=== PATIENT | female | born 1960 | race Caucasian/White ===

== ENCOUNTER → 2016-04-19 | Outpatient (CLI) | payer BC ==
[~2016-04-19] MED LIST: *ANUSOI PR; /ADVA50050 INH; /CELE20CA; /CELE20CA OR; ACET65TA OR; ALBUTEROL HFA INH; ALPR0.5T3 PO; ALPR1TAB3 PO; AMBI10TA PO; ATOR1TAB19 PO; AVALIDE; AVAP300T PO; AVELOX PO; CALTRATE PO; CEFT500T PO; CELE20TA OR; CHLO25TA PO; COUM2.5T11 PO; COZA100T PO; DILA2TAB; DIPH2.5L PO; FLON0.05; HYDR-3716 PO; IRBE300T10 PO; LANS30CA PO; LASI20TA PO; LEVO25TA5 PO; LEVOTAB10 PO; LEXA1TAB2 PO; METF500T4; MIREIUD IU; MUCI600T34 PO; MUCINEX; MULTIVIT PO; NORV5TAB PO; NYST100024 TOP; NYSTPOW4 TOP; OXYC-299 PO; PERC5TAB6 PO; PRED10TA PO; PREV30CA6 PO; PRIL20CA OR; PROV90AE; TESS100C PO; THIA100TA PO; TOPA25TA10 PO; TRAZ10TA PO; VALA1TAB PO; VALT500T PO; VICODINES TAB; VICODINES TAB OR; VITAMIN B 12 PO; VITAMIN D PO; XANA1TAB2; XANA1TAB2 OR; XANA1TAB2 PO; XOPENEX INH; XYZASOL2 PO; ZOLP10TA2 PO; [UNRECOGNIZED DRUG - OTHER] OR; [UNRECOGNIZED DRUG - OTHER] PO
--- NOTE | 2016-04-24 01:32 | ECWPNPC ---
PATIENT NAME: REUBEN GARIBAY : 1960 GENDER: FEMALE VISIT DATE: 04/19/2016 DISCHARGE DATE: 04/19/16 1333 VISIT LOCKED DATE TIME: PHYSICIAN: EDWIN WELDON PHYSICIAN PAGER NO: [phone] RESOURCE: EDWIN WELDON REASON FOR APPOINTMENT 1. LOW BACK PAIN HISTORY OF PRESENT ILLNESS FALL RISK SCREENING: SCREENING :NO FALLS IN THE PAST YEAR 55 YEAR OLD FEMALE PATIENT WITH HISTORY OF CHRONIC LOW BACK PAIN. PATIENT DESCRIBES THE PAIN SHARP, TENDER, THROBBING, AND HAVING IT ALL THE TIME WITH A PAIN SCORE OF 8/10. PATIENT STATED THAT WITHIN THE LAST 6 WEEKS HER PAIN BECAME VERY SEVERE. MRS. GARIBAY STATES THAT SHE HAS PAIN IN THE LOWER BACK THAT RADIATES TO THE LEFT AND RIGHT HIP. CURRENTLY THE PATIENT IS USING NORCO AND SKELAXIN PRESCRIBED BY DR. TIPTON AND STATES THAT IT DOES HELP WITH PAIN MANAGEMENT. PATIENT RECEIVED INJECTION THERAPY ROUGHLY 20 YEARS AGO BUT HAS NOT HAD ANY INTERVENTIONS SINCE THEN. PATIENT HAS TRIED PHYSICAL THERAPY IN THE PAST WHICH DID AID IN PAIN RELIEF AT THAT TIME BUT HAS ONLY BEEN USING MEDICATION MANAGEMENT FOR THE PAST FEW YEARS FOR PAIN RELIEF. PATIENT DENIES UNEXPLAINABLE WEIGHT LOSS, FEVER, CHILLS, NEW CHANGES ON HER URINARY OR BOWEL CONTROL. PAIN SCREENING: PATIENT HAS A COMPLAINT OF ACUTE OR CHRONIC PAIN YES CURRENT MEDICATIONS TAKING VITAMIN B-12 1000 MCG TABLET 1 TAB ORALLY ONCE A DAY TAKING MULTIVITAMINS OTC TABLET 1 TABLET ORALLY TWICE A DAY TAKING VOLTAREN 1 % GEL DIRECTED TRANSDERMAL QID TAKING VITAMIN D 5000 UNIT TABLET 1 TAB ORALLY EVERY DAY TAKING LASIX 20 MG TABLET 1 TABLET BY MOUTH NEEDED TAKING ATORVASTATIN CALCIUM 10 MG TABLET 1 TABLET ORALLY ONCE A DAY TAKING LEVOTHYROXINE SODIUM 25 MCG TABLET 1 TABLET ORALLY ONCE A DAY TAKING FLONASE 50 MCG/ACT SUSPENSION 1 SPRAY IN EACH NOSTRIL NASALLY ONCE A DAY TAKING XYZAL 5 MG TABLET 1 TABLET IN THE EVENING ORALLY ONCE A DAY TAKING NYSTATIN POWDER [id number] UNIT/ML SUSPENSION 1 APPLICATION TO AFFECTED AREA UNDER BREAST AND GROIN TWICE A DAY TAKING TRAZODONE HCL 100 MG TABLET 1 TABLET AT BEDTIME ORALLY ONCE A DAY TAKING AVAPRO 300 MG TABLET 1 TABLET ORALLY ONCE A DAY TAKING DIPHENOXYLATE-ATROPINE 2.5-0.025 MG TABLET 1 TABLET NEEDED ORALLY FOUR TIMES A DAY TAKING XOPENEX 1.25 MG/3ML NEBULIZATION SOLUTION 3 ML INHALATION EVERY 4 HOURS NEEDED TAKING VENTOLIN HFA 90MCG) MCG/ACT AEROSOL SOLUTION 2 PUFFS.200METERED INHALATION. EVERY 4 HRS NEEDED TAKING PEAK FLOW METER .. DEVICE DIRECTED .. ONCE A DAY TAKING ADVAIR DISKUS 500-50 MCG/DOSE AEROSOL POWDER BREATH ACTIVATED 1 PUFF INHALATION TWICE A DAY TAKING CALTRATE 600+D 600-400 MG-UNIT TABLET 1 TABLET ORALLY TWICE A DAY TAKING CLOTRIMAZOLE-BETAMETHASONE 1-0.05 % CREAM 1 APPLICATION TO AFFECTED AREA EXTERNALLY TWICE A DAY NEEDED TAKING DIFLUCAN 150 MG TABLET 1 TABLET ORALLY DAILY NEEDED TAKING PREVACID 30 MG CAPSULE DELAYED RELEASE 1 CAPSULE BEFORE A MEAL ORALLY TWICE A DAY NEEDED TAKING VALTREX 1 GM TABLET 1 TABLET ORALLY TWICE A DAY NEEDED TAKING PATANOL 0.1 % SOLUTION 1 DROP INTO BOTH EYES OPHTHALMIC TWICE A DAY NEEDED TAKING AMOXICILLIN 500 MG CAPSULE 4 CAPSULE ORALLY ONE HOUR PRIOR TO DENTAL PROCEDURE TAKING XANAX 1 MG TABLET 1 TABLET ORALLY QD, MDD 1 TAKING NORCO 7.5-325 MG TABLET 1 TABLET NEEDED ORALLY BID PRN, MDD 2 TAKING SKELAXIN 800 MG TABLET 1 TABLET ORALLY BID PRN TAKING LEXAPRO 20 MG TABLET 1 TABLET ORALLY ONCE A DAY MEDICATION LIST REVIEWED AND RECONCILED WITH THE PATIENT PAST MEDICAL HISTORY ASTHMA, MODERATE PERSISTENT-08/20/2013 FEV1 2.7 L(100%)/RATIO 83%-[facility]//01/28/16 FEV1 2.5L(107), RATIO 93%-[facility]-10/2015 TST-LOW RISK-DUNLAP, 7 MINUTES ON AMADO PROTOCOL CONSISTENT WITH GOOD EXERCISE TOLERANCE HYPERLIPIDEMIA 2B BILATERAL KNEE OSTEOARTHRITIS ALLERGIC RHINITIS GERD LUMBAR DJD-L1-5 DIFFUSE BULGES, L2-4 MINIMAL CCS, GRADE 1 LITHESIS C L5 PARS DEFECT C L L% COMPRESSION IN NF BY 03/2016 MRI ANXIETY DISORDER INSOMNIA OBESITY, MORBID FATTY LIVER DISEASE C SMAL GB POLYP VS STONE BY 01/2016 US HYPERTENSION IRRITABLE BOWEL SYNDROME, DIARRHEA-TYPE BILATERAL PLANTAR FASCIITIS B12 DEFICIENCY VITAMIN D DEFICIENCY BILATERAL CATERACTS SINUSITIS, RECURRENT-03/2012 CT SINUSES WITH MINIMAL MAXILLARY SINUS MUCOSAL THICKENING H63D HETEROZYGOTE C MILDLY ELEVATED FE LEVELS LIGIA, MILD-09/2013 RDI 5 BY NPSG-MOTTA B KNEE TRICOMPARTMENTAL OA BY 11/18/14 XRAY BORDERLINE CONCENTRIC LVH C LVEF 75%, LAE 40 MM, MILD DIASTOLIC DYSFUNCTION, MILD PHTN BY 08/2015 TTE-FABI HYPOTHYROID, 11/2015 TPO AB 35, TG <15 ALLERGIES STATINS: MYALGIAS: SIDE EFFECTS NORVASC: EDEMA: SIDE EFFECTS DOXYCYCLINE HYCLATE: NAUSEA/ABDOMINAL: SIDE EFFECTS FLUOXETINE: ANXIETY: SIDE EFFECTS SURGICAL HISTORY LEFT KNEE ARTHROSCOPIC-DR. ROQUE APRIL 2007 RIGHT KNEE ARTHROSCOPIC-DR. ROQUE MARCH 2007 RIGHT CATARACT SURGERY-DR. FARLEY NOVEMBER 2009 EGD/COLONOSCOPY -IRREGULAR Z LINE AND NOW BIOPSIED AND INTERNAL HEMORRHOIDS JANUARY 2010 EGD/COLONOSCOPY-DIVERTICULOSIS, GASTRITIS-DR. NIELSEN AUGUST 2003 SINUS SURGERY AGE OF 26 TARSAL TUNNEL SYNDROME RELEASE LEFT FOOT () [place] 2002 TUBES IN EARS X'S 3 ( ) GASTRIC BYPASS L TKR-JENIFFER HARI 02/03/15 FAMILY HISTORY FATHER: 49 YRS, CHRONIC CIRRHOSIS MOTHER: 55 YRS, DIAGNOSED WITH DIABETES, HYPERTENSION, HEART DISEASE DAUGHTER(S): ALIVE 3 BROTHER(S) , 3 SISTER(S) . 2DAUGHTER(S) - HEALTHY. 1 BROTHER AGE 31 CEREBRAL ANEURYSM. SOCIAL HISTORY GENERAL: RECREATIONAL DRUG USE: NEVER . NO CAFFEINE NONE. OCCUPATION: UNEMPLOYED. EXERCISE: NO REGULAR EXERCISE. MARITAL STATUS: SINGLE. NO OTHERS AT HOME. PETS: NONE. ISLAM: YES, SHINTO. EDUCATION: NOT GRADUATED. IMMUNIZATION PROGRAM ELIGIBILITY STATUS UNCHANGED:__ PARENT LAST NAME:__ FIRST NAME, MIDDLE INITIAL:__ MOTHER'S MAIDEN NAME:__ MEDICAID/MEDICAID MANAGED CARE PLAN:__ NOT INSURED:__ /[place]:__ UNDERINSURED:__ CHILD HEALTH PLUS B__ INSURANCE:__ INFLUENZA VACCINE:__ FEMALE 6 MONTH RISK ASSESSMENT FOR STD DESCRIBE YOUR SEXUAL PARTNERS:MALE MONOGAMOUS?YES EVER INJECT DRUGS?NO IS THERE ANYTHING ELSE WE SHOULD TALK ABOUT CONCERNING YOUR SEXUAL HISTORY OR PRACTICE?YES ADVANCED DIRECTIVES HEALTH CARE PROXY?YES NAME OF HCP RENAE GARIBAY IF YES, DO YOU HAVE A COPY WITH YOU? COPY IN SYSTEM POWER OF AUDITING SPECIALIST?NO NO RETIRED. OCCUP EXPOSURE: NONE. NO TRAVEL OUTSIDE US. HOUSING: HOUSE. NO USP. NO . NO . NO . NO COHABITATING. NO DOMESTIC VIOLENCE. NO ACADEMIC PROBLEMS. HOSPITALIZATION/MAJOR DIAGNOSTIC PROCEDURE ASTHMA EXACERBATION-NEGATIVE CXR, INFLUENZA A/B, SCX, BCX 07/14-07/20/2011 ASTHMA EXACERBATION 2 INFLUENZA A-NEGATIVE CXR, -BCX X 2, -SCX, PRESENTING ABG C PH 7.6, CO2 17, O2 145 04/20- ACUTE DELIRIUM 2 HYPONA 127, URINE OSM 480 C/W SIADH (BUT THIS WAS ON NS)-CXR NAD, CT AP NAD, ACUTE HEPTATIS AST/ALT 228/148 TO NORMAL BY D/C, UCX CONTAMINIATED, BCX -X1, -SERIAL CIP/T-I, NH3 26, PT/PTT 04/08 01/15- REVIEW OF SYSTEMS CONSTITUTIONAL: ANY CHANGE IN YOUR MEDICAL CONDITION? NO . CHILLS NO . FEVER NO . INFECTION: DO YOU HAVE NEW INFECTIONS? NO . DO YOU HAVE HISTORY OF MRSA? NO . MUSCULOSKELETAL: ANY NEW PATTERNS OF PAIN OR NUMBNESS? YES NUMBNESS DOWN SIDE OF RIGHT THIGH . SYTEMIC LUPUS NO . GASTROENTEROLOGY: ANY NEW CHANGE IN BOWEL CONTROL? NO . BARRETTS ESOPHAGUS NO . CIRRHOSIS NO . HEPATITIS NO . LIVER FAILURE NO . ACID REFLUX YES . UNEXPLAINED WEIGHT LOSS NO . GENITOURINARY: ANY NEW CHANGE IN BLADDER CONTROL? NO . IS THERE A CHANCE YOU COULD BE ? NO . HEMATOLOGY/LYMPH: DO YOU TAKE ANY BLOOD THINNERS? (FOR EXAMPLE- COUMADIN, PLAVIX, AGGRENOX, PLATEL, PRADAXA, OR XARELTO) NO . WHEN WAS YOUR LAST DOSE? DATE: TIME: . LOW PLATELET COUNT NO . SICKLE CELL DISEASE NO . VON WILLIEBRANDS NO . FACTOR V LEIDEN NO . THALLASEMIA NO . ANEMIA NO . EASY BRUISING NO . NEUROLOGY: HAVE YOU FALLEN IN THE PAST 6 MONTHS? YES LAST WEEK AT WORK ON [employer] FLOOR. NOT SEEN FOR THIS . ANY NEW EXTREMITY NUMBNESS OR WEAKNESS? NO . HEAD INJURY NO . DEMENTIA NO . CEREBRAL PALSY NO . MULTIPLE SCLEROSIS NO . DIZZINESS NO . HEADACHE NO . STROKES NO . VERTIGO NO . CARDIOLOGY: DO YOU HAVE A PACEMAKER OR DEFIBRILLATOR? NO . ANGINA NO . HEART ATTACK NO . HEART SURGERY NO . CONGESTIVE HEART FAILURE/FLUID OVERLOAD NO . CHEST PAIN NO . HIGH BLOOD PRESSURE NO . IRREGULAR HEART BEAT NO . RESPIRATORY: HAVE YOU BEEN SICK IN THE PAST WEEK? NO . FEVER NO . FLU LIKE SYMPTOMS? NO . CPAP NO . BYPAP NO . ASTHMA YES . EMPHYSEMA NO . CHRONIC LUNG DISEASES NO . SHORTNESS OF BREATH ON EXERTION YES DUE TO ASTHMA . COUGH NO . SNORING YES . INTEGUMENTARY: DO YOU HAVE ANY RASHES OR OPEN SORES? NO . ALLERGIC/IMMUNO: ARE YOU ALLERGIC TO SHELLFISH OR IV DYE? NO . ANY NEW ALLERGIES? NO . PSYCHIATRIC: DO YOU HAVE THOUGHTS OF HURTING YOURSELF OR SOMEONE ELSE? NO . ARE YOU ABUSED, NEGLECTED, OR IN AN UNSAFE ENVIRONMENT? NO . ENDOCRINOLOGY: ARE YOU DIABETIC? NO . THYROID DISORDER HYPOTHYROID . OTHER: DO YOU NEED ANY PRESCRIPTIONS? NO . IF YES, PLEASE LIST: ____ . ANY NEW PROBLEMS WITH YOUR MEDICATIONS? NO . WHEN DID YOU LAST EAT? ____ . WHEN DID YOU LAST DRINK? ____ . WHAT DID YOU LAST DRINK? ____ . NAME OF PERSON DRIVING YOU HOME? ____ . DO YOU HAVE ANY OTHER QUESTIONS OR CONCERNS NO . REVIEWED BY: PROVIDER: EDWIN WELDON MD . VITAL SIGNS WT 238 LBS, HT 64 IN, BMI 40.85 INDEX, BP 153/76 MM HG, HR 86 /MIN, RR 18 /MIN, TEMP 99.5 F, OXYGEN SAT % 96%, NA INITIALS SC 11:24, REVIEWED BY: AD. EXAMINATION : PATIENT IS ALERT O X 3 AND COOPERATIVE. TENDERNESS IN THE LOWER BACK AND PARASPINAL MUSCLE GROUP. TENDERNESS IN THE SACROILIAC JOINT AREA. PATIENT HAS DIFFICUTLIES GOING FROM SITTING TO STANDING. PATIENT ABLE TO FLEX BACK 40 DEGREES WITH DISCOMFORT AND 15 DEGREES FLEXION WITH DISCOMFORT. MRI DONE ON 03/23/16 SHOWS DISC BULGE AT L1-L2, L4-L5, AND L5-S1, PARS DEFECTS AT L5, AND HYPERTROPHY. ASSESSMENTS SACROILIITIS, NOT ELSEWHERE CLASSIFIED - M46.1 (PRIMARY) SPONDYLOSIS WITHOUT MYELOPATHY OR RADICULOPATHY, LUMBAR REGION - M47.816 SPONDYLOSIS WITHOUT MYELOPATHY OR RADICULOPATHY, LUMBOSACRAL REGION - M47.817 INTERVERTEBRAL DISC DISORDERS WITH RADICULOPATHY, LUMBAR REGION - M51.16 INTERVERTEBRAL DISC DISORDERS WITH RADICULOPATHY, LUMBOSACRAL REGION - M51.17 TREATMENT SACROILIITIS, NOT ELSEWHERE CLASSIFIED NOTES: WE DISCUSSED SEVERAL ISSUES WITH MRS. GARIBAY'S PAIN MANAGEMENT CASE. AT THIS TIME THE PATIENT WILL CONTINUE WITH THE SAME MEDICATION REGIME BEFORE. I WOULD LIKE TO SPEAK WITH THE PATIENT'S PRIMARY CARE DOCTOR ABOUT STARTING THE PATIENT ON CYMBALTA. AFTER VIEWING THE PATIENT'S MRI AND VIEWING WHERE THE PAIN IS LOCATED I BELIEVE THE PATIENT WOULD BENEFIT FROM A SACROILIAC JOINT INJECTION OR A LUMBAR THERAPEUTIC FACET BLOCK. WE DISCUSSED THE RISKS, BENEFITS, AND ALTERNATIVES TO THE INJECTION AND THE PATIENT WOULD LIKE TO PROCEED. INSTRUCTIONS WERE GIVEN, QUESTIONS WERE ANSWERED, PATIENT REPORTS UNDERSTANDING AND AGREES WITH THE PLAN. I, NADER BYNUM, DOCUMENTED THE ABOVE INFORMATION ACTING A SCRIBE FOR DR. WELDON. I HAVE REVIEWED THE ABOVE DOCUMENT, WRITTEN BY NADER BYNUM SCRIBE AND I VERIFY THAT IT IS ACCURATE. OTHERS NOTES: FACET JOINT INJECTION MATERIAL WAS PRINTED,FACET JOINT INJECTION: YOUR EXPERIENCE MATERIAL WAS PRINTED. PROCEDURE CODES FA211 ESTABILISHED PATIENT [facility] FACILITY CHARGE G8427 DOC MEDS VERIFIED W/PT OR RE G8730 PAIN ASSESS POS TOOL F/U PLAN DOC FOLLOW UP 3 WEEKS ELECTRONICALLY SIGNED BY EDWIN WELDON MD ON 04/23/2016 AT 05:05 PM EST DISCLAIMER : THIS IS A VISIT SUMMARY EXTRACTED FROM THE [employer] CHART. IT IS NOT A COPY OF THE [employer] PROGRESS NOTE. VICKEY
== END ==
LOC: M PAIN 11:20
PROVIDERS: ATTEND Anesthesiology
DX: G89.29 Other chronic pain (principal); M46.1 Sacroiliitis, not elsewhere classified; M47.816 Spondylosis without myelopathy or radiculopathy, lumbar region; M47.817 Spondylosis without myelopathy or radiculopathy, lumbosacral region; M51.16 Intervertebral disc disorders with radiculopathy, lumbar region; M51.17 Intervertebral disc disorders with radiculopathy, lumbosacral region; M51.26 Other intervertebral disc displacement, lumbar region; J45.909 Unspecified asthma, uncomplicated; E78.5 Hyperlipidemia, unspecified; M17.0 Bilateral primary osteoarthritis of knee; K21.9 Gastro-esophageal reflux disease without esophagitis; F41.9 Anxiety disorder, unspecified; G47.00 Insomnia, unspecified; E66.9 Obesity, unspecified; Z68.41 Body mass index [BMI] 40.0-44.9, adult; K76.0 Fatty (change of) liver, not elsewhere classified; I10 Essential (primary) hypertension; K58.0 Irritable bowel syndrome with diarrhea; D51.9 Vitamin B12 deficiency anemia, unspecified; E55.9 Vitamin D deficiency, unspecified; G47.33 Obstructive sleep apnea (adult) (pediatric); E03.9 Hypothyroidism, unspecified; Z88.8 Allergy status to other drugs, medicaments and biological substances; Z79.2 Long term (current) use of antibiotics; Z79.891 Long term (current) use of opiate analgesic; Z79.899 Other long term (current) drug therapy

== ENCOUNTER → 2016-04-30 | Outpatient (CLI) | payer BC ==
[~2016-04-30] MED LIST changes: +BUPIVACAINE HCL 0.25% 30 ML VIAL As Ordered ONE; +ISOVUE-M 300 61% 15ML VIAL (Q9967) As Ordered ONE; +LIDOCAINE 1% SDV INJ 30 ML VIAL As Ordered ONE; +TRIAMCINOLONE ACETONIDE SUSP 40 MG/ML VIAL (J3301) As Ordered ONE; +diazePAM 5 MG TAB As Ordered ONE; +oxyCODONE 5MG TAB As Ordered ONE
--- NOTE | 2016-04-30 12:28 | REP ---
Partial SI joint series: Seven views. History: Bilateral SI joint injection for pain. 16 seconds of fluoroscopy time is reported. Findings: A sequence of seven fluoroscopically obtained intraprocedural spot radiographs of the SI joints bilaterally document needle position and contrast injection associated with SI joint injection. Signed by Kyler Pleitez MD 04/30/2016 02:40 P
--- NOTE | 2016-05-05 23:45 | ECWPNPC ---
PATIENT NAME: REUBEN GARIBAY : 1960 GENDER: FEMALE VISIT DATE: 04/30/2016 DISCHARGE DATE: 04/30/16 1137 VISIT LOCKED DATE TIME: PHYSICIAN: EDWIN WELDON PHYSICIAN PAGER NO: [phone] RESOURCE: EDWIN WELDON REASON FOR APPOINTMENT 1. SIJ VS LFBT HISTORY OF PRESENT ILLNESS HISTORY OF PRESENT ILLNESS: PAIN THE PATIENT DESCRIBES THE PAIN... FALL RISK SCREENING: SCREENING :NO FALLS IN THE PAST YEAR CURRENT MEDICATIONS TAKING VITAMIN B-12 1000 MCG TABLET 1 TAB ORALLY ONCE A DAY, NOTES: 04/29 8AM TAKING MULTIVITAMINS OTC TABLET 1 TABLET ORALLY TWICE A DAY, NOTES: 04/29 8AM TAKING VOLTAREN 1 % GEL DIRECTED TRANSDERMAL QID, NOTES: WEEKS AGO TAKING VITAMIN D 5000 UNIT TABLET 1 TAB ORALLY EVERY DAY, NOTES: 04/29 8AM TAKING LASIX 20 MG TABLET 1 TABLET BY MOUTH NEEDED, NOTES: MONTHS AGO TAKING LEVOTHYROXINE SODIUM 25 MCG TABLET 1 TABLET ORALLY ONCE A DAY, NOTES: 04/30 8AM TAKING FLONASE 50 MCG/ACT SUSPENSION 1 SPRAY IN EACH NOSTRIL NASALLY ONCE A DAY, NOTES: 1 WEEK AGO TAKING XYZAL 5 MG TABLET 1 TABLET IN THE EVENING ORALLY ONCE A DAY, NOTES: 04/29 8AM TAKING NYSTATIN POWDER 102143 UNIT/ML SUSPENSION 1 APPLICATION TO AFFECTED AREA UNDER BREAST AND GROIN TWICE A DAY, NOTES: 04/29 8AM TAKING TRAZODONE HCL 100 MG TABLET 1 TABLET AT BEDTIME ORALLY ONCE A DAY, NOTES: 04/29 10PM TAKING AVAPRO 300 MG TABLET 1 TABLET ORALLY ONCE A DAY, NOTES: 04/30 8AM TAKING DIPHENOXYLATE-ATROPINE 2.5-0.025 MG TABLET 1 TABLET NEEDED ORALLY FOUR TIMES A DAY, NOTES: MONTHS AGO TAKING XOPENEX 1.25 MG/3ML NEBULIZATION SOLUTION 3 ML INHALATION EVERY 4 HOURS NEEDED, NOTES: MONTHS AGO TAKING VENTOLIN HFA 90MCG) MCG/ACT AEROSOL SOLUTION 2 PUFFS.200METERED INHALATION. EVERY 4 HRS NEEDED, NOTES: MONTHS AGO TAKING PEAK FLOW METER .. DEVICE DIRECTED .. ONCE A DAY TAKING ADVAIR DISKUS 500-50 MCG/DOSE AEROSOL POWDER BREATH ACTIVATED 1 PUFF INHALATION TWICE A DAY, NOTES: 04/29 8AM TAKING CLOTRIMAZOLE-BETAMETHASONE 1-0.05 % CREAM 1 APPLICATION TO AFFECTED AREA EXTERNALLY TWICE A DAY NEEDED, NOTES: MONTHS AGO TAKING DIFLUCAN 150 MG TABLET 1 TABLET ORALLY DAILY NEEDED, NOTES: MONTHS AGO TAKING PREVACID 30 MG CAPSULE DELAYED RELEASE 1 CAPSULE BEFORE A MEAL ORALLY TWICE A DAY NEEDED, NOTES: MONTHS AGO TAKING VALTREX 1 GM TABLET 1 TABLET ORALLY TWICE A DAY NEEDED, NOTES: MONTHS AGO TAKING PATANOL 0.1 % SOLUTION 1 DROP INTO BOTH EYES OPHTHALMIC TWICE A DAY NEEDED, NOTES: 04/29 8AM TAKING AMOXICILLIN 500 MG CAPSULE 4 CAPSULE ORALLY ONE HOUR PRIOR TO DENTAL PROCEDURE, NOTES: 2 MONTHS TAKING XANAX 1 MG TABLET 1 TABLET ORALLY QD, MDD 1, NOTES: 4 DAYS AGO TAKING NORCO 7.5-325 MG TABLET 1 TABLET NEEDED ORALLY BID PRN, MDD 2, NOTES: 04/29 1PM TAKING SKELAXIN 800 MG TABLET 1 TABLET ORALLY BID PRN, NOTES: 04/29 8AM TAKING LEXAPRO 20 MG TABLET 1 TABLET ORALLY ONCE A DAY, NOTES: 04/30 8AM NOT-TAKING ATORVASTATIN CALCIUM 10 MG TABLET 1 TABLET ORALLY ONCE A DAY NOT-TAKING CALTRATE 600+D 600-400 MG-UNIT TABLET 1 TABLET ORALLY TWICE A DAY MEDICATION LIST REVIEWED AND RECONCILED WITH THE PATIENT PAST MEDICAL HISTORY ASTHMA, MODERATE PERSISTENT-08/20/2013 FEV1 2.7 L(100%)/RATIO 83%-[facility]//01/28/16 FEV1 2.5L(107), RATIO 93%-[facility]-10/2015 TST-LOW RISK-DUNLAP, 7 MINUTES ON AMADO PROTOCOL CONSISTENT WITH GOOD EXERCISE TOLERANCE HYPERLIPIDEMIA 2B BILATERAL KNEE OSTEOARTHRITIS ALLERGIC RHINITIS GERD LUMBAR DJD-L1-5 DIFFUSE BULGES, L2-4 MINIMAL CCS, GRADE 1 LITHESIS C L5 PARS DEFECT C L L% COMPRESSION IN NF BY 03/2016 MRI ANXIETY DISORDER INSOMNIA OBESITY, MORBID FATTY LIVER DISEASE C SMAL GB POLYP VS STONE BY 01/2016 US HYPERTENSION IRRITABLE BOWEL SYNDROME, DIARRHEA-TYPE BILATERAL PLANTAR FASCIITIS B12 DEFICIENCY VITAMIN D DEFICIENCY BILATERAL CATERACTS SINUSITIS, RECURRENT-03/2012 CT SINUSES WITH MINIMAL MAXILLARY SINUS MUCOSAL THICKENING H63D HETEROZYGOTE C MILDLY ELEVATED FE LEVELS LIGIA, MILD-09/2013 RDI 5 BY NPSG-MOTTA B KNEE TRICOMPARTMENTAL OA BY 11/18/14 XRAY BORDERLINE CONCENTRIC LVH C LVEF 75%, LAE 40 MM, MILD DIASTOLIC DYSFUNCTION, MILD PHTN BY 08/2015 TTE-DUNLAP HYPOTHYROID, 11/2015 TPO AB 35, TG <15 ALLERGIES STATINS: MYALGIAS: SIDE EFFECTS NORVASC: EDEMA: SIDE EFFECTS DOXYCYCLINE HYCLATE: NAUSEA/ABDOMINAL: SIDE EFFECTS FLUOXETINE: ANXIETY: SIDE EFFECTS SOCIAL HISTORY GENERAL: TOBACCO USE ARE YOU A:NONSMOKER LEARNING BARRIERS / SPECIAL NEEDS ORIENTED TO PLAN OF CARE: PATIENT, PAIN MANAGEMENT PATIENT, ORIENTED TO PLAN OF CARE: PATIENT, PAIN MANAGEMENT PATIENT. NEW PATIENT PAIN DIARY TODAY'S VISITNOTES FROM 0-10, WHAT LEVEL IS YOUR PAIN TODAY?0 PAIN CLINIC PFS, CLERGY, PUBLIC HEALTH REFERRALS PFS REFERRAL NEEDED?NO CLERGY REFERRAL NEEDED?NO PUBLIC HEALTH REFERRAL NEEDED?NO WAS THE PROVIDER NOTIFIED OF ANY PERTINENT INFO?NO PFS REFERRAL NEEDED?NO CLERGY REFERRAL NEEDED?NO PUBLIC HEALTH REFERRAL NEEDED?NO WAS THE PROVIDER NOTIFIED OF ANY PERTINENT INFO?NO REVIEW OF SYSTEMS CONSTITUTIONAL: ANY CHANGE IN YOUR MEDICAL CONDITION? NO . CHILLS NO . FEVER NO . INFECTION: DO YOU HAVE NEW INFECTIONS? NO . DO YOU HAVE HISTORY OF MRSA? NO . MUSCULOSKELETAL: ANY NEW PATTERNS OF PAIN OR NUMBNESS? NO . GASTROENTEROLOGY: ANY NEW CHANGE IN BOWEL CONTROL? NO . GENITOURINARY: ANY NEW CHANGE IN BLADDER CONTROL? NO . IS THERE A CHANCE YOU COULD BE ? NO . HEMATOLOGY/LYMPH: DO YOU TAKE ANY BLOOD THINNERS? (FOR EXAMPLE- COUMADIN, PLAVIX, AGGRENOX, PLATEL, PRADAXA, OR XARELTO) NO . WHEN WAS YOUR LAST DOSE? DATE: TIME: . NEUROLOGY: HAVE YOU FALLEN IN THE PAST 6 MONTHS? NO . ANY NEW EXTREMITY NUMBNESS OR WEAKNESS? NO . CARDIOLOGY: DO YOU HAVE A PACEMAKER OR DEFIBRILLATOR? NO . RESPIRATORY: HAVE YOU BEEN SICK IN THE PAST WEEK? NO . FEVER NO . FLU LIKE SYMPTOMS? NO . COUGH NO . INTEGUMENTARY: DO YOU HAVE ANY RASHES OR OPEN SORES? NO . ALLERGIC/IMMUNO: ARE YOU ALLERGIC TO SHELLFISH OR IV DYE? NO . ANY NEW ALLERGIES? NO . PSYCHIATRIC: DO YOU HAVE THOUGHTS OF HURTING YOURSELF OR SOMEONE ELSE? NO . ARE YOU ABUSED, NEGLECTED, OR IN AN UNSAFE ENVIRONMENT? NO . ENDOCRINOLOGY: ARE YOU DIABETIC? NO . OTHER: DO YOU NEED ANY PRESCRIPTIONS? NO . IF YES, PLEASE LIST: ____ . ANY NEW PROBLEMS WITH YOUR MEDICATIONS? NO . WHEN DID YOU LAST EAT? 04/29 10PM . WHEN DID YOU LAST DRINK? 04/29 10PM . WHAT DID YOU LAST DRINK? MILK . NAME OF PERSON DRIVING YOU HOME? CHRISTIANO BECKER . DO YOU HAVE ANY OTHER QUESTIONS OR CONCERNS PT STATES THAT SHE HAD HER FLU SHOT 2 MONTHS AGO . REVIEWED BY: PROVIDER: . VITAL SIGNS WT 238 LBS, HT 64 IN, BMI 40.85 INDEX, BP 134/73 MM HG, HR 80 /MIN, RR 16 /MIN, TEMP 98.1 F, OXYGEN SAT % 96, SAFE IN ENV? (Y/N) Y, NA INITIALS TL 0958, REVIEWED BY: DS. 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 EDWIN WELDON PROBATION SUPERVISOR NONE ANESTHESIA LOCAL PRE PROCEDURE NOTE PATIENT WITH HISTORY OF CHRONIC LOW BACK PAIN. I EVALUATED THE PATIENT AND REVIEWED THE CHART. I WENT OVER THE RISKS, ALTERNATIVES, AND BENEFITS ASSOCIATED WITH THIS PROCEDURE. THE PATIENT WOULD LIKE TO PROCEED AND GAVE CONSENT TO PERFORM THE PROCEDURE. THE PATIENT DENIES UNEXPLAINABLE WEIGHT LOSS, FEVER, CHILLS, OR NEW CHANGES IN URINARY OR BOWEL CONTROL DESCRIPTION OF PROCEDURE THE PATIENT WAS BROUGHT TO THE PROCEDURE ROOM AND PLACED IN THE PRONE POSITION. THE LUMBOSACRAL AREA WAS CLEANED WITH CHLORAPREP SOLUTION AND DRAPED ASEPTICALLY. THE PROCEDURE WAS DONE UNDER STERILE CONDITIONS. I CHECKED LATERALITY AND THE LEVEL WHERE THE PROCEDURE WAS GOING TO BE PERFORMED WITH THE PATIENT AND THE SUPPORTING STAFF AT THE MOMENT OF THE TIME OUT IN THE PROCEDURE ROOM. UNDER FLUOROSCOPIC GUIDANCE, TARGET POINT WAS SELECTED AT THE LOWER BORDER OF THE RIGHT AND LEFT SACROILIAC JOINT. TARGET POINT WAS SELECTED AFTER MEDIAL ROTATION AND TILT OF THE MAGNIFIER OF THE C-ARM. LIDOCAINE WAS USED TO NUMB THE SKIN AND SUBCUTANEOUS TISSUE BELOW IT. A SPINAL NEEDLE, 22-GAUGE, WAS ADVANCED UNDER FLUOROSCOPIC GUIDANCE AND FOLLOWING PATIENT FEEDBACK UNTIL THE TARGET AREA WAS TOUCHED. THE POSITION OF THE NEEDLE WAS VERIFIED WITH AP AND LATERAL VIEWS. AFTER PROPER POSITION OF THE NEEDLE WAS ACHIEVED, ISOVUE M DYE 30%, 0.25 ML, WAS INJECTED SHOWING SPREAD OF THE DYE. THEN, A SOLUTION OF 20 MG OF KENALOG WAS INJECTED IN RIGHT JOINT WITH 3 ML OF BUPIVACAINE 0.125%. THERE WAS NO EVIDENCE OF BLOOD, PARESTHESIA OR CEREBROSPINAL FLUID DURING THE PROCEDURE. THE PATIENT WAS SENT TO THE RECOVERY ROOM. THE PATIENT WAS MOVING THE EXTREMITIES AND DOING WELL. THERE WAS NO COMPLICATION DURING THE PROCEDURE. FLUOROSCOPY TIME WAS 16 SECONDS POST PROCEDURE NOTE THE PATIENT WILL BE SEEN IN A FOLLOW UP IN THE NEXT FEW WEEKS. INSTRUCTIONS WERE GIVEN, QUESTIONS WERE ANSWERED, AND THE PATIENT EXPRESSED UNDERSTANDING AND AGREED WITH THE PLAN. I, NADER BYNUM, DOCUMENTED THE ABOVE INFORMATION ACTING A SCRIBE FOR DR. WELDON. I, DR. WELDON, HAVE REVIEWED THE ABOVE DOCUMENT, SCRIBED BY NADER BYNUM, AND I VERIFY THAT IT IS ACCURATE DIAGNOSTIC IMAGING [facility] FLUORO GUIDANCE (PAIN)[id number] PROCEDURE CODES 37910 INJECT SACROILIAC JOINT 6045F RADXPS IN END [id number] PXD FOLLOW UP 3 WEEKS ELECTRONICALLY SIGNED BY EDWIN WELDON MD ON 05/05/2016 AT 10:08 PM EST DISCLAIMER : THIS IS A VISIT SUMMARY EXTRACTED FROM THE [employer] CHART. IT IS NOT A COPY OF THE [employer] PROGRESS NOTE. MTDD
== END ==
LOC: M PAIN 10:10
PROVIDERS: ATTEND Anesthesiology
DX: G89.29 Other chronic pain (principal); M46.1 Sacroiliitis, not elsewhere classified; J45.909 Unspecified asthma, uncomplicated; E78.5 Hyperlipidemia, unspecified; M17.0 Bilateral primary osteoarthritis of knee; M51.26 Other intervertebral disc displacement, lumbar region; F41.9 Anxiety disorder, unspecified; K21.9 Gastro-esophageal reflux disease without esophagitis; K58.0 Irritable bowel syndrome with diarrhea; I10 Essential (primary) hypertension; G47.00 Insomnia, unspecified; E66.9 Obesity, unspecified; Z68.41 Body mass index [BMI] 40.0-44.9, adult; K76.0 Fatty (change of) liver, not elsewhere classified; E03.9 Hypothyroidism, unspecified; D51.9 Vitamin B12 deficiency anemia, unspecified; E55.9 Vitamin D deficiency, unspecified; Z88.6 Allergy status to analgesic agent; Z88.8 Allergy status to other drugs, medicaments and biological substances; Z79.2 Long term (current) use of antibiotics; Z79.891 Long term (current) use of opiate analgesic; Z79.899 Other long term (current) drug therapy; Z98.41 Cataract extraction status, right eye; Z98.42 Cataract extraction status, left eye
CPT/HCPCS: G0260; J3301; Q9967

== ENCOUNTER → 2016-05-18 | Outpatient (CLI) | payer BC ==
[~2016-05-18] MED LIST changes: -BUPIVACAINE HCL 0.25% 30 ML VIAL As Ordered ONE; -ISOVUE-M 300 61% 15ML VIAL (Q9967) As Ordered ONE; -LIDOCAINE 1% SDV INJ 30 ML VIAL As Ordered ONE; -TRIAMCINOLONE ACETONIDE SUSP 40 MG/ML VIAL (J3301) As Ordered ONE; -diazePAM 5 MG TAB As Ordered ONE; -oxyCODONE 5MG TAB As Ordered ONE
== END ==
LOC: M PAIN 10:20
PROVIDERS: ATTEND Anesthesiology
DX: Z53.8 Procedure and treatment not carried out for other reasons (principal)

== ENCOUNTER → 2016-06-15 | Outpatient (CLI) | payer BC ==
--- NOTE | 2016-06-26 23:41 | ECWPNPC ---
PATIENT NAME: REUBEN GARIBAY : 1960 GENDER: FEMALE VISIT DATE: 06/15/2016 DISCHARGE DATE: 06/15/16 1137 VISIT LOCKED DATE TIME: PHYSICIAN: EDWIN WELDON PHYSICIAN PAGER NO: [phone] RESOURCE: EDWIN WELDON REASON FOR APPOINTMENT 1. POST PROC HISTORY OF PRESENT ILLNESS HISTORY OF PRESENT ILLNESS: PAIN THE PATIENT DESCRIBES THE PAIN... 56 YEAR OLD FEMALE PATIENT WITH HISTORY OF CHRONIC BACK PAIN. PATIENT DESCRIBES THE PAIN BURNING, SHARP, STABBING, AND SORE WITH A PAIN SCORE OF 6/10 ON TODAY'S VISIT. PATIENT RECEIVED A SIJ ON 04-30-2016 AND STATES THAT SHE FELT ALMOST A 100 PERCENT PAIN RELIEF FOR 1 MONTH. AND SINCE THE END OF MAY SHE STATES THAT HER PAIN IS STARTING TO COME BACK SLOWLY. PATIENT STATES THAT SHE CAN NOT TAKE IBUPROFEN IT UPSETS HER STOMACH. PATIENT STATES THAT SHE HAD GASTRIC BYPASS IN THE PASS., PATIENT DENIES UNEXPLAINABLE WEIGHT LOSS, FEVER, CHILLS, NEW CHANGES ON HER URINARY OR BOWEL CONTROL. FALL RISK SCREENING: SCREENING :NO FALLS IN THE PAST YEAR CURRENT MEDICATIONS TAKING VITAMIN B-12 1000 MCG TABLET 1 TAB ORALLY ONCE A DAY, NOTES: 04/29 8AM TAKING MULTIVITAMINS OTC TABLET 1 TABLET ORALLY TWICE A DAY, NOTES: 04/29 8AM TAKING VITAMIN D 5000 UNIT TABLET 1 TAB ORALLY EVERY DAY, NOTES: 04/29 8AM TAKING LASIX 20 MG TABLET 1 TABLET BY MOUTH NEEDED, NOTES: MONTHS AGO TAKING LEVOTHYROXINE SODIUM 25 MCG TABLET 1 TABLET ORALLY ONCE A DAY, NOTES: 04/30 8AM TAKING FLONASE 50 MCG/ACT SUSPENSION 1 SPRAY IN EACH NOSTRIL NASALLY ONCE A DAY NEEDED, NOTES: 1 WEEK AGO TAKING XYZAL 5 MG TABLET 1 TABLET IN THE EVENING ORALLY ONCE A DAY, NOTES: 04/29 8AM TAKING NYSTATIN POWDER [id number] UNIT/ML SUSPENSION 1 APPLICATION TO AFFECTED AREA UNDER BREAST AND GROIN TWICE A DAY, NOTES: 04/29 8AM TAKING TRAZODONE HCL 100 MG TABLET 1 TABLET AT BEDTIME ORALLY ONCE A DAY, NOTES: 04/29 10PM TAKING AVAPRO 300 MG TABLET 1 TABLET ORALLY ONCE A DAY, NOTES: 04/30 8AM TAKING DIPHENOXYLATE-ATROPINE 2.5-0.025 MG TABLET 1 TABLET NEEDED ORALLY FOUR TIMES A DAY, NOTES: MONTHS AGO TAKING VENTOLIN HFA 90MCG) MCG/ACT AEROSOL SOLUTION 2 PUFFS.200METERED INHALATION. EVERY 4 HRS NEEDED, NOTES: MONTHS AGO TAKING PEAK FLOW METER .. DEVICE DIRECTED .. ONCE A DAY TAKING ADVAIR DISKUS 500-50 MCG/DOSE AEROSOL POWDER BREATH ACTIVATED 1 PUFF INHALATION TWICE A DAY, NOTES: 04/29 8AM TAKING CLOTRIMAZOLE-BETAMETHASONE 1-0.05 % CREAM 1 APPLICATION TO AFFECTED AREA EXTERNALLY TWICE A DAY NEEDED, NOTES: MONTHS AGO TAKING DIFLUCAN 150 MG TABLET 1 TABLET ORALLY DAILY NEEDED, NOTES: MONTHS AGO TAKING PREVACID 30 MG CAPSULE DELAYED RELEASE 1 CAPSULE BEFORE A MEAL ORALLY TWICE A DAY NEEDED, NOTES: MONTHS AGO TAKING VALTREX 1 GM TABLET 1 TABLET ORALLY TWICE A DAY NEEDED, NOTES: MONTHS AGO TAKING PATANOL 0.1 % SOLUTION 1 DROP INTO BOTH EYES OPHTHALMIC TWICE A DAY NEEDED, NOTES: 04/29 8AM TAKING LEXAPRO 20 MG TABLET 1 TABLET ORALLY ONCE A DAY, NOTES: 04/30 8AM TAKING TESSALON PERLES 100 MG CAPSULE 1 CAPSULE NEEDED ORALLY Q8HRS PRN COUGH TAKING PREDNISONE 10 MG (48) TABLET THERAPY PACK DIRECTED ORALLY DAILY TAKING XOPENEX 1.25 MG/3ML NEBULIZATION SOLUTION 3 ML INHALATION EVERY 4 HOURS NEEDED TAKING ACAPELLA - MISCELLANEOUS DIRECTED DX:J45.40 TWICE A DAY NEEDED TAKING NORCO 7.5-325 MG TABLET 1 TABLET NEEDED ORALLY BID PRN, MDD 2, NOTES: 04/29 1PM TAKING XANAX 1 MG TABLET 1 TABLET ORALLY DAILY NEEDED, NOTES: 4 DAYS AGO TAKING AMOXICILLIN 500 MG CAPSULE 4 CAPSULE ORALLY ONE HOUR PRIOR TO DENTAL PROCEDURE, NOTES: 2 MONTHS TAKING ATORVASTATIN CALCIUM 10 MG TABLET 1 TABLET ORALLY ONCE A DAY TAKING CALTRATE 600+D 600-400 MG-UNIT TABLET 1 TABLET ORALLY TWICE A DAY TAKING ROBAXIN 500 MG TABLET 1.5 TABLETS ORALLY THREE TIMES DAILY NEEDED TAKING PROPRANOLOL HCL 10 MG TABLET 1 TABLET ORALLY TWICE A DAY NOT-TAKING TAMIFLU 75 MG CAPSULE 1 CAPSULE ORALLY TWICE A DAY NOT-TAKING VOLTAREN 1 % GEL DIRECTED TRANSDERMAL QID, NOTES: STOPPED MEDICATION LIST REVIEWED AND RECONCILED WITH THE PATIENT PAST MEDICAL HISTORY ASTHMA, MODERATE PERSISTENT-08/20/2013 FEV1 2.7 L(100%)/RATIO 83%-PA//01/28/16 FEV1 2.5L(107), RATIO 93%-SAEED IFG-10/2015 TST-LOW RISK-DUNLAP, 7 MINUTES ON AMADO PROTOCOL CONSISTENT WITH GOOD EXERCISE TOLERANCE HYPERLIPIDEMIA 2B BILATERAL KNEE OSTEOARTHRITIS ALLERGIC RHINITIS GERD LUMBAR DJD-L1-5 DIFFUSE BULGES, L2-4 MINIMAL CCS, GRADE 1 LITHESIS C L5 PARS DEFECT C L L% COMPRESSION IN NF BY 03/2016 MRI ANXIETY DISORDER INSOMNIA OBESITY, MORBID FATTY LIVER DISEASE C SMAL GB POLYP VS STONE BY 01/2016 US HYPERTENSION IRRITABLE BOWEL SYNDROME, DIARRHEA-TYPE BILATERAL PLANTAR FASCIITIS B12 DEFICIENCY VITAMIN D DEFICIENCY BILATERAL CATERACTS SINUSITIS, RECURRENT-03/2012 CT SINUSES WITH MINIMAL MAXILLARY SINUS MUCOSAL THICKENING H63D HETEROZYGOTE C MILDLY ELEVATED FE LEVELS LIGIA, MILD-09/2013 RDI 5 BY NPSG-KALIA B KNEE TRICOMPARTMENTAL OA BY 11/18/14 XRAY BORDERLINE CONCENTRIC LVH C LVEF 75%, LAE 40 MM, MILD DIASTOLIC DYSFUNCTION, MILD PHTN BY 08/2015 TTE-DUNLAP HYPOTHYROID, 11/2015 TPO AB 35, TG <15 ALLERGIES STATINS: MYALGIAS: SIDE EFFECTS NORVASC: EDEMA: SIDE EFFECTS DOXYCYCLINE HYCLATE: NAUSEA/ABDOMINAL: SIDE EFFECTS FLUOXETINE: ANXIETY: SIDE EFFECTS SURGICAL HISTORY LEFT KNEE ARTHROSCOPIC-DR. ROQUE APRIL 2007 RIGHT KNEE ARTHROSCOPIC-DR. ROQUE MARCH 2007 RIGHT CATARACT SURGERY-DR. FARLEY NOVEMBER 2009 EGD/COLONOSCOPY -IRREGULAR Z LINE AND NOW BIOPSIED AND INTERNAL HEMORRHOIDS JANUARY 2010 EGD/COLONOSCOPY-DIVERTICULOSIS, GASTRITIS-DR. NIELSEN AUGUST 2003 SINUS SURGERY AGE OF 26 TARSAL TUNNEL SYNDROME RELEASE LEFT FOOT () [place] 2003 TUBES IN EARS X'S 3 ( ) GASTRIC BYPASS L TKR-JENIFFER NORIEGA 02/03/15 FAMILY HISTORY NO FAMILY HISTORY DOCUMENTED. SOCIAL HISTORY GENERAL: TOBACCO USE ARE YOU A:NONSMOKER LEARNING BARRIERS / SPECIAL NEEDS ORIENTED TO PLAN OF CARE: PATIENT, PAIN MANAGEMENT PATIENT, ORIENTED TO PLAN OF CARE: PATIENT, PAIN MANAGEMENT PATIENT. NEW PATIENT PAIN DIARY TODAY'S VISITNOTES FROM 0-10, WHAT LEVEL IS YOUR PAIN TODAY?0 PAIN CLINIC PFS, CLERGY, PUBLIC HEALTH REFERRALS PFS REFERRAL NEEDED?NO CLERGY REFERRAL NEEDED?NO PUBLIC HEALTH REFERRAL NEEDED?NO WAS THE PROVIDER NOTIFIED OF ANY PERTINENT INFO?NO PFS REFERRAL NEEDED?NO CLERGY REFERRAL NEEDED?NO PUBLIC HEALTH REFERRAL NEEDED?NO WAS THE PROVIDER NOTIFIED OF ANY PERTINENT INFO?NO HOSPITALIZATION/MAJOR DIAGNOSTIC PROCEDURE ASTHMA EXACERBATION-NEGATIVE CXR, INFLUENZA A/B, SCX, BCX 07/14-07/20/2011 ASTHMA EXACERBATION 2 INFLUENZA A-NEGATIVE CXR, -BCX X 2, -SCX, PRESENTING ABG C PH 7.6, CO2 17, O2 145 04/20- ACUTE DELIRIUM 2 HYPONA 127, URINE OSM 480 C/W SIADH (BUT THIS WAS ON NS)-CXR NAD, CT AP NAD, ACUTE HEPTATIS AST/ALT 228/148 TO NORMAL BY D/C, UCX CONTAMINIATED, BCX -X1, -SERIAL CIP/T-I, NH3 26, PT/PTT 04/08 01/15- REVIEW OF SYSTEMS CONSTITUTIONAL: ANY CHANGE IN YOUR MEDICAL CONDITION? NO . CHILLS NO . FEVER NO . INFECTION: DO YOU HAVE NEW INFECTIONS? NO . DO YOU HAVE HISTORY OF MRSA? NO . MUSCULOSKELETAL: ANY NEW PATTERNS OF PAIN OR NUMBNESS? NO . GASTROENTEROLOGY: ANY NEW CHANGE IN BOWEL CONTROL? NO . GENITOURINARY: ANY NEW CHANGE IN BLADDER CONTROL? NO . IS THERE A CHANCE YOU COULD BE ? NO . HEMATOLOGY/LYMPH: DO YOU TAKE ANY BLOOD THINNERS? (FOR EXAMPLE- COUMADIN, PLAVIX, AGGRENOX, PLATEL, PRADAXA, OR XARELTO) NO . WHEN WAS YOUR LAST DOSE? DATE: TIME: . NEUROLOGY: HAVE YOU FALLEN IN THE PAST 6 MONTHS? NO . ANY NEW EXTREMITY NUMBNESS OR WEAKNESS? NO . CARDIOLOGY: DO YOU HAVE A PACEMAKER OR DEFIBRILLATOR? NO . RESPIRATORY: HAVE YOU BEEN SICK IN THE PAST WEEK? NO . FEVER NO . FLU LIKE SYMPTOMS? NO . COUGH NO . INTEGUMENTARY: DO YOU HAVE ANY RASHES OR OPEN SORES? NO . ALLERGIC/IMMUNO: ARE YOU ALLERGIC TO SHELLFISH OR IV DYE? NO . ANY NEW ALLERGIES? NO . PSYCHIATRIC: DO YOU HAVE THOUGHTS OF HURTING YOURSELF OR SOMEONE ELSE? NO . ARE YOU ABUSED, NEGLECTED, OR IN AN UNSAFE ENVIRONMENT? NO . ENDOCRINOLOGY: ARE YOU DIABETIC? NO . OTHER: DO YOU NEED ANY PRESCRIPTIONS? NO . IF YES, PLEASE LIST: ____ . ANY NEW PROBLEMS WITH YOUR MEDICATIONS? NO . WHEN DID YOU LAST EAT? ____ . WHEN DID YOU LAST DRINK? ____ . WHAT DID YOU LAST DRINK? ____ . NAME OF PERSON DRIVING YOU HOME? ____ . DO YOU HAVE ANY OTHER QUESTIONS OR CONCERNS NO . REVIEWED BY: PROVIDER: EDWIN WELDON MD . VITAL SIGNS WT 238 LBS, HT 64 IN, BMI 40.85 INDEX, BP 144/88 MM HG, HR 70 /MIN, RR 18 /MIN, TEMP 98.4 F, OXYGEN SAT % 98, SAFE IN ENV? (Y/N) YES, NA INITIALS TL 1015, REVIEWED BY: MALISSA. EXAMINATION : PATIENT IS ALERT O X 3 AND COOPERATIVE. TENDERNESS IN THE LOWER BACK AND PARASPINAL MUSCLE GROUP. TENDERNESS IN THE SACROILIAC JOINT AREA. MRI DONE ON 03/23/16 SHOWS DISC BULGE AT L1-L2, L4-L5, AND L5-S1, PARS DEFECTS AT L5, AND HYPERTROPHY. ASSESSMENTS SACROILIITIS, NOT ELSEWHERE CLASSIFIED - M46.1 (PRIMARY) SPONDYLOSIS WITHOUT MYELOPATHY OR RADICULOPATHY, LUMBAR REGION - M47.816 SPONDYLOSIS WITHOUT MYELOPATHY OR RADICULOPATHY, LUMBOSACRAL REGION - M47.817 TREATMENT OTHERS NOTES: WE DISCUSSED SEVERAL ISSUES WITH MRS. GARIBAY'S PAIN MANAGEMENT CASE. AFTER REVIEWING THE MRI AND GO THROUGH THE EXAMINATION, PATIENT IS A GOOD CANDIDATE FOR ANOTHER SIJ. WE DISCUSSED THE RISK, BENEFITS, AND ALTERNATIVES AND THE PATIENT WOULD LIKE TO PROCEED. PATIENT WILL BE BOOKED PENDING APPROVAL. INSTRUCTIONS WERE GIVEN, QUESTIONS WERE ANSWERED, PATIENT REPORTS UNDERSTANDING AND AGREES WITH THE PLAN. I, WAGNER KRUSE, DOCUMENTED THE ABOVE INFORMATION ACTING A SCRIBE FOR DR. WELDON. I HAVE REVIEWED THE ABOVE DOCUMENT, WRITTEN BY WAGNER KRUSE SCRIBBeatriz AND I VERIFY THAT IT IS ACCURATE. PREVENTIVE MEDICINE PAIN CLINIC TEACHING: PROCEDURE TEACHING PROCEDURE TEACHING FOR SIJ HANDOUTS GIVEN AND REVIEWED WITH PT. PROCEDURE CODES FA211 ESTABILISHED PATIENT [facility] FACILITY CHARGE G8730 PAIN ASSESS POS TOOL F/U PLAN DOC G8427 DOC MEDS VERIFIED W/PT OR RE DISPOSITION & COMMUNICATION FOLLOW UP SIJ PENDING APPROVAL ELECTRONICALLY SIGNED BY EDWIN WELDON MD ON 06/26/2016 AT 09:03 PM EDT DISCLAIMER : THIS IS A VISIT SUMMARY EXTRACTED FROM THE [employer] CHART. IT IS NOT A COPY OF THE [employer] PROGRESS NOTE. VICKEY
== END ==
LOC: M PAIN 10:20
PROVIDERS: ATTEND Anesthesiology
DX: Z09 Encounter for follow-up examination after completed treatment for conditions other than malignant neoplasm (principal); G89.29 Other chronic pain; M46.1 Sacroiliitis, not elsewhere classified; M47.816 Spondylosis without myelopathy or radiculopathy, lumbar region; M47.817 Spondylosis without myelopathy or radiculopathy, lumbosacral region; J45.40 Moderate persistent asthma, uncomplicated; R73.01 Impaired fasting glucose; E78.5 Hyperlipidemia, unspecified; M17.0 Bilateral primary osteoarthritis of knee; K21.9 Gastro-esophageal reflux disease without esophagitis; F41.9 Anxiety disorder, unspecified; G47.00 Insomnia, unspecified; E66.9 Obesity, unspecified; Z68.41 Body mass index [BMI] 40.0-44.9, adult; I10 Essential (primary) hypertension; M72.2 Plantar fascial fibromatosis; D51.9 Vitamin B12 deficiency anemia, unspecified; E55.9 Vitamin D deficiency, unspecified; J32.9 Chronic sinusitis, unspecified; E83.119 Hemochromatosis, unspecified; G47.33 Obstructive sleep apnea (adult) (pediatric); E03.9 Hypothyroidism, unspecified; Z88.8 Allergy status to other drugs, medicaments and biological substances; Z79.51 Long term (current) use of inhaled steroids; Z79.52 Long term (current) use of systemic steroids; Z79.899 Other long term (current) drug therapy

== ENCOUNTER → 2016-06-28 | Outpatient (CLI) | payer BC ==
[~2016-06-28] MED LIST changes: +BUPIVACAINE HCL 0.25% 30 ML VIAL As Ordered ONE; +ISOVUE-M 300 61% 15ML VIAL (Q9967) As Ordered ONE; +LIDOCAINE 1% SDV INJ 30 ML VIAL As Ordered ONE; +TRIAMCINOLONE ACETONIDE SUSP 40 MG/ML VIAL (J3301) As Ordered ONE; +diazePAM 5 MG TAB As Ordered ONE; +oxyCODONE 5MG TAB As Ordered ONE
--- NOTE | 2016-06-28 11:50 | REP ---
PARTIAL SI JOINT SERIES: Three views. HISTORY: SI joint injection for pain. 15 seconds of fluoroscopy time is reported. FINDINGS: A sequence of three fluoroscopically obtained intraprocedural last image hold spot radiographs of the SI joints document various needle positions and contrast injections associated with SI joint injection procedures. Signed by Kyler Pleitez MD 06/28/2016 01:58 P
--- NOTE | 2016-06-28 23:59 | ECWPNPC ---
PATIENT NAME: REUBEN GARIBAY : 1960 GENDER: FEMALE VISIT DATE: 06/28/2016 DISCHARGE DATE: 06/28/16 1046 VISIT LOCKED DATE TIME: PHYSICIAN: EDWIN WELDON PHYSICIAN PAGER NO: [phone] RESOURCE: EDWIN WELDON REASON FOR APPOINTMENT 1. SIJ HISTORY OF PRESENT ILLNESS HISTORY OF PRESENT ILLNESS: PAIN THE PATIENT DESCRIBES THE PAIN... FALL RISK SCREENING: SCREENING :NO FALLS IN THE PAST YEAR CURRENT MEDICATIONS TAKING VITAMIN B-12 1000 MCG TABLET 1 TAB ORALLY ONCE A DAY, NOTES: 06-27-16 TAKING MULTIVITAMINS OTC TABLET 1 TABLET ORALLY TWICE A DAY, NOTES: 06-27-16 TAKING VITAMIN D 5000 UNIT TABLET 1 TAB ORALLY EVERY DAY, NOTES: 06-27-16 TAKING LASIX 20 MG TABLET 1 TABLET BY MOUTH NEEDED, NOTES: MONTHS AGO TAKING FLONASE 50 MCG/ACT SUSPENSION 1 SPRAY IN EACH NOSTRIL NASALLY ONCE A DAY NEEDED, NOTES: 1 WEEK AGO TAKING XYZAL 5 MG TABLET 1 TABLET IN THE EVENING ORALLY ONCE A DAY, NOTES: NONE TAKING NYSTATIN POWDER [id number] UNIT/ML SUSPENSION 1 APPLICATION TO AFFECTED AREA UNDER BREAST AND GROIN TWICE A DAY TAKING DIPHENOXYLATE-ATROPINE 2.5-0.025 MG TABLET 1 TABLET NEEDED ORALLY FOUR TIMES A DAY, NOTES: MONTHS AGO TAKING VENTOLIN HFA 90MCG) MCG/ACT AEROSOL SOLUTION 2 PUFFS.200METERED INHALATION. EVERY 4 HRS NEEDED, NOTES: MONTHS AGO TAKING PEAK FLOW METER .. DEVICE DIRECTED .. ONCE A DAY TAKING ADVAIR DISKUS 500-50 MCG/DOSE AEROSOL POWDER BREATH ACTIVATED 1 PUFF INHALATION TWICE A DAY, NOTES: 06-28-16 TAKING CLOTRIMAZOLE-BETAMETHASONE 1-0.05 % CREAM 1 APPLICATION TO AFFECTED AREA EXTERNALLY TWICE A DAY NEEDED, NOTES: MONTHS AGO TAKING VALTREX 1 GM TABLET 1 TABLET ORALLY TWICE A DAY NEEDED, NOTES: MONTHS AGO TAKING PATANOL 0.1 % SOLUTION 1 DROP INTO BOTH EYES OPHTHALMIC TWICE A DAY NEEDED, NOTES: 04/29 8AM TAKING LEXAPRO 20 MG TABLET 1 TABLET ORALLY ONCE A DAY, NOTES: 06-28-16 TAKING ACAPELLA - MISCELLANEOUS DIRECTED DX:J45.40 TWICE A DAY NEEDED TAKING NORCO 7.5-325 MG TABLET 1 TABLET NEEDED ORALLY BID PRN, MDD 2, NOTES: 06-27-16 1700 TAKING XANAX 1 MG TABLET 1 TABLET ORALLY DAILY NEEDED, NOTES: NONE TAKING CALTRATE 600+D 600-400 MG-UNIT TABLET 1 TABLET ORALLY TWICE A DAY, NOTES: 06-27-16 TAKING ATORVASTATIN CALCIUM 10 MG TABLET 1 TABLET ORALLY ONCE A DAY, NOTES: 06-27-16 TAKING PREVACID 30 MG CAPSULE DELAYED RELEASE 1 CAPSULE ORALLY TWICE A DAY NEEDED, NOTES: MONTHS AGO TAKING DIFLUCAN 150 MG TABLET 1 TABLET ORALLY DAILY NEEDED, NOTES: MONTHS AGO TAKING AVAPRO 300 MG TABLET 1 TABLET ORALLY ONCE A DAY, NOTES: 06-28-16 TAKING TRAZODONE HCL 100 MG TABLET 1 TABLET AT BEDTIME ORALLY ONCE A DAY, NOTES: 06-27-162199 TAKING LEVOTHYROXINE SODIUM 25 MCG TABLET 1 TABLET ORALLY ONCE A DAY, NOTES: 06-27-16 NOT-TAKING XOPENEX 1.25 MG/3ML NEBULIZATION SOLUTION 3 ML INHALATION EVERY 4 HOURS NEEDED DISCONTINUED AMOXICILLIN 500 MG CAPSULE 4 CAPSULE ORALLY ONE HOUR PRIOR TO DENTAL PROCEDURE, NOTES: 2 MONTHS DISCONTINUED TESSALON PERLES 100 MG CAPSULE 1 CAPSULE NEEDED ORALLY Q8HRS PRN COUGH DISCONTINUED PREDNISONE 10 MG (48) TABLET THERAPY PACK DIRECTED ORALLY DAILY DISCONTINUED ROBAXIN 500 MG TABLET 1.5 TABLETS ORALLY THREE TIMES DAILY NEEDED DISCONTINUED PROPRANOLOL HCL 10 MG TABLET 1 TABLET ORALLY TWICE A DAY DISCONTINUED CLONIDINE HCL 0.1 MG TABLET 1 TABLET AT BEDTIME ORALLY BEFORE BEDTIME DISCONTINUED TAMIFLU 75 MG CAPSULE 1 CAPSULE ORALLY TWICE A DAY DISCONTINUED VOLTAREN 1 % GEL DIRECTED TRANSDERMAL QID, NOTES: STOPPED MEDICATION LIST REVIEWED AND RECONCILED WITH THE PATIENT PAST MEDICAL HISTORY ASTHMA, MODERATE PERSISTENT-08/20/2013 FEV1 2.7 L(100%)/RATIO 83%-PA//01/28/16 FEV1 2.5L(107), RATIO 93%-SAEED IFG-10/2015 TST-LOW RISK-DUNLAP, 7 MINUTES ON AMADO PROTOCOL CONSISTENT WITH GOOD EXERCISE TOLERANCE HYPERLIPIDEMIA 2B BILATERAL KNEE OSTEOARTHRITIS ALLERGIC RHINITIS GERD LUMBAR DJD-L1-5 DIFFUSE BULGES, L2-4 MINIMAL CCS, GRADE 1 LITHESIS C L5 PARS DEFECT C L L% COMPRESSION IN NF BY 03/2016 MRI ANXIETY DISORDER INSOMNIA OBESITY, MORBID FATTY LIVER DISEASE C SMAL GB POLYP VS STONE BY 01/2016 US HYPERTENSION IRRITABLE BOWEL SYNDROME, DIARRHEA-TYPE BILATERAL PLANTAR FASCIITIS B12 DEFICIENCY VITAMIN D DEFICIENCY BILATERAL CATERACTS SINUSITIS, RECURRENT-03/2012 CT SINUSES WITH MINIMAL MAXILLARY SINUS MUCOSAL THICKENING H63D HETEROZYGOTE C MILDLY ELEVATED FE LEVELS LIGIA, MILD-09/2013 RDI 5 BY YNES B KNEE TRICOMPARTMENTAL OA BY 11/18/14 XRAY BORDERLINE CONCENTRIC LVH C LVEF 75%, LAE 40 MM, MILD DIASTOLIC DYSFUNCTION, MILD PHTN BY 08/2015 TTE-DUNLAP HYPOTHYROID, 11/2015 TPO AB 35, TG <15 ALLERGIES STATINS: MYALGIAS: SIDE EFFECTS NORVASC: EDEMA: SIDE EFFECTS DOXYCYCLINE HYCLATE: NAUSEA/ABDOMINAL: SIDE EFFECTS FLUOXETINE: ANXIETY: SIDE EFFECTS SOCIAL HISTORY GENERAL: TOBACCO USE ARE YOU A:NONSMOKER LEARNING BARRIERS / SPECIAL NEEDS ORIENTED TO PLAN OF CARE: PATIENT, PAIN MANAGEMENT PATIENT, ORIENTED TO PLAN OF CARE: PATIENT, PAIN MANAGEMENT PATIENT. NEW PATIENT PAIN DIARY TODAY'S VISITNOTES FROM 0-10, WHAT LEVEL IS YOUR PAIN TODAY?0 PAIN CLINIC PFS, CLERGY, PUBLIC HEALTH REFERRALS PFS REFERRAL NEEDED?NO CLERGY REFERRAL NEEDED?NO PUBLIC HEALTH REFERRAL NEEDED?NO WAS THE PROVIDER NOTIFIED OF ANY PERTINENT INFO?NO PFS REFERRAL NEEDED?NO CLERGY REFERRAL NEEDED?NO PUBLIC HEALTH REFERRAL NEEDED?NO WAS THE PROVIDER NOTIFIED OF ANY PERTINENT INFO?NO REVIEW OF SYSTEMS CONSTITUTIONAL: ANY CHANGE IN YOUR MEDICAL CONDITION? NO . CHILLS NO . FEVER NO . INFECTION: DO YOU HAVE NEW INFECTIONS? NO . DO YOU HAVE HISTORY OF MRSA? NO . MUSCULOSKELETAL: ANY NEW PATTERNS OF PAIN OR NUMBNESS? NO . GASTROENTEROLOGY: ANY NEW CHANGE IN BOWEL CONTROL? NO . GENITOURINARY: ANY NEW CHANGE IN BLADDER CONTROL? NO . IS THERE A CHANCE YOU COULD BE ? NO . HEMATOLOGY/LYMPH: DO YOU TAKE ANY BLOOD THINNERS? (FOR EXAMPLE- COUMADIN, PLAVIX, AGGRENOX, PLATEL, PRADAXA, OR XARELTO) NO . WHEN WAS YOUR LAST DOSE? DATE: TIME: . NEUROLOGY: HAVE YOU FALLEN IN THE PAST 6 MONTHS? NO . ANY NEW EXTREMITY NUMBNESS OR WEAKNESS? NO . CARDIOLOGY: DO YOU HAVE A PACEMAKER OR DEFIBRILLATOR? NO . RESPIRATORY: HAVE YOU BEEN SICK IN THE PAST WEEK? NO . FEVER NO . FLU LIKE SYMPTOMS? NO . COUGH NO . INTEGUMENTARY: DO YOU HAVE ANY RASHES OR OPEN SORES? NO . ALLERGIC/IMMUNO: ARE YOU ALLERGIC TO SHELLFISH OR IV DYE? NO . ANY NEW ALLERGIES? NO . PSYCHIATRIC: DO YOU HAVE THOUGHTS OF HURTING YOURSELF OR SOMEONE ELSE? NO . ARE YOU ABUSED, NEGLECTED, OR IN AN UNSAFE ENVIRONMENT? NO . ENDOCRINOLOGY: ARE YOU DIABETIC? NO . OTHER: DO YOU NEED ANY PRESCRIPTIONS? NO . IF YES, PLEASE LIST: ____ . ANY NEW PROBLEMS WITH YOUR MEDICATIONS? NO . WHEN DID YOU LAST EAT? ____06/27/16@2100 . WHEN DID YOU LAST DRINK? ____06/27/16@2100 . WHAT DID YOU LAST DRINK? ____DIET ORANGE . NAME OF PERSON DRIVING YOU HOME? ____ELWYN BUSLER . DO YOU HAVE ANY OTHER QUESTIONS OR CONCERNS NO . REVIEWED BY: PROVIDER: . VITAL SIGNS WT 241 LBS, HT 64 IN, BMI 41.36 INDEX, BP 130/75 MM HG, HR 63 /MIN, RR 18 /MIN, TEMP 97.8 F, OXYGEN SAT % 96%, NA INITIALS HS, REVIEWED BY: CM. 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 EDWIN WELDON BUSINESS SERVICES CLERK NONE ANESTHESIA LOCAL PRE PROCEDURE NOTE PATIENT WITH HISTORY OF CHRONIC LOW BACK PAIN. I EVALUATED THE PATIENT AND REVIEWED THE CHART. I WENT OVER THE RISKS, ALTERNATIVES, AND BENEFITS ASSOCIATED WITH THIS PROCEDURE. THE PATIENT WOULD LIKE TO PROCEED AND GAVE CONSENT TO PERFORM THE PROCEDURE. THE PATIENT DENIES UNEXPLAINABLE WEIGHT LOSS, FEVER, CHILLS, OR NEW CHANGES IN URINARY OR BOWEL CONTROL. DESCRIPTION OF PROCEDURE THE PATIENT WAS BROUGHT TO THE PROCEDURE ROOM AND PLACED IN THE PRONE POSITION. THE LUMBOSACRAL AREA WAS CLEANED WITH CHLORAPREP SOLUTION AND DRAPED ASEPTICALLY. THE PROCEDURE WAS DONE UNDER STERILE CONDITIONS. I CHECKED LATERALITY AND THE LEVEL WHERE THE PROCEDURE WAS GOING TO BE PERFORMED WITH THE PATIENT AND THE SUPPORTING STAFF AT THE MOMENT OF THE TIME OUT IN THE PROCEDURE ROOM. UNDER FLUOROSCOPIC GUIDANCE, TARGET POINT WAS SELECTED AT THE LOWER BORDER OF THE RIGHT AND LEFT SACROILIAC JOINT. TARGET POINT WAS SELECTED AFTER MEDIAL ROTATION AND TILT OF THE MAGNIFIER OF THE C-ARM. LIDOCAINE WAS USED TO NUMB THE SKIN AND SUBCUTANEOUS TISSUE BELOW IT. A SPINAL NEEDLE, 22-GAUGE, WAS ADVANCED UNDER FLUOROSCOPIC GUIDANCE AND FOLLOWING PATIENT FEEDBACK UNTIL THE TARGET AREA WAS TOUCHED. THE POSITION OF THE NEEDLE WAS VERIFIED WITH AP AND LATERAL VIEWS. AFTER PROPER POSITION OF THE NEEDLE WAS ACHIEVED, ISOVUE M DYE 30%, 0.25 ML, WAS INJECTED SHOWING SPREAD OF THE DYE. THEN, A SOLUTION OF 20 MG OF KENALOG WAS INJECTED IN RIGHT JOINT WITH 3 ML OF BUPIVACAINE 0.125%. THERE WAS NO EVIDENCE OF BLOOD, PARESTHESIA OR CEREBROSPINAL FLUID DURING THE PROCEDURE. THE PATIENT WAS SENT TO THE RECOVERY ROOM. THE PATIENT WAS MOVING THE EXTREMITIES AND DOING WELL. THERE WAS NO COMPLICATION DURING THE PROCEDURE. FLUOROSCOPY TIME WAS 15 SECONDS POST PROCEDURE NOTE THE PATIENT WILL BE SEEN IN A FOLLOW UP IN THE NEXT FEW WEEKS. INSTRUCTIONS WERE GIVEN, QUESTIONS WERE ANSWERED, AND THE PATIENT EXPRESSED UNDERSTANDING AND AGREED WITH THE PLAN. INSTRUCTIONS WERE GIVEN, QUESTIONS WERE ANSWERED, PATIENT REPORTS UNDERSTANDING AND AGREES WITH THE PLAN. I, WAGNER KRUSE, DOCUMENTED THE ABOVE INFORMATION ACTING A SCRIBE FOR DR. WELDON. I HAVE REVIEWED THE ABOVE DOCUMENT, WRITTEN BY WAGNER KRUSE SCRIBE AND I VERIFY THAT IT IS ACCURATE. DIAGNOSTIC IMAGING [facility] FLUORO GUIDANCE (PAIN)[id number] PROCEDURE CODES 48174 INJECT SACROILIAC JOINT 6045F RADXPS IN END [id number] PXD DISPOSITION & COMMUNICATION FOLLOW UP 3 WEEKS ELECTRONICALLY SIGNED BY EDWIN WELDON MD ON 06/28/2016 AT 06:48 PM EDT DISCLAIMER : THIS IS A VISIT SUMMARY EXTRACTED FROM THE [employer] CHART. IT IS NOT A COPY OF THE [employer] PROGRESS NOTE. MTDD
== END | disposition home or self-care (01) ==
LOC: M PAIN 08:40
PROVIDERS: ATTEND Anesthesiology
DX: G89.29 Other chronic pain (principal); M46.1 Sacroiliitis, not elsewhere classified; J45.40 Moderate persistent asthma, uncomplicated; R73.01 Impaired fasting glucose; M17.0 Bilateral primary osteoarthritis of knee; K21.9 Gastro-esophageal reflux disease without esophagitis; M51.36 Other intervertebral disc degeneration, lumbar region; F41.9 Anxiety disorder, unspecified; E66.01 Morbid (severe) obesity due to excess calories; Z68.41 Body mass index [BMI] 40.0-44.9, adult; K76.0 Fatty (change of) liver, not elsewhere classified; I10 Essential (primary) hypertension; K58.0 Irritable bowel syndrome with diarrhea; M72.2 Plantar fascial fibromatosis; E53.8 Deficiency of other specified B group vitamins; E55.9 Vitamin D deficiency, unspecified; G47.33 Obstructive sleep apnea (adult) (pediatric); E03.9 Hypothyroidism, unspecified; Z79.51 Long term (current) use of inhaled steroids; Z79.891 Long term (current) use of opiate analgesic; Z79.899 Other long term (current) drug therapy; Z88.8 Allergy status to other drugs, medicaments and biological substances; Z88.1 Allergy status to other antibiotic agents
CPT/HCPCS: G0260; J3301; Q9967

== ENCOUNTER → 2016-07-20 | Outpatient (CLI) | payer BC ==
[~2016-07-20] MED LIST changes: -BUPIVACAINE HCL 0.25% 30 ML VIAL As Ordered ONE; -ISOVUE-M 300 61% 15ML VIAL (Q9967) As Ordered ONE; -LIDOCAINE 1% SDV INJ 30 ML VIAL As Ordered ONE; -TRIAMCINOLONE ACETONIDE SUSP 40 MG/ML VIAL (J3301) As Ordered ONE; -diazePAM 5 MG TAB As Ordered ONE; -oxyCODONE 5MG TAB As Ordered ONE
--- NOTE | 2016-07-20 12:11 | REP ---
MR angiography the brain without contrast: History: Daily persistent headache. Technique: 3-D [id number] MR angiography of the brain is acquired in the usual fashion and maximal intensity projection images were generated in rotational format about the vertical and horizontal axes. In addition, source axial T1-weighted images are viewed in cine mode. MR angiographic findings: The distal vertebral arteries are patent and co-dominant. Basilar artery is a little tortuous but widely patent. The posterior cerebral and superior cerebellar vessels are normal and symmetric. The left posterior cerebral artery takes a persistent origin from the anterior circulation. This is a normal variant. The distal internal carotid arteries are unremarkable. Anterior and middle cerebral arteries appear intact. There is no visible stewart aneurysm or arteriovenous malformation. Impression: Unremarkable MR angiography the brain. Signed by Kyler Pleitez MD 07/20/2016 12:03 P
--- NOTE | 2016-07-20 12:23 | REP ---
BRAIN MRI STUDY WITHOUT CONTRAST: HISTORY: Daily persistent headache. Comparison brain MRI study is from September 16, 2009. TECHNIQUE: Axial and sagittal imaging planes are utilized for T1 and T2-weighted scans. Sequences include spin-echo, fast spin echo, FLAIR, and diffusion weighted sequences. MRI FINDINGS: No bony calvarial lesion is seen. Craniocervical junction and upper cervical cord remain unremarkable. There is no evidence of significant paranasal sinus disease. No intraorbital abnormality is appreciated. The lateral, third, and fourth ventricles are normal in size and position. Gomes-white differentiation pattern is normal. There is no evidence of intracranial hemorrhage. Diffusion weighted scans show no evidence of acute ischemia. No mass, infarction or extra-axial fluid collection is seen. There are scattered periventricular and subcortical white matter T2 hyperintensities in the temporal lobes and frontoparietal regions bilaterally. These are seen previously. One or two of these foci are new or better visualized. Otherwise unchanged. They are most compatible with small vessel atherosclerotic changes. No mass or midline shift is seen. IMPRESSION: Mild small vessel change is again noted. No acute intracranial lesion. Signed by Kyler Pleitez MD 07/20/2016 02:55 P
== END ==
LOC: M RAD 10:28
PROVIDERS: ATTEND Physician Assistant Medical
DX: R51 Headache (principal)

== ENCOUNTER → 2016-08-17 | Outpatient (CLI) | payer BC ==
--- NOTE | 2016-09-01 02:41 | ECWPNPC ---
PATIENT NAME: REUBEN GARIBAY : 1960 GENDER: FEMALE VISIT DATE: 08/17/2016 DISCHARGE DATE: 08/17/16 1558 VISIT LOCKED DATE TIME: PHYSICIAN: EDWIN WELDON PHYSICIAN PAGER NO: [phone] RESOURCE: EDWIN WELDON REASON FOR APPOINTMENT 1. BACK HISTORY OF PRESENT ILLNESS HISTORY OF PRESENT ILLNESS: PAIN THE PATIENT DESCRIBES THE PAIN... 56 YEAR OLD FEMALE PATIENT WITH HISTORY OF CHRONIC BACK PAIN. PATIENT RECEIVED A SACROILIAC JOINT INJECTION ON 06/28/2016 AND STATES THAT SHE CURRENTLY STILL HAS OVER 70 PERCENT IN REDUCTION OF PAIN. PATIENT STATES THAT SHE IS STILL VERY MOBILE AND FUNCTIONAL SINCE THE INJECTION AND IS DOING WELL AT THIS TIME. PATIENT DENIES UNEXPLAINABLE WEIGHT LOSS, FEVER, CHILLS, NEW CHANGES ON HER URINARY OR BOWEL CONTROL. FALL RISK SCREENING: SCREENING :NO FALLS IN THE PAST YEAR CURRENT MEDICATIONS TAKING VITAMIN B-12 1000 MCG TABLET 1 TAB ORALLY ONCE A DAY, NOTES: 06-27-16 TAKING MULTIVITAMINS OTC TABLET 1 TABLET ORALLY TWICE A DAY, NOTES: 06-27-16 TAKING VITAMIN D 5000 UNIT TABLET 1 TAB ORALLY EVERY DAY, NOTES: 06-27-16 TAKING LASIX 20 MG TABLET 1 TABLET BY MOUTH NEEDED, NOTES: MONTHS AGO TAKING NYSTATIN POWDER [id number] UNIT/ML SUSPENSION 1 APPLICATION TO AFFECTED AREA UNDER BREAST AND GROIN TWICE A DAY TAKING VENTOLIN HFA 90MCG) MCG/ACT AEROSOL SOLUTION 2 PUFFS.200METERED INHALATION. EVERY 4 HRS NEEDED, NOTES: MONTHS AGO TAKING PEAK FLOW METER .. DEVICE DIRECTED .. ONCE A DAY TAKING ADVAIR DISKUS 500-50 MCG/DOSE AEROSOL POWDER BREATH ACTIVATED 1 PUFF INHALATION TWICE A DAY, NOTES: 06-28-16 TAKING CLOTRIMAZOLE-BETAMETHASONE 1-0.05 % CREAM 1 APPLICATION TO AFFECTED AREA EXTERNALLY TWICE A DAY NEEDED, NOTES: MONTHS AGO TAKING VALTREX 1 GM TABLET 1 TABLET ORALLY TWICE A DAY NEEDED, NOTES: MONTHS AGO TAKING PATANOL 0.1 % SOLUTION 1 DROP INTO BOTH EYES OPHTHALMIC TWICE A DAY NEEDED, NOTES: 04/29 8AM TAKING ACAPELLA - MISCELLANEOUS DIRECTED DX:J45.40 TWICE A DAY NEEDED TAKING NORCO 7.5-325 MG TABLET 1 TABLET NEEDED ORALLY BID PRN, MDD 2, NOTES: 06-27-16 1700 TAKING XANAX 1 MG TABLET 1 TABLET ORALLY DAILY NEEDED, NOTES: NONE TAKING CALTRATE 600+D 600-400 MG-UNIT TABLET 1 TABLET ORALLY TWICE A DAY, NOTES: 06-27-16 TAKING DIFLUCAN 150 MG TABLET 1 TABLET ORALLY DAILY NEEDED, NOTES: MONTHS AGO TAKING ATORVASTATIN CALCIUM 10 MG TABLET 1 TABLET ORALLY ONCE A DAY TAKING DIPHENOXYLATE-ATROPINE 2.5-0.025 MG TABLET 1 TABLET NEEDED ORALLY FOUR TIMES A DAY TAKING LEVOTHYROXINE SODIUM 25 MCG TABLET 1 TABLET ORALLY ONCE A DAY TAKING TRAZODONE HCL 100 MG TABLET 1 TABLET AT BEDTIME ORALLY ONCE A DAY TAKING PREVACID 30 MG CAPSULE DELAYED RELEASE 1 CAPSULE ORALLY TWICE A DAY NEEDED TAKING LEXAPRO 20 MG TABLET 1 TABLET ORALLY ONCE A DAY TAKING AVAPRO 300 MG TABLET 1 TABLET ORALLY ONCE A DAY TAKING XYZAL 5 MG TABLET 1 TABLET IN THE EVENING ORALLY ONCE A DAY, NOTES: NONE TAKING FLONASE 50 MCG/ACT SUSPENSION 1 SPRAY IN EACH NOSTRIL NASALLY ONCE A DAY NEEDED, NOTES: 1 WEEK AGO TAKING VERAPAMIL HCL ER 180 MG TABLET EXTENDED RELEASE 1 TABLET ORALLY ONCE A DAY TAKING TIZANIDINE HCL 2 MG TABLET 1 TABLET NEEDED ORALLY THREE TIMES A DAY NOT-TAKING XOPENEX 1.25 MG/3ML NEBULIZATION SOLUTION 3 ML INHALATION EVERY 4 HOURS NEEDED MEDICATION LIST REVIEWED AND RECONCILED WITH THE PATIENT PAST MEDICAL HISTORY ASTHMA, MODERATE PERSISTENT-08/20/2013 FEV1 2.7 L(100%)/RATIO 83%-PA//01/28/16 FEV1 2.5L(107), RATIO 93%-SAEED IFG-10/2015 TST-LOW RISK-DUNLAP, 7 MINUTES ON AAMDO PROTOCOL CONSISTENT WITH GOOD EXERCISE TOLERANCE HYPERLIPIDEMIA 2B BILATERAL KNEE OSTEOARTHRITIS ALLERGIC RHINITIS GERD LUMBAR DJD-L1-5 DIFFUSE BULGES, L2-4 MINIMAL CCS, GRADE 1 LITHESIS C L5 PARS DEFECT C L L% COMPRESSION IN NF BY 03/2016 MRI ANXIETY DISORDER INSOMNIA OBESITY, MORBID FATTY LIVER DISEASE C SMAL GB POLYP VS STONE BY 01/2016 US HYPERTENSION IRRITABLE BOWEL SYNDROME, DIARRHEA-TYPE BILATERAL PLANTAR FASCIITIS B12 DEFICIENCY VITAMIN D DEFICIENCY BILATERAL CATERACTS SINUSITIS, RECURRENT-03/2012 CT SINUSES WITH MINIMAL MAXILLARY SINUS MUCOSAL THICKENING H63D HETEROZYGOTE C MILDLY ELEVATED FE LEVELS LIGIA, MILD-09/2013 RDI 5 BY NPSG-KALIA B KNEE TRICOMPARTMENTAL OA BY 11/18/14 XRAY BORDERLINE CONCENTRIC LVH C LVEF 75%, LAE 40 MM, MILD DIASTOLIC DYSFUNCTION, MILD PHTN BY 08/2015 TTE-DUNLAP HYPOTHYROID, 11/2015 TPO AB 35, TG <15 ALLERGIES STATINS: MYALGIAS: SIDE EFFECTS NORVASC: EDEMA: SIDE EFFECTS DOXYCYCLINE HYCLATE: NAUSEA/ABDOMINAL: SIDE EFFECTS FLUOXETINE: ANXIETY: SIDE EFFECTS SURGICAL HISTORY LEFT KNEE ARTHROSCOPIC-DR. ROQUE APRIL 2007 LEFT KNEE ARTHROSCOPIC-DR. ROQUE APRIL 2007 RIGHT KNEE ARTHROSCOPIC-DR. ROQUE MARCH 2007 RIGHT KNEE ARTHROSCOPIC-DR. ROQUE MARCH 2007 RIGHT CATARACT SURGERY-DR. FARLEY NOVEMBER 2009 RIGHT CATARACT SURGERY-DR. FARLEY NOVEMBER 2009 EGD/COLONOSCOPY -IRREGULAR Z LINE AND NOW BIOPSIED AND INTERNAL HEMORRHOIDS JANUARY 2010 EGD/COLONOSCOPY -IRREGULAR Z LINE AND NOW BIOPSIED AND INTERNAL HEMORRHOIDS JANUARY 2010 EGD/COLONOSCOPY-DIVERTICULOSIS, GASTRITIS-DR. NIELSEN AUGUST 2003 EGD/COLONOSCOPY-DIVERTICULOSIS, GASTRITIS-DR. NIELSEN AUGUST 2003 SINUS SURGERY AGE OF 26 SINUS SURGERY AGE OF 26 TARSAL TUNNEL SYNDROME RELEASE LEFT FOOT () [place] 2002 TARSAL TUNNEL SYNDROME RELEASE LEFT FOOT () [place] 2002 TUBES IN EARS X'S 3 ( ) TUBES IN EARS X'S 3 ( ) GASTRIC BYPASS GASTRIC BYPASS L TKR-JENIFFER NORIEGA 02/03/15 L TKR-JENIFFER NORIEGA 02/03/15 FAMILY HISTORY NO FAMILY HISTORY DOCUMENTED. SOCIAL HISTORY GENERAL: TOBACCO USE ARE YOU A:NONSMOKER ARE YOU A:NONSMOKER BMI CARE GOAL FOLLOW-UP ABOVE NORMAL BMI FOLLOW-UPGIVING ENCOURAGEMENT TO EXERCISE ABOVE NORMAL BMI FOLLOW-UPGIVING ENCOURAGEMENT TO EXERCISE ALCOHOL SCREENING DID YOU HAVE A DRINK CONTAINING ALCOHOL IN THE PAST YEAR?NO POINTS0 INTERPRETATIONNEGATIVE DID YOU HAVE A DRINK CONTAINING ALCOHOL IN THE PAST YEAR?NO POINTS0 INTERPRETATIONNEGATIVE RECREATIONAL DRUG USE: NEVER, NEVER . CAFFEINE: NO, NO NONE, NONE. SEXUAL HX HAD SEX IN THE LAST 12 MONTHS (VAGINAL, ORAL, OR ANAL)?NO HAVE YOU EVER HAD AN STD?NO HIV / HEP-C SCREENING HIV TEST OFFERED TO PATIENT:YES DATE OFFERED:05/12/2016 TEST ACCEPTED:NO REASON:PATIENT DECLINED HEP-C TEST OFFERED TO PATIENT:YES DATE OFFERED:05/12/2016 TEST ACCEPTED:NO REASON:PATIENT DECLINED HIV TEST OFFERED TO PATIENT:YES DATE OFFERED:05/12/2016 TEST ACCEPTED:NO REASON:PATIENT DECLINED HEP-C TEST OFFERED TO PATIENT:YES DATE OFFERED:05/12/2016 TEST ACCEPTED:NO REASON:PATIENT DECLINED OCCUPATION: UNEMPLOYED, UNEMPLOYED. EXERCISE: NO REGULAR EXERCISE, NO REGULAR EXERCISE. MARITAL STATUS: SINGLE, SINGLE. OTHERS AT HOME: NO, NO. PETS: NONE, NONE. ANGLICAN: YES, YES DENOMINATIONAL, DENOMINATIONAL. LANGUAGE LANGUAGES SPOKEN:PERUVIAN EDUCATION: NOT GRADUATED, NOT GRADUATED LEVEL OF EDUCATION:FINISHED HIGH SCHOOL LEARNING BARRIERS / SPECIAL NEEDS BARRIERS TO LEARNING?NO HEARING IMPAIRED?YES LEFT SLIGHT HEARING LOSS VISION IMPAIRED?YES :CORRECTIVE LENSES COGNITIVELY IMPAIRED?NO READINESS TO LEARN?YES LEARNING PREFERENCES?NO LEARNING CAPABILITIES PRESENT?YES EMOTIONAL BARRIERS?NO SPECIAL DEVICES?NO BARRIERS TO LEARNING?NO HEARING IMPAIRED?YES LEFT SLIGHT HEARING LOSS VISION IMPAIRED?YES :CORRECTIVE LENSES COGNITIVELY IMPAIRED?NO READINESS TO LEARN?YES LEARNING PREFERENCES?NO LEARNING CAPABILITIES PRESENT?YES EMOTIONAL BARRIERS?NO SPECIAL DEVICES?NO IMMUNIZATION PROGRAM ELIGIBILITY STATUS UNCHANGED:__ PARENT LAST NAME:__ FIRST NAME, MIDDLE INITIAL:__ MOTHER'S MAIDEN NAME:__ MEDICAID/MEDICAID MANAGED CARE PLAN:__ NOT INSURED:__ /[place]:__ UNDERINSURED:__ CHILD HEALTH PLUS B__ INSURANCE:__ INFLUENZA VACCINE:__ ELIGIBILITY STATUS UNCHANGED:__ PARENT LAST NAME:__ FIRST NAME, MIDDLE INITIAL:__ MOTHER'S MAIDEN NAME:__ MEDICAID/MEDICAID MANAGED CARE PLAN:__ NOT INSURED:__ /[place]:__ UNDERINSURED:__ CHILD HEALTH PLUS B__ INSURANCE:__ INFLUENZA VACCINE:__ FEMALE 6 MONTH RISK ASSESSMENT FOR STD DESCRIBE YOUR SEXUAL PARTNERS:MALE MONOGAMOUS?YES EVER INJECT DRUGS?NO IS THERE ANYTHING ELSE WE SHOULD TALK ABOUT CONCERNING YOUR SEXUAL HISTORY OR PRACTICE?YES DESCRIBE YOUR SEXUAL PARTNERS:MALE MONOGAMOUS?YES EVER INJECT DRUGS?NO IS THERE ANYTHING ELSE WE SHOULD TALK ABOUT CONCERNING YOUR SEXUAL HISTORY OR PRACTICE?YES ADVANCED DIRECTIVES HEALTH CARE PROXY?YES NAME OF HCP RENAE GARIBAY DO YOU HAVE A COPY WITH YOU? COPY IN SYSTEM POWER OF PEN MAKER?NO HEALTH CARE PROXY?YES NAME OF HCP RENAE GARIBAY DO YOU HAVE A COPY WITH YOU? COPY IN SYSTEM POWER OF PEN MAKER?NO RETIRED: NO, NO. OCCUP EXPOSURE: NONE, NONE. TRAVEL OUTSIDE US: NO, NO. HOUSING: HOUSE, HOUSE. MCC: NO, NO. : NO, NO. : NO, NO. : NO, NO. COHABITATING: NO, NO. DOMESTIC VIOLENCE: NO, NO . ACADEMIC PROBLEMS: NO, NO. HOSPITALIZATION/MAJOR DIAGNOSTIC PROCEDURE ASTHMA EXACERBATION-NEGATIVE CXR, INFLUENZA A/B, SCX, BCX 07/14-07/20/2011 ASTHMA EXACERBATION-NEGATIVE CXR, INFLUENZA A/B, SCX, BCX 07/14-07/20/2011 ASTHMA EXACERBATION 2 INFLUENZA A-NEGATIVE CXR, -BCX X 2, -SCX, PRESENTING ABG C PH 7.6, CO2 17, O2 145 04/20- ASTHMA EXACERBATION 2 INFLUENZA A-NEGATIVE CXR, -BCX X 2, -SCX, PRESENTING ABG C PH 7.6, CO2 17, O2 145 04/20- ACUTE DELIRIUM 2 HYPONA 127, URINE OSM 480 C/W SIADH (BUT THIS WAS ON NS)-CXR NAD, CT AP NAD, ACUTE HEPTATIS AST/ALT 228/148 TO NORMAL BY D/C, UCX CONTAMINIATED, BCX -X1, -SERIAL CIP/T-I, NH3 26, PT/PTT 04/08 01/15- ACUTE DELIRIUM 2 HYPONA 127, URINE OSM 480 C/W SIADH (BUT THIS WAS ON NS)-CXR NAD, CT AP NAD, ACUTE HEPTATIS AST/ALT 228/148 TO NORMAL BY D/C, UCX CONTAMINIATED, BCX -X1, -SERIAL CIP/T-I, NH3 26, PT/PTT 04/08 REVIEW OF SYSTEMS CONSTITUTIONAL: ANY CHANGE IN YOUR MEDICAL CONDITION? NO . CHILLS NO . FEVER NO . INFECTION: DO YOU HAVE NEW INFECTIONS? NO . DO YOU HAVE HISTORY OF MRSA? NO . MUSCULOSKELETAL: ANY NEW PATTERNS OF PAIN OR NUMBNESS? NO . GASTROENTEROLOGY: ANY NEW CHANGE IN BOWEL CONTROL? NO . GENITOURINARY: ANY NEW CHANGE IN BLADDER CONTROL? NO . IS THERE A CHANCE YOU COULD BE ? NO . HEMATOLOGY/LYMPH: DO YOU TAKE ANY BLOOD THINNERS? (FOR EXAMPLE- COUMADIN, PLAVIX, AGGRENOX, PLATEL, PRADAXA, OR XARELTO) NO . WHEN WAS YOUR LAST DOSE? DATE: TIME: . NEUROLOGY: HAVE YOU FALLEN IN THE PAST 6 MONTHS? NO . ANY NEW EXTREMITY NUMBNESS OR WEAKNESS? NO . CARDIOLOGY: DO YOU HAVE A PACEMAKER OR DEFIBRILLATOR? NO . RESPIRATORY: HAVE YOU BEEN SICK IN THE PAST WEEK? NO . FEVER NO . FLU LIKE SYMPTOMS? NO . COUGH NO . INTEGUMENTARY: DO YOU HAVE ANY RASHES OR OPEN SORES? NO . ALLERGIC/IMMUNO: ARE YOU ALLERGIC TO SHELLFISH OR IV DYE? NO . ANY NEW ALLERGIES? NO . PSYCHIATRIC: DO YOU HAVE THOUGHTS OF HURTING YOURSELF OR SOMEONE ELSE? NO . ARE YOU ABUSED, NEGLECTED, OR IN AN UNSAFE ENVIRONMENT? NO . ENDOCRINOLOGY: ARE YOU DIABETIC? NO . OTHER: DO YOU NEED ANY PRESCRIPTIONS? NO . IF YES, PLEASE LIST: ____ . ANY NEW PROBLEMS WITH YOUR MEDICATIONS? NO . WHEN DID YOU LAST EAT? ____ . WHEN DID YOU LAST DRINK? ____ . WHAT DID YOU LAST DRINK? ____ . NAME OF PERSON DRIVING YOU HOME? ____ . DO YOU HAVE ANY OTHER QUESTIONS OR CONCERNS NO . REVIEWED BY: PROVIDER: EDWIN WELDON MD . VITAL SIGNS WT 240 LBS, HT 64 IN, BMI 41.19 INDEX, BP 148/74 MM HG, HR 76 /MIN, RR 16 /MIN, TEMP 97.7 F, OXYGEN SAT % 98%, NA INITIALS TL 1448, REVIEWED BY: CM. EXAMINATION : PATIENT IS ALERT O X 3 AND COOPERATIVE. THERE IS TENDERNESS IN THE LEFT SACROILIAC AREA. ASSESSMENTS SACROILIITIS, NOT ELSEWHERE CLASSIFIED - M46.1 (PRIMARY) TREATMENT SACROILIITIS, NOT ELSEWHERE CLASSIFIED NOTES: WE DISCUSSED SEVERAL ISSUES WITH MRS. GARIBAY'S PAIN MANAGEMENT CASE. SINCE THE MS. GARIBYA IS DOING VERY WELL AT THIS TIME, I INFORMED THE PATIENT THAT LONG WE SEE HER AGAIN WITHIN THE NEXT 12 MONTHS SHE DOES NOT NEED A NEW REFERRAL TO BE SEEN BY US. PATIENT WILL CALL NEEDED SHOULD HER PAIN RETURN/WORSENS. INSTRUCTIONS WERE GIVEN, QUESTIONS WERE ANSWERED, PATIENT REPORTS UNDERSTANDING AND AGREES WITH THE PLAN. I, WAGNER KRUSE, DOCUMENTED THE ABOVE INFORMATION ACTING A SCRIBE FOR DR. WELDON. I HAVE REVIEWED THE ABOVE DOCUMENT, WRITTEN BY WAGNER CARVER AND I VERIFY THAT IT IS ACCURATE. PROCEDURE CODES FA211 ESTABILISHED PATIENT [facility] CHARGE G8730 PAIN ASSESS POS TOOL F/U PLAN DOC G8427 DOC MEDS VERIFIED W/PT OR RE DISPOSITION & COMMUNICATION FOLLOW UP 1 YEAR ELECTRONICALLY SIGNED BY EDWIN WELDON MD ON 08/31/2016 AT 05:53 PM EDT DISCLAIMER : THIS IS A VISIT SUMMARY EXTRACTED FROM THE [facility] CHART. IT IS NOT A COPY OF THE [facility] PROGRESS NOTE. MTDD
== END | disposition home or self-care (01) ==
LOC: M PAIN 14:40
PROVIDERS: ATTEND Anesthesiology
DX: G89.29 Other chronic pain (principal); M46.1 Sacroiliitis, not elsewhere classified; J45.40 Moderate persistent asthma, uncomplicated; E78.5 Hyperlipidemia, unspecified; M17.0 Bilateral primary osteoarthritis of knee; J30.9 Allergic rhinitis, unspecified; J21.9 Acute bronchiolitis, unspecified; M51.9 Unspecified thoracic, thoracolumbar and lumbosacral intervertebral disc disorder; F41.9 Anxiety disorder, unspecified; G47.00 Insomnia, unspecified; E66.8 Other obesity; K76.0 Fatty (change of) liver, not elsewhere classified; I10 Essential (primary) hypertension; E53.8 Deficiency of other specified B group vitamins; E55.9 Vitamin D deficiency, unspecified; E03.9 Hypothyroidism, unspecified; Z79.899 Other long term (current) drug therapy; Z79.51 Long term (current) use of inhaled steroids; Z88.1 Allergy status to other antibiotic agents; Z88.8 Allergy status to other drugs, medicaments and biological substances

== ENCOUNTER → 2016-09-01 | Outpatient (REF) | payer BC ==
[2016-09-01 11:52] LABS: BASO % 0.4 % (0.0-1.0); EOS # 0.1 K/mm3 (0.0-0.50); EOS % 0.9 % (0.0-3.0); LARGE UNSTAINED CELL # 0.2 K/mm3 (0.0-0.4); LARGE UNSTAINED CELL % 1.5 % (0.0-4.0); LYMPH # 2.1 K/mm3 (1.5-4.5); LYMPH % 16.2 % (24.0-44.0); MEAN CORPUSCULAR HEMOGLOBIN 30.2 pg (27.0-33.0); MEAN CORPUSCULAR HGB CONC 32.8 g/dl (32.0-36.5); MEAN CORPUSCULAR VOLUME 92.3 fl (80.0-96.0); MONO # 0.6 K/mm3 (0.0-0.8); MONO % 5.3 % (0.0-5.0); NEUTROPHILS % 75.6 % (36.0-66.0); PLATELET COUNT, AUTOMATED 468 k/mm3 (150-450); RED CELL DISTRIBUTION WIDTH 13.2 % (11.5-14.5); WHITE BLOOD COUNT 11.9 K/mm3 (4.0-10.0)
[2016-09-01 12:23] LABS: ALBUMIN 3.7 GM/DL (3.2-5.2); ALBUMIN/GLOBULIN RATIO 0.97 (1.00-1.93); ALKALINE PHOSPHATASE 113 U/L (45-117); ALT/SGPT 28 U/L (12-78); ANION GAP 7 MEQ/L (8-16); AST/SGOT 15 U/L (15-37); BILIRUBIN,TOTAL 0.4 MG/DL (0.2-1.0); BLOOD UREA NITROGEN 6 MG/DL (7-18); CALCIUM LEVEL 9.5 MG/DL (8.5-10.1); CARBON DIOXIDE LEVEL 31 MEQ/L (21-32); CHLORIDE LEVEL 100 MEQ/L (98-107); CHOLESTEROL LEVEL 201 MG/DL (<200); FERRITIN 8 NG/ML (8-252); GLOMERULAR FILTRATION RATE > 60.0 (>51); GLUCOSE, FASTING 114 MG/DL (70-105); MAGNESIUM LEVEL 1.7 MG/DL (1.8-2.4); POTASSIUM SERUM 4.3 MEQ/L (3.5-5.1); SODIUM LEVEL 138 MEQ/L (136-145); TOTAL IRON BINDING CAPACITY 508 UG/DL (250-450); TOTAL PROTEIN 7.5 GM/DL (6.4-8.2); TRIGLYCERIDES LEVEL 72 MG/DL (<150)
== END ==
LOC: M SFHCPLAZ 07:14
PROVIDERS: ATTEND Family Medicine
DX: E78.5 Hyperlipidemia, unspecified (principal); Z98.84 Bariatric surgery status; I10 Essential (primary) hypertension; R73.01 Impaired fasting glucose

== ENCOUNTER → 2017-01-06 | Outpatient (REF) | payer BC ==
[~2017-01-06] MED LIST changes: -COUM2.5T11 PO; +COUM2.5T17 PO; -NYST100024 TOP; +NYST1POW9 TOP; +OXYC-141 PO; -OXYC-299 PO; +PERC5TAB12 PO; -PERC5TAB6 PO; +TOPA1TAB PO; -TOPA25TA10 PO; -VALA1TAB PO; +VALA1TAB2 PO
== END ==
LOC: M SFHCPLAZ 11:11
PROVIDERS: ATTEND Family Medicine
DX: M46.1 Sacroiliitis, not elsewhere classified (principal)

== ENCOUNTER → 2017-01-18 | Outpatient (CLI) | payer BC ==
--- NOTE | 2017-01-19 02:20 | REP ---
Clinical: Sacroiliitis/hip pain. Technique: Frontal view of the pelvis with neutral and frog lateral views of the bilateral hips. Findings: The bilateral sacroiliac joints appear relatively symmetric with minimal periarticular sclerosis and spurring. The bilateral hip joints are symmetric and demonstrate mild age-related changes including subtle increase sclerosis to the acetabular roof. No acute fracture dislocation. No further overt arthritic degenerative changes noted. Impression: Relatively symmetric, age-related changes to the bilateral sacroiliac joints and hips. Signed by Marin Briones MD 01/19/2017 02:12 A
--- NOTE | 2017-01-19 02:24 | REP ---
Clinical: Technique: AP, cephalic angled, bilateral oblique views of the sacroiliac joints. Findings: The bilateral sacroiliac joints are symmetric and normal for age. No significant degenerative arthritic changes appreciated. Impression: Normal, symmetric bilateral sacroiliac joints. Signed by Marin Briones MD 01/19/2017 02:16 A
--- NOTE | 2017-01-19 02:30 | REP ---
Clinical: Back pain. Sacroiliitis. Technique: AP, lateral, bilateral oblique and coned-down views of the lumbosacral spine. Findings: Chronic mild levoconvex scoliosis and moderate multilevel degenerative disc osteophyte complexes noted throughout the visualized lower thoracic and lumbosacral spine. Mild chronic spondylolysis with 2 mm of spondylolisthesis at the L5-S1 level appreciated along with anterior spurring and chronic hypertrophic facet changes. No acute fracture / compression injury. Impression: Chronic multilevel degenerative changes as noted above. Signed by Marin Briones MD 01/19/2017 02:22 A
== END ==
LOC: M RAD 15:00
PROVIDERS: ATTEND Family Medicine
DX: M46.1 Sacroiliitis, not elsewhere classified (principal)

== ENCOUNTER → 2017-02-04 | Outpatient (CLI) | payer BC ==
--- NOTE | 2017-02-20 23:52 | ECWPNPC ---
PATIENT NAME: REUBEN GARIBAY : 1960 GENDER: FEMALE VISIT DATE: 02/04/2017 DISCHARGE DATE: 02/04/17 09 VISIT LOCKED DATE TIME: PHYSICIAN: EDWIN WELDON PHYSICIAN PAGER NO: [phone] RESOURCE: EDWIN WELDON REASON FOR APPOINTMENT 1. BACK/HIPS PAIN HISTORY OF PRESENT ILLNESS HISTORY OF PRESENT ILLNESS: PAIN THE PATIENT DESCRIBES THE PAIN... 56 YEAR OLD FEMALE PATIENT WITH HISTORY OF CHRONIC LOW BACK AND HIP PAIN. PATIENT DESCRIBES THE PAIN ACHING, BURNING, SHARP, STABBING, THROBBING, SHOOTING AND HAVING IT ALL THE TIME WITH A PAIN SCORE OF 8/10. PATIENT RECEIVED A SACROILIAC JOINT BLOCK IN JUNE AND DID VERY WELL FOR OVER 2 MONTHS. PATIENT REPORTS HAVING OVER 50% RELIEF FROM THE PAIN WITH INCREASED MOBILITY AND FUNCTIONALITY. PATIENT IS USING HYDROCODONE FOR PAIN MANAGEMENT AND STATES THAT THE MEDICATION TAKES THE EDGE OFF. PATIENT STATES THAT WALKING INCREASES HER PAIN THE MOST. PATIENT DENIES UNEXPLAINABLE WEIGHT LOSS, FEVER, CHILLS, NEW CHANGES ON HER URINARY OR BOWEL CONTROL. FALL RISK SCREENING: SCREENING :NO FALLS IN THE PAST YEAR CURRENT MEDICATIONS TAKING PATANOL 0.1 % SOLUTION 1 DROP INTO BOTH EYES OPHTHALMIC TWICE A DAY NEEDED, NOTES: 04/29 8AM TAKING ACAPELLA - MISCELLANEOUS DIRECTED DX:J45.40 TWICE A DAY NEEDED TAKING CALTRATE 600+D 600-400 MG-UNIT TABLET 1 TABLET ORALLY TWICE A DAY, NOTES: 06-27-16 TAKING DIFLUCAN 150 MG TABLET 1 TABLET ORALLY DAILY NEEDED, NOTES: MONTHS AGO TAKING TIZANIDINE HCL 2 MG TABLET 1 TABLET NEEDED ORALLY THREE TIMES A DAY TAKING PREVACID 30 MG CAPSULE DELAYED RELEASE 1 CAPSULE ORALLY TWICE A DAY NEEDED TAKING CLOTRIMAZOLE-BETAMETHASONE 1-0.05 % CREAM 1 APPLICATION TO AFFECTED AREA EXTERNALLY TWICE A DAY NEEDED, NOTES: MONTHS AGO TAKING HYDROCODONE-ACETAMINOPHEN 7.5-325 MG TABLET 1 TABLET NEEDED ORALLY TWICE A DAY TAKING VITAMIN B-12 1000 MCG TABLET 1 TAB ORALLY ONCE A DAY TAKING MULTIVITAMINS OTC TABLET 1 TABLET ORALLY TWICE A DAY TAKING VITAMIN D 5000 UNIT TABLET 1 TAB ORALLY EVERY DAY TAKING LASIX 20 MG TABLET 1 TABLET BY MOUTH NEEDED TAKING LEVOTHYROXINE SODIUM 25 MCG TABLET 1 TABLET ORALLY ONCE A DAY TAKING FLONASE 50 MCG/ACT SUSPENSION 1 SPRAY IN EACH NOSTRIL NASALLY ONCE A DAY TAKING XYZAL 5 MG TABLET 1 TABLET IN THE EVENING ORALLY ONCE A DAY TAKING NYSTATIN POWDER [id number] UNIT/ML SUSPENSION 1 APPLICATION TO AFFECTED AREA UNDER BREAST AND GROIN TWICE A DAY TAKING LEXAPRO 20 MG TABLET 1 TABLET ORALLY ONCE A DAY TAKING TRAZODONE HCL 100 MG TABLET 1 TABLET AT BEDTIME ORALLY ONCE A DAY TAKING AVAPRO 300 MG TABLET 1 TABLET ORALLY ONCE A DAY TAKING DIPHENOXYLATE-ATROPINE 2.5-0.025 MG TABLET 1 TABLET NEEDED ORALLY FOUR TIMES A DAY TAKING XOPENEX 1.25 MG/3ML NEBULIZATION SOLUTION 3 ML INHALATION EVERY 4 HOURS NEEDED TAKING VENTOLIN HFA 90MCG) MCG/ACT AEROSOL SOLUTION 2 PUFFS.200METERED INHALATION. EVERY 4 HRS NEEDED TAKING PEAK FLOW METER .. DEVICE DIRECTED .. ONCE A DAY TAKING ADVAIR DISKUS 500-50 MCG/DOSE AEROSOL POWDER BREATH ACTIVATED 1 PUFF INHALATION TWICE A DAY TAKING XANAX 1 MG TABLET 1 TABLET ORALLY QD, MDD 1 TAKING ATORVASTATIN CALCIUM 10 MG TABLET 1 TABLET ORALLY ONCE A DAY TAKING TOPIRAMATE 50 MG TABLET 1 TABLET ORALLY TWICE A DAY TAKING CELEBREX 200 MG CAPSULE 1 CAPSULE WITH FOOD ORALLY ONCE A DAY NOT-TAKING GABAPENTIN 300 MG CAPSULE 1 CAPSULE ORALLY THREE TIMES A DAY NOT-TAKING AMOXICILLIN 500 MG CAPSULE 4 CAPSULE ORALLY ONE HOUR PRIOR TO DENTAL PROCEDURE, NOTES: 2 MONTHS NOT-TAKING VOLTAREN 1 % GEL DIRECTED TRANSDERMAL QID NOT-TAKING NORCO 5-325 MG TABLET 1 TABLET NEEDED ORALLY BID PRN, MDD 2 NOT-TAKING SKELAXIN 800 MG TABLET 1 TABLET ORALLY BID PRN UNKNOWN VALTREX 1 GM TABLET 1 TABLET ORALLY TWICE A DAY NEEDED, NOTES: MONTHS AGO MEDICATION LIST REVIEWED AND RECONCILED WITH THE PATIENT PAST MEDICAL HISTORY ASTHMA, MODERATE PERSISTENT-08/20/2013 FEV1 2.7 L(100%)/RATIO 83%-PA//01/28/16 FEV1 2.5L(107), RATIO 93%-SAEED IFG-10/2015 TST-LOW RISK-DUNLAP, 7 MINUTES ON AMADO PROTOCOL CONSISTENT WITH GOOD EXERCISE TOLERANCE HYPERLIPIDEMIA 2B BILATERAL KNEE OSTEOARTHRITIS ALLERGIC RHINITIS GERD LUMBAR DJD-L1-5 DIFFUSE BULGES, L2-4 MINIMAL CCS, GRADE 1 LITHESIS C L5 PARS DEFECT C L L5 COMPRESSION IN NF BY 03/2016 MRI ANXIETY DISORDER INSOMNIA OBESITY, MORBID FATTY LIVER DISEASE C SMAL GB POLYP VS STONE BY 01/2016 US HYPERTENSION IRRITABLE BOWEL SYNDROME, DIARRHEA-TYPE BILATERAL PLANTAR FASCIITIS B12 DEFICIENCY VITAMIN D DEFICIENCY BILATERAL CATERACTS SINUSITIS, RECURRENT-03/2012 CT SINUSES WITH MINIMAL MAXILLARY SINUS MUCOSAL THICKENING H63D HETEROZYGOTE C MILDLY ELEVATED FE LEVELS LIGIA, MILD-09/2013 RDI 5 BY NPSG-KALIA B KNEE TRICOMPARTMENTAL OA BY 11/18/14 XRAY BORDERLINE CONCENTRIC LVH C LVEF 75%, LAE 40 MM, MILD DIASTOLIC DYSFUNCTION, MILD PHTN BY 08/2015 TTE-DUNLAP HYPOTHYROID, 11/2015 TPO AB 35, TG <15 MIGRAINE HEADACHE, COMMON-07/2016 MRI/MRA BRAIN X MILD ALLERGIES STATINS: MYALGIAS: SIDE EFFECTS NORVASC: EDEMA: SIDE EFFECTS DOXYCYCLINE HYCLATE: NAUSEA/ABDOMINAL: SIDE EFFECTS FLUOXETINE: ANXIETY: SIDE EFFECTS VERAPAMIL: PALPITATIONS: SIDE EFFECTS REVIEW OF SYSTEMS REVIEWED BY: PROVIDER: EDWIN WELDON MD . CONSTITUTIONAL: ANY CHANGE IN YOUR MEDICAL CONDITION? NO . CHILLS NO . FEVER NO . INFECTION: DO YOU HAVE NEW INFECTIONS? NO . DO YOU HAVE HISTORY OF MRSA? NO . MUSCULOSKELETAL: ANY NEW PATTERNS OF PAIN OR NUMBNESS? NO . GASTROENTEROLOGY: ANY NEW CHANGE IN BOWEL CONTROL? NO . GENITOURINARY: ANY NEW CHANGE IN BLADDER CONTROL? NO . IS THERE A CHANCE YOU COULD BE ? NO . HEMATOLOGY/LYMPH: DO YOU TAKE ANY BLOOD THINNERS? (FOR EXAMPLE- COUMADIN, PLAVIX, AGGRENOX, PLATEL, PRADAXA, OR XARELTO) NO . WHEN WAS YOUR LAST DOSE? DATE: TIME: . NEUROLOGY: HAVE YOU FALLEN IN THE PAST 6 MONTHS? NO . ANY NEW EXTREMITY NUMBNESS OR WEAKNESS? NO . CARDIOLOGY: DO YOU HAVE A PACEMAKER OR DEFIBRILLATOR? NO . RESPIRATORY: HAVE YOU BEEN SICK IN THE PAST WEEK? NO . FEVER NO . FLU LIKE SYMPTOMS? NO . COUGH NO . INTEGUMENTARY: DO YOU HAVE ANY RASHES OR OPEN SORES? NO . ALLERGIC/IMMUNO: ARE YOU ALLERGIC TO SHELLFISH OR IV DYE? NO . ANY NEW ALLERGIES? NO . PSYCHIATRIC: DO YOU HAVE THOUGHTS OF HURTING YOURSELF OR SOMEONE ELSE? NO . ARE YOU ABUSED, NEGLECTED, OR IN AN UNSAFE ENVIRONMENT? NO . ENDOCRINOLOGY: ARE YOU DIABETIC? NO . OTHER: DO YOU NEED ANY PRESCRIPTIONS? NO . IF YES, PLEASE LIST: ____ . ANY NEW PROBLEMS WITH YOUR MEDICATIONS? NO . WHEN DID YOU LAST EAT? ____ . WHEN DID YOU LAST DRINK? ____ . WHAT DID YOU LAST DRINK? ____ . NAME OF PERSON DRIVING YOU HOME? ____ . DO YOU HAVE ANY OTHER QUESTIONS OR CONCERNS NO . VITAL SIGNS WT 238.0 LBS, HT 64 IN, BMI 40.85 INDEX, BP 132/63 MM HG, HR 78 /MIN, RR 16 /MIN, TEMP 98.0 F, OXYGEN SAT % 98%, NA INITIALS TL 0908. EXAMINATION : PATIENT IS ALERT O X 3 AND COOPERATIVE. THERE IS TENDERNESS IN THE SACROILIAC AREA. DIFFICULTIES LAYING IN THE SUPINE POSITION. ANTALGIC GAIT. ASSESSMENTS SACROILIITIS, NOT ELSEWHERE CLASSIFIED - M46.1 (PRIMARY) TREATMENT SACROILIITIS, NOT ELSEWHERE CLASSIFIED NOTES: WE DISCUSSED SEVERAL ISSUES WITH MRS. GARIBAY'S PAIN MANAGEMENT CASE. PATIENT RECEIVED A SACROILIAC IN JUNE AND REPORTS HAVING OVER 3 MONTHS OF PAIN RELIEF WITH INCREASED MOBILITY AND FUNCTIONALITY BUT AT THIS TIME THE PAIN IS BECOMING SEVERE. DUE TO THE GOOD PAIN RELIEF FROM THE INJECTION I WOULD LIKE TO REPEAT THE SACROILIAC JOINT INJECTION. WE DISCUSSED THE RISK, BENEFITS, AND ALTNERATIVES OF THE INJECTION AND THE PATIENT WOULD LIKE TO PROCEED. INSTRUCTIONS WERE GIVEN, QUESTIONS WERE ANSWERED, PATIENT REPORTS UNDERSTANDING AND AGREES WITH THE PLAN. I, NADER BYNUM, DOCUMENTED THE ABOVE INFORMATION ACTING A SCRIBE FOR DR. WELDON. I HAVE REVIEWED THE ABOVE DOCUMENT, WRITTEN BY NADER CARVER AND I VERIFY THAT IT IS ACCURATE. PROCEDURE CODES FA211 ESTABILISHED PATIENT [facility] FACILITY CHARGE G8427 DOC MEDS VERIFIED W/PT OR RE G8730 PAIN ASSESS POS TOOL F/U PLAN DOC DISPOSITION & COMMUNICATION FOLLOW UP SIJ AFTER APPROVAL ELECTRONICALLY SIGNED BY EDWIN WELDON MD ON 02/20/2017 AT 09:13 PM EST DISCLAIMER : THIS IS A VISIT SUMMARY EXTRACTED FROM THE [email or web address] CHART. IT IS NOT A COPY OF THE [email or web address] PROGRESS NOTE. JOSHUAD
== END ==
LOC: M PAIN 08:45
PROVIDERS: ATTEND Anesthesiology
DX: M46.1 Sacroiliitis, not elsewhere classified (principal); M54.5 Low back pain; G89.29 Other chronic pain; K21.9 Gastro-esophageal reflux disease without esophagitis; I10 Essential (primary) hypertension; E55.9 Vitamin D deficiency, unspecified; F32.9 Major depressive disorder, single episode, unspecified; E78.5 Hyperlipidemia, unspecified; J45.40 Moderate persistent asthma, uncomplicated; E03.8 Other specified hypothyroidism; Z79.891 Long term (current) use of opiate analgesic; Z79.899 Other long term (current) drug therapy; Z88.1 Allergy status to other antibiotic agents; Z88.8 Allergy status to other drugs, medicaments and biological substances

== ENCOUNTER → 2017-02-24 | Outpatient (CLI) | payer BC ==
[~2017-02-24] MED LIST changes: +BUPIVACAINE HCL 0.25% 30 ML VIAL As Ordered ONE; +ISOVUE-M 300 61% 15ML VIAL (Q9967) As Ordered ONE; +LIDOCAINE 1% SDV INJ 30 ML VIAL As Ordered ONE; +TRIAMCINOLONE ACETONIDE SUSP 40 MG/ML VIAL (J3301) As Ordered ONE; +diazePAM 5 MG TAB As Ordered ONE; +oxyCODONE 5MG TAB As Ordered ONE
--- NOTE | 2017-02-24 17:20 | REP ---
C-ARM VIEWS SACROILIAC JOINTS: Clinical history: Pain. C-Arm views of the sacroiliac joints are performed during injection by Dr. Edgar. Needle is placed at each sacroiliac joint. 17 seconds of fluoroscopy time utilized. Signed by Thad Gomes MD 02/25/2017 03:45 P
--- NOTE | 2017-03-09 00:45 | ECWPNPC ---
PATIENT NAME: REUBEN GARIBAY : 1960 GENDER: FEMALE VISIT DATE: 02/24/2017 DISCHARGE DATE: 02/24/17 1615 VISIT LOCKED DATE TIME: PHYSICIAN: EDWIN WELDON PHYSICIAN PAGER NO: [phone] RESOURCE: EDWIN WELDON REASON FOR APPOINTMENT 1. SIJ HISTORY OF PRESENT ILLNESS HISTORY OF PRESENT ILLNESS: PAIN THE PATIENT DESCRIBES THE PAIN... FALL RISK SCREENING: SCREENING :NO FALLS IN THE PAST YEAR CURRENT MEDICATIONS TAKING PATANOL 0.1 % SOLUTION 1 DROP INTO BOTH EYES OPHTHALMIC TWICE A DAY NEEDED, NOTES: LAST WEEK TAKING ACAPELLA - MISCELLANEOUS DIRECTED DX:J45.40 TWICE A DAY NEEDED TAKING CALTRATE 600+D 600-400 MG-UNIT TABLET 1 TABLET ORALLY TWICE A DAY, NOTES: 02/24/17699 TAKING DIFLUCAN 150 MG TABLET 1 TABLET ORALLY DAILY NEEDED, NOTES: NONE RECENT TAKING TIZANIDINE HCL 2 MG TABLET 1 TABLET NEEDED ORALLY THREE TIMES A DAY, NOTES: 02/23 2200 TAKING PREVACID 30 MG CAPSULE DELAYED RELEASE 1 CAPSULE ORALLY TWICE A DAY NEEDED, NOTES: 02/23 2200 TAKING CLOTRIMAZOLE-BETAMETHASONE 1-0.05 % CREAM 1 APPLICATION TO AFFECTED AREA EXTERNALLY TWICE A DAY NEEDED, NOTES: 02/23 2200 TAKING VITAMIN B-12 1000 MCG TABLET 1 TAB ORALLY ONCE A DAY, NOTES: 02/23 2200 TAKING MULTIVITAMINS OTC TABLET 1 TABLET ORALLY TWICE A DAY, NOTES: 02/24 700 TAKING VITAMIN D 5000 UNIT TABLET 1 TAB ORALLY EVERY DAY, NOTES: 04/25 2199 TAKING LASIX 20 MG TABLET 1 TABLET BY MOUTH NEEDED, NOTES: NONE RECENT TAKING FLONASE 50 MCG/ACT SUSPENSION 1 SPRAY IN EACH NOSTRIL NASALLY ONCE A DAY, NOTES: 02/24 700 TAKING XYZAL 5 MG TABLET 1 TABLET IN THE EVENING ORALLY ONCE A DAY, NOTES: 02/24 700 TAKING NYSTATIN POWDER [id number] UNIT/ML SUSPENSION 1 APPLICATION TO AFFECTED AREA UNDER BREAST AND GROIN TWICE A DAY, NOTES: NONE RECENT TAKING LEXAPRO 20 MG TABLET 1 TABLET ORALLY ONCE A DAY, NOTES: 02/23 2200 TAKING TRAZODONE HCL 100 MG TABLET 1 TABLET AT BEDTIME ORALLY ONCE A DAY, NOTES: 02/23 2200 TAKING AVAPRO 300 MG TABLET 1 TABLET ORALLY ONCE A DAY, NOTES: 02/23 2200 TAKING DIPHENOXYLATE-ATROPINE 2.5-0.025 MG TABLET 1 TABLET NEEDED ORALLY FOUR TIMES A DAY, NOTES: NONE RECENT TAKING XOPENEX 1.25 MG/3ML NEBULIZATION SOLUTION 3 ML INHALATION EVERY 4 HOURS NEEDED, NOTES: NONE RECENT TAKING VENTOLIN HFA 90MCG) MCG/ACT AEROSOL SOLUTION 2 PUFFS.200METERED INHALATION. EVERY 4 HRS NEEDED, NOTES: NONE RECENT TAKING PEAK FLOW METER .. DEVICE DIRECTED .. ONCE A DAY TAKING ADVAIR DISKUS 500-50 MCG/DOSE AEROSOL POWDER BREATH ACTIVATED 1 PUFF INHALATION TWICE A DAY, NOTES: 02/24 700 TAKING XANAX 1 MG TABLET 1 TABLET ORALLY QD, MDD 1, NOTES: NONE RECENT TAKING ATORVASTATIN CALCIUM 10 MG TABLET 1 TABLET ORALLY ONCE A DAY, NOTES: 02/23 2200 TAKING TOPIRAMATE 50 MG TABLET 1 TABLET ORALLY TWICE A DAY, NOTES: 02/23 2200 TAKING LEVOTHYROXINE SODIUM 25 MCG TABLET 1 TABLET ORALLY ONCE A DAY, NOTES: 02/24 600 TAKING CELEBREX 200 MG CAPSULE 1 CAPSULE WITH FOOD ORALLY ONCE A DAY, NOTES: 02/24 700 TAKING HYDROCODONE-ACETAMINOPHEN 7.5-325 MG TABLET 1 TABLET NEEDED ORALLY TWICE A DAY, NOTES: 02/24 700 TAKING VALTREX 1 GM TABLET 1 TABLET ORALLY TWICE A DAY NEEDED, NOTES: NONE RECENT DISCONTINUED GABAPENTIN 300 MG CAPSULE 1 CAPSULE ORALLY THREE TIMES A DAY DISCONTINUED AMOXICILLIN 500 MG CAPSULE 4 CAPSULE ORALLY ONE HOUR PRIOR TO DENTAL PROCEDURE, NOTES: 2 MONTHS DISCONTINUED VOLTAREN 1 % GEL DIRECTED TRANSDERMAL QID DISCONTINUED NORCO 5-325 MG TABLET 1 TABLET NEEDED ORALLY BID PRN, MDD 2 DISCONTINUED SKELAXIN 800 MG TABLET 1 TABLET ORALLY BID PRN MEDICATION LIST REVIEWED AND RECONCILED WITH THE PATIENT PAST MEDICAL HISTORY ASTHMA, MODERATE PERSISTENT-08/20/2013 FEV1 2.7 L(100%)/RATIO 83%-PA//01/28/16 FEV1 2.5L(107), RATIO 93%-SAEED IFG-10/2015 TST-LOW RISK-DUNLAP, 7 MINUTES ON AMADO PROTOCOL CONSISTENT WITH GOOD EXERCISE TOLERANCE HYPERLIPIDEMIA 2B BILATERAL KNEE OSTEOARTHRITIS ALLERGIC RHINITIS GERD LUMBAR DJD-L1-5 DIFFUSE BULGES, L2-4 MINIMAL CCS, GRADE 1 LITHESIS C L5 PARS DEFECT C L L5 COMPRESSION IN NF BY 03/2016 MRI ANXIETY DISORDER INSOMNIA OBESITY, MORBID FATTY LIVER DISEASE C SMAL GB POLYP VS STONE BY 01/2016 US HYPERTENSION IRRITABLE BOWEL SYNDROME, DIARRHEA-TYPE BILATERAL PLANTAR FASCIITIS B12 DEFICIENCY VITAMIN D DEFICIENCY BILATERAL CATERACTS SINUSITIS, RECURRENT-03/2012 CT SINUSES WITH MINIMAL MAXILLARY SINUS MUCOSAL THICKENING H63D HETEROZYGOTE C MILDLY ELEVATED FE LEVELS LIGIA, MILD-09/2013 RDI 5 BY NPSG-MOTTA B KNEE TRICOMPARTMENTAL OA BY 11/18/14 XRAY BORDERLINE CONCENTRIC LVH C LVEF 75%, LAE 40 MM, MILD DIASTOLIC DYSFUNCTION, MILD PHTN BY 08/2015 TTE-DUNLAP HYPOTHYROID, 11/2015 TPO AB 35, TG <15 MIGRAINE HEADACHE, COMMON-07/2016 MRI/MRA BRAIN X MILD ALLERGIES STATINS: MYALGIAS: SIDE EFFECTS NORVASC: EDEMA: SIDE EFFECTS DOXYCYCLINE HYCLATE: NAUSEA/ABDOMINAL: SIDE EFFECTS FLUOXETINE: ANXIETY: SIDE EFFECTS VERAPAMIL: PALPITATIONS: SIDE EFFECTS SOCIAL HISTORY GENERAL: TOBACCO USE ARE YOU A:NONSMOKER ARE YOU A:NONSMOKER BMI CARE GOAL FOLLOW-UP ABOVE NORMAL BMI FOLLOW-UPGIVING ENCOURAGEMENT TO EXERCISE ABOVE NORMAL BMI FOLLOW-UPGIVING ENCOURAGEMENT TO EXERCISE ALCOHOL SCREENING DID YOU HAVE A DRINK CONTAINING ALCOHOL IN THE PAST YEAR?NO POINTS0 INTERPRETATIONNEGATIVE DID YOU HAVE A DRINK CONTAINING ALCOHOL IN THE PAST YEAR?NO POINTS0 INTERPRETATIONNEGATIVE CAFFEINE: NO, NO NONE, NONE. 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 DIET: REGULAR. EXERCISE: NO REGULAR EXERCISE. MARITAL STATUS: SINGLE. ZOROASTRIAN LATTER DAY, LATTER DAY. LANGUAGE LANGUAGES SPOKEN:ROMANSH EDUCATION LEVEL OF EDUCATION:NOT FINISHED HIGH SCHOOL BOCES CERTIFIED LACTATION EDUCATOR LEARNING BARRIERS / SPECIAL NEEDS BARRIERS TO LEARNING?NO HEARING IMPAIRED?YES LEFT SLIGHT HEARING LOSS VISION IMPAIRED?YES :CORRECTIVE LENSES COGNITIVELY IMPAIRED?NO READINESS TO LEARN?YES LEARNING PREFERENCES?NO LEARNING CAPABILITIES PRESENT?YES EMOTIONAL BARRIERS?NO SPECIAL DEVICES?NO BARRIERS TO LEARNING?NO HEARING IMPAIRED?YES LEFT SLIGHT HEARING LOSS VISION IMPAIRED?YES :CORRECTIVE LENSES COGNITIVELY IMPAIRED?NO READINESS TO LEARN?YES LEARNING PREFERENCES?NO LEARNING CAPABILITIES PRESENT?YES EMOTIONAL BARRIERS?NO SPECIAL DEVICES?NO IMMUNIZATION PROGRAM ELIGIBILITY STATUS UNCHANGED:__ PARENT LAST NAME:__ FIRST NAME, MIDDLE INITIAL:__ MOTHER'S MAIDEN NAME:__ MEDICAID/MEDICAID MANAGED CARE PLAN:__ NOT INSURED:__ /[place]:__ UNDERINSURED:__ CHILD HEALTH PLUS B__ INSURANCE:__ INFLUENZA VACCINE:__ ELIGIBILITY STATUS UNCHANGED:__ PARENT LAST NAME:__ FIRST NAME, MIDDLE INITIAL:__ MOTHER'S MAIDEN NAME:__ MEDICAID/MEDICAID MANAGED CARE PLAN:__ NOT INSURED:__ /[place]:__ UNDERINSURED:__ CHILD HEALTH PLUS B__ INSURANCE:__ INFLUENZA VACCINE:__ FEMALE 6 MONTH RISK ASSESSMENT FOR STD DESCRIBE YOUR SEXUAL PARTNERS:MALE MONOGAMOUS?YES EVER INJECT DRUGS?NO IS THERE ANYTHING ELSE WE SHOULD TALK ABOUT CONCERNING YOUR SEXUAL HISTORY OR PRACTICE?YES DESCRIBE YOUR SEXUAL PARTNERS:MALE MONOGAMOUS?YES EVER INJECT DRUGS?NO IS THERE ANYTHING ELSE WE SHOULD TALK ABOUT CONCERNING YOUR SEXUAL HISTORY OR PRACTICE?YES PAIN CLINIC PFS, CLERGY, PUBLIC HEALTH REFERRALS PFS REFERRAL NEEDED?NO CLERGY REFERRAL NEEDED?NO PUBLIC HEALTH REFERRAL NEEDED?NO HAS THE PATIENT BEEN EDUCATED REGARDING HIS/HER PLAN OF CARE?YES HAS THE PATIENT BEEN EDUCATED REGARDING PAIN, THE RISK FOR PAIN, THE IMPORTANCE OF EFFECTIVE PAIN MANAGEMENT, AND THE PAIN ASSESSMENT PROCESS?YES ADVANCE DIRECTIVES HEALTH CARE PROXY?YES NAME OF HCP RENAE GARIBAY DO YOU HAVE A COPY WITH YOU? COPY IN SYSTEM POWER OF SERVICE DOG TRAINER?NO HEALTH CARE PROXY?YES NAME OF HCP RENAE GARIBAY DO YOU HAVE A COPY WITH YOU? COPY IN SYSTEM POWER OF SERVICE DOG TRAINER?NO TRAVEL OUTSIDE US: NO. COHABITATING: YES. DOMESTIC VIOLENCE DO YOU FEEL SAFE IN YOUR ENVIRONMENT?YES REVIEW OF SYSTEMS REVIEWED BY: PROVIDER: . CONSTITUTIONAL: ANY CHANGE IN YOUR MEDICAL CONDITION? NO . CHILLS NO . FEVER NO . INFECTION: DO YOU HAVE NEW INFECTIONS? NO . DO YOU HAVE HISTORY OF MRSA? NO . MUSCULOSKELETAL: ANY NEW PATTERNS OF PAIN OR NUMBNESS? NO . GASTROENTEROLOGY: ANY NEW CHANGE IN BOWEL CONTROL? NO . GENITOURINARY: ANY NEW CHANGE IN BLADDER CONTROL? NO . IS THERE A CHANCE YOU COULD BE ? NO . HEMATOLOGY/LYMPH: DO YOU TAKE ANY BLOOD THINNERS? (FOR EXAMPLE- COUMADIN, PLAVIX, AGGRENOX, PLATEL, PRADAXA, OR XARELTO) NO . WHEN WAS YOUR LAST DOSE? DATE: TIME: . NEUROLOGY: HAVE YOU FALLEN IN THE PAST 6 MONTHS? NO . ANY NEW EXTREMITY NUMBNESS OR WEAKNESS? NO . CARDIOLOGY: DO YOU HAVE A PACEMAKER OR DEFIBRILLATOR? NO . RESPIRATORY: HAVE YOU BEEN SICK IN THE PAST WEEK? NO . FEVER NO . FLU LIKE SYMPTOMS? NO . COUGH NO . INTEGUMENTARY: DO YOU HAVE ANY RASHES OR OPEN SORES? NO . ALLERGIC/IMMUNO: ARE YOU ALLERGIC TO SHELLFISH OR IV DYE? NO . ANY NEW ALLERGIES? NO . PSYCHIATRIC: DO YOU HAVE THOUGHTS OF HURTING YOURSELF OR SOMEONE ELSE? NO . ARE YOU ABUSED, NEGLECTED, OR IN AN UNSAFE ENVIRONMENT? NO . ENDOCRINOLOGY: ARE YOU DIABETIC? NO . OTHER: DO YOU NEED ANY PRESCRIPTIONS? NO . IF YES, PLEASE LIST: ____ . ANY NEW PROBLEMS WITH YOUR MEDICATIONS? NO . WHEN DID YOU LAST EAT? 02/24 0700 . WHEN DID YOU LAST DRINK? 02/24 1000 . WHAT DID YOU LAST DRINK? COFFEE . NAME OF PERSON DRIVING YOU HOME? S.O. ELWYN . DO YOU HAVE ANY OTHER QUESTIONS OR CONCERNS SHE HAD A FLU VACCINE OVER 4 WEEKS AGO . VITAL SIGNS WT 238.0 LBS, HT 64 IN, BMI 40.85 INDEX, BP 139/77 MM HG, HR 72 /MIN, RR 16 /MIN, TEMP 98.6 F, OXYGEN SAT % 96%, SAFE IN ENV? (Y/N) Y, NA INITIALS TL 1417, REVIEWED BY: AD. 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 EDWIN WELDON MERCHANDISE COORDINATOR NONE ANESTHESIA LOCAL PRE PROCEDURE NOTE PATIENT WITH HISTORY OF CHRONIC LOW BACK PAIN. I EVALUATED THE PATIENT AND REVIEWED THE CHART. I WENT OVER THE RISKS, ALTERNATIVES, AND BENEFITS ASSOCIATED WITH THIS PROCEDURE. THE PATIENT WOULD LIKE TO PROCEED AND GAVE CONSENT TO PERFORM THE PROCEDURE. THE PATIENT DENIES UNEXPLAINABLE WEIGHT LOSS, FEVER, CHILLS, OR NEW CHANGES IN URINARY OR BOWEL CONTROL DESCRIPTION OF PROCEDURE THE PATIENT WAS BROUGHT TO THE PROCEDURE ROOM AND PLACED IN THE PRONE POSITION. THE LUMBOSACRAL AREA WAS CLEANED WITH CHLORAPREP SOLUTION AND DRAPED ASEPTICALLY. THE PROCEDURE WAS DONE UNDER STERILE CONDITIONS. I CHECKED LATERALITY AND THE LEVEL WHERE THE PROCEDURE WAS GOING TO BE PERFORMED WITH THE PATIENT AND THE SUPPORTING STAFF AT THE MOMENT OF THE TIME OUT IN THE PROCEDURE ROOM. UNDER FLUOROSCOPIC GUIDANCE, TARGET POINT WAS SELECTED AT THE LOWER BORDER OF THE RIGHT AND LEFT SACROILIAC JOINT. TARGET POINT WAS SELECTED AFTER MEDIAL ROTATION AND TILT OF THE MAGNIFIER OF THE C-ARM. LIDOCAINE WAS USED TO NUMB THE SKIN AND SUBCUTANEOUS TISSUE BELOW IT. A SPINAL NEEDLE, 22-GAUGE, WAS ADVANCED UNDER FLUOROSCOPIC GUIDANCE AND FOLLOWING PATIENT FEEDBACK UNTIL THE TARGET AREA WAS TOUCHED. THE POSITION OF THE NEEDLE WAS VERIFIED WITH AP AND LATERAL VIEWS. AFTER PROPER POSITION OF THE NEEDLE WAS ACHIEVED, ISOVUE M DYE 30%, 0.25 ML, WAS INJECTED SHOWING SPREAD OF THE DYE. THEN, A SOLUTION OF 20 MG OF KENALOG WAS INJECTED IN RIGHT JOINT WITH 3 ML OF BUPIVACAINE 0.125%. THERE WAS NO EVIDENCE OF BLOOD, PARESTHESIA OR CEREBROSPINAL FLUID DURING THE PROCEDURE. THE PATIENT WAS SENT TO THE RECOVERY ROOM. THE PATIENT WAS MOVING THE EXTREMITIES AND DOING WELL. THERE WAS NO COMPLICATION DURING THE PROCEDURE. FLUOROSCOPY TIME WAS 17 SECONDS POST PROCEDURE NOTE THE PATIENT WILL BE SEEN IN A FOLLOW UP IN THE NEXT FEW WEEKS. INSTRUCTIONS WERE GIVEN, QUESTIONS WERE ANSWERED, AND THE PATIENT EXPRESSED UNDERSTANDING AND AGREED WITH THE PLAN. I, NADER BYNUM, DOCUMENTED THE ABOVE INFORMATION ACTING A SCRIBE FOR DR. WELDON. I, DR. WELDON, HAVE REVIEWED THE ABOVE DOCUMENT, SCRIBED BY NADER BYNUM, AND I VERIFY THAT IT IS [facility] FLUORO GUIDANCE (PAIN)[id number] PROCEDURE CODES 11844 INJECT SACROILIAC JOINT, MODIFIERS: 50 [id number] RADXPS IN END [id number] PXD DISPOSITION & COMMUNICATION FOLLOW UP 3 WEEKS ELECTRONICALLY SIGNED BY EDWIN WELDON MD ON 03/07/2017 AT 02:29 PM EST DISCLAIMER : THIS IS A VISIT SUMMARY EXTRACTED FROM THE [employer] CHART. IT IS NOT A COPY OF THE [employer] PROGRESS NOTE. VICKEY
== END ==
LOC: M PAIN 13:45
PROVIDERS: ATTEND Anesthesiology
DX: G89.29 Other chronic pain (principal); M46.1 Sacroiliitis, not elsewhere classified; M53.88 Other specified dorsopathies, sacral and sacrococcygeal region; I11.0 Hypertensive heart disease with heart failure; I50.30 Unspecified diastolic (congestive) heart failure; F32.9 Major depressive disorder, single episode, unspecified; E78.5 Hyperlipidemia, unspecified; E53.8 Deficiency of other specified B group vitamins; R73.01 Impaired fasting glucose; J45.40 Moderate persistent asthma, uncomplicated; E55.9 Vitamin D deficiency, unspecified; G47.00 Insomnia, unspecified; F41.0 Panic disorder [episodic paroxysmal anxiety]; E03.8 Other specified hypothyroidism; K76.0 Fatty (change of) liver, not elsewhere classified; K58.0 Irritable bowel syndrome with diarrhea; D50.9 Iron deficiency anemia, unspecified; G43.009 Migraine without aura, not intractable, without status migrainosus; K21.9 Gastro-esophageal reflux disease without esophagitis; G47.33 Obstructive sleep apnea (adult) (pediatric); Z88.6 Allergy status to analgesic agent; Z88.8 Allergy status to other drugs, medicaments and biological substances; Z79.899 Other long term (current) drug therapy
CPT/HCPCS: G0260; J3301; Q9967

== ENCOUNTER → 2017-03-09 | Outpatient (REF) | payer BC ==
[~2017-03-09] MED LIST changes: -BUPIVACAINE HCL 0.25% 30 ML VIAL As Ordered ONE; -ISOVUE-M 300 61% 15ML VIAL (Q9967) As Ordered ONE; -LIDOCAINE 1% SDV INJ 30 ML VIAL As Ordered ONE; -TRIAMCINOLONE ACETONIDE SUSP 40 MG/ML VIAL (J3301) As Ordered ONE; -diazePAM 5 MG TAB As Ordered ONE; -oxyCODONE 5MG TAB As Ordered ONE
[2017-03-09 10:37] LABS: ALBUMIN 3.6 GM/DL (3.2-5.2); ANION GAP 6 MEQ/L (8-16); BLOOD UREA NITROGEN 20 MG/DL (7-18); CALCIUM LEVEL 9.2 MG/DL (8.5-10.1); CARBON DIOXIDE LEVEL 29 MEQ/L (21-32); CHLORIDE LEVEL 103 MEQ/L (98-107); CREATININE FOR GFR 0.69 MG/DL (0.55-1.02); GLOMERULAR FILTRATION RATE > 60.0 (>51); GLUCOSE, FASTING 106 MG/DL (70-105); MAGNESIUM LEVEL 2.1 MG/DL (1.8-2.4); PHOSPHORUS LEVEL 3.7 MG/DL (2.5-4.9); POTASSIUM SERUM 4.3 MEQ/L (3.5-5.1); SODIUM LEVEL 138 MEQ/L (136-145)
== END ==
LOC: M SFHCPLAZ 07:54
PROVIDERS: ATTEND Family Medicine
DX: R25.2 Cramp and spasm (principal)

== ENCOUNTER → 2017-03-11 | Outpatient (CLI) | payer BC ==
--- NOTE | 2017-03-12 00:23 | ECWPNPC ---
PATIENT NAME: REUBEN GARIBAY : 1960 GENDER: FEMALE VISIT DATE: 03/11/2017 DISCHARGE DATE: 03/11/17 1018 VISIT LOCKED DATE TIME: PHYSICIAN: FERNANDEZ GRECO PHYSICIAN PAGER NO: [phone] RESOURCE: FERNANDEZ GRECO REASON FOR APPOINTMENT 1. POST PROCEDURE HISTORY OF PRESENT ILLNESS HISTORY OF PRESENT ILLNESS: PAIN THE PATIENT DESCRIBES THE PAIN... FALL RISK SCREENING: SCREENING :NO FALLS IN THE PAST YEAR TODAY'S VISIT: NOTES: RATES PAIN TODAY 10/18. IS S/P INJECTIONS BILATERAL SIJ COMPLETED ON 02/24/17. NOTES MINIMAL IMPROVEMENT IN PAIN AND REPORTS LEG SPASMS.HAD BEEN HAVING INCREASED BILATERAL HIP PAIN. NO IMPROVEMENT OVER HIPS WITH CELEBREX AND EXERCISES OR WITH MOST RECENT INJECTION. PAIN IS VERY POSITIONAL AND CAN ALTERNATE RIGHT TO LEFT SIDES. IS HAVING BURNING FIRE PAIN OVER THE TOP OF THE LEFT THIGH. NO NUMBNESS/TINGLINGLING INTO THE TOES. DENIES DIFFICULTY WITH GAIT OR LOWER EXTREMITY STRENGTH. CURRENT MEDICATIONS TAKING PATANOL 0.1 % SOLUTION 1 DROP INTO BOTH EYES OPHTHALMIC TWICE A DAY NEEDED TAKING ACAPELLA - MISCELLANEOUS DIRECTED DX:J45.40 TWICE A DAY NEEDED TAKING CALTRATE 600+D 600-400 MG-UNIT TABLET 1 TABLET ORALLY TWICE A DAY TAKING DIFLUCAN 150 MG TABLET 1 TABLET ORALLY DAILY NEEDED TAKING TIZANIDINE HCL 2 MG TABLET 1 TABLET NEEDED ORALLY THREE TIMES A DAY TAKING PREVACID 30 MG CAPSULE DELAYED RELEASE 1 CAPSULE ORALLY TWICE A DAY NEEDED TAKING CLOTRIMAZOLE-BETAMETHASONE 1-0.05 % CREAM 1 APPLICATION TO AFFECTED AREA EXTERNALLY TWICE A DAY NEEDED TAKING VITAMIN B-12 1000 MCG TABLET 1 TAB ORALLY ONCE A DAY TAKING MULTIVITAMINS OTC TABLET 1 TABLET ORALLY TWICE A DAY TAKING VITAMIN D 5000 UNIT TABLET 1 TAB ORALLY EVERY DAY TAKING LASIX 20 MG TABLET 1 TABLET BY MOUTH NEEDED TAKING XYZAL 5 MG TABLET 1 TABLET IN THE EVENING ORALLY ONCE A DAY TAKING NYSTATIN POWDER 400629 UNIT/ML SUSPENSION 1 APPLICATION TO AFFECTED AREA UNDER BREAST AND GROIN TWICE A DAY TAKING TRAZODONE HCL 100 MG TABLET 1 TABLET AT BEDTIME ORALLY ONCE A DAY TAKING AVAPRO 300 MG TABLET 1 TABLET ORALLY ONCE A DAY TAKING DIPHENOXYLATE-ATROPINE 2.5-0.025 MG TABLET 1 TABLET NEEDED ORALLY FOUR TIMES A DAY TAKING XOPENEX 1.25 MG/3ML NEBULIZATION SOLUTION 3 ML INHALATION EVERY 4 HOURS NEEDED TAKING VENTOLIN HFA 90MCG) MCG/ACT AEROSOL SOLUTION 2 PUFFS.200METERED INHALATION. EVERY 4 HRS NEEDED TAKING PEAK FLOW METER .. DEVICE DIRECTED .. ONCE A DAY TAKING ADVAIR DISKUS 500-50 MCG/DOSE AEROSOL POWDER BREATH ACTIVATED 1 PUFF INHALATION TWICE A DAY TAKING XANAX 1 MG TABLET 1 TABLET ORALLY QD, MDD 1 TAKING ATORVASTATIN CALCIUM 10 MG TABLET 1 TABLET ORALLY ONCE A DAY, NOTES: 02/23 2200 TAKING TOPIRAMATE 50 MG TABLET 1 TABLET ORALLY TWICE A DAY, NOTES: 02/23 2200 TAKING LEVOTHYROXINE SODIUM 25 MCG TABLET 1 TABLET ORALLY ONCE A DAY, NOTES: 02/24 600 TAKING CELEBREX 200 MG CAPSULE 1 CAPSULE WITH FOOD ORALLY ONCE A DAY, NOTES: 02/24 700 TAKING HYDROCODONE-ACETAMINOPHEN 7.5-325 MG TABLET 1 TABLET NEEDED ORALLY TWICE A DAY, NOTES: 02/24 700 TAKING VALTREX 1 GM TABLET 1 TABLET ORALLY TWICE A DAY NEEDED, NOTES: NONE RECENT TAKING LEXAPRO 20 MG TABLET 1 TABLET ORALLY ONCE A DAY, NOTES: 02/23 2200 TAKING FLONASE 50 MCG/ACT SUSPENSION 2 SPRAY IN EACH NOSTRIL NASALLY ONCE A DAY, NOTES: 02/24 700 TAKING VOLTAREN 1 % GEL DIRECTED TRANSDERMAL APPLY 4GMS FOUR TIMES A DAY TO KNEES NEEDED FOR PAIN TAKING ANUSOL-HC 2.5 % CREAM 1 APPLICATION TO AFFECTED AREA RECTAL TWICE A DAY NEEDED MEDICATION LIST REVIEWED AND RECONCILED WITH THE PATIENT PAST MEDICAL HISTORY ASTHMA, MODERATE PERSISTENT-08/20/2013 FEV1 2.7 L(100%)/RATIO 83%-PA//01/28/16 FEV1 2.5L(107), RATIO 93%-SAEED IFG-10/2015 TST-LOW RISK-DUNLAP, 7 MINUTES ON AMADO PROTOCOL CONSISTENT WITH GOOD EXERCISE TOLERANCE HYPERLIPIDEMIA 2B BILATERAL KNEE OSTEOARTHRITIS ALLERGIC RHINITIS GERD LUMBAR DJD-L1-5 DIFFUSE BULGES, L2-4 MINIMAL CCS, GRADE 1 LITHESIS C L5 PARS DEFECT C L L5 COMPRESSION IN NF BY 03/2016 MRI ANXIETY DISORDER INSOMNIA OBESITY, MORBID FATTY LIVER DISEASE C SMAL GB POLYP VS STONE BY 01/2016 US HYPERTENSION IRRITABLE BOWEL SYNDROME, DIARRHEA-TYPE BILATERAL PLANTAR FASCIITIS B12 DEFICIENCY VITAMIN D DEFICIENCY BILATERAL CATERACTS SINUSITIS, RECURRENT-03/2012 CT SINUSES WITH MINIMAL MAXILLARY SINUS MUCOSAL THICKENING H63D HETEROZYGOTE C MILDLY ELEVATED FE LEVELS LIGIA, MILD-09/2013 RDI 5 BY NPSG-KALIA B KNEE TRICOMPARTMENTAL OA BY 11/18/14 XRAY BORDERLINE CONCENTRIC LVH C LVEF 75%, LAE 40 MM, MILD DIASTOLIC DYSFUNCTION, MILD PHTN BY 08/2015 TTE-DUNLAP HYPOTHYROID, 11/2015 TPO AB 35, TG <15 MIGRAINE HEADACHE, COMMON-07/2016 MRI/MRA BRAIN X MILD ALLERGIES STATINS: MYALGIAS: SIDE EFFECTS NORVASC: EDEMA: SIDE EFFECTS DOXYCYCLINE HYCLATE: NAUSEA/ABDOMINAL: SIDE EFFECTS FLUOXETINE: ANXIETY: SIDE EFFECTS VERAPAMIL: PALPITATIONS: SIDE EFFECTS SOCIAL HISTORY GENERAL: TOBACCO USE ARE YOU A:NONSMOKER ARE YOU A:NONSMOKER BMI CARE GOAL FOLLOW-UP ABOVE NORMAL BMI FOLLOW-UPGIVING ENCOURAGEMENT TO EXERCISE ABOVE NORMAL BMI FOLLOW-UPGIVING ENCOURAGEMENT TO EXERCISE ALCOHOL SCREENING DID YOU HAVE A DRINK CONTAINING ALCOHOL IN THE PAST YEAR?NO POINTS0 INTERPRETATIONNEGATIVE DID YOU HAVE A DRINK CONTAINING ALCOHOL IN THE PAST YEAR?NO POINTS0 INTERPRETATIONNEGATIVE CAFFEINE: NO, NO NONE, NONE. 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 DIET: REGULAR. EXERCISE: NO REGULAR EXERCISE. MARITAL STATUS: SINGLE. [employer] EPISCOPALIAN, EPISCOPALIAN. LANGUAGE LANGUAGES SPOKEN:[place] EDUCATION LEVEL OF EDUCATION:NOT FINISHED HIGH SCHOOL [employer] LEARNING BARRIERS / SPECIAL NEEDS BARRIERS TO LEARNING?NO HEARING IMPAIRED?YES LEFT SLIGHT HEARING LOSS VISION IMPAIRED?YES :CORRECTIVE LENSES COGNITIVELY IMPAIRED?NO READINESS TO LEARN?YES LEARNING PREFERENCES?NO LEARNING CAPABILITIES PRESENT?YES EMOTIONAL BARRIERS?NO SPECIAL DEVICES?NO BARRIERS TO LEARNING?NO HEARING IMPAIRED?YES LEFT SLIGHT HEARING LOSS VISION IMPAIRED?YES :CORRECTIVE LENSES COGNITIVELY IMPAIRED?NO READINESS TO LEARN?YES LEARNING PREFERENCES?NO LEARNING CAPABILITIES PRESENT?YES EMOTIONAL BARRIERS?NO SPECIAL DEVICES?NO IMMUNIZATION PROGRAM ELIGIBILITY STATUS UNCHANGED:__ PARENT LAST NAME:__ FIRST NAME, MIDDLE INITIAL:__ 'S MAIDEN NAME:__ MEDICAID/MEDICAID MANAGED CARE PLAN:__ NOT INSURED:__ /[place] PLATINUM:__ UNDERINSURED:__ CHILD HEALTH PLUS B__ INSURANCE:__ INFLUENZA VACCINE:__ ELIGIBILITY STATUS UNCHANGED:__ PARENT LAST NAME:__ FIRST NAME, MIDDLE INITIAL:__ MOTHER'S MAIDEN NAME:__ MEDICAID/MEDICAID MANAGED CARE PLAN:__ NOT INSURED:__ /[place] PLATINUM:__ UNDERINSURED:__ CHILD HEALTH PLUS B__ INSURANCE:__ INFLUENZA VACCINE:__ FEMALE 6 MONTH RISK ASSESSMENT FOR STD DESCRIBE YOUR SEXUAL PARTNERS:MALE MONOGAMOUS?YES EVER INJECT DRUGS?NO IS THERE ANYTHING ELSE WE SHOULD TALK ABOUT CONCERNING YOUR SEXUAL HISTORY OR PRACTICE?YES DESCRIBE YOUR SEXUAL PARTNERS:MALE MONOGAMOUS?YES EVER INJECT DRUGS?NO IS THERE ANYTHING ELSE WE SHOULD TALK ABOUT CONCERNING YOUR SEXUAL HISTORY OR PRACTICE?YES PAIN CLINIC PFS, CLERGY, PUBLIC HEALTH REFERRALS PFS REFERRAL NEEDED?NO CLERGY REFERRAL NEEDED?NO PUBLIC HEALTH REFERRAL NEEDED?NO HAS THE PATIENT BEEN EDUCATED REGARDING HIS/HER PLAN OF CARE?YES HAS THE PATIENT BEEN EDUCATED REGARDING PAIN, THE RISK FOR PAIN, THE IMPORTANCE OF EFFECTIVE PAIN MANAGEMENT, AND THE PAIN ASSESSMENT PROCESS?YES ADVANCE DIRECTIVES HEALTH CARE PROXY?YES NAME OF HCP RENAE GARIBAY DO YOU HAVE A COPY WITH YOU? COPY IN SYSTEM POWER OF LANGUAGE ARTS TEACHER?NO HEALTH CARE PROXY?YES NAME OF HCP RENAE GARIBAY DO YOU HAVE A COPY WITH YOU? COPY IN SYSTEM POWER OF LANGUAGE ARTS TEACHER?NO TRAVEL OUTSIDE US: NO. COHABITATING: YES. DOMESTIC VIOLENCE DO YOU FEEL SAFE IN YOUR ENVIRONMENT?YES REVIEW OF SYSTEMS REVIEWED BY: PROVIDER: FERNANDEZ ROWLAND . CONSTITUTIONAL: ANY CHANGE IN YOUR MEDICAL CONDITION? NO . CHILLS NO . FEVER NO . INFECTION: DO YOU HAVE NEW INFECTIONS? NO . DO YOU HAVE HISTORY OF MRSA? NO . MUSCULOSKELETAL: ANY NEW PATTERNS OF PAIN OR NUMBNESS? YES, SEVERE MUSCLE SPASMS OF LEGS. PCP DID LABS WHICH WERE NORMAL. LOTS OF PAIN STILL IN LEGS FROM SPASMS. . GASTROENTEROLOGY: ANY NEW CHANGE IN BOWEL CONTROL? NO . GENITOURINARY: ANY NEW CHANGE IN BLADDER CONTROL? NO . IS THERE A CHANCE YOU COULD BE ? NO . HEMATOLOGY/LYMPH: DO YOU TAKE ANY BLOOD THINNERS? (FOR EXAMPLE- COUMADIN, PLAVIX, AGGRENOX, PLATEL, PRADAXA, OR XARELTO) NO . WHEN WAS YOUR LAST DOSE? DATE: TIME: . NEUROLOGY: HAVE YOU FALLEN IN THE PAST 6 MONTHS? NO . ANY NEW EXTREMITY NUMBNESS OR WEAKNESS? NO . CARDIOLOGY: DO YOU HAVE A PACEMAKER OR DEFIBRILLATOR? NO . RESPIRATORY: HAVE YOU BEEN SICK IN THE PAST WEEK? NO . FEVER NO . FLU LIKE SYMPTOMS? NO . COUGH NO . INTEGUMENTARY: DO YOU HAVE ANY RASHES OR OPEN SORES? NO . ALLERGIC/IMMUNO: ARE YOU ALLERGIC TO SHELLFISH OR IV DYE? NO . ANY NEW ALLERGIES? NO . PSYCHIATRIC: DO YOU HAVE THOUGHTS OF HURTING YOURSELF OR SOMEONE ELSE? NO . ARE YOU ABUSED, NEGLECTED, OR IN AN UNSAFE ENVIRONMENT? NO . ENDOCRINOLOGY: ARE YOU DIABETIC? NO . OTHER: DO YOU NEED ANY PRESCRIPTIONS? NO . IF YES, PLEASE LIST: ____ . ANY NEW PROBLEMS WITH YOUR MEDICATIONS? NO . WHEN DID YOU LAST EAT? ____ . WHEN DID YOU LAST DRINK? ____ . WHAT DID YOU LAST DRINK? ____ . NAME OF PERSON DRIVING YOU HOME? ____ . DO YOU HAVE ANY OTHER QUESTIONS OR CONCERNS NO . VITAL SIGNS WT 238 LBS, HT 64 IN, BMI 40.85 INDEX, BP 163/76 MM HG, HR 69 /MIN, RR 18 /MIN, TEMP 98.0 F, OXYGEN SAT % 98%, NA INITIALS SC 09:23, REVIEWED BY: CLIFFORD. EXAMINATION GENERAL EXAMINATION: PSYCHALERT , ORIENTED X 3 . LUNGS:CLEAR TO AUSCULTATION BILATERALLY, RARE SCATTERED WHEEZES. HEART:HEART RATE REGULAR, NORMAL S1S2. MUSCULOSKELETAL:MUSCLE STRENGTH TESTING 5/5 LEFT LOWER EXTREMITY, 5-/5 RIGHT LOWER EXTREMITY. RISES EASILY TO STANDING POSITION. POSTURE UPRIGHT. POINT TENDERNESS OVER LUMBAR FACETS AND LUMBAR PARAVERTEBRAL MUSCULATURE. MIN TENDERNESS WITH PALPATION OVER BILATERAL SACRALILIAC JOINTS. ASSESSMENTS SACROILIITIS, NOT ELSEWHERE CLASSIFIED - M46.1 (PRIMARY) LUMBAR FACET ARTHROPATHY - M46.96 LUMBAR RADICULAR PAIN - M54.16 TREATMENT SACROILIITIS, NOT ELSEWHERE CLASSIFIED INJECTION FACET JOINT/NERVE LUMBAR/SACRALFERNANDEZ GRECO 03/11/2017 9:52:19 AM > BILATERAL THERAPEUTIC NOTES: FACET BLOCK VS INTRALAMINAR LUMBAR EPIDURAL - DECISION TO B MADE DAY OF INJECTION,FACET JOINT INJECTION MATERIAL WAS PRINTED,WHAT IS LUMBAR EPIDURAL INJECTION? MATERIAL WAS PRINTED. PROCEDURE CODES FA211 ESTABILISHED PATIENT [facility] CHARGE DISPOSITION & COMMUNICATION FOLLOW UP AFTER INJECTION (REASON: BILATERAL L4-5, L5-S1 THERAPEUTIC LUMBAR FACETS, VS INTRALAMINAR LUMBAR EPIDURAL (DECISION TO BE MAD) ELECTRONICALLY SIGNED BY VERN QUIJANO ON 03/11/2017 AT 11:26 AM EST DISCLAIMER : THIS IS A VISIT SUMMARY EXTRACTED FROM THE [employer] CHART. IT IS NOT A COPY OF THE [employer] PROGRESS NOTE. VICKEY
== END ==
LOC: M PAIN 09:15
PROVIDERS: ATTEND Nurse Practitioner Family
DX: G89.29 Other chronic pain (principal); M46.1 Sacroiliitis, not elsewhere classified; M54.16 Radiculopathy, lumbar region; E11.9 Type 2 diabetes mellitus without complications; F32.9 Major depressive disorder, single episode, unspecified; E53.8 Deficiency of other specified B group vitamins; J45.40 Moderate persistent asthma, uncomplicated; E55.9 Vitamin D deficiency, unspecified; G47.00 Insomnia, unspecified; I11.0 Hypertensive heart disease with heart failure; I50.30 Unspecified diastolic (congestive) heart failure; F41.0 Panic disorder [episodic paroxysmal anxiety]; E03.8 Other specified hypothyroidism; K76.0 Fatty (change of) liver, not elsewhere classified; J45.901 Unspecified asthma with (acute) exacerbation; D50.9 Iron deficiency anemia, unspecified; G43.009 Migraine without aura, not intractable, without status migrainosus; K21.9 Gastro-esophageal reflux disease without esophagitis; Z88.6 Allergy status to analgesic agent; Z88.8 Allergy status to other drugs, medicaments and biological substances; Z79.891 Long term (current) use of opiate analgesic; Z79.899 Other long term (current) drug therapy

== ENCOUNTER → 2017-03-11 | Outpatient (CLI) | payer BC ==
--- NOTE | 2017-03-14 07:10 | REP ---
Clinical: Pain. Technique: AP and lateral views of the right foot. Findings: There is no evidence for acute fracture dislocation. Mild age-related degenerative changes are suggested and lateral view demonstrates a large calcaneal heal spur or as well as dystrophic calcifications in the plantar soft tissue. Impression: Large heel spur. Atrophic calcifications in the plantar soft tissue. Signed by Marin Briones MD 03/11/2017 12:07 P
== END ==
LOC: M RAD 10:59
PROVIDERS: ATTEND Family Medicine
DX: M25.571 Pain in right ankle and joints of right foot (principal)

== ENCOUNTER → 2017-03-23 | Outpatient (REF) | payer BC ==
[2017-03-23 13:56] LABS: ALBUMIN 3.6 GM/DL (3.2-5.2); ALBUMIN/GLOBULIN RATIO 0.95 (1.00-1.93); ALKALINE PHOSPHATASE 129 U/L (45-117); ALT/SGPT 25 U/L (12-78); ANION GAP 9 MEQ/L (8-16); AST/SGOT 22 U/L (7-37); BILIRUBIN,TOTAL 0.6 MG/DL (0.2-1.0); BLOOD UREA NITROGEN 13 MG/DL (7-18); CALCIUM LEVEL 8.9 MG/DL (8.5-10.1); CARBON DIOXIDE LEVEL 23 MEQ/L (21-32); CHLORIDE LEVEL 103 MEQ/L (98-107); CHOLESTEROL LEVEL 159 MG/DL (<200); CREATININE FOR GFR 0.56 MG/DL (0.55-1.02); GLOMERULAR FILTRATION RATE > 60.0 (>51); GLUCOSE, FASTING 98 MG/DL (70-105); POTASSIUM SERUM 4.4 MEQ/L (3.5-5.1); SODIUM LEVEL 135 MEQ/L (136-145); TOTAL PROTEIN 7.4 GM/DL (6.4-8.2); TRIGLYCERIDES LEVEL 82 MG/DL (<150)
== END ==
LOC: M SFHCPLAZ 13:02
PROVIDERS: ATTEND Family Medicine
DX: E78.5 Hyperlipidemia, unspecified (principal)

== ENCOUNTER → 2017-03-25 | Outpatient (REF) | payer BC ==
[2017-03-25 14:00] LABS: ALKALINE PHOSPHATASE 126 U/L (45-117); ALT/SGPT 25 U/L (12-78); ANION GAP 7 MEQ/L (8-16); AST/SGOT 11 U/L (7-37); BLOOD UREA NITROGEN 9 MG/DL (7-18); CALCIUM LEVEL 8.9 MG/DL (8.5-10.1); CARBON DIOXIDE LEVEL 27 MEQ/L (21-32); CHLORIDE LEVEL 105 MEQ/L (98-107); GLOMERULAR FILTRATION RATE > 60.0 (>51); GLUCOSE, FASTING 83 MG/DL (70-105); PHOSPHORUS LEVEL 3.1 MG/DL (2.5-4.9); POTASSIUM SERUM 4.8 MEQ/L (3.5-5.1); SODIUM LEVEL 139 MEQ/L (136-145)
[2017-03-25 14:01] LABS: ALBUMIN 3.6 GM/DL (3.2-5.2); BILIRUBIN,TOTAL 0.4 MG/DL (0.2-1.0); FREE T4 1.04 NG/DL (0.76-1.46); TOTAL PROTEIN 7.2 GM/DL (6.4-8.2)
== END ==
LOC: M SFHCPLAZ 11:36
PROVIDERS: ATTEND Family Medicine
DX: R73.01 Impaired fasting glucose (principal)

== ENCOUNTER → 2017-06-16 | Outpatient (CLI) | payer BC ==
[~2017-06-16] MED LIST changes: -*ANUSOI PR; -/ADVA50050 INH; -/CELE20CA; -/CELE20CA OR; -ACET65TA OR; -ALBUTEROL HFA INH; -ALPR0.5T3 PO; -ALPR1TAB3 PO; -AMBI10TA PO; -ATOR1TAB19 PO; -AVALIDE; -AVAP300T PO; -AVELOX PO; +BUPIVACAINE HCL 0.25% 30 ML VIAL As Ordered; -CALTRATE PO; -CEFT500T PO; -CELE20TA OR; -CHLO25TA PO; -COUM2.5T17 PO; -COZA100T PO; -DILA2TAB; -DIPH2.5L PO; -FLON0.05; -HYDR-3716 PO; -IRBE300T10 PO; +ISOVUE-M 300 61% 15ML VIAL (Q9967) As Ordered; -LANS30CA PO; -LASI20TA PO; -LEVO25TA5 PO; -LEVOTAB10 PO; -LEXA1TAB2 PO; +LIDOCAINE 1% SDV INJ 30 ML VIAL As Ordered; -METF500T4; -MIREIUD IU; -MUCI600T34 PO; -MUCINEX; -MULTIVIT PO; -NORV5TAB PO; -NYST1POW9 TOP; -NYSTPOW4 TOP; -OXYC-141 PO; -PERC5TAB12 PO; -PRED10TA PO; -PREV30CA6 PO; -PRIL20CA OR; -PROV90AE; -TESS100C PO; -THIA100TA PO; -TOPA1TAB PO; -TRAZ10TA PO; +TRIAMCINOLONE ACETONIDE SUSP 40 MG/ML VIAL (J3301) As Ordered; -VALA1TAB2 PO; -VALT500T PO; -VICODINES TAB; -VICODINES TAB OR; -VITAMIN B 12 PO; -VITAMIN D PO; -XANA1TAB2; -XANA1TAB2 OR; -XANA1TAB2 PO; -XOPENEX INH; -XYZASOL2 PO; -ZOLP10TA2 PO; -[UNRECOGNIZED DRUG - OTHER] OR; -[UNRECOGNIZED DRUG - OTHER] PO; +diazePAM 5 MG TAB As Ordered; +oxyCODONE 5MG TAB As Ordered
== END ==
LOC: M PAIN 14:00
DX: G89.29 Other chronic pain (principal); M46.1 Sacroiliitis, not elsewhere classified; J45.909 Unspecified asthma, uncomplicated; E78.5 Hyperlipidemia, unspecified; K21.9 Gastro-esophageal reflux disease without esophagitis; I10 Essential (primary) hypertension; Z79.84 Long term (current) use of oral hypoglycemic drugs; Z79.891 Long term (current) use of opiate analgesic; Z79.899 Other long term (current) drug therapy; Z98.84 Bariatric surgery status; Z88.8 Allergy status to other drugs, medicaments and biological substances
CPT/HCPCS: J3301

== ENCOUNTER → 2017-07-28 | Outpatient (CLI) | payer BC ==
[~2017-07-28] MED LIST changes: -BUPIVACAINE HCL 0.25% 30 ML VIAL As Ordered; -TRIAMCINOLONE ACETONIDE SUSP 40 MG/ML VIAL (J3301) As Ordered; +methylPREDNISolone SUSP 40 MG/ML (DEPO-medrol) VIAL (J1030) As Ordered
== END ==
LOC: M PAIN 14:15
DX: G89.29 Other chronic pain (principal); M51.16 Intervertebral disc disorders with radiculopathy, lumbar region; J45.40 Moderate persistent asthma, uncomplicated; E78.5 Hyperlipidemia, unspecified; M17.0 Bilateral primary osteoarthritis of knee; J30.9 Allergic rhinitis, unspecified; K21.9 Gastro-esophageal reflux disease without esophagitis; F41.0 Panic disorder [episodic paroxysmal anxiety]; G47.00 Insomnia, unspecified; E66.01 Morbid (severe) obesity due to excess calories; K76.0 Fatty (change of) liver, not elsewhere classified; I11.0 Hypertensive heart disease with heart failure; K58.0 Irritable bowel syndrome with diarrhea; E55.9 Vitamin D deficiency, unspecified; E53.8 Deficiency of other specified B group vitamins; G47.33 Obstructive sleep apnea (adult) (pediatric); I50.32 Chronic diastolic (congestive) heart failure; E03.9 Hypothyroidism, unspecified; G43.009 Migraine without aura, not intractable, without status migrainosus; M72.2 Plantar fascial fibromatosis; Z79.84 Long term (current) use of oral hypoglycemic drugs; Z79.899 Other long term (current) drug therapy; Z88.1 Allergy status to other antibiotic agents; Z88.8 Allergy status to other drugs, medicaments and biological substances; Z68.41 Body mass index [BMI] 40.0-44.9, adult
CPT/HCPCS: J1030

== ENCOUNTER → 2017-08-12 | Outpatient (CLI) | payer BC | LOC: M PAIN 10:15 | DX: M46.1 Sacroiliitis, not elsewhere classified (principal); M54.16 Radiculopathy, lumbar region; J45.40 Moderate persistent asthma, uncomplicated; E78.5 Hyperlipidemia, unspecified; M17.0 Bilateral primary osteoarthritis of knee; K21.9 Gastro-esophageal reflux disease without esophagitis; F43.10 Post-traumatic stress disorder, unspecified; K76.0 Fatty (change of) liver, not elsewhere classified; I10 Essential (primary) hypertension; E53.8 Deficiency of other specified B group vitamins; E55.9 Vitamin D deficiency, unspecified; G47.33 Obstructive sleep apnea (adult) (pediatric); G47.00 Insomnia, unspecified; E03.9 Hypothyroidism, unspecified; E66.01 Morbid (severe) obesity due to excess calories; Z68.41 Body mass index [BMI] 40.0-44.9, adult; Z79.84 Long term (current) use of oral hypoglycemic drugs; Z79.899 Other long term (current) drug therapy | CPT/HCPCS: G0463 ==

== ENCOUNTER → 2017-09-09 | Outpatient (REF) | payer BC ==
[2017-09-13 14:13] LABS: HPV HYBRID CAPTURE II Negative (Negative)
== END ==
LOC: M SFHCWAGY 13:52
DX: Z01.411 Encounter for gynecological examination (general) (routine) with abnormal findings (principal); Z11.51 Encounter for screening for human papillomavirus (HPV); B37.3 Candidiasis of vulva and vagina
CPT/HCPCS: G0123

== ENCOUNTER → 2017-09-09 | Outpatient (CLI) | payer BC | LOC: M WHC 13:42 | DX: Z12.31 Encounter for screening mammogram for malignant neoplasm of breast (principal); N63.24 Unspecified lump in the left breast, lower inner quadrant | CPT/HCPCS: 77067 ==

== ENCOUNTER → 2017-09-13 | Outpatient (CLI) | payer BC | LOC: M RAD 09:07 | DX: N63.14 Unspecified lump in the right breast, lower inner quadrant (principal) | CPT/HCPCS: 77065 ==

== ENCOUNTER → 2017-09-19 | Outpatient (CLI) | payer BC ==
[~2017-09-19] MED LIST changes: -ISOVUE-M 300 61% 15ML VIAL (Q9967) As Ordered; +LIDOCAINE 1% MDV 20ML VIAL As Ordered; -LIDOCAINE 1% SDV INJ 30 ML VIAL As Ordered; -diazePAM 5 MG TAB As Ordered; -methylPREDNISolone SUSP 40 MG/ML (DEPO-medrol) VIAL (J1030) As Ordered; -oxyCODONE 5MG TAB As Ordered
== END ==
LOC: M RADPRO 12:27
DX: C50.919 Malignant neoplasm of unspecified site of unspecified female breast (principal); R92.8 Other abnormal and inconclusive findings on diagnostic imaging of breast; Z98.84 Bariatric surgery status; Z96.652 Presence of left artificial knee joint; Z79.899 Other long term (current) drug therapy; Z88.8 Allergy status to other drugs, medicaments and biological substances
CPT/HCPCS: 19083

== ENCOUNTER → 2017-09-21 | Outpatient (REF) | payer BC ==
[2017-09-21 13:29] LABS: ANION GAP 9 MEQ/L (8-16); BLOOD UREA NITROGEN 13 MG/DL (7-18); CALCIUM LEVEL 9.4 MG/DL (8.5-10.1); CARBON DIOXIDE LEVEL 26 MEQ/L (21-32); CHLORIDE LEVEL 102 MEQ/L (98-107); CREATININE FOR GFR 0.67 MG/DL (0.55-1.30); GLOMERULAR FILTRATION RATE > 60.0 (>51); GLUCOSE, FASTING 83 MG/DL (70-100); POTASSIUM SERUM 4.2 MEQ/L (3.5-5.1); SODIUM LEVEL 137 MEQ/L (136-145)
== END ==
LOC: M LAB REF 12:46
DX: I10 Essential (primary) hypertension (principal)
CPT/HCPCS: 80048

== ENCOUNTER → 2017-10-12 | Outpatient (CLI) | payer BC | LOC: M RAD 10:43 | DX: J45.40 Moderate persistent asthma, uncomplicated (principal) | CPT/HCPCS: 71046 ==

== ENCOUNTER → 2017-10-24 | Outpatient (REF) | payer BC ==
[2017-10-24 17:37] LABS: BASO # 0.1 10^3/uL (0.0-0.2); BASO % 0.6 % (0.0-1.0); EOS # 0.4 10^3/uL (0.0-0.50); EOS % 3.7 % (0.0-3.0); HEMATOCRIT 35.9 % (36.0-47.0); HEMOGLOBIN 11.2 g/dl (12.0-15.5); IMMATURE GRANULOCYTE % 0.4 % (0-3.0); INR 0.89; LYMPH # 2.9 10^3/uL (1.5-4.5); LYMPH % 24.2 % (24.0-44.0); MEAN CORPUSCULAR HEMOGLOBIN 27.3 pg (27.0-33.0); MEAN CORPUSCULAR HGB CONC 31.2 g/dl (32.0-36.5); MEAN CORPUSCULAR VOLUME 87.6 fl (80.0-96.0); MONO # 0.7 10^3/uL (0.0-0.8); MONO % 5.4 % (0.0-5.0); NEUTROPHILS # 7.9 10^3/uL (1.8-7.7); NEUTROPHILS % 65.7 % (36.0-66.0); PLATELET COUNT, AUTOMATED 426 10^3/uL (150-450); PROTHROMBIN TIME 12.2 SECONDS (12.1-14.4); RED CELL DISTRIBUTION WIDTH 15.1 % (11.5-14.5)
[2017-10-24 17:38] LABS: PARTIAL THROMBOPLASTIN TIME 28.7 SECONDS (25.4-37.6)
[2017-10-24 18:12] LABS: ALBUMIN 3.5 GM/DL (3.2-5.2); ALKALINE PHOSPHATASE 100 U/L (45-117); ALT/SGPT 22 U/L (12-78); ANION GAP 11 MEQ/L (8-16); AST/SGOT 12 U/L (7-37); BILIRUBIN,TOTAL 0.4 MG/DL (0.2-1.0); BLOOD UREA NITROGEN 9 MG/DL (7-18); CALCIUM LEVEL 8.7 MG/DL (8.5-10.1); CARBON DIOXIDE LEVEL 26 MEQ/L (21-32); CHLORIDE LEVEL 103 MEQ/L (98-107); CREATININE FOR GFR 0.51 MG/DL (0.55-1.30); GLOMERULAR FILTRATION RATE > 60.0 (>51); GLUCOSE, FASTING 87 MG/DL (70-100); NT-PRO BNP 403 PG/ML (<125); POTASSIUM SERUM 4.1 MEQ/L (3.5-5.1); SODIUM LEVEL 140 MEQ/L (136-145)
== END ==
LOC: M SFHCPLAZ 16:10
DX: Z01.818 Encounter for other preprocedural examination (principal)

== ENCOUNTER 2017-10-28 10:39 | Outpatient (RCR) | payer BC | END 2017-11-08 | LOC: M PT 10:39 | DX: C50.912 Malignant neoplasm of unspecified site of left female breast (principal); Z17.0 Estrogen receptor positive status [ER+]; Z51.89 Encounter for other specified aftercare | CPT/HCPCS: 97163 ==

== ENCOUNTER → 2017-11-09 | Outpatient (REF) | payer BC ==
[2017-11-09 14:02] LABS: LUTEINIZING HORMONE 17.7 mIU/mL
[2017-11-09 14:03] LABS: ESTRADIOL 118.8 PG/ML
== END ==
LOC: M LAB REF 13:21
DX: C50.919 Malignant neoplasm of unspecified site of unspecified female breast (principal)

== ENCOUNTER → 2017-11-10 | Outpatient (CLI) | payer BC | LOC: M ONCR 09:12 | DX: C50.912 Malignant neoplasm of unspecified site of left female breast (principal) | CPT/HCPCS: G0463 ==

== ENCOUNTER → 2017-11-15 | Outpatient (REF) | payer BC ==
[2017-11-15 10:46] LABS: BASO # 0.1 10^3/uL (0.0-0.2); BASO % 0.7 % (0.0-1.0); EOS # 0.2 10^3/uL (0.0-0.50); EOS % 2.4 % (0.0-3.0); HEMATOCRIT 36.5 % (36.0-47.0); HEMOGLOBIN 11.5 g/dl (12.0-15.5); IMMATURE GRANULOCYTE % 0.2 % (0-3.0); LYMPH # 2.4 10^3/uL (1.5-4.5); MEAN CORPUSCULAR HEMOGLOBIN 27.6 pg (27.0-33.0); MEAN CORPUSCULAR HGB CONC 31.5 g/dl (32.0-36.5); MEAN CORPUSCULAR VOLUME 87.7 fl (80.0-96.0); MONO # 0.7 10^3/uL (0.0-0.8); MONO % 6.7 % (0.0-5.0); NEUTROPHILS # 6.6 10^3/uL (1.8-7.7); PLATELET COUNT, AUTOMATED 404 10^3/uL (150-450); RED BLOOD COUNT 4.16 10^6/uL (4.00-5.40); WHITE BLOOD COUNT 9.9 10^3/uL (4.0-10.0)
[2017-11-15 10:51] LABS: HEMATOCRIT 36.5 % (36.0-47.0)
[2017-11-15 11:03] LABS: AMMONIA 27 uMOL/L (<32)
[2017-11-15 11:11] LABS: VITAMIN B12 LEVEL 666 PG/ML (247-911)
[2017-11-15 11:21] LABS: ALBUMIN 3.4 GM/DL (3.2-5.2); ALKALINE PHOSPHATASE 102 U/L (45-117); ALT/SGPT 23 U/L (12-78); ANION GAP 8 MEQ/L (8-16); AST/SGOT 12 U/L (7-37); BILIRUBIN,TOTAL 0.5 MG/DL (0.2-1.0); BLOOD UREA NITROGEN 11 MG/DL (7-18); C REACTIVE PROTEIN QUANTITATIV < 0.30 MG/DL (0.00-0.30); CALCIUM LEVEL 8.5 MG/DL (8.5-10.1); CARBON DIOXIDE LEVEL 28 MEQ/L (21-32); CHLORIDE LEVEL 105 MEQ/L (98-107); CHOLESTEROL LEVEL 148 MG/DL (<200); CHOLESTEROL RISK RATIO 3.217 (<5); CPK CREATINE PHOSPHOKINASE 57 U/L (26-192); CREATININE FOR GFR 0.59 MG/DL (0.55-1.30); FREE T4 0.77 NG/DL (0.76-1.46); GLOMERULAR FILTRATION RATE > 60.0 (>51); GLUCOSE, FASTING 91 MG/DL (70-100); HDL CHOLESTEROL 46 MG/DL (>40); LDL CHOLESTEROL 82.4 MG/DL (<100); NON-HDL-C 102 MG/DL; NT-PRO BNP 119 PG/ML (<125); POTASSIUM SERUM 3.9 MEQ/L (3.5-5.1); SODIUM LEVEL 141 MEQ/L (136-145); TOTAL PROTEIN 6.8 GM/DL (6.4-8.2); TRIGLYCERIDES LEVEL 98 MG/DL (<150)
[2017-11-15 11:26] LABS: ESTIMATED AVERAGE GLUCOSE 140 MG/DL (60-110); HEMOGLOBIN A1c 6.5 %
[2017-11-15 12:34] LABS: PRETREATED FOLATE FOR RBCFOL 14.3 NG/ML; RBC FOLATE 822.7 NG/ML (280-791)
[2017-11-19 08:24] LABS: VITAMIN B1 LEVEL WHOLE BLOOD 87.4 nmol/L (66.5-200.0)
== END ==
LOC: M SFHCPLAZ 08:52
DX: K76.0 Fatty (change of) liver, not elsewhere classified (principal); D72.829 Elevated white blood cell count, unspecified; E78.5 Hyperlipidemia, unspecified; I50.30 Unspecified diastolic (congestive) heart failure; E03.8 Other specified hypothyroidism; R73.01 Impaired fasting glucose; E53.8 Deficiency of other specified B group vitamins; K58.0 Irritable bowel syndrome with diarrhea; I11.0 Hypertensive heart disease with heart failure
CPT/HCPCS: 82140

== ENCOUNTER 2017-11-23 10:08 | Outpatient (RCR) | payer BC | END 2017-12-09 | LOC: M ONCR 10:08 | DX: C50.812 Malignant neoplasm of overlapping sites of left female breast (principal) | CPT/HCPCS: 77300 ==

== ENCOUNTER → 2017-11-23 | Outpatient (CLI) | payer BC | LOC: M RAD 19:26 | DX: M25.512 Pain in left shoulder (principal) | CPT/HCPCS: 73030 ==

== ENCOUNTER 2017-12-13 09:18 | Outpatient (RCR) | payer BC | END 2018-01-08 | LOC: M ONCR 09:18 | DX: C50.812 Malignant neoplasm of overlapping sites of left female breast (principal) | CPT/HCPCS: 77336 ==

== ENCOUNTER → 2018-01-12 | Outpatient (REF) | payer BC ==
[2018-01-12 16:15] LABS: ANION GAP 8 MEQ/L (8-16); BLOOD UREA NITROGEN 15 MG/DL (7-18); CALCIUM LEVEL 8.6 MG/DL (8.5-10.1); CARBON DIOXIDE LEVEL 28 MEQ/L (21-32); CHLORIDE LEVEL 102 MEQ/L (98-107); CREATININE FOR GFR 0.89 MG/DL (0.55-1.30); GLOMERULAR FILTRATION RATE > 60.0 (>51); GLUCOSE, FASTING 122 MG/DL (70-100); MAGNESIUM LEVEL 1.9 MG/DL (1.8-2.4); POTASSIUM SERUM 4.1 MEQ/L (3.5-5.1); SODIUM LEVEL 138 MEQ/L (136-145)
== END ==
LOC: M SFHCPLAZ 13:10
DX: I10 Essential (primary) hypertension (principal)
CPT/HCPCS: 83735

== ENCOUNTER → 2018-01-18 | Outpatient (CLI) | payer BC | LOC: M ONCR 15:35 | DX: C50.812 Malignant neoplasm of overlapping sites of left female breast (principal) | CPT/HCPCS: G0463 ==

== ENCOUNTER 2018-02-06 08:19 | Emergency (ER) | payer BC ==
[2018-02-06] MEDS: NS 500 ML IV (08:45)
[2018-02-06] MEDS: ASPIRIN 81 MG CHEW TABLET PO (09:05)
[2018-02-06 09:09] LABS: BASO % 0.5 % (0.0-1.0); EOS # 0.3 10^3/uL (0.0-0.50); EOS % 4.4 % (0.0-3.0); HEMATOCRIT 32.4 % (36.0-47.0); HEMOGLOBIN 10.4 g/dl (12.0-15.5); IMMATURE GRANULOCYTE % 0.3 % (0-3.0); LYMPH # 1.3 10^3/uL (1.5-4.5); LYMPH % 22.5 % (24.0-44.0); MEAN CORPUSCULAR HEMOGLOBIN 28.5 pg (27.0-33.0); MEAN CORPUSCULAR HGB CONC 32.1 g/dl (32.0-36.5); MEAN CORPUSCULAR VOLUME 88.8 fl (80.0-96.0); MONO # 0.6 10^3/uL (0.0-0.8); MONO % 9.6 % (0.0-5.0); NEUTROPHILS # 3.7 10^3/uL (1.8-7.7); NEUTROPHILS % 62.7 % (36.0-66.0); PLATELET COUNT, AUTOMATED 267 10^3/uL (150-450); RED BLOOD COUNT 3.65 10^6/uL (4.00-5.40); RED CELL DISTRIBUTION WIDTH 13.7 % (11.5-14.5)
[2018-02-06 09:39] LABS: ALBUMIN 2.9 GM/DL (3.2-5.2); ALBUMIN/GLOBULIN RATIO 0.88 (1.00-1.93); ALKALINE PHOSPHATASE 76 U/L (45-117); ALT/SGPT 18 U/L (12-78); ANION GAP 9 MEQ/L (8-16); AST/SGOT 13 U/L (7-37); BILIRUBIN,DIRECT 0.1 MG/DL (0.0-0.2); BILIRUBIN,TOTAL 0.3 MG/DL (0.2-1.0); BLOOD UREA NITROGEN 13 MG/DL (7-18); CALCIUM LEVEL 8.3 MG/DL (8.5-10.1); CARBON DIOXIDE LEVEL 24 MEQ/L (21-32); CHLORIDE LEVEL 105 MEQ/L (98-107); CK-MB VALUE MASS < 1.0 NG/ML (<3.6); CPK CREATINE PHOSPHOKINASE 77 U/L (26-192); GLOMERULAR FILTRATION RATE > 60.0 (>51); GLUCOSE, FASTING 140 MG/DL (70-100); LIPASE 134 U/L (73-393); NT-PRO BNP 205 PG/ML (<125); POTASSIUM SERUM 3.4 MEQ/L (3.5-5.1); SODIUM LEVEL 138 MEQ/L (136-145); TOTAL PROTEIN 6.2 GM/DL (6.4-8.2); TROPONIN I < 0.02 NG/ML (< 0.10)
[2018-02-06] MEDS ORDERED: ISOVUE-370 76% 100ML VIAL (Q9967) As Ordered (09:45)
[2018-02-06 09:47] LABS: INR 0.97; PARTIAL THROMBOPLASTIN TIME 25.6 SECONDS (25.4-37.6)
[2018-02-06] MEDS: NS 1,000 ML IV (10:43)
[2018-02-06 14:18] LABS: CK-MB VALUE MASS < 1.0 NG/ML (<3.6); CPK CREATINE PHOSPHOKINASE 71 U/L (26-192); MB/CK RELATIVE INDEX 1.41 (< OR =4); TROPONIN I < 0.02 NG/ML (< 0.10)
== END 2018-02-06 16:05 | disposition home or self-care (01) ==
LOC: M ED 08:19
DX: R07.89 Other chest pain (principal); I95.9 Hypotension, unspecified; R00.1 Bradycardia, unspecified; I44.0 Atrioventricular block, first degree; I50.9 Heart failure, unspecified; E11.9 Type 2 diabetes mellitus without complications; E78.5 Hyperlipidemia, unspecified; Z98.84 Bariatric surgery status; Z79.84 Long term (current) use of oral hypoglycemic drugs; Z79.899 Other long term (current) drug therapy; Z88.5 Allergy status to narcotic agent; Z88.8 Allergy status to other drugs, medicaments and biological substances
CPT/HCPCS: Q9967

== ENCOUNTER → 2018-02-07 | Outpatient (REF) | payer BC ==
[2018-02-07 16:09] LABS: ALBUMIN 3.5 GM/DL (3.2-5.2); ANION GAP 9 MEQ/L (8-16); BLOOD UREA NITROGEN 14 MG/DL (7-18); CALCIUM LEVEL 8.7 MG/DL (8.5-10.1); CARBON DIOXIDE LEVEL 25 MEQ/L (21-32); CHLORIDE LEVEL 111 MEQ/L (98-107); CREATININE FOR GFR 0.72 MG/DL (0.55-1.30); GLOMERULAR FILTRATION RATE > 60.0 (>51); GLUCOSE, FASTING 130 MG/DL (70-100); IRON (FE) 60 UG/DL (50-170); MAGNESIUM LEVEL 1.9 MG/DL (1.8-2.4); NT-PRO BNP 333 PG/ML (<125); PERCENT SATURATION 12.6 % (13.2-45.0); PHOSPHORUS LEVEL 2.4 MG/DL (2.5-4.9); POTASSIUM SERUM 4.4 MEQ/L (3.5-5.1); SODIUM LEVEL 145 MEQ/L (136-145); TOTAL IRON BINDING CAPACITY 478 UG/DL (250-450); TROPONIN I < 0.02 NG/ML (< 0.10)
== END ==
LOC: M LABDRAWP 15:27
DX: I50.30 Unspecified diastolic (congestive) heart failure (principal); D50.9 Iron deficiency anemia, unspecified
CPT/HCPCS: 83550

== ENCOUNTER → 2018-02-20 | Outpatient (CLI) | payer BC | LOC: M ONCR 13:14 | DX: C50.812 Malignant neoplasm of overlapping sites of left female breast (principal) ==

== ENCOUNTER → 2018-03-08 | Outpatient (CLI) | payer BC | LOC: M CARPUL 06:50 | DX: R06.09 Other forms of dyspnea (principal) | CPT/HCPCS: 94060 ==

== ENCOUNTER → 2018-03-17 | Outpatient (REF) | payer BC ==
[2018-03-17 13:58] LABS: IMMUNOGLOBULIN A 301 MG/DL (70-400); IMMUNOGLOBULIN G 771 MG/DL (681-1648); IMMUNOGLOBULIN M 112 MG/DL (40-230)
[2018-03-17 14:23] LABS: CORTISOL AM 11.1 UG/DL (4.3-22.4)
[2018-03-20 08:08] LABS: E001-IgE Cat Epith/Dander 0.63 kU/L (Class II); E005-IgE Dog Dander 0.32 kU/L (Class I); G002-IgE Bermuda Grass < 0.10 kU/L (Class 0); G008-IgE Kentucky Bluegrass < 0.10 kU/L (Class 0); M001-IgE Penicillium chrysogen < 0.10 kU/L (Class 0); M002 IgE Cladosporium herbaru < 0.10 kU/L (Class 0); M003 IgE Aspergillus fumigatu < 0.10 kU/L (Class 0); M006-IgE Alternaria alternata < 0.10 kU/L (Class 0); T001-IgE Maple/Box Elder < 0.10 kU/L (Class 0); T003-IgE Common Silver Birch < 0.10 kU/L (Class 0); T006-IgE Cedar, Mountain < 0.10 kU/L (Class 0); T007-IgE Oak, White < 0.10 kU/L (Class 0); T008-IgE Elm, American < 0.10 kU/L (Class 0); T015-IgE Ash, White < 0.10 kU/L (Class 0); T041-IgE Hickory, White < 0.10 kU/L (Class 0); T070-IgE White Mulberry < 0.10 kU/L (Class 0); W001-IgE Ragweed, Short < 0.10 kU/L (Class 0); W009-IgE Plantain, English < 0.10 kU/L (Class 0); W014-IgE Pigweed, Rough < 0.10 kU/L (Class 0); W018-IgE Sheep Sorrel < 0.10 kU/L (Class 0)
== END ==
LOC: M LABDRAWP 11:02
DX: J45.40 Moderate persistent asthma, uncomplicated (principal)
CPT/HCPCS: 82785

== ENCOUNTER → 2018-06-09 | Outpatient (CLI) | payer BC ==
[~2018-06-09] MED LIST changes: +*ANUSOI PR; +/ADVA50050 INH; +/CELE20CA; +/CELE20CA OR; +ACET65TA OR; +ADVA230A INH; +ALBUTEROL HFA INH; +ALPR0.5T3 PO; +ALPR1TAB3 PO; +AMBI10TA PO; +ATOR1TAB19 PO; +AVALIDE; +AVAP300T PO; +AVELOX PO; +CALTCHW5 PO; +CALTRATE PO; +CEFT500T PO; +CELE1CAP4 PO; +CELE20TA OR; +CHLO25TA PO; +COUM2.5T17 PO; +COZA100T PO; +DILA2TAB; +DIPH2.5L PO; +DIPH2.5T14 PO; +FLON0.05; +FLON1SPR NARES; +GABA-1171 PO; +HYDR-3716 PO; +IRBE150T12 PO; +IRBE300T10 PO; +LANS30CA PO; +LASI20TA PO; +LEVO25TA5 PO; +LEVOTAB10 PO; +LEXA1TAB2 PO; -LIDOCAINE 1% MDV 20ML VIAL As Ordered; +METF500T4; +METF750T PO; +MIREIUD IU; +MUCI600T34 PO; +MUCINEX; +MULTCAP PO; +MULTIVIT PO; +NORC1TAB4 PO; +NORV5TAB PO; +NYST1POW9 TOP; +NYSTPOW4 TOP; +OXYC-141 PO; +PATA2.5S OP; +PERC5TAB12 PO; +PRED10TA PO; +PREV30CA6 PO; +PRIL20CA OR; +PROV90AE; +SILV40CR EXT; +SKEL800T97 PO; +TAMO20TA8; +TESS100C PO; +THIA100TA PO; +TOPA1TAB PO; +TORS10TA3 PO; +TORS20TA2 PO; +TRAZ10TA PO; +VALA1TAB2 PO; +VALT500T PO; +VICODINES TAB; +VICODINES TAB OR; +VITA100066 PO; +VITA250L PO; +VITAMIN B 12 PO; +VITAMIN D PO; +XANA1TAB2; +XANA1TAB2 OR; +XANA1TAB2 PO; +XOPENEX INH; +XYZASOL2 PO; +ZOLP10TA2 PO; +[UNRECOGNIZED DRUG - OTHER] OR; +[UNRECOGNIZED DRUG - OTHER] PO
--- NOTE | 2018-06-09 15:12 | REP ---
Clinical: Fall . Comparison: 12/30/2014 . Findings: The ventricles, sulci, and cisterns are normal in position and appearance. Gomes-white differentiation is maintained. No acute intracranial hemorrhage, mass/mass effect, pathology or trauma/injury. No evidence for acute infarction. No extra-axial fluid collection. Calvarium is intact. Paranasal sinuses and mastoid air cells are clear. A small posterior scalp hematoma is identified. Impression: Small posterior scalp hematoma. No evidence for acute intracranial pathology or trauma/injury. Electronically Signed by Marin Briones MD 06/09/2018 03:03 P
--- NOTE | 2018-06-09 15:16 | REP ---
Clinical: Trauma. Fall. Technique: Axial images from the skull base to the thoracic inlet with coronal and sagittal re-formations. Findings: Mild reversal of normal lordosis is nonspecific. Mild age-related changes include very subtle scattered anterior spurring and minimal disc space narrowing. Alignment is maintained. There is no evidence for acute fracture / compression injury or subluxation. The spinal canal and neural foramen appear patent. The posterior elements and spinous processes are intact. Impression: No acute cervical spine pathology or trauma/injury appreciated. Electronically Signed by Marin Briones MD 06/09/2018 03:07 P
== END ==
LOC: M RAD 14:02
PROVIDERS: ATTEND Family Medicine
DX: S00.03XA Contusion of scalp, initial encounter (principal); W19.XXXA Unspecified fall, initial encounter; Y92.89 Other specified places as the place of occurrence of the external cause

== ENCOUNTER → 2018-07-03 | Outpatient (CLI) | payer BC ==
--- NOTE | 2018-07-03 16:45 | REP ---
ULTRASOUND LEFT BREAST: Real-time sonographic evaluation of the left breast was performed. In the region of 12-1 o'clock. Patient has recently had mastitis in this region in the upper outer quadrant of the left breast and has been on antibiotic therapy for about 1 week. There is a history of malignant ultrasound guided breast biopsy of the left breast at 9 o'clock 09/19/2017. The breast tissue in the upper outer left breast appears inflamed with loss of fat planes. Multiple small cystic areas are seen. The largest measures 2.2 cm in diameter. A few of these have the appearance of mildly dilated ducts. The lager 2.2 cm cystic structure may simply represent a cyst of the breast. Other smaller complex cystic areas are nonspecific and could represent complex cysts or areas of fat necrosis but small abscesses could not be excluded. Recommend close followup. Electronically Signed by Thad Gomes MD 07/05/2018 10:00 A
== END ==
LOC: M RAD 14:29
PROVIDERS: ATTEND Family Medicine
DX: R92.8 Other abnormal and inconclusive findings on diagnostic imaging of breast (principal); N63.0 Unspecified lump in unspecified breast; C50.919 Malignant neoplasm of unspecified site of unspecified female breast

== ENCOUNTER 2018-08-07 15:45 | Outpatient (RCR) | payer BC ==
[~2018-08-07 15:45] MED LIST changes: -/ADVA50050 INH; -/CELE20CA; -/CELE20CA OR; +ADVA1AER2 INH; +BREO1INH3 PO; +CELE1CAP4; +CELE1CAP4 OR; +CHLO125TA PO; -NORC1TAB4 PO; +NORC1TAB7 PO; +PRED-351 PO; -PRED10TA PO; +TIOT18INH INH; +TIZA2CAP PO
== END 2018-08-08 ==
LOC: M PT 15:45
PROVIDERS: ATTEND Surgery
DX: C50.912 Malignant neoplasm of unspecified site of left female breast (principal); Z17.0 Estrogen receptor positive status [ER+]; I89.0 Lymphedema, not elsewhere classified

== ENCOUNTER → 2018-08-09 | Outpatient (CLI) | payer BC ==
--- NOTE | 2018-08-10 11:16 | RADONC ---
RADIATION ONCOLOGY FOLLOWUP NOTE DATE: 08/09/2018 CHART NUMBER: [id number] DIAGNOSIS: Left breast cancer. STAGE: IA, [id number], grade 1, ER positive, NM positive, HER2 negative. ECOG PERFORMANCE STATUS: 0. FOLLOWUP NOTE: Ms. Nicholson is a 58-year-old white female with the diagnosis of a stage IA, [id number], well-differentiated infiltrating ductal carcinoma of her left breast who is presenting to us today for routine followup visit 8 months post completion of external beam radiation therapy. The patient presents today reporting that she is having shortness of breath and told us that her cupola tender, Dr. Ballesteros, has blamed radiation pneumonitis or fibrosis for her breathing issues. Apparently no CT scans or x-rays were undertaken to make this diagnosis, however. She also reports some tenderness of the breast. The patient's review of systems is otherwise noncontributory. She denies nausea, vomiting, fevers, chills, night sweats, diplopia, headaches, anxiety or depression, anorexia, weight loss, visual disturbances, chest pain, urinary or bowel difficulties, bone pain, or neurological problems. PHYSICAL EXAMINATION: The patient is a well-developed, well-nourished, female in no acute distress. HEENT exam is normocephalic, atraumatic. Extraocular movements are intact. There is no palpable cervical, supraclavicular, infraclavicular, axillary, or inguinal lymphadenopathy present. Lungs are clear to auscultation and percussion. Heart has a regular rate and rhythm. Abdomen is benign with no hepatosplenomegaly, masses, or tenderness. Breast examination reveals no masses or discharge bilaterally. Skeletal examination reveals no tenderness to pressure or percussion of the bony skeleton. Extremities reveal no clubbing, cyanosis, or edema. Neurologic exam is grossly intact, as is the remainder of the physical examination. ASSESSMENT: The patient is clinically JORGE at this time and overall appears to have done well with radiation. I have personally reviewed with her our treatment planning CAT scans and showed her the very minimal amount of lung tissue in the field. In order to rule out the diagnosis she tells me she has I have ordered a CT scan of the chest to be undertaken. Once again I do not think any respiratory issues this woman would have could be related to the tiny 1-2 cm of lung included in the radiation field. The overall volume lung was quite small. I have set the patient up for routine followup in our office as well. She will continue her followup with her other physicians in the meantime. cc: MD Jessica Chapman MD
== END ==
LOC: M ONCR 11:34
PROVIDERS: ATTEND Radiology Radiation Oncology
DX: Z85.3 Personal history of malignant neoplasm of breast (principal); Z92.3 Personal history of irradiation

== ENCOUNTER → 2018-08-16 | Outpatient (REF) | payer BC ==
[2018-08-16 13:33] LABS: BLOOD UREA NITROGEN 10 MG/DL (7-18); CREATININE FOR GFR 0.74 MG/DL (0.55-1.30); GLOMERULAR FILTRATION RATE > 60.0 (>51)
== END ==
LOC: M LABDRAWP 11:58
PROVIDERS: ATTEND Radiology Radiation Oncology
DX: R06.02 Shortness of breath (principal)

== ENCOUNTER → 2018-08-18 | Outpatient (CLI) | payer BC ==
[~2018-08-18] MED LIST changes: +ISOVUE-370 76% 100ML VIAL (Q9967) As Ordered ONE
--- NOTE | 2018-08-18 14:45 | REP ---
REASON: History of breast cancer. COMPARISON: Multiple, latest 02/06/2018. CONTRAST: 100 mL Isovue 370. There is no mediastinal or hilar adenopathy. There are no pleural or pericardial effusions. There is no change in the appearance of the imaged upper abdomen. Bone window technique throughout the examination shows no significant change in the appearance of the imaged osseous structures. Evaluation of the lung hathaway shows an asymmetric inferior lingular opacity which is actually smaller compared to the prior exam. There is mild pleural irregularity lingular region anterolaterally. This is without bk nodularity. The lung hathaway are otherwise clear. IMPRESSION: Slight pleural irregularity on the left as described above of uncertain etiology. There is no revised Fleischner's Society criteria on the recommendation for followup of such an abnormality. Followup should be based on clinical assessment. Electronically Signed by Mark Alan DO 08/18/2018 03:04 P
== END ==
LOC: M RAD 11:20
PROVIDERS: ATTEND Radiology Radiation Oncology
DX: R91.8 Other nonspecific abnormal finding of lung field (principal); Z85.3 Personal history of malignant neoplasm of breast
CPT/HCPCS: 71260; Q9967

== ENCOUNTER → 2018-09-29 | Outpatient (REF) | payer BC ==
[~2018-09-29] MED LIST changes: +DICY10CA13 PO; +DICY20TA PO; +ISOS30TA4 PO; +ISOS30TAB PO; -ISOVUE-370 76% 100ML VIAL (Q9967) As Ordered ONE; +MS C15TA8 PO; +NORC1TAB8 PO; -TAMO20TA8; +TAMO20TA8 PO; +TOPA100T12 PO; +TOPA50TA8 PO; +TRAZ-163 PO; +XARE10TA PO
[2018-09-29 13:21] LABS: BASO # 0.1 10^3/uL (0.0-0.2); BASO % 0.9 % (0.0-1.0); EOS # 0.1 10^3/uL (0.0-0.50); EOS % 1.4 % (0.0-3.0); HEMATOCRIT 32.4 % (36.0-47.0); HEMOGLOBIN 10.2 g/dl (12.0-15.5); LYMPH # 1.1 10^3/uL (1.5-4.5); MEAN CORPUSCULAR HEMOGLOBIN 25.5 pg (27.0-33.0); MEAN CORPUSCULAR HGB CONC 31.5 g/dl (32.0-36.5); MONO # 0.5 10^3/uL (0.0-0.8); MONO % 6.2 % (0.0-5.0); NEUTROPHILS # 6.3 10^3/uL (1.8-7.7); NEUTROPHILS % 78.1 % (36.0-66.0); PLATELET COUNT, AUTOMATED 358 10^3/uL (150-450); WHITE BLOOD COUNT 8.1 10^3/uL (4.0-10.0)
[2018-09-29 13:36] LABS: INR 0.98; PROTHROMBIN TIME 12.7 SECONDS (11.8-14.0)
[2018-09-29 13:37] LABS: PARTIAL THROMBOPLASTIN TIME 29.4 SECONDS (25.0-38.4)
[2018-09-29 14:12] LABS: ALBUMIN 3.5 GM/DL (3.2-5.2); ALT/SGPT 40 U/L (12-78); BILIRUBIN,TOTAL 0.3 MG/DL (0.2-1.0); BLOOD UREA NITROGEN 7 MG/DL (7-18); CALCIUM LEVEL 8.6 MG/DL (8.5-10.1); CARBON DIOXIDE LEVEL 22 MEQ/L (21-32); CHLORIDE LEVEL 99 MEQ/L (98-107); CHOLESTEROL LEVEL 154 MG/DL (<200); CHOLESTEROL RISK RATIO 2.109 (<5); CREATININE FOR GFR 0.56 MG/DL (0.55-1.30); FREE T4 0.77 NG/DL (0.76-1.46); GLOMERULAR FILTRATION RATE > 60.0 (>51); GLUCOSE, FASTING 89 MG/DL (70-100); HDL CHOLESTEROL 73 MG/DL (>40); LDL CHOLESTEROL 68 MG/DL (<100); MAGNESIUM LEVEL 2.1 MG/DL (1.8-2.4); NON-HDL-C 81 MG/DL; NT-PRO BNP 75 PG/ML (<125); POTASSIUM SERUM 3.9 MEQ/L (3.5-5.1); SODIUM LEVEL 134 MEQ/L (136-145); TOTAL PROTEIN 7.2 GM/DL (6.4-8.2); TRIGLYCERIDES LEVEL 67 MG/DL (<150)
[2018-09-29 14:32] LABS: HEMOGLOBIN A1c 5.7 %
== END ==
LOC: M SFHCPLAZ 10:45
PROVIDERS: ATTEND Family Medicine
DX: E78.5 Hyperlipidemia, unspecified (principal)

== ENCOUNTER 2018-10-02 06:00 | Inpatient (IN) | payer BC ==
--- NOTE | 2018-09-29 22:27 | HPE ---
DATE OF PLANNED ADMISSION: 10/02/2018 DATE OF SERVICE: 09/29/2018 ATTENDING PHYSICIAN: Jorge Tolbert MD CHIEF COMPLAINT: Right knee pain. HISTORY OF PRESENT ILLNESS Tamiko is a pleasant 58-year-old female with progressively worsening right knee pain and stiffness. She has failed to improve with conservative treatment. She has elected for surgery for her continued symptoms. She has pain with weightbearing activities and her activities of daily living. X-rays of her knee are notable for advanced osteoarthritis of the right knee joint. She has consented for a right total knee arthroplasty by Dr. Luis Tolbert. Medical optimization was performed by Dr. Spencer. ALLERGIES: None. CURRENT MEDICATIONS: Voltaren 1% gel as needed, vitamin D 5000 units a day, Xyzal 5 mg 1 tablet in the evening, nystatin powder 100,000 units per mL suspension applied to affected area under the breast and groin twice a day, Lexapro 20 mg once a day, trazodone 100 mg at bedtime, Xanax 1 mg a day, metformin HCl ER 750 mg 1 tablet twice a day, vitamin B12 1000 mcg once a day, atorvastatin calcium 10 mg once a day, irbesartan 300 mg once a day, Xopenex 1.25 mg per 3 mL nebulizer every 4 hours as needed, Ventolin HFA 90 mcg inhaler 2 puffs every 4 hours as needed peak flow meter, Patanol 0.1% solution 1 drop in both eyes twice a day, Caltrate 600 plus D 400 units twice a day, clotrimazole betamethasone 1-0.05% cream applied to affected area externally twice a day as needed, Valtrex 1 gram tablet orally twice a day, Diflucan 150 mg orally as needed, baby aspirin once a day, tamoxifen citrate 20 mg once a day, isosorbide mononitrate 30 mg 1 tablet in the morning, Topamax 50 mg 2 tablets in the morning one in the evening, Anusol-HC 2.5% cream applied to affected area rectally twice a day, Anusol-HC 25 mg suppository rectally twice a day as needed, diphenoxylate atropine 2.5/0.025 mg tablet as needed four times a day, tizanidine 2 mg three times a day, dicyclomine 10 mg three times a day, lansoprazole 30 mg 1 tablet twice a day, Flonase 50 mcg spray 1 spray in each nostril twice daily, hydrocodone/acetaminophen 7.5/325 as needed orally twice a day, Breo Ellipta 200/25 mcg 1 puff once a day, Spiriva Respimat 1.25 mcg per actuation 1 puff twice daily, torsemide 20 mg orally at noon. PAST MEDICAL HISTORY Includes diabetes, hypertension, asthma, high cholesterol, anxiety and depression and history of breast cancer. PAST SURGICAL HISTORY Includes left total knee and lumpectomies with a sentinel node biopsy. 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 Does not smoke. Occasionally drinks alcohol. FAMILY HISTORY: Noncontributory. REVIEW OF SYSTEMS This patient denies chest pain, heart palpitations, cough, wheezing, difficulty breathing and shortness of breath. She denies abdominal pain, nausea, vomiting, diarrhea or constipation. She denies recent upper respiratory infection or urinary tract infection symptoms. She does complain of persistent pain in the right knee. PHYSICAL EXAMINATION General: She is well-nourished, well-developed in no acute distress, alert female patient. She ambulates with a mild limp favoring the right lower extremity. She is not using assistive devices. Vital signs: She is 64-1/2 inch tall, weighs 245.6 pounds, temperature 97.6, blood pressure 126/76, pulse of 62, respirations of 16. Neck was supple without adenopathy or jugular venous tension. There were no carotid bruits appreciated. Lungs: Were clear to auscultation, without rales or wheeze throughout. Heart: Regular rate and rhythm. Abdomen: Bowel sounds were present. Extremities: Examination of the knee revealed intact skin. She had decreased range of motion due to pain and stiffness. The limb was neurovascularly intact. LABORATORY DATA Tamiko is getting her labs drawn today. She did have her EKG done today and we are using a chest x-ray from 2 months ago. EKG showed normal sinus rhythm at 76 beats per minute. Chest x-ray showed no acute cardiopulmonary disease processes. And again the lab work is pending. IMPRESSION Symptomatic osteoarthritis of the right knee joint. PLAN Consented for a right total knee arthroplasty by Dr. Luis Tolbert.
[~2018-10-02] VITALS: Ht 165.1 cm; Wt 91.5 kg
[2018-10-02] VITALS (12 sets, daily range): BP systolic 137–180; BP diastolic 71–90; O2SAT 97
[~2018-10-02 06:00] MED LIST changes: -DICY10CA13 PO; -ISOS30TA4 PO; +LIDOCAINE 1% MDV 20ML VIAL SQ PRN; -MS C15TA8 PO; -TRAZ-163 PO; -XARE10TA PO
[2018-10-02] MEDS ORDERED: ACETAMINOPHEN 500 MG TAB PO ONE (06:15)
[2018-10-02] MEDS ORDERED: LR 1,000 ML IV ONE (06:15)
[2018-10-02] MEDS ORDERED: ONDANSETRON 4MG/2ML VIAL (J2405) As Ordered ONE (06:47)
[2018-10-02] MEDS ORDERED: LIDOCAINE 2% INJ 100 MG/5 ML SDV (FOR ANES.) As Ordered ONE (06:47)
[2018-10-02] MEDS ORDERED: BUPIVACAINE/DEXTROSE 0.75% 2 ML AMP As Ordered ONE (06:47)
[2018-10-02] MEDS ORDERED: PROPOFOL 200 MG/20 ML VIAL As Ordered ONE ×4 (06:47→08:57)
[2018-10-02] MEDS ORDERED: dexameTHASONE 4 MG/ML 1ML VIAL (J1100) As Ordered ONE (06:47)
[2018-10-02] MEDS ORDERED: fentaNYL 100 MCG/2 ML INJECTION (J3010) As Ordered ONE (06:49)
[2018-10-02] MEDS ORDERED: MIDAZOLAM INJ 2 MG/2 ML VIAL (J2250) As Ordered ONE ×2 (06:49→07:19)
[2018-10-02] MEDS ORDERED: TRANEXAMIC ACID 100 MG/ML 10ML VIAL As Ordered ONE ×2 (07:14→07:34)
[2018-10-02] MEDS ORDERED: BUPIVACAINE HCL 0.25% 10 ML VIAL As Ordered ONE (07:14)
[2018-10-02] MEDS ORDERED: EPINEPHrine INJ 1 MG/ML 1ML AMP As Ordered ONE (07:15)
[2018-10-02] MEDS ORDERED: BUPIVACAINE LIPOSOME/PF 1.3% 20ML VIAL (13.3MG/ML)(EXPAREL)(C9290 PER1MG) As Ordered ONE (07:15)
[2018-10-02] MEDS ORDERED: ceFAZolin 1GM INJ (J0690 PER 500MG) As Ordered ONE (07:15)
[2018-10-02] MEDS ORDERED: fentaNYL 100 MCG/2 ML INJECTION (J3010) IV ONE (07:45)
[2018-10-02] MEDS ORDERED: MIDAZOLAM INJ 2 MG/2 ML VIAL (J2250) IV ONE (07:45)
[2018-10-02] MEDS ORDERED: ROPIvacaine 0.5% 30 ML INJECTION (J2795 PER 1MG) ONE (07:52)
[2018-10-02] MEDS ORDERED: EPINEPHrine INJ 1 MG/ML 1ML AMP ONE (07:52)
[2018-10-02] MEDS ORDERED: LIDOCAINE 1% MDV 20ML VIAL ONE (07:52)
[2018-10-02] MEDS ORDERED: KETAMINE HCL 200 MG/20 ML VIAL As Ordered ONE (08:00)
[2018-10-02] MEDS ORDERED: ISOSORBIDE MON. (IMDUR) 30 MG XR TAB PO SCH (09:00)
[2018-10-02] MEDS ORDERED: PERCOCET 5MG/325MG TAB PO PRN (10:00)
[2018-10-02] MEDS ORDERED: fentaNYL 100 MCG/2 ML INJECTION (J3010) IV PRN (10:00)
[2018-10-02] MEDS ORDERED: ACETAMINOPHEN TAB 650MG DOSE (2X325MG) PO PRN (10:00)
[2018-10-02] MEDS ORDERED: FLEET ENEMA PR PRN (10:00)
[2018-10-02] MEDS ORDERED: LR 1,000 ML IV SCH ×2 (10:00)
[2018-10-02] MEDS ORDERED: ONDANSETRON 4MG/2ML VIAL (J2405) IV PRN (10:00)
[2018-10-02] MEDS ORDERED: METOCLOPRAMIDE INJ 10MG/2ML VIAL (J2765) IV PRN (10:00)
--- NOTE | 2018-10-02 10:20 | REP ---
Clinical: Status post knee replacement. Technique AP and cross-table lateral views. Findings: The patient is status post right knee replacement with normal positioning and appearance to the femoral and tibial components. Overlying postsurgical changes appreciated. Impression: Status post right knee replacement. Electronically Signed by Marin Briones MD 10/02/2018 10:12 A
[2018-10-02] MEDS: HYDROmorphone HCL 2 MG/ML 1ML VIAL (J1170) IV PRN ×4 (12:27→22:11)
[2018-10-02] MEDS: PERCOCET 5MG/325MG TAB PO PRN ×3 (13:06→21:11)
[2018-10-02] MEDS: IRBESARTAN 150 MG TAB PO SCH (15:45)
[2018-10-02] MEDS ORDERED: DICY10CA13 PO (16:14)
[2018-10-02] MEDS ORDERED: ISOS30TA4 PO (16:14)
[2018-10-02] MEDS ORDERED: TRAZ-163 PO (16:14)
[2018-10-02] MEDS: ESCITALOPRAM OXALATE 10 MG TAB (LEXAPRO) PO SCH (17:22)
--- NOTE | 2018-10-02 17:22 | IPN ---
DATE: 10/02/2018 SUBJECTIVE Patient seen today for followup consult. Please see preop consult performed by Dr. John Spencer, a printed copy of which is in the paper component of the record and should be scanned in later. Past medical history is remarkable for asthma, history of diabetes type 2, status post gastric bypass, history of breast cancer - treated by lumpectomy and radiation therapy. Since radiation therapy, she has been troubled by dyspnea with exertion. She has some evidence of some autonomic instability with episodes of low blood pressure. She has not had any of these since April. History of irritable bowel syndrome with predominant diarrhea. Mild left ventricular hypertrophy (LVH) with diastolic congestive heart failure (CHF) according to echo done by Dr. Ballesteros in August 2018. She has had tarsal tunnel syndrome release, sinus surgeries with Dr. Phan, upper and lower endoscopies with Dr. Daniels and Dr. oFx, right cataract surgery Dr. Negron, bilateral knee arthroscopic surgery - Dr. Hackett, and a left total knee replacement with Dr. Jorge Tolbert. Family history is remarkable for cerebral aneurysms, diabetes mellitus, brother with pancreatic cancer. Recently she has enjoyed good functional status with exercise capacity to 5 METs. EXAMINATION: Blood pressure 172/88, pulse 88, respiratory rate 16, oxygen saturation (O2 sat) 97% on room air. She is alert, pleasant, cooperative. HEENT: Normocephalic, atraumatic. Pupils equal and reactive. Full extraocular movements. She is loquacious and pressured speech. No neck mass. Heart: Regular rhythm. Soft murmur noted at base. Lungs are clear. No wheezing, rales or rhonchi noted. No abdominal tenderness or distension. Right knee is wrapped. Left knee status post surgery is well healed with good mobility. She denies calf pain, and there is no discernible swelling. Fasting glucose was 89 today. No other chemistries are available other than fingerstick sugars, 224 today before noon without having her morning dose of metformin. Current medications are as listed in the preop note and will not be repeated. ASSESSMENT: Status post right total knee. Seems to be doing well at this point. Chronic medical problems, which include chronic pulmonary disease, exertional dyspnea recently diagnosed and currently on tamoxifen for infiltrating ductal carcinoma of the breast, hypertension, hyperlipidemia, diabetes, depression, anxiety. PLAN: Will resume most of her routine medications. Aspirin will not be resumed at this time since she will be on Eliquis. Lansoprazole is a chronic med for her twice a day at 30 mg; we will substitute pantoprazole until she goes home. Tizanidine, dicyclomine, diphenoxylate, atropine will be held at this time. Xyzal will be held until she goes home. Xanax will be held until she goes home as well. Anticipate discharge in morning. Blood pressure med Avapro was restarted this afternoon, dose ordered to be given to help correct her hypertension. Will resume her usual isosorbide mononitrate extended release and torsemide starting tomorrow along with her irbesartan 300 mg.
[2018-10-02] MEDS: metFORMIN XR 750 MG TAB PO SCH (18:13)
--- NOTE | 2018-10-02 18:53 | RO ---
DATE OF PROCEDURE: 10/02/2018 PREOPERATIVE DIAGNOSIS: Right knee degenerative arthritis. POSTOPERATIVE DIAGNOSIS: Right knee degenerative arthritis. PROCEDURE: Right total knee arthroplasty using a size 4 Attune Cruciate retaining femoral component size 4 tibial tray, 8 mm rotating platform polyethylene insert, 32 mm polyethylene button. All components were cemented. Prosthesis was made with Chon and Chon/DePuy. SURGEON: Dr. Jorge Tolbert ILLUSTRATOR SET: Mr. Parveen Mercado. ANESTHESIA: Spinal with a right femoral nerve block. COMPLICATIONS: None. ESTIMATED BLOOD LOSS: 20 mL. SPECIMENS: Joint surface. PROCEDURE: Antibiotics were given intravenously preoperatively and a successful right femoral nerve block and then a spinal anesthetic was induced. Tourniquet placed on right upper thigh and non-inflated. Right lower extremity was carefully prepped and draped in the usual sterile fashion, elevated and after appropriate time out tourniquet was inflated and a longitudinal incision was made for a medial parapatellar approach to the knee. Bovie cautery was used to coagulate crossing vessels. Subperiosteal dissection around the proximal medial and lateral tibial plateau was performed. The patella was everted and the knee was flexed. Drill was placed down the center of the femoral canal followed by the intramedullary andrew and the distal femoral cutting jig set at 5 degree valgus cut for a right knee at 9 mm resection level. Block was pinned in position. Distal femoral cut was performed. AP sizing jig measured for a size 4, 3 degrees of external rotation was dialed in and the pins were placed. 4 in 1 block was applied anterior and posterior chamfer cuts were performed without difficulty. Then we placed the jig for the notchplasty and that was performed. We then exposed the proximal tibia and used the extramedullary andrew to estimate being parallel to the mechanical axis referencing off the medial tibial condyle at 4 m resection level. Block was pinned in position. Secondary check reduction intramedullary confirmed we appeared to be parallel to the mechanical axis. Proximal tibial osteotomy was performed. Laminar supervisory investigative specialist was placed medially and we performed a completion lateral meniscectomy and debridement of posterior lateral osteophytes. We then placed the laminar supervisory investigative specialist laterally and performed a completion medial meniscectomy and debridement of the posterior medial osteophytes. The spacer block at 8 mm fit the best with good symmetry flexion and extension and medially and laterally. We exposed proximal tibial side for a #4 tibial tray which is pinned into position followed by the reamer and broach and the trial polyethylene was placed followed with a trial femoral component. The knee was brought into extension. Patellar everted and patellar osteotomy was performed sized for a 32 button, lug holes were drilled and trial was placed. Patellofemoral tracking was anatomic. We then drilled the lug holes for the femur and removed all of the trial components and placed Exparel in the subperiosteal tissues around the proximal tibia and the distal femur and the capsule. Mr. Mercado then mixed the cement on the back table as I prepared the bony surfaces for cementing with a copious amount of pulsatile lavage irrigant solution. He was also critical to the success of this difficult surgery by helping to manipulate the knee, help with prior appropriate soft-tissue retraction. Help to close the wound, mix the cement amongst many other tasks to allow me to perform the operation smoothly, efficiently and safely. We then cemented the tibial tray and removed excess cement and placed the polyethylene and cemented the femoral component and removed excess cement and brought the knee to extension, cemented the patellar button and removed excess cement and held it with a clamp with the knee in extension until the cement hardened. As we were waiting we applied additional pulsatile lavage irrigant solution throughout knees and then TXA was applied and then we began closing the apex or the arthrotomy with two #1 PDS sutures along the medial parapatellar area was closed then a #1 double arm Stratafix was used to close the capsule and then the tourniquet was release. We irrigated between layers and closed the deep subdermal tissues with interrupted 2-0 PDS sutures. Skin was closed with edgar covered by adaptic dry sterile bulky dressing and Optifoam. Patient was then transferred to the recovery room in stable condition. There are no intraoperative complications.
[2018-10-02] MEDS: PANTOPRAZOLE 40MG TAB (PROTONIX) PO SCH (21:09)
[2018-10-02] MEDS: ATORVASTATIN 10 MG TAB PO SCH (21:10)
[2018-10-02] MEDS: TOPIRAMATE (TopAMAX) 25 MG TAB PO SCH (21:10)
[2018-10-03] MEDS: traZODone 100 MG TAB PO SCH ×2 (00:06→23:51)
[2018-10-03 01:08] VITALS: BP 158/79
[2018-10-03] MEDS: HYDROmorphone HCL 2 MG/ML 1ML VIAL (J1170) IV PRN ×2 (01:15→04:24)
[2018-10-03] MEDS: PERCOCET 5MG/325MG TAB PO PRN ×3 (02:24→11:35)
[2018-10-03 06:51] VITALS: BP 172/92
[2018-10-03 07:00] VITALS: BP 142/78
[2018-10-03 07:23] LABS: HEMATOCRIT 29.9 % (36.0-47.0); HEMOGLOBIN 9.2 g/dl (12.0-15.5); MEAN CORPUSCULAR HEMOGLOBIN 25.8 pg (27.0-33.0); MEAN CORPUSCULAR HGB CONC 30.8 g/dl (32.0-36.5); MEAN CORPUSCULAR VOLUME 83.8 fl (80.0-96.0); PLATELET COUNT, AUTOMATED 280 10^3/uL (150-450); RED BLOOD COUNT 3.57 10^6/uL (4.00-5.40)
[2018-10-03 07:50] LABS: BLOOD UREA NITROGEN 6 MG/DL (7-18); CALCIUM LEVEL 8.4 MG/DL (8.5-10.1); CARBON DIOXIDE LEVEL 25 MEQ/L (21-32); CHLORIDE LEVEL 103 MEQ/L (98-107); CREATININE FOR GFR 0.51 MG/DL (0.55-1.30); GLOMERULAR FILTRATION RATE > 60.0 (>51); GLUCOSE, FASTING 106 MG/DL (70-100); POTASSIUM SERUM 3.9 MEQ/L (3.5-5.1); SODIUM LEVEL 136 MEQ/L (136-145)
[2018-10-03] MEDS: IRBESARTAN 150 MG TAB PO SCH (08:03)
[2018-10-03] MEDS: MOM 30ML SUSPENSION UDC PO SCH ×2 (08:04→08:08)
[2018-10-03] MEDS: ESCITALOPRAM OXALATE 10 MG TAB (LEXAPRO) PO SCH (08:04)
[2018-10-03] MEDS: TAMOXIFEN CITRATE 10 MG TAB PO SCH (08:04)
[2018-10-03] MEDS: TOPIRAMATE (TopAMAX) 100 MG TAB PO SCH (08:04)
[2018-10-03] MEDS: MORPHINE 15 MG SA TAB PO SCH ×2 (08:04→20:06)
[2018-10-03] MEDS: metFORMIN XR 750 MG TAB PO SCH ×2 (08:04→17:16)
[2018-10-03] MEDS: PANTOPRAZOLE 40MG TAB (PROTONIX) PO SCH ×2 (08:04→20:06)
[2018-10-03] MEDS: MIRALAX *UNIT DOSE* 17GM PACKET PO SCH (08:05)
[2018-10-03] MEDS: ISOSORBIDE MON. (IMDUR) 30 MG XR TAB PO SCH (08:05)
[2018-10-03] MEDS ORDERED: MS C15TA8 PO ×2 (08:19→08:23)
[2018-10-03] MEDS ORDERED: XARE10TA PO (08:20)
[2018-10-03] MEDS ORDERED: PERC5TAB12 PO (08:49)
[2018-10-03] MEDS ORDERED: MORPHINE 4 MG/ML 1ML VIAL/SYRINGE (J2270) IV ONE (09:30)
[2018-10-03] MEDS: TORSEMIDE 20 MG TAB PO SCH (11:35)
[2018-10-03 14:46] VITALS: BP 140/80
--- NOTE | 2018-10-03 15:16 | IPNPDOC ---
Subjective Date Seen The patient was seen on 10/03/18. Subjective Chief Complaint/HPI lot of pain Eyes: Denies: Pain ENT: Denies: Head Aches Pulmonary: Denies: Dyspnea, Pleuritic Chest Pain Cardiovascular: Denies: Chest Pain, Palpitations Gastrointestinal: Denies: Nausea, Vomiting Genitourinary: Denies: Dysuria Hematologic: Denies: Bleeding Excessively Objective Physical Examination General Exam: Positive: Alert, Cooperative Extremity Exam: Positive: Other (s/p right total knee, no redness, no swelling, no heat.) Assessment /Plan Problems (1) Status post total right knee replacement Status: Acute Response to Treatment: Worse Problem Text: pain management has been with Ortho. made changes that will ask nursing to run by Ortho for approval. if pain control remains troublesome with increase in oxycodone dose then consult Pain specialty service. (2) Chronic pain Status: Chronic Problem Text: back and knee pain, had been using 1.5 tablets of 7.5mg hydrocodone/apap bid (22.5 morphine mg equivalents) daily. suspect she may have a degree of opioid induced hyperalgesia. (3) Hypertension Status: Chronic Response to Treatment: Improving Problem Text: back on her usual meds. (4) Diabetes mellitus Status: Chronic Problem Text: back on usual meds. Plan/VTE VTE Prophylaxis Ordered?: Yes [facility]O Vital Signs Date Time Temp Pulse Resp B/P (MAP) Pulse Ox O2 Delivery O2 Flow Rate FiO2 10/03/18 12:19 16 10/03/18 08:05 142/78 10/03/18 06:51 98.5 80 97 10/02/18 13:15 Room Air 10/02/18 11:00 2 I&O- Last 24 Hours up to 6 AM 10/03/18 05:59 Intake Total 1750 ml Output Total 0 ml Balance 1750 ml Laboratory Data 24H LABS Laboratory Tests 2 10/02/18 16:59: Bedside Glucose (Misc Panel) 195H 10/02/18 20:31: Bedside Glucose (Misc Panel) 128H 10/03/18 06:54: Nucleated Red Blood Cells % (auto) 0.0, Anion Gap 8, Glomerular Filtration Rate > 60.0, Blood Urea Nitrogen 6L, Creatinine 0.51L, Sodium Level 136, Potassium Level 3.9, Chloride Level 103, Carbon Dioxide Level 25, Calcium Level 8.4L 10/03/18 11:52: Bedside Glucose (Misc Panel) 130H CBC/BMP Laboratory Tests 10/03/18 06:54 Red Blood Count 3.57 L, Mean Corpuscular Volume 83.8, Mean Corpuscular Hemoglobin 25.8 L, Mean Corpuscular Hemoglobin Concent 30.8 L, Red Cell Distribution Width 16.2 H, Calcium Level 8.4 L Mike Valdez MD Oct 03, 2018 15:16
[2018-10-03] MEDS: oxyCODONE 5MG TAB PO PRN ×3 (15:36→23:53)
[2018-10-03] MEDS ORDERED: RIVAROXABAN 10 MG TAB (XARELTO) PO SCH (18:00)
[2018-10-03] MEDS: ATORVASTATIN 10 MG TAB PO SCH (20:06)
[2018-10-03] MEDS: TOPIRAMATE (TopAMAX) 25 MG TAB PO SCH (20:06)
[2018-10-03 22:00] VITALS: BP 164/82
[2018-10-04 00:32] VITALS: O2SAT 95
[2018-10-04] MEDS: PERCOCET 5MG/325MG TAB PO PRN ×3 (02:06→12:00)
[2018-10-04] MEDS: oxyCODONE 5MG TAB PO PRN (04:27)
[2018-10-04 06:00] VITALS: BP 122/60
[2018-10-04] MEDS ORDERED: XARE10TA PO (06:06)
[2018-10-04 06:50] LABS: HEMATOCRIT 28.2 % (36.0-47.0); HEMOGLOBIN 8.6 g/dl (12.0-15.5); MEAN CORPUSCULAR HEMOGLOBIN 25.1 pg (27.0-33.0); MEAN CORPUSCULAR HGB CONC 30.5 g/dl (32.0-36.5); MEAN CORPUSCULAR VOLUME 82.2 fl (80.0-96.0); PLATELET COUNT, AUTOMATED 273 10^3/uL (150-450); RED BLOOD COUNT 3.43 10^6/uL (4.00-5.40); WHITE BLOOD COUNT 10.6 10^3/uL (4.0-10.0)
[2018-10-04 07:09] LABS: BLOOD UREA NITROGEN 5 MG/DL (7-18); CALCIUM LEVEL 8.2 MG/DL (8.5-10.1); CARBON DIOXIDE LEVEL 25 MEQ/L (21-32); CHLORIDE LEVEL 105 MEQ/L (98-107); CREATININE FOR GFR 0.53 MG/DL (0.55-1.30); GLOMERULAR FILTRATION RATE > 60.0 (>51); GLUCOSE, FASTING 135 MG/DL (70-100); POTASSIUM SERUM 3.5 MEQ/L (3.5-5.1); SODIUM LEVEL 140 MEQ/L (136-145)
[2018-10-04] MEDS: TAMOXIFEN CITRATE 10 MG TAB PO SCH (08:33)
[2018-10-04] MEDS: metFORMIN XR 750 MG TAB PO SCH (08:33)
[2018-10-04] MEDS: ESCITALOPRAM OXALATE 10 MG TAB (LEXAPRO) PO SCH (08:34)
[2018-10-04] MEDS: IRBESARTAN 150 MG TAB PO SCH (08:34)
[2018-10-04] MEDS: MORPHINE 15 MG SA TAB PO SCH (08:35)
[2018-10-04 08:36] VITALS: BP 122/60
[2018-10-04] MEDS: ISOSORBIDE MON. (IMDUR) 30 MG XR TAB PO SCH (08:36)
[2018-10-04] MEDS: PANTOPRAZOLE 40MG TAB (PROTONIX) PO SCH (08:36)
[2018-10-04] MEDS: MOM 30ML SUSPENSION UDC PO SCH (08:36)
[2018-10-04] MEDS: MIRALAX *UNIT DOSE* 17GM PACKET PO SCH (08:36)
[2018-10-04] MEDS: TOPIRAMATE (TopAMAX) 100 MG TAB PO SCH (08:36)
[2018-10-04 11:47] VITALS: O2SAT 97
[2018-10-04] MEDS: TORSEMIDE 20 MG TAB PO SCH (12:00)
== END 2018-10-04 12:55 | disposition home or self-care (01) | DRG 302 ==
LOC: M OR 06:00 → M MS5PR 11:15
PROVIDERS: ADMIT Orthopaedic Surgery; ATTEND Orthopaedic Surgery
PROC: 0SRC0J9 Replacement of Right Knee Joint with Synthetic Substitute, Cemented, Open Approach (ICD-10-PCS; principal; 2018-10-02 07:30)
DX: M17.11 Unilateral primary osteoarthritis, right knee (principal); E11.9 Type 2 diabetes mellitus without complications; I10 Essential (primary) hypertension; J45.909 Unspecified asthma, uncomplicated; E78.00 Pure hypercholesterolemia, unspecified; F41.9 Anxiety disorder, unspecified; F32.9 Major depressive disorder, single episode, unspecified; Z85.3 Personal history of malignant neoplasm of breast; Z96.652 Presence of left artificial knee joint; Z79.899 Other long term (current) drug therapy; Z79.82 Long term (current) use of aspirin

== ENCOUNTER → 2018-11-06 | Outpatient (CLI) | payer BC ==
[~2018-11-06] MED LIST changes: +DICY10CA13 PO; +ISOS30TA4 PO; -LIDOCAINE 1% MDV 20ML VIAL SQ PRN; +MS C15TA8 PO; +TRAM50TA2 PO; +TRAZ-163 PO; +XARE10TA PO
--- NOTE | 2018-11-06 15:04 | REP ---
Clinical: Right lower extremity pain and edema . Technique: Gomes scale and color Doppler evaluation using linear high frequency transducer. Findings: Ultrasound examination of the right lower extremity deep venous structures from the common femoral vein to the popliteal vein demonstrates normal compressibility flow and wave patterns in response to respiration and augmentation. There is no evidence for deep venous thrombosis. Impression: No evidence for deep venous thrombosis. Electronically Signed by Marin Briones MD 11/06/2018 02:56 P
== END ==
LOC: M RAD 13:42
PROVIDERS: ATTEND Nurse Practitioner Adult Health
DX: R22.41 Localized swelling, mass and lump, right lower limb (principal)

== ENCOUNTER → 2018-11-08 | Outpatient (RCR) | payer BC | LOC: M PT 10-18 10:54 | PROVIDERS: ATTEND Orthopaedic Surgery | DX: Z47.1 Aftercare following joint replacement surgery (principal); Z96.651 Presence of right artificial knee joint; S86.111A Strain of other muscle(s) and tendon(s) of posterior muscle group at lower leg level, right leg, initial encounter ==

== ENCOUNTER 2018-12-05 10:45 | Outpatient (RCR) | payer BC | END 2018-12-09 | LOC: M PT 10:45 | PROVIDERS: ATTEND Orthopaedic Surgery | DX: Z47.1 Aftercare following joint replacement surgery (principal); Z96.651 Presence of right artificial knee joint; S86.111A Strain of other muscle(s) and tendon(s) of posterior muscle group at lower leg level, right leg, initial encounter ==

== ENCOUNTER → 2019-02-23 | Outpatient (CLI) | payer BC ==
[~2019-02-23] MED LIST changes: -METF750T PO; +METF750T36 PO
--- NOTE | 2019-02-23 14:26 | REP ---
CT study of the chest without contrast: History: Other nonspecific abnormal finding of the lung field. Dyspnea. The patient gives additional history of breast carcinoma. Comparison CT study August 18, 2018, February 06, 2018. CT findings: There is no evidence of pleural or pericardial effusion. No mediastinal mass or adenopathy is observed. The patient is status post lumpectomy and radiation therapy of the left breast and there is a tiny amount of subpleural fibrosis in the left anterior hemithorax extending down to the lingula near the base. No pulmonary nodule or mass lesion is observed. These pleuroparenchymal fibrotic changes are essentially stable. No new pulmonary nodule is appreciated. There is a small perifissural nodule 4 mm in diameter in the right middle lobe. The patient is status post gastric bypass surgery. There is some vascular calcification along the course of the left coronary artery. Impression: No acute disease. Post radiation fibrosis changes on the left. Electronically Signed by Kyler Pleitez MD 02/23/2019 06:39 P
== END ==
LOC: M RAD 09:45
PROVIDERS: ATTEND Internal Medicine Pulmonary Disease
DX: R91.8 Other nonspecific abnormal finding of lung field (principal)

== ENCOUNTER → 2019-04-23 | Outpatient (REF) | payer BC ==
[~2019-04-23] MED LIST changes: -TRAZ-163 PO; +TRAZ-257 PO; -TRAZ10TA PO; +TRAZ1TAB12 PO; -VALA1TAB2 PO; +VALA1TAB64 PO
[2019-04-23 17:39] LABS: LUTEINIZING HORMONE 8.5 mIU/mL
== END ==
LOC: M PLALAB 15:05 → M LABDRAWP 15:22
PROVIDERS: ATTEND Nurse Practitioner Women's Health
DX: Z85.3 Personal history of malignant neoplasm of breast (principal); Z79.810 Long term (current) use of selective estrogen receptor modulators (SERMs)
CPT/HCPCS: 36415; 83001; 83002; 87624; G0123

== ENCOUNTER → 2019-05-04 | Outpatient (REF) | payer BC ==
[2019-05-04 13:46] LABS: BASO # 0.1 10^3/uL (0.0-0.2); BASO % 1.3 % (0.0-1.0); EOS # 0.2 10^3/uL (0.0-0.5); EOS % 3.1 % (0.0-3.0); HEMATOCRIT 36.6 % (36.0-47.0); HEMOGLOBIN 11.2 g/dl (12.0-15.5); LYMPH # 1.2 10^3/uL (1.5-5.0); LYMPH % 16.2 % (24.0-44.0); MEAN CORPUSCULAR HEMOGLOBIN 28.1 pg (27.0-33.0); MEAN CORPUSCULAR HGB CONC 30.6 g/dl (32.0-36.5); MEAN CORPUSCULAR VOLUME 91.7 fl (80.0-96.0); MONO # 0.6 10^3/uL (0.0-0.8); MONO % 8.4 % (0.0-5.0); NEUTROPHILS % 70.7 % (36.0-66.0); PLATELET COUNT, AUTOMATED 294 10^3/uL (150-450); RED BLOOD COUNT 3.99 10^6/uL (4.00-5.40); WHITE BLOOD COUNT 7.1 10^3/uL (4.0-10.0)
[2019-05-04 14:15] LABS: ERYTHROCYTE SEDIMENTATION RATE 26 mm/hr (0-30)
== END ==
LOC: M LABDRAWP 10:42
PROVIDERS: ATTEND Orthopaedic Surgery
DX: Z47.1 Aftercare following joint replacement surgery (principal)

== ENCOUNTER → 2019-06-28 | Outpatient (REF) | payer BC ==
[~2019-06-28] MED LIST changes: -IRBE150T12 PO; +IRBE150T7 PO; -IRBE300T10 PO; +IRBE300T7 PO; +VALA1TAB5 PO; -VALA1TAB64 PO
[2019-06-28 10:49] LABS: BASO # 0.1 10^3/uL (0.0-0.2); BASO % 1.4 % (0.0-1.0); EOS # 0.3 10^3/uL (0.0-0.5); EOS % 5.6 % (0.0-3.0); HEMATOCRIT 39.4 % (36.0-47.0); LYMPH # 1.4 10^3/uL (1.5-5.0); LYMPH % 27.1 % (24.0-44.0); MEAN CORPUSCULAR HEMOGLOBIN 31.5 pg (27.0-33.0); MEAN CORPUSCULAR VOLUME 95.4 fl (80.0-96.0); MONO # 0.4 10^3/uL (0.0-0.8); MONO % 8.5 % (0.0-5.0); NEUTROPHILS % 57.2 % (36.0-66.0); PLATELET COUNT, AUTOMATED 266 10^3/uL (150-450); RED BLOOD COUNT 4.13 10^6/uL (4.00-5.40); WHITE BLOOD COUNT 5.2 10^3/uL (4.0-10.0)
[2019-06-28 10:55] LABS: PERCENT SATURATION 21.9 % (13.2-45.0)
== END ==
LOC: M LABDRAWP 10:18
PROVIDERS: ATTEND Internal Medicine Hematology & Oncology
DX: D50.9 Iron deficiency anemia, unspecified (principal); Z98.84 Bariatric surgery status

== ENCOUNTER → 2019-08-06 | Outpatient (REF) | payer BC ==
[2019-08-06 15:22] LABS: BASO # 0.1 10^3/uL (0.0-0.2); BASO % 1.4 % (0.0-1.0); EOS # 0.2 10^3/uL (0.0-0.5); EOS % 4.2 % (0.0-3.0); HEMATOCRIT 42.2 % (36.0-47.0); HEMOGLOBIN 14.3 g/dl (12.0-15.5); LYMPH # 1.4 10^3/uL (1.5-5.0); LYMPH % 28.8 % (24.0-44.0); MEAN CORPUSCULAR HEMOGLOBIN 32.4 pg (27.0-33.0); MEAN CORPUSCULAR HGB CONC 33.9 g/dl (32.0-36.5); MEAN CORPUSCULAR VOLUME 95.5 fl (80.0-96.0); MONO # 0.4 10^3/uL (0.0-0.8); MONO % 7.2 % (0.0-5.0); NEUTROPHILS # 2.9 10^3/uL (1.5-8.5); NEUTROPHILS % 58.2 % (36.0-66.0); PLATELET COUNT, AUTOMATED 272 10^3/uL (150-450); RED BLOOD COUNT 4.42 10^6/uL (4.00-5.40)
[2019-08-06 15:36] LABS: ALBUMIN 3.6 GM/DL (3.2-5.2); ALT/SGPT 48 U/L (12-78); BILIRUBIN,TOTAL 0.5 MG/DL (0.2-1.0); BLOOD UREA NITROGEN 14 MG/DL (7-18); CALCIUM LEVEL 9.1 MG/DL (8.5-10.1); CARBON DIOXIDE LEVEL 26 MEQ/L (21-32); CHLORIDE LEVEL 105 MEQ/L (98-107); CHOLESTEROL LEVEL 182 MG/DL (<200); CHOLESTEROL RISK RATIO 3.192 (<5); CPK CREATINE PHOSPHOKINASE 40 U/L (26-192); CREATININE FOR GFR 0.61 MG/DL (0.55-1.30); FREE T4 0.86 NG/DL (0.76-1.46); GLOMERULAR FILTRATION RATE > 60.0 (>51); GLUCOSE, FASTING 125 MG/DL (70-100); HDL CHOLESTEROL 57 MG/DL (>40); MAGNESIUM LEVEL 2.2 MG/DL (1.8-2.4); NON-HDL-C 125 MG/DL; NT-PRO BNP 103 PG/ML (<125); POTASSIUM SERUM 4.8 MEQ/L (3.5-5.1); PTH INTACT 73.4 PG/ML (18.5-88.0); SODIUM LEVEL 139 MEQ/L (136-145); TOTAL 25(OH) VITAMIN D 30.3 NG/ML (30.0-100.0); TOTAL PROTEIN 7.4 GM/DL (6.4-8.2); TRIGLYCERIDES LEVEL 471 MG/DL (<150); VITAMIN B12 LEVEL 475 PG/ML (247-911)
[2019-08-06 15:37] LABS: HEMOGLOBIN A1c 5.8 %
== END ==
LOC: M PLALAB 13:02
PROVIDERS: ATTEND Family Medicine
DX: I11.0 Hypertensive heart disease with heart failure (principal); E78.5 Hyperlipidemia, unspecified; R73.01 Impaired fasting glucose; E55.9 Vitamin D deficiency, unspecified; I50.30 Unspecified diastolic (congestive) heart failure

== ENCOUNTER → 2019-10-26 | Outpatient (CLI) | payer BC ==
[2019-10-26 14:07] LABS: BASO # 0.1 10^3/uL (0.0-0.2); EOS # 0.2 10^3/uL (0.0-0.5); EOS % 2.7 % (0.0-3.0); HEMATOCRIT 37.7 % (36.0-47.0); HEMOGLOBIN 12.6 g/dl (12.0-15.5); LYMPH # 1.1 10^3/uL (1.5-5.0); LYMPH % 16.4 % (24.0-44.0); MEAN CORPUSCULAR HGB CONC 33.4 g/dl (32.0-36.5); MEAN CORPUSCULAR VOLUME 98.7 fl (80.0-96.0); MONO # 0.6 10^3/uL (0.0-0.8); MONO % 9.4 % (0.0-5.0); NEUTROPHILS # 4.8 10^3/uL (1.5-8.5); NEUTROPHILS % 70.4 % (36.0-66.0); PLATELET COUNT, AUTOMATED 231 10^3/uL (150-450); RED BLOOD COUNT 3.82 10^6/uL (4.00-5.40); WHITE BLOOD COUNT 6.8 10^3/uL (4.0-10.0)
[2019-10-26 14:20] LABS: ALBUMIN 3.6 GM/DL (3.2-5.2); ALT/SGPT 24 U/L (12-78); BILIRUBIN,TOTAL 0.4 MG/DL (0.2-1.0); BLOOD UREA NITROGEN 17 MG/DL (7-18); CALCIUM LEVEL 8.8 MG/DL (8.5-10.1); CARBON DIOXIDE LEVEL 25 MEQ/L (21-32); CHLORIDE LEVEL 102 MEQ/L (98-107); CREATININE FOR GFR 0.96 MG/DL (0.55-1.30); FERRITIN 349 NG/ML (8-252); FOLATE 6.8 NG/ML; GLOMERULAR FILTRATION RATE > 60.0 (>51); GLUCOSE, FASTING 120 MG/DL (70-100); IRON (FE) 89 UG/DL (50-170); PERCENT SATURATION 27.4 % (13.2-45.0); SODIUM LEVEL 136 MEQ/L (136-145); TOTAL IRON BINDING CAPACITY 325 UG/DL (250-450); TOTAL PROTEIN 7.1 GM/DL (6.4-8.2); VITAMIN B12 LEVEL 621 PG/ML
== END ==
LOC: M PLALAB 09:40
PROVIDERS: ATTEND Specialist
DX: C50.912 Malignant neoplasm of unspecified site of left female breast (principal)

== ENCOUNTER → 2019-12-07 | Outpatient (CLI) | payer BC ==
[2019-12-07 15:16] LABS: BASO # 0.1 10^3/uL (0.0-0.2); EOS # 0.2 10^3/uL (0.0-0.5); EOS % 2.2 % (0.0-3.0); HEMOGLOBIN 12.3 g/dl (12.0-15.5); LYMPH # 1.3 10^3/uL (1.5-5.0); LYMPH % 17.3 % (24.0-44.0); MEAN CORPUSCULAR HEMOGLOBIN 33.8 pg (27.0-33.0); MEAN CORPUSCULAR HGB CONC 33.2 g/dl (32.0-36.5); MEAN CORPUSCULAR VOLUME 101.6 fl (80.0-96.0); MONO # 0.6 10^3/uL (0.0-0.8); NEUTROPHILS # 5.1 10^3/uL (1.5-8.5); NEUTROPHILS % 71.1 % (36.0-66.0); PLATELET COUNT, AUTOMATED 250 10^3/uL (150-450); RED BLOOD COUNT 3.64 10^6/uL (4.00-5.40); WHITE BLOOD COUNT 7.2 10^3/uL (4.0-10.0)
[2019-12-07 15:38] LABS: CHOLESTEROL RISK RATIO 2.851 (<5)
== END ==
LOC: M PLALAB 10:50
PROVIDERS: ATTEND Family Medicine
DX: E78.2 Mixed hyperlipidemia (principal); J45.40 Moderate persistent asthma, uncomplicated

== ENCOUNTER 2020-01-30 09:49 | Emergency (ER) | payer BC ==
[~2020-01-30] VITALS: Ht 165.1 cm; Wt 92.3 kg
--- NOTE | 2020-01-30 10:25 | REPVR ---
PROCEDURE INFORMATION: Exam: XR Chest, 1 View Exam date and time: 01/30/2020 10:16 AM Age: 59 years old Clinical indication: Chest pain TECHNIQUE: Imaging protocol: XR of the chest Views: 1 view. COMPARISON: CT Chest without contrast 02/23/2019 10:13 AM FINDINGS: Lungs: Mild linear atelectasis or scarring in the left lateral lung base. No focal consolidation. Pleural space: Unremarkable. No pleural effusion. No pneumothorax. Heart/Mediastinum: Unremarkable. No cardiomegaly. Bones/joints: Unremarkable. IMPRESSION: No acute cardiopulmonary abnormality. Electronically signed by: Em Mercedes On 01/30/2020 10:24:56 AM
[2020-01-30] MEDS ORDERED: MORPHINE 2 MG/ML 1ML VIAL (J2270) IV ONE (10:30)
[2020-01-30] MEDS ORDERED: ONDANSETRON 4MG/2ML VIAL IV ONE (10:30)
[2020-01-30 10:51] LABS: BASO # 0.1 10^3/uL (0.0-0.2); BASO % 0.7 % (0.0-1.0); EOS # 0.1 10^3/uL (0.0-0.5); EOS % 1.2 % (0.0-3.0); HEMATOCRIT 35.9 % (36.0-47.0); HEMOGLOBIN 12.1 g/dl (12.0-15.5); LYMPH # 1.1 10^3/uL (1.5-5.0); LYMPH % 12.4 % (24.0-44.0); MEAN CORPUSCULAR HEMOGLOBIN 32.6 pg (27.0-33.0); MEAN CORPUSCULAR HGB CONC 33.7 g/dl (32.0-36.5); MEAN CORPUSCULAR VOLUME 96.8 fl (80.0-96.0); MONO # 0.8 10^3/uL (0.0-0.8); MONO % 8.6 % (0.0-5.0); NEUTROPHILS % 76.8 % (36.0-66.0); PLATELET COUNT, AUTOMATED 244 10^3/uL (150-450); RED BLOOD COUNT 3.71 10^6/uL (4.00-5.40); WHITE BLOOD COUNT 9.1 10^3/uL (4.0-10.0)
[2020-01-30 11:14] LABS: ALBUMIN 3.4 GM/DL (3.2-5.2); BILIRUBIN,DIRECT 0.3 MG/DL (0.0-0.2); BILIRUBIN,TOTAL 0.9 MG/DL (0.2-1.0); TOTAL PROTEIN 6.8 GM/DL (6.4-8.2)
[2020-01-30] MEDS ORDERED: ISOVUE-370 76% 100ML VIAL As Ordered ONE (11:26)
--- NOTE | 2020-01-30 11:55 | REPVR ---
PROCEDURE INFORMATION: Exam: CT Angiography Chest With Contrast Exam date and time: 01/30/2020 11:33 AM Age: 59 years old Clinical indication: Chest pain; Additional info: Chest pain, HX CA, R/O pe TECHNIQUE: Imaging protocol: Computed tomographic angiography of the chest with intravenous contrast. 3D rendering (Not supervised by radiologist): MIP and/or 3D reconstructed images were created by the technologist. Radiation optimization: All CT scans at this facility use at least one of these dose optimization techniques: automated exposure control; mA and/or kV adjustment per patient size (includes targeted exams where dose is matched to clinical indication); or iterative reconstruction. Contrast material: ISO 370; Contrast volume: 75 ml; Contrast route: INTRAVENOUS (IV); COMPARISON: CT ANGIO CHEST 02/06/2018 10:13 AM FINDINGS: Limitations: Examination is slightly limited by motion artifact. Pulmonary arteries: Limited evaluation of the distal pulmonary arterial branches due to motion artifact. No filling defect in the main pulmonary arteries or the primary or secondary order pulmonary arterial branches. Aorta: Minimal atherosclerotic change of the thoracic aorta. Lungs: Tiny nodular focus of fat adjacent to the right hemidiaphragm, mimicking a right lower lobe pulmonary nodule. Mild linear scarring in the lingula. Pleural space: Unremarkable. No pneumothorax. No pleural effusion. Heart: Mild coronary artery calcifications. Lymph nodes: Unremarkable. No enlarged lymph nodes. Stomach and bowel: Patient appears to be status post gastric bypass procedure. Bones/joints: Degenerative change of the spine. Soft tissues: Unremarkable. IMPRESSION: No central pulmonary embolism. Motion artifact limits evaluation of the distal pulmonary arterial branches. Electronically signed by: Em Mercedes On 01/30/2020 11:55:01 AM
[2020-01-30] MEDS ORDERED: GI COCKTAIL 50ML BTL(HYOSCYAMINE/MAALOX/LIDOCAINE VISCOUS)(1:3:1) PO ONE (12:45)
[2020-01-30 13:30] VITALS: BP 139/65
--- NOTE | 2020-01-30 16:28 | ECGEPIP ---
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
--- NOTE | 2020-01-30 16:29 | ECGEPIP ---
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
--- NOTE | 2020-01-30 16:34 | ECGEPIP ---
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
== END 2020-01-30 14:19 | disposition home or self-care (01) ==
LOC: EDBD 09:49 → M ED 09:49
DX: R07.89 Other chest pain (principal); R06.02 Shortness of breath; I10 Essential (primary) hypertension; J45.909 Unspecified asthma, uncomplicated; F41.9 Anxiety disorder, unspecified; G43.909 Migraine, unspecified, not intractable, without status migrainosus; Z86.718 Personal history of other venous thrombosis and embolism; C50.912 Malignant neoplasm of unspecified site of left female breast; Z98.84 Bariatric surgery status; Z82.49 Family history of ischemic heart disease and other diseases of the circulatory system; Z88.8 Allergy status to other drugs, medicaments and biological substances; Z79.899 Other long term (current) drug therapy; Z79.84 Long term (current) use of oral hypoglycemic drugs
CPT/HCPCS: 71045; 71275; 80047; 80076; 83690; 84484; 85025; 93005; 93041; 94760; 96374; 96375; 99285; J2270; J2405; Q9967

== ENCOUNTER → 2020-01-31 | Outpatient (REF) | payer BC | LOC: M SFHCPLAZ 09:45 | PROVIDERS: ATTEND Physician Assistant Medical | DX: R07.1 Chest pain on breathing (principal) ==

== ENCOUNTER → 2020-02-07 | Outpatient (CLI) | payer BC ==
--- NOTE | 2020-02-07 13:12 | REPPI ---
INDICATION: RIGHT FOOT PAIN X 1 WEEK, NO INJURY COMPARISON: 03/11/2017. TECHNIQUE: Four views obtained. FINDINGS: There is no acute fracture or dislocation. There is a large inferior calcaneal spur again noted unchanged. There is an adjacent heterogeneous calcific nodule approximately 1.7 cm in diameter also unchanged. There is mild joint space narrowing and subchondral sclerosis at the 1st metatarsophalangeal joint with mild hallux valgus deformity. IMPRESSION: Stable chronic findings with no acute fracture or dislocation. <Electronically signed by Thad Gomes > 02/07/20 [id number]
== END ==
LOC: M PLAIMG 12:33
PROVIDERS: ATTEND Physician Assistant
DX: M79.671 Pain in right foot (principal)

== ENCOUNTER → 2020-02-20 | Outpatient (REF) | payer BC ==
[2020-02-20 17:16] LABS: HEMOGLOBIN A1c 5.3 %
== END ==
LOC: M PLALAB 12:47
PROVIDERS: ATTEND Family Medicine
DX: E11.9 Type 2 diabetes mellitus without complications (principal)

== ENCOUNTER → 2020-02-29 | Outpatient (CLI) | payer SELFPAY | LOC: M LABSMTC 14:08 | PROVIDERS: ATTEND Pediatrics | DX: Z20.828 Contact with and (suspected) exposure to other viral communicable diseases (principal) ==

== ENCOUNTER → 2020-04-02 | Outpatient (REF) | payer SELFPAY | LOC: M SFHCPLAZ 15:12 | PROVIDERS: ATTEND Nurse Practitioner Family | DX: Z01.818 Encounter for other preprocedural examination (principal); Z20.828 Contact with and (suspected) exposure to other viral communicable diseases ==

== ENCOUNTER → 2020-04-22 | Outpatient (REF) | payer BC ==
[~2020-04-22] MED LIST changes: -DICY20TA PO; +DICY20TA3 PO
== END ==
LOC: M SFHCPLAZ 16:55
PROVIDERS: ATTEND Family Medicine
DX: S90.821A Blister (nonthermal), right foot, initial encounter (principal); L03.115 Cellulitis of right lower limb; W18.30XA Fall on same level, unspecified, initial encounter; Y92.009 Unspecified place in unspecified non-institutional (private) residence as the place of occurrence of the external cause

== ENCOUNTER → 2020-07-03 | Outpatient (REF) | payer BC ==
[~2020-07-03] MED LIST changes: +D31000TA2 PO; +HYDR-4514 PO; +ISOS1TAB35 PO; -ISOS30TA4 PO; +OLOP0.1D OP
[2020-07-03 14:14] LABS: BASO # 0.1 10^3/uL (0.0-0.2); EOS # 0.2 10^3/uL (0.0-0.5); EOS % 2.5 % (0.0-3.0); HEMATOCRIT 43.3 % (36.0-47.0); HEMOGLOBIN 14.2 g/dl (12.0-15.5); LYMPH # 1.6 10^3/uL (1.5-5.0); LYMPH % 17.6 % (24.0-44.0); MEAN CORPUSCULAR HEMOGLOBIN 32.7 pg (27.0-33.0); MEAN CORPUSCULAR HGB CONC 32.8 g/dl (32.0-36.5); MEAN CORPUSCULAR VOLUME 99.8 fl (80.0-96.0); MONO # 0.9 10^3/uL (0.0-0.8); MONO % 9.4 % (2.0-8.0); NEUTROPHILS # 6.3 10^3/uL (1.5-8.5); NEUTROPHILS % 69.1 % (36.0-66.0); PLATELET COUNT, AUTOMATED 295 10^3/uL (150-450); RED BLOOD COUNT 4.34 10^6/uL (4.00-5.40); WHITE BLOOD COUNT 9.1 10^3/uL (4.0-10.0)
[2020-07-03 14:31] LABS: HEMOGLOBIN A1c 5.2 %
[2020-07-03 14:38] LABS: ALT/SGPT 53 U/L (12-78); BILIRUBIN,TOTAL 1.1 MG/DL (0.2-1.0); BLOOD UREA NITROGEN 22 MG/DL (7-18); CALCIUM LEVEL 9.7 MG/DL (8.5-10.1); CARBON DIOXIDE LEVEL 30 MEQ/L (21-32); CHLORIDE LEVEL 93 MEQ/L (98-107); CHOLESTEROL LEVEL 181 MG/DL (<200); CHOLESTEROL RISK RATIO 2.828 (<5); CREATININE FOR GFR 0.72 MG/DL (0.55-1.30); FERRITIN 471 NG/ML (8-252); FREE T4 0.77 NG/DL (0.76-1.46); GLOMERULAR FILTRATION RATE > 60.0 (>51); GLUCOSE, FASTING 138 MG/DL (70-100); HDL CHOLESTEROL 64 MG/DL (>40); LDL CHOLESTEROL 62 MG/DL (<100); NON-HDL-C 117 MG/DL; NT-PRO BNP 44 PG/ML (<125); POTASSIUM SERUM 4.4 MEQ/L (3.5-5.1); SODIUM LEVEL 131 MEQ/L (136-145); TOTAL PROTEIN 7.3 GM/DL (6.4-8.2); TRIGLYCERIDES LEVEL 277 MG/DL (<150)
[2020-07-03 14:46] LABS: THYROID PEROXIDASE ANTIBODY < 28.0 U/ML (<60.0); TOTAL 25(OH) VITAMIN D 42.3 NG/ML (30.0-100.0)
[2020-07-03 14:47] LABS: VITAMIN B12 LEVEL 611 PG/ML (247-911)
== END ==
LOC: M SFHCPLAZ 10:10
PROVIDERS: ATTEND Family Medicine
DX: I10 Essential (primary) hypertension (principal); E78.5 Hyperlipidemia, unspecified; E53.8 Deficiency of other specified B group vitamins; R73.01 Impaired fasting glucose; E55.9 Vitamin D deficiency, unspecified; I50.30 Unspecified diastolic (congestive) heart failure

== ENCOUNTER → 2020-09-12 | Outpatient (CLI) | payer BC ==
--- NOTE | 2020-09-12 14:52 | REPPI ---
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 TECHNIQUE: AP, lateral, and swimmers views. FINDINGS: Moderate multilevel degenerative changes include endplate sclerosis, osteophytosis and disc space narrowing. Alignment and kyphosis maintained. No acute fracture/compression injury or subluxation. IMPRESSION: Moderate multilevel degenerative changes. <Electronically signed by Marin Briones > 09/12/20 [id number]
--- NOTE | 2020-09-12 15:00 | REPPI ---
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 FINDINGS: Alignment and lordosis is maintained. The vertebral bodies including transverse process and spinous processes are intact and there is no evidence for acute fracture / compression injury or subluxation. Degenerative changes include endplate sclerosis, osteophytosis and facet hypertrophy along with disc space narrowing. Findings are most pronounced at the L5-S1 and L4-5 levels. Chronic pars defects at L5 with stable 2 mm of anterolisthesis again noted. IMPRESSION: Moderate/early advanced multilevel degenerative spondylosis mildly progressive when compared to prior exam. <Electronically signed by Marin Brioens > 09/12/20 [id number]
== END ==
LOC: M PLAIMG 14:07
PROVIDERS: ATTEND Family Medicine
DX: M47.814 Spondylosis without myelopathy or radiculopathy, thoracic region (principal)

== ENCOUNTER → 2020-10-08 | Outpatient (CLI) | payer BC ==
--- NOTE | 2020-10-09 00:06 | ECWPNPC ---
PATIENT NAME: REUBEN GARIBAY : 1960 GENDER: FEMALE VISIT DATE: 10/08/2020 DISCHARGE DATE: 10/08/20931 VISIT LOCKED DATE TIME: PHYSICIAN: LALY PENNY PHYSICIAN PAGER NO: ACTIVE RESOURCE: LALY PENNY REASON FOR APPOINTMENT 1. [id number] [facility] THORCIC SPONDYLOSIS,PAULO SACROILITIS,DJD HISTORY OF PRESENT ILLNESS DEPRESSION SCREENING: PHQ-2 (2015 EDITION) LITTLE INTEREST OR PLEASURE IN DOING THINGS?NOT AT ALL FEELING DOWN, DEPRESSED, OR HOPELESS?NOT AT ALL TOTAL SCORE0 GENERAL: 60-YEAR-OLD FEMALE REFERRED BY DR. TIPTON, PRIMARY C[facility] AT [facility], TO EVALUATE PERSISTENT RIGHT LOW BACK PAIN WITH RIGHT LEG RADICULAR SYMPTOMS. SHE WAS A PATIENT OF OURS WITH LAST VISIT IN 2018. AT THAT TIME SHE HAD A LUMBAR EPIDURAL STEROID INJECTION WITH RESOLUTION OF LOW BACK PAIN AND LEFT LEG RADICULAR SYMPTOMS. WAS DOING WELL UP UNTIL MARCH. DENIES PRECIPITATING EVENTS. FINDING IT VERY DIFFICULT TO DO HER ACTIVITIES. 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 REVIEWED RECENT MRI IMAGING OF LUMBAR SPINE. DENIES BOWEL OR BLADDER INCONTINENCE. DENIES RECENT FEVER ILLNESS OR SUDDEN WEIGHT LOSS. SHE IS ON TAMOXIFEN FOR HISTORY OF BREAST CANCER. DISCUSSED TREATMENT PLAN. - - -. FALL RISK SCREENING: SCREENING : NO FALLS REPORTED IN THE LAST YEAR . PAIN SCREENING: PATIENT HAS A COMPLAINT OF ACUTE OR CHRONIC PAIN :YES LOCATION OF PAIN:MID BACK, LOW BACK INTENSITY OF PAIN (SCALE OF 1 TO 10):8 WHAT DOES YOUR PAIN FEEL LIKE:ACHING, CONTINOUS, THROBBING, SHOOTING DURATION:CONTINOUS, CONSTANT, ALL DAY PAIN IS INCREASED BY:ACTIVITIES PAIN IS DECREASED BY:USE OF PAIN MEDICATIONS, OTHERS HEAT AAND ICE NURSING NOTE: - - -. PAIN CENTER INTAKE QUESTIONS: DO YOU HAVE A HISTORY OF MRSA? :NO DO YOU TAKE A BLOOD THINNERS? :NO DO YOU HAVE ANY BLEEDING DISORDERS? :NO ANY NEW NUMBNESS OR WEAKNESS IN YOUR LEGS OR ARMS? :YES TOP ON RIGHT FOOT ANY PACEMAKER,DEFIBRILLATOR, OR DORSAL COLUMN STIMULATOR? :NO DO YOU HAVE ANY RASHES OR OPEN SORES? :NO ARE YOU ALLERGIC TO IV DYE? :NO ARE YOU DIABETIC? :YES ANY NEW PROBLEMS WITH YOUR MEDICATIONS? :NO HAVE YOU RECEIVED A VACCINE IN THE PAST 30 DAYS? :NO DO YOU PLAN TO RECEIVE A VACCINE IN THE NEXT 21 DAYS? :NO DO YOU NEED ANY PRESCRIPTION? :NO DO YOU TAKE ANY IMMUNOSUPPRESSIVE MEDICATIONS? :NO IS THERE A CHANCE YOU COULD BE ? :NO ARE YOU BREAST FEEDING? :NO CURRENT MEDICATIONS TAKING MULTIVITAMINS OTC TABLET 1 TABLET ORALLY TWICE A DAY TAKING VOLTAREN 1 % GEL DIRECTED TRANSDERMAL QID TAKING VITAMIN D 5000 UNIT TABLET 1 TAB ORALLY EVERY DAY TAKING NYSTATIN POWDER [id number] UNIT/ML SUSPENSION 1 APPLICATION TO AFFECTED AREA UNDER BREAST AND GROIN TWICE A DAY TAKING TRAZODONE HCL 100 MG TABLET 1 TABLET AT BEDTIME ORALLY ONCE A DAY TAKING TAMOXIFEN CITRATE 20 MG TABLET 1 TABLET ORALLY ONCE A DAY TAKING DICYCLOMINE HCL 10 MG CAPSULE 1 TABLET ORALLY THREE TIMES A DAY NEEDED TAKING LANSOPRAZOLE 30 MG CAPSULE DELAYED RELEASE 1 TAB ORALLY TWICE DAILY TAKING TOPIRAMATE 50 MG TABLET 2 TABS IN AM, 1 IN PM ORALLY TWICE A DAY TAKING XOPENEX 1.25 MG/3ML NEBULIZATION SOLUTION 3 ML INHALATION EVERY 4 HOURS NEEDED TAKING PEAK FLOW METER .. DEVICE DIRECTED .. ONCE A DAY TAKING TIZANIDINE HCL 2 MG TABLET 1 TABLET NEEDED ORALLY THREE TIMES A DAY TAKING CALTRATE 600+D 600-400 MG-UNIT TABLET 1 TABLET ORALLY TWICE A DAY TAKING PATANOL 0.1 % SOLUTION 1 DROP INTO BOTH EYES OPHTHALMIC TWICE A DAY NEEDED TAKING CLOTRIMAZOLE-BETAMETHASONE 1-0.05 % CREAM 1 APPLICATION TO AFFECTED AREA EXTERNALLY TWICE A DAY NEEDED, NOTES: PRN TAKING TAMOXIFEN CITRATE 20 MG TABLET 1 TABLET ORALLY ONCE A DAY TAKING ANUSOL-HC 2.5 % CREAM 1 APPLICATION TO AFFECTED AREA RECTAL TWICE A DAY NEEDED TAKING ANUSOL-HC 25 MG SUPPOSITORY 1 SUPPOSITORY RECTAL TWICE A DAY NEEDED FOR DISCOMFORT TAKING VALTREX 1 GM TABLET 1 TABLET ORALLY ONCE DAILY NEEDED TAKING METFORMIN HCL 500 MG TABLET 1 TAB ORALLY AT NOON TAKING VITAMIN B-12 1000 MCG TABLET 2 TABS ORALLY ONCE A DAY TAKING ESCITALOPRAM OXALATE 20 MG TABLET 1 TABLET ORALLY ONCE A DAY TAKING ATORVASTATIN CALCIUM 20 MG TABLET 1 TABLET ORALLY ONCE A DAY TAKING DUPILUMAB 300 MG/2ML SOLUTION PREFILLED SYRINGE 2 ML SUBCUTANEOUS EVERY 14 DAYS TAKING BREO ELLIPTA 100-25 MCG/INH AEROSOL POWDER BREATH ACTIVATED 1 PUFF INHALATION ONCE A DAY TAKING XYZAL 5 MG TABLET 1 TABLET IN THE EVENING ORALLY ONCE A DAY TAKING FLUTICASONE PROPIONATE 50 MCG/ACT SUSPENSION 2 SPRAYS IN EACH NOSTRIL NASALLY EVERY MORNING TAKING VENTOLIN HFA 90MCG) MCG/ACT AEROSOL SOLUTION 2 PUFFS.200METERED INHALATION. EVERY 4 HRS NEEDED TAKING IRBESARTAN 300 MG TABLET 1 TABLET ORALLY AT NOON TAKING TORSEMIDE 20 MG TABLET 1 TAB ORALLY AT NOON TAKING XANAX 1 MG TABLET 1 TABLET ORALLY QD, MDD 1 TAKING BETAMETHASONE DIPROPIONATE 0.05 % CREAM 1 APPLICATION EXTERNALLY ONCE A DAY TAKING DIPHENOXYLATE-ATROPINE 2.5-0.025 MG TABLET 1 TABLET NEEDED ORALLY FOUR TIMES A DAY NEEDED FOR DIARRHEA. MDD=4 TAKING HYDROCODONE-ACETAMINOPHEN 7.5-325 MG TABLET 1 TABLET NEEDED ORALLY TWICE A DAY, MDD 2 TAKING CLINDAMYCIN PHOSPHATE 1 % SWAB 1 SWAB EXTERNALLY TWICE A DAY TO AREAS OF SKIN WITH PIMPLE LIKE LESIONS TAKING KETOCONAZOLE 2 % SHAMPOO DIRECTED EXTERNALLY USE A BODY WASH IN THE SHOWER NOT-TAKING SINGULAIR 10 MG TABLET CHEWABLE 1 TABLETS IN THE EVENING ORALLY QPM NOT-TAKING ASPIRIN 81 MG TABLET CHEWABLE 1 TAB ORALLY DAILY MEDICATION LIST REVIEWED AND RECONCILED WITH THE PATIENT PAST MEDICAL HISTORY ASTHMA, MODERATE PERSISTENT-03/08/18 PFT: NORMAL BASELINE VOLUMES, MILD BRONCHODIL RESP, ELEVATED AIRWAY RESISTANCE-KALIA T2DM NID HYPERLIPIDEMIA 2B B KNEE OA, SP L TKR ALLERGIC RHINITIS GERD LUMBAR SPONDYLOSIS-03/14/20 LS MRI (ORDERED BY OK Dean 2M LLE RADICULOPATHY WHICH RESOLVED ON OWN): L2/3 1 MM ANTEROLITH, L45 L SEVERE NFN, L51 L SEVERE NFN; NO NRC MDD/PANIC DISORDER/INSOMNIA CAD-50% MID LAD, 10% MID CX, 20% MID RCA BY 02/14/18 CATH-DR. BLACK[facility]/05/02/20 RST LOW RISK-SLEZKA OBESITY SP LAP SANTHOSH GB 02/25/2010 [place] NAFLD C SMAL GB POLYP VS STONE BY 01/2016 US HYPERTENSION, ESSENTIAL IRRITABLE BOWEL SYNDROME, DIARRHEA-TYPE BILATERAL PLANTAR FASCIITIS B12 DEFICIENCY VITAMIN D DEFICIENCY SINUSITIS, RECURRENT-03/2012 CT SINUSES WITH MINIMAL MAXILLARY SINUS MUCOSAL THICKENING H63D HETEROZYGOTE C MILDLY ELEVATED FE LEVELS LIGIA, MILD-09/2013 RDI 5 BY NPSG-KALIA DIASTOLIC CHF-MILD LVH, GRADE 1 LAMAR DYS, NORMAL CVP/PASP B 08/2018 TTE PHILOMENA HYPOTHYROID, 11/2015 TPO AB 35, TG < 15 MIGRAINE HEADACHE, COMMON-07/2016 MRI/MRA BRAIN X MILD L INFILTRATING INFILTRATING BREAST CA SP LUMPECTOMY/SLNB-KORT 10/2017//[id number] 12/2017 BREAST CANCER ALLERGIES STATINS: MYALGIAS - SIDE EFFECTS NORVASC: EDEMA - SIDE EFFECTS DOXYCYCLINE HYCLATE: NAUSEA/ABDOMINAL - SIDE EFFECTS FLUOXETINE: ANXIETY - SIDE EFFECTS VERAPAMIL: PALPITATIONS - SIDE EFFECTS SURGICAL HISTORY LEFT KNEE ARTHROSCOPIC-DR. ROQUE APRIL 2007 RIGHT KNEE ARTHROSCOPIC-DR. ROQUE MARCH 2007 RIGHT CATARACT SURGERY-DR. FARLEY NOVEMBER 2009 EGD/COLONOSCOPY -IRREGULAR Z LINE AND NOW BIOPSIED AND INTERNAL HEMORRHOIDS JANUARY 2010 EGD/COLONOSCOPY-DIVERTICULOSIS, GASTRITIS-DR. NIELSEN AUGUST 2003 SINUS SURGERY AGE OF 26 TARSAL TUNNEL SYNDROME RELEASE LEFT FOOT () [place] 2002 TUBES IN EARS X'S 3 ( ) LAP SANTHOSH GB-SHAWNEE 02/25/2010 L TKR-JENIFFER NORIEGA 02/03/15 RIGHT TKR -JENIFFER NORIEGA 2018 FAMILY HISTORY FATHER: 49 YRS, ALCOHOLISM MOTHER: 55 YRS, HEART DISEASE, DIABETES MELLITUS SIBLINGS: , 1 BROTHER FROM CEREBRAL ANEURYSM, DIAGNOSED WITH UNSPECIFIED HEART DISEASE, DIABETES DAUGHTER(S): ALIVE 1 BROTHER(S) . 2DAUGHTER(S) - HEALTHY. BROTHER, PRETTY, DX C PANCREATIC CANCER AT 58Y..DENIES FAMILY HISTORY OF MM OR SKIN CANCER. SOCIAL HISTORY GENERAL: TOBACCO USE ARE YOU A:NONSMOKER LATEX QUESTIONNAIRE LATEX ALLERGY : HAVE YOU EVER DEVELOPED ANY TYPE OF REACTION AFTER HANDLING LATEX PRODUCTS SUCH RUBBER GLOVES, CONDOMS, DIAPHRAGMS, BALLOONS, SOCKS, OR UNDERWEAR?NO LATEX ALLERGY : HAVE YOU EVER DEVELOPED ANY TYPE OF REACTION DURING OR AFTER DENTAL APPOINTMENT, VAGINAL/RECTAL EXAMINATION, SURGICAL PROCEDURE, OR ANY OTHER EXPOSURE?NO LATEX RISK : HAVE YOU EVER HAD ANY DIFFICULTY BREATHING OR HIVES AFTER EATING OR HANDLING ANY FRUITS, OR VEGETABLES; SUCH KIWI, BANANAS, STONE FRUITS, OR CHESTNUTSNO LATEX RISK : DO YOU HAVE A PREVIOUS PERSONAL HISTORY OF MORE THAN NINE SURGERIES, SPINA BIFIDA, OR REPEATED CATHERIZATIONS? NO LATEX RISK : ARE YOU FREQUENTLY EXPOSED TO LATEX PRODUCTS IN YOUR OCCUPATION?NO DATE ASKED : 10/08/2020 ALCOHOL USE: YES, ONCE A WEEK. BMI CARE GOAL FOLLOW-UP ABOVE NORMAL BMI FOLLOW-UPGIVING ENCOURAGEMENT TO EXERCISE ALCOHOL SCREENING DID YOU HAVE A DRINK CONTAINING ALCOHOL IN THE PAST YEAR?NO POINTS0 INTERPRETATIONNEGATIVE RECREATIONAL DRUG USE DRUG USE?NO CAFFEINE: NO, NO CAFFEINE USE?YES HOW OFTEN AND HOW MUCH? DECAFF BEVERAGES ONCE A DAILY SEXUAL HX HAD SEX IN THE LAST 12 MONTHS (VAGINAL, ORAL, OR ANAL)?NO LMP:POST MENOPAUSE HAVE YOU EVER HAD AN STD?NO HIV / HEP-C SCREENING HIV TEST OFFERED TO PATIENT:YES DATE OFFERED:05/12/2016 TEST ACCEPTED:NO HEP-C TEST OFFERED TO PATIENT:YES DATE OFFERED:05/12/2016 REASON:PATIENT DECLINED TEST ACCEPTED:NO REASON:PATIENT DECLINED BROCHURE PROVIDED TO PATIENTYES [employer] [employer] 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 DIET: REGULAR. EXERCISE: NO REGULAR EXERCISE. MARITAL STATUS: SINGLE. IMMUNIZATION PROGRAM ELIGIBILITY STATUS UNCHANGED:__ PARENT LAST NAME:__ FIRST NAME, MIDDLE INITIAL:__ MOTHER'S MAIDEN NAME:__ MEDICAID/MEDICAID MANAGED CARE PLAN:__ NOT INSURED:__ /[place] DE[place]ING:__ UNDERINSURED:__ CHILD HEALTH PLUS B__ INSURANCE:__ INFLUENZA VACCINE:__ FEMALE 6 MONTH RISK ASSESSMENT FOR STD DESCRIBE YOUR SEXUAL PARTNERS:MALE MONOGAMOUS?YES EVER INJECT DRUGS?NO IS THERE ANYTHING ELSE WE SHOULD TALK ABOUT CONCERNING YOUR SEXUAL HISTORY OR PRACTICE?YES - PFS REFERRAL NEEDED?NO CLERGY REFERRAL NEEDED?NO PUBLIC HEALTH REFERRAL NEEDED?NO HAS THE PATIENT BEEN EDUCATED REGARDING HIS/HER PLAN OF CARE?YES HAS THE PATIENT BEEN EDUCATED REGARDING PAIN, THE RISK FOR PAIN, THE IMPORTANCE OF EFFECTIVE PAIN MANAGEMENT, AND THE PAIN ASSESSMENT PROCESS?YES ADVANCE DIRECTIVE ADVANCE DIRECTIVE DISCUSSED WITH PATIENT:YES HOSPITALIZATION/MAJOR DIAGNOSTIC PROCEDURE ASTHMA EXACERBATION-NEGATIVE CXR, INFLUENZA A/B, SCX, BCX 07/14-07/20/2011 ASTHMA EXACERBATION 2 INFLUENZA A-NEGATIVE CXR, -BCX X 2, -SCX, PRESENTING ABG C PH 7.6, CO2 17, O2 145 04/20- ACUTE DELIRIUM 2 HYPONA 127, URINE OSM 480 C/W SIADH (BUT THIS WAS ON NS)-CXR NAD, CT AP NAD, ACUTE HEPTATIS AST/ALT 228/148 TO NORMAL BY D/C, UCX CONTAMINIATED, BCX -X1, -SERIAL CIP/T-I, NH3 26, PT/PTT 04/08 01/15- REVIEW OF SYSTEMS CONSTITUTIONAL: ANY RECENT FEVER NO . CHILLS NO . WEIGHT CHANGE OF UNKNOWN REASONS NO . GASTROENTEROLOGY: NEW UNEXPLAINABLE CHANGES IN BOWEL CONTROL NO . CONSTIPATION NO . GENITOURINARY: ANY NEW CHANGE IN BLADDER CONTROL? NO . NEUROLOGY: NEW ONSET DIZZINESS OR NEUROLOGICAL CHANGES NOT MENTIONED NO . NEW NUMBNESS OR PAIN PATTERNS NOT MENTIONED AND PERTINENT TO TODAY'S VISIT NO . CARDIOLOGY: NEW CHEST PRESSURE NO . PATIENT DENIES NO . RESPIRATORY: UNEXPLAINABLE COUGH NO . NEW SHORTNESS OF BREATH NO . VITAL SIGNS WT 215 LBS, HT 64 IN, BMI 36.90 INDEX, BP 159/83 MM HG, HR 82 /MIN, RR 18 /MIN, TEMP 98.2 F, OXYGEN SAT % 96%, SAFE IN ENV? 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 EXAMINATION GENERAL EXAMINATION: GENERALAPPEARS UNCOMFORTABLE, WELL NOURISHED AND HYDRATED. PSYCHAPPROPRIATE MOOD AND AFFECT . NECK:NO LYMPHADENOPATHY, SUPPLE. LUNGS:CLEAR TO AUSCULTATION BILATERALLY, NO WHEEZES, RHONCHI, RALES. HEART:NO MURMURS, REGULAR RATE AND RHYTHM. MUSCULOSKELETAL:SLIGHT WEAKNESS NOTED OVER RIGHT LEG. LUMBAR:POSITIVE MODIFIED STRAIGHT LEG EXAM OVER RIGHT LEG 45DEGREES. NEUROLOGIC EXAM:NORMAL SENSATION TO LIGHT TOUCH LOWER EXTREMITIES.. DIAGNOSTIC TESTS REVIEWED MRI L/S SPINE-03/14/2020. ASSESSMENTS RADICULOPATHY DUE TO LUMBAR INTERVERTEBRAL DISC DISORDER - M51.16 (PRIMARY) TREATMENT RADICULOPATHY DUE TO LUMBAR INTERVERTEBRAL DISC DISORDER START KETOROLAC TROMETHAMINE TABLET, 10 MG, 1 TABLET WITH FOOD OR MILK NEEDED, ORALLY, EVERY 6 HRS, 5 DAY(S), 20 SALINE LOCK (ORDERED FOR 10/22/2020) MEDICATION: OXYCODONE HCL TAB 5MG ORALLY (ORDERED FOR 10/22/2020) MEDICATION: VALIUM TAB 5MG ORALLY (DIAZEPAM) (ORDERED FOR 10/22/2020) NOTES: LUMBAR EPIDURAL STERIOD INJECTION PRINTED AND REVIEWED PRE PROCEDURE INFORMATION, PATIENT VERBALIZED UNDERSTANDING. ALSO PRINTED INFORMATION ON NEW MEDICATION FOR PATIENT CORAZON ANN. PROCEDURE CODES FA211 ESTABILISHED PATIENT [facility] CHARGE DISPOSITION & COMMUNICATION FOLLOW UP POST (REASON: LUMBAR EPIDURAL STERIOD INJECTION) ELECTRONICALLY SIGNED BY JANETT MONGE ON 10/08/2020 AT 03:21 PM EDT DISCLAIMER : THIS IS A VISIT SUMMARY EXTRACTED FROM THE [employer] CHART. IT IS NOT A COPY OF THE [employer] PROGRESS NOTE. VICKEY
== END ==
LOC: M PAIN 08:30
PROVIDERS: ATTEND Nurse Practitioner Family
DX: M51.16 Intervertebral disc disorders with radiculopathy, lumbar region (principal); J45.40 Moderate persistent asthma, uncomplicated; E11.9 Type 2 diabetes mellitus without complications; E78.5 Hyperlipidemia, unspecified; K21.9 Gastro-esophageal reflux disease without esophagitis; M47.816 Spondylosis without myelopathy or radiculopathy, lumbar region; F32.9 Major depressive disorder, single episode, unspecified; F41.0 Panic disorder [episodic paroxysmal anxiety]; I25.10 Atherosclerotic heart disease of native coronary artery without angina pectoris; E66.9 Obesity, unspecified; K76.0 Fatty (change of) liver, not elsewhere classified; I11.0 Hypertensive heart disease with heart failure; K58.0 Irritable bowel syndrome with diarrhea; M72.2 Plantar fascial fibromatosis; E53.8 Deficiency of other specified B group vitamins; E55.9 Vitamin D deficiency, unspecified; G47.33 Obstructive sleep apnea (adult) (pediatric); I50.32 Chronic diastolic (congestive) heart failure; E03.9 Hypothyroidism, unspecified; G43.009 Migraine without aura, not intractable, without status migrainosus; Z85.3 Personal history of malignant neoplasm of breast; Z96.653 Presence of artificial knee joint, bilateral; Z79.84 Long term (current) use of oral hypoglycemic drugs; Z79.891 Long term (current) use of opiate analgesic; Z79.899 Other long term (current) drug therapy; Z88.1 Allergy status to other antibiotic agents; Z88.8 Allergy status to other drugs, medicaments and biological substances

== ENCOUNTER → 2020-11-04 | Outpatient (CLI) | payer BC | LOC: M WHC 12:58 | PROVIDERS: ATTEND Family Medicine | DX: Z12.31 Encounter for screening mammogram for malignant neoplasm of breast (principal) ==

== ENCOUNTER → 2020-11-13 | Outpatient (CLI) | payer BC | LOC: M LABSMTC 09:32 | PROVIDERS: ATTEND Anesthesiology | DX: Z01.812 Encounter for preprocedural laboratory examination (principal); Z20.822 Contact with and (suspected) exposure to COVID-19 ==

== ENCOUNTER → 2020-11-17 | Outpatient (CLI) | payer BC ==
[~2020-11-17] MED LIST changes: +ISOVUE-M 300 61% 15ML VIAL As Ordered ONE; +LIDOCAINE 1% SDV 30ML VIAL As Ordered ONE; +diazePAM 5MG TABLET As Ordered ONE; +methylPREDNISolone SUSP 40MG/ML 1ML VIAL (DEPO MEDROL) As Ordered ONE; +oxyCODONE 5MG TAB As Ordered ONE
--- NOTE | 2020-11-17 17:48 | REP ---
INDICATION: LESI. COMPARISON: None. TECHNIQUE: Three views. 14.6 seconds of fluoroscopy time is reported. FINDINGS: A sequence of 3 last image hold fluoroscopically obtained spot radiograph(s) of the lumbar spine document(s) needle position(s) and contrast injection associated with injection procedure. IMPRESSION: Procedural imaging. <Electronically signed by Rayo Pleitez > 11/17/20 [id number]
--- NOTE | 2020-11-20 02:24 | ECWPNPC ---
PATIENT NAME: REUBEN GARIBAY : 1960 GENDER: FEMALE VISIT DATE: 11/17/2020 DISCHARGE DATE: 11/17/201729 VISIT LOCKED DATE TIME: PHYSICIAN: EDWIN WELDON MD PHYSICIAN PAGER NO: ACTIVE RESOURCE: EDWIN WELDON MD REASON FOR APPOINTMENT 1. LUMBAR EPIDURAL STERIOD INJECTION HISTORY OF PRESENT ILLNESS GENERAL: -. FALL RISK SCREENING: SCREENING : NO FALLS REPORTED IN THE LAST YEAR. PAIN SCREENING: PATIENT HAS A COMPLAINT OF ACUTE OR CHRONIC PAIN :YES LOCATION OF PAIN:LOW BACK, LEFT HIP, RIGHT HIP, FEET RIGHT FOOT INTENSITY OF PAIN (SCALE OF 1 TO 10):8 WHAT DOES YOUR PAIN FEEL LIKE:BURNING, THROBBING, SHOOTING DURATION:CONTINOUS, CONSTANT, ALL DAY PAIN IS INCREASED BY:ACTIVITIES, OTHERS BENDING, WALKING PAIN IS DECREASED BY:USE OF PAIN MEDICATIONS, OTHERS HEAT NURSING NOTE: -. PAIN CENTER INTAKE QUESTIONS: DO YOU HAVE A HISTORY OF MRSA? :NO DO YOU TAKE A BLOOD THINNERS? :NO DO YOU HAVE ANY BLEEDING DISORDERS? :NO ANY NEW NUMBNESS OR WEAKNESS IN YOUR LEGS OR ARMS? :NO ANY PACEMAKER,DEFIBRILLATOR, OR DORSAL COLUMN STIMULATOR? :NO DO YOU HAVE ANY RASHES OR OPEN SORES? :NO ARE YOU ALLERGIC TO IV DYE? :NO ARE YOU DIABETIC? :YES ANY NEW PROBLEMS WITH YOUR MEDICATIONS? :NO HAVE YOU RECEIVED A VACCINE IN THE PAST 30 DAYS? :NO DO YOU PLAN TO RECEIVE A VACCINE IN THE NEXT 21 DAYS? :NO DO YOU TAKE ANY IMMUNOSUPPRESSIVE MEDICATIONS? :NO ANY HISTORY OF SEIZURES? :NO ANY HISTORY OF CARDIAC ISSUES OR EVENTS? :NO DO YOU HAVE ANY KIDNEY OR LIVER DISEASE? :NO DO YOU HAVE SLEEP APNEA? :NO ANY RECENT HEAD INJURY? :NO DO YOU HAVE ANY NEW INFECTIONS? :NO IS THERE A CHANCE YOU COULD BE ? :NO ARE YOU BREAST FEEDING? :NO WHEN DID YOU LAST EAT? : 11/17/20 0900 WHEN DID YOU LAST DRINK? : 11/17/20 1000 WHAT DID YOU LAST DRINK? : BROCK LOVE NAME OF PERSON DRIVING YOU HOME? : DAUGHTER DO YOU HAVE ANY OTHER QUESTIONS OR CONCERNS? : - CURRENT MEDICATIONS TAKING MULTIVITAMINS OTC TABLET 1 TABLET ORALLY TWICE A DAY TAKING VOLTAREN 1 % GEL DIRECTED TRANSDERMAL QID TAKING VITAMIN D 5000 UNIT TABLET 1 TAB ORALLY EVERY DAY TAKING NYSTATIN POWDER [id number] UNIT/ML SUSPENSION 1 APPLICATION TO AFFECTED AREA UNDER BREAST AND GROIN TWICE A DAY TAKING TRAZODONE HCL 100 MG TABLET 1 TABLET AT BEDTIME ORALLY ONCE A DAY, NOTES: 11/16/20 TAKING TAMOXIFEN CITRATE 20 MG TABLET 1 TABLET ORALLY ONCE A DAY TAKING DICYCLOMINE HCL 10 MG CAPSULE 1 TABLET ORALLY THREE TIMES A DAY NEEDED, NOTES: 11/16/20 TAKING LANSOPRAZOLE 30 MG CAPSULE DELAYED RELEASE 1 TAB ORALLY TWICE DAILY TAKING TOPIRAMATE 50 MG TABLET 2 TABS IN AM, 1 IN PM ORALLY TWICE A DAY TAKING XOPENEX 1.25 MG/3ML NEBULIZATION SOLUTION 3 ML INHALATION EVERY 4 HOURS NEEDED TAKING PEAK FLOW METER .. DEVICE DIRECTED .. ONCE A DAY TAKING CALTRATE 600+D 600-400 MG-UNIT TABLET 1 TABLET ORALLY TWICE A DAY TAKING PATANOL 0.1 % SOLUTION 1 DROP INTO BOTH EYES OPHTHALMIC TWICE A DAY NEEDED TAKING CLOTRIMAZOLE-BETAMETHASONE 1-0.05 % CREAM 1 APPLICATION TO AFFECTED AREA EXTERNALLY TWICE A DAY NEEDED, NOTES: PRN TAKING ANUSOL-HC 2.5 % CREAM 1 APPLICATION TO AFFECTED AREA RECTAL TWICE A DAY NEEDED TAKING ANUSOL-HC 25 MG SUPPOSITORY 1 SUPPOSITORY RECTAL TWICE A DAY NEEDED FOR DISCOMFORT TAKING VALTREX 1 GM TABLET 1 TABLET ORALLY ONCE DAILY NEEDED TAKING METFORMIN HCL 500 MG TABLET 1 TAB ORALLY AT NOON, NOTES: 11/16/20 TAKING VITAMIN B-12 1000 MCG TABLET 2 TABS ORALLY ONCE A DAY TAKING ESCITALOPRAM OXALATE 20 MG TABLET 1 TABLET ORALLY ONCE A DAY TAKING ATORVASTATIN CALCIUM 20 MG TABLET 1 TABLET ORALLY ONCE A DAY TAKING DUPILUMAB 300 MG/2ML SOLUTION PREFILLED SYRINGE 2 ML SUBCUTANEOUS EVERY 14 DAYS TAKING BREO ELLIPTA 100-25 MCG/INH AEROSOL POWDER BREATH ACTIVATED 1 PUFF INHALATION ONCE A DAY TAKING XYZAL 5 MG TABLET 1 TABLET IN THE EVENING ORALLY ONCE A DAY PRN TAKING FLUTICASONE PROPIONATE 50 MCG/ACT SUSPENSION 2 SPRAYS IN EACH NOSTRIL NASALLY EVERY MORNING TAKING VENTOLIN HFA 90MCG) MCG/ACT AEROSOL SOLUTION 2 PUFFS.200METERED INHALATION. EVERY 4 HRS NEEDED TAKING IRBESARTAN 300 MG TABLET 1 TABLET ORALLY AT NOON TAKING TORSEMIDE 20 MG TABLET 1 TAB ORALLY AT NOON, NOTES: 11/16/20 TAKING XANAX 1 MG TABLET 1 TABLET ORALLY QD PRN, MDD 1, NOTES: NONE LATELY TAKING BETAMETHASONE DIPROPIONATE 0.05 % CREAM 1 APPLICATION EXTERNALLY ONCE A DAY TAKING DIPHENOXYLATE-ATROPINE 2.5-0.025 MG TABLET 1 TABLET NEEDED ORALLY FOUR TIMES A DAY NEEDED FOR DIARRHEA. MDD=4 TAKING BACLOFEN 5 MG TABLET 1 TABLET NEEDED ORALLY THREE TIMES A DAY NEEDED FOR PAIN. MDD=3, NOTES: 11/15/20 TAKING HYDROCODONE-ACETAMINOPHEN 7.5-325 MG TABLET 1 TABLET NEEDED ORALLY TWICE A DAY, MDD 2, NOTES: 11/16/20 NOT-TAKING TAMOXIFEN CITRATE 20 MG TABLET 1 TABLET ORALLY ONCE A DAY, NOTES: DUPLICATE NOT-TAKING CLINDAMYCIN PHOSPHATE 1 % SWAB 1 SWAB EXTERNALLY TWICE A DAY TO AREAS OF SKIN WITH PIMPLE LIKE LESIONS NOT-TAKING KETOCONAZOLE 2 % SHAMPOO DIRECTED EXTERNALLY USE A BODY WASH IN THE SHOWER NOT-TAKING KETOROLAC TROMETHAMINE 10 MG TABLET 1 TABLET WITH FOOD OR MILK NEEDED ORALLY EVERY 6 HRS NOT-TAKING SINGULAIR 10 MG TABLET CHEWABLE 1 TABLETS IN THE EVENING ORALLY QPM NOT-TAKING ASPIRIN 81 MG TABLET CHEWABLE 1 TAB ORALLY DAILY MEDICATION LIST REVIEWED AND RECONCILED WITH THE PATIENT PAST MEDICAL HISTORY ASTHMA, MODERATE PERSISTENT-03/08/18 PFT: NORMAL BASELINE VOLUMES, MILD BRONCHODIL RESP, ELEVATED AIRWAY RESISTANCE-KALIA T2DM NID HYPERLIPIDEMIA 2B B KNEE OA, SP L TKR ALLERGIC RHINITIS GERD LUMBAR SPONDYLOSIS-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/05/02/20 RST LOW RISK-[place] OBESITY SP LAP SANTHOSH GB 02/25/2010 [place] NAFLD C SMAL GB POLYP VS STONE BY 01/2016 US HYPERTENSION, ESSENTIAL IRRITABLE BOWEL SYNDROME, DIARRHEA-TYPE BILATERAL PLANTAR FASCIITIS B12 DEFICIENCY VITAMIN D DEFICIENCY SINUSITIS, RECURRENT-03/2012 CT SINUSES WITH MINIMAL MAXILLARY SINUS MUCOSAL THICKENING H63D HETEROZYGOTE C MILDLY ELEVATED FE LEVELS LIGIA, MILD-09/2013 RDI 5 BY NPSG-KALIA DIASTOLIC CHF-MILD LVH, GRADE 1 LAMAR DYS, NORMAL CVP/PASP B 08/2018 TTE PHILOMENA HYPOTHYROID, 11/2015 TPO AB 35, TG < 15 MIGRAINE HEADACHE, COMMON-07/2016 MRI/MRA BRAIN X MILD L INFILTRATING INFILTRATING BREAST CA SP LUMPECTOMY/SLNB-KORT 10/2017//[id number] 12/2017 BREAST CANCER ALLERGIES STATINS: MYALGIAS - SIDE EFFECTS NORVASC: EDEMA - SIDE EFFECTS DOXYCYCLINE HYCLATE: NAUSEA/ABDOMINAL - SIDE EFFECTS FLUOXETINE: ANXIETY - SIDE EFFECTS SOCIAL HISTORY GENERAL: TOBACCO USE ARE YOU A:NONSMOKER LATEX QUESTIONNAIRE LATEX ALLERGY : HAVE YOU EVER DEVELOPED ANY TYPE OF REACTION AFTER HANDLING LATEX PRODUCTS SUCH RUBBER GLOVES, CONDOMS, DIAPHRAGMS, BALLOONS, SOCKS, OR UNDERWEAR?NO LATEX ALLERGY : HAVE YOU EVER DEVELOPED ANY TYPE OF REACTION DURING OR AFTER DENTAL APPOINTMENT, VAGINAL/RECTAL EXAMINATION, SURGICAL PROCEDURE, OR ANY OTHER EXPOSURE?NO LATEX RISK : HAVE YOU EVER HAD ANY DIFFICULTY BREATHING OR HIVES AFTER EATING OR HANDLING ANY FRUITS, OR VEGETABLES; SUCH KIWI, BANANAS, STONE FRUITS, OR CHESTNUTSNO LATEX RISK : DO YOU HAVE A PREVIOUS PERSONAL HISTORY OF MORE THAN NINE SURGERIES, SPINA BIFIDA, OR REPEATED CATHERIZATIONS? NO LATEX RISK : ARE YOU FREQUENTLY EXPOSED TO LATEX PRODUCTS IN YOUR OCCUPATION?NO DATE ASKED : 11/14/2020 ALCOHOL USE: YES, ONCE A WEEK. BMI CARE GOAL FOLLOW-UP ABOVE NORMAL BMI FOLLOW-UPGIVING ENCOURAGEMENT TO EXERCISE ALCOHOL SCREENING DID YOU HAVE A DRINK CONTAINING ALCOHOL IN THE PAST YEAR?NO POINTS0 INTERPRETATIONNEGATIVE RECREATIONAL DRUG USE DRUG USE?NO CAFFEINE: NO, NO CAFFEINE USE?YES HOW OFTEN AND HOW MUCH? DECAFF BEVERAGES ONCE A DAILY SEXUAL HX HAD SEX IN THE LAST 12 MONTHS (VAGINAL, ORAL, OR ANAL)?NO HAVE YOU EVER HAD AN STD?NO LMP:POST MENOPAUSE HIV / HEP-C SCREENING HIV TEST OFFERED TO PATIENT:YES DATE OFFERED:05/12/2016 TEST ACCEPTED:NO REASON:PATIENT DECLINED BROCHURE PROVIDED TO PATIENTYES HEP-C TEST OFFERED TO PATIENT:YES DATE OFFERED:05/12/2016 TEST ACCEPTED:NO REASON:PATIENT DECLINED YAZIDI ANGLICAN, ANGLICAN. 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 DIET: REGULAR. EXERCISE: NO REGULAR EXERCISE. MARITAL STATUS: SINGLE. IMMUNIZATION PROGRAM ELIGIBILITY STATUS UNCHANGED:__ PARENT LAST NAME:__ FIRST NAME, MIDDLE INITIAL:__ MOTHER'S MAIDEN NAME:__ MEDICAID/MEDICAID MANAGED CARE PLAN:__ NOT INSURED:__ /[place]:__ UNDERINSURED:__ CHILD HEALTH PLUS B__ INSURANCE:__ INFLUENZA VACCINE:__ FEMALE 6 MONTH RISK ASSESSMENT FOR STD DESCRIBE YOUR SEXUAL PARTNERS:MALE MONOGAMOUS?YES EVER INJECT DRUGS?NO IS THERE ANYTHING ELSE WE SHOULD TALK ABOUT CONCERNING YOUR SEXUAL HISTORY OR PRACTICE?YES - PFS REFERRAL NEEDED?NO CLERGY REFERRAL NEEDED?NO PUBLIC HEALTH REFERRAL NEEDED?NO HAS THE PATIENT BEEN EDUCATED REGARDING HIS/HER PLAN OF CARE?YES HAS THE PATIENT BEEN EDUCATED REGARDING PAIN, THE RISK FOR PAIN, THE IMPORTANCE OF EFFECTIVE PAIN MANAGEMENT, AND THE PAIN ASSESSMENT PROCESS?YES ADVANCE DIRECTIVE ADVANCE DIRECTIVE DISCUSSED WITH PATIENT:YES VITAL SIGNS WT 218.2 LBS, WT-KG 98.97 KG, HT 64 IN, BMI 37.45 INDEX, BP 128/74 MM HG, HR 92 /MIN, RR 18 /MIN, TEMP 97.8 F, OXYGEN SAT % 97%, SAFE IN ENV? (Y/N) Y, NA INITIALS SC 14:36, REVIEWED BY: ANDREAS. EXAMINATION GENERAL: THE PATIENT IS ALERT, ORIENTED TIMES THREE AND COOPERATIVE. LUNGS ARE CLEAR TO AUSCULTATION. HEART SHOWS REGULAR RHYTHM, NO MURMURS AND NO GALLOPS. ASSESSMENTS RADICULOPATHY DUE TO LUMBAR INTERVERTEBRAL DISC DISORDER - M51.16 (PRIMARY) TREATMENT RADICULOPATHY DUE TO LUMBAR INTERVERTEBRAL DISC DISORDER [facility] FLUORO GUIDE SPINE INJECTION (PAIN)[id number] COMPLETION OF PROCEDURAL VISIT WHEN MEETS [id number],ELIZABETH 11/17/2020 5:21:28 PM > CRITERIA MET SALINE [id number],TOM 11/17/2020 4:15:07 PM > 22G IV ACCESS OBTAINED IN RWR ON ISIS ATTEMPT. PATIENT TOLERATED WELL TBRADLEYRN MEDICATION: PAIN OXYCODONE HCL TAB 5MG ORALLY [id number],EDENILSON 11/17/2020 4:09:46 PM > VERIFIED PIETER LUNA 11/17/2020 4:41:00 PM > ADMINISTERED @ 1610 MEDICATION: PAIN VALIUM TAB 5MG ORALLY (DIAZEPAM)[id number],EDENILSON 11/17/2020 4:10:01 PM > VERIFIED PIETER LUNA 11/17/2020 4:41:19 PM > ADMINISTERED @ 1610 OTHERS NOTES: 11/14/20 1745 PAT COMPLETED. Pawel SMITH RN. PROCEDURES PAIN NURSING RECORD PROCEDURE IN ROOM 1625, PHYSICIAN IN ROOM 1643, START 1647, FINISH 1654, PHYSICIAN OUT OF ROOM 1655, OUT OF ROOM 1700, ECG NORMAL SINUS, PATIENT SHIELDED YES, SAFETY STRAP YES, PREP BETADINE Faiza VASQUEZ RN, DRESSING TEGADERM DR. WELDON LOC: 1. ALERT, ORIENTED, PIETER LUNA 11/17/2020 4:48:45 PM > RESP: 1. REGULAR, NO DYSPNEA, PIETER LUNA 11/17/2020 4:48:48 PM > COLOR: 1. PINK, PIETER LUNA 11/17/2020 4:48:52 PM > SKIN: 1. WARM, DRY, PIETER LUNA 11/17/2020 4:48:56 PM > POSITION: 1. PRONE, PIETER LUNA 11/17/2020 4:44:48 PM > VITALS: 169/82, 78, 16, 98% PIETER LUNA 11/17/2020 4:30:19 PM > , 161/78, 78, B16, 98%, PIETER LUNA 11/17/2020 4:45:04 PM > 181/78, 83, 16, 98%, PIETER LUNA 11/17/2020 5:17:51 PM > 195/100, 91, 16, 97%, PIETER LUNA 11/17/2020 5:05:12 PM > 188/100 MANUAL, DR WELDON IS AWARE, PT CAN GO HOME, MONITOR HER B/P @ HOME, PT STATED SHE TOOK 1 OF 2 B/P PILLS THIS AM, SHE WILL TAKE THE OTHER WHEN SHE GETS HOME. IF B/P DOES NOT COME DOWN, GO TO URGENT CARE. PT EXPRESSED UNDERSTANDING., PIETER LUNA 11/17/2020 5:20:15 PM > NOTES Ashley LUNA RN, PIETER LUNA 11/17/2020 4:45:09 PM > ACCESS POINT IS L4-L5 FLUORO 14 SEC FOR DOCUMENTATION PURPOSES, PIETER LUNA 11/17/2020 4:52:13 PM > COMPLETION OF PROCEDURE APPOINTMENT: POST PAIN 0, DRESSING SITE DRY AND INTACT, IV DISCONTINUED, SITE CLEAR, CATHETER INTACT, GAIT STEADY, TEACHING COMPLETED, PATIENT ACKNOWLEDGES UNDERSTANDING YES, PROCEDURE APPOINTMENT COMPLETED AT 1715 PRE PROCEDURE DIAGNOSIS LUMBAR DISC DISORDER WITH RADICULOPATHY POST PROCEDURE DIAGNOSIS LUMBAR DISC DISORDER WITH RADICULOPATHY PROCEDURE LUMBAR EPIDURAL STEROID INJECTION UNDER FLUOROSCOPIC GUIDANCE SURGEON DR. EDWIN WELDON EQUIPMENT SERVICE ENGINEER NONE ANESTHESIA LOCAL PRE PROCEDURE NOTE THE PATIENT HAS A HISTORY OF CHRONIC LOW BACK PAIN. I EVALUATED THE PATIENT AND REVIEWED THE CHART. I WENT OVER THE RISKS, ALTERNATIVES, AND BENEFITS ASSOCIATED WITH THIS PROCEDURE. THE PATIENT WOULD LIKE TO PROCEED AND GIVE CONSENT TO PERFORMED THE PROCEDURE. THE PATIENT DENIES UNEXPLAINABLE WEIGHT LOSS, FEVER, CHILLS, OR NEW CHANGES IN URINARY OR BOWEL CONTROL. THE PATIENT IS COVID-19 NEGATIVE DESCRIPTION OF PROCEDURE THE PATIENT WAS BROUGHT TO THE PROCEDURE ROOM AND PLACED IN THE PRONE POSITION. THE LUMBOSACRAL AREA WAS CLEANED WITH BETADINE SOLUTION AND DRAPED ASEPTICALLY. THE PROCEDURE WAS DONE UNDER STERILE CONDITIONS. A TIMEOUT WAS PERFORMED WHERE THE CONSENTED SITE WAS VERIFIED WITH EVERYONE IN THE ROOM. UNDER FLUOROSCOPIC GUIDANCE, THE TARGET POINT WAS SELECTED AT THE INTERLAMINAR LEVEL OF L4-L5. I CONFIRMED AGAIN THE SITE OF TARGET. LIDOCAINE WAS USED TO NUMB THE SKIN AND THE SUBCUTANEOUS TISSUE BELOW IT. EPIDURAL TUOHY NEEDLE, 17-GAUGE, WAS ADVANCED UNDER FLUOROSCOPIC GUIDANCE AND FOLLOWING PATIENT FEEDBACK UNTIL THE EPIDURAL SPACE WAS REACHED 6 CM DEEP INTO THE SKIN BY THE LOSS OF RESISTANCE TECHNIQUE. ISOVUE-M DYE 30%, 0.25 ML, WAS INJECTED SHOWING ADEQUATE SPREAD OF THE DYE. THEN, A SOLUTION OF 3 ML OF NORMAL SALINE WITH DEPO-MEDROL 40 MG WAS INJECTED SLOWLY FOLLOWING PATIENT FEEDBACK. THE MEDICATIONS WERE VERIFIED WITH THE NURSE. THERE WAS NO EVIDENCE OF BLOOD, PARESTHESIA OR CEREBROSPINAL FLUID DURING THE PROCEDURE. THE PATIENT WAS SENT TO THE RECOVERY ROOM. THE PATIENT WAS MOVING THE EXTREMITIES AND DOING WELL. THERE WERE NO COMPLICATIONS DURING THE PROCEDURE. ESTIMATED BLOOD LOSS WAS LESS THAN 5 ML. FLUOROSCOPY TIME WAS 14 SECONDS POST PROCEDURE NOTE THE PATIENT WILL BE SEEN IN A FOLLOW UP IN THE NEXT FEW WEEKS. I AM LOOKING FOR LONG LASTING RELIEF FOR THE PATIENT WITH THIS INTERVENTION. INSTRUCTIONS WERE GIVEN, QUESTIONS WERE ANSWERED, AND THE PATIENT EXPRESSED UNDERSTANDING AND AGREES WITH THE PLAN. I, DARI GOMEZ, DOCUMENTED THE ABOVE INFORMATION ACTING A SCRIBE FOR DR. WELDON. I HAVE REVIEWED THE ABOVE DOCUMENT, WRITTEN BY DARI GOMEZ, ARMHOLE FELLER HANDSTITCHING MACHINE, AND I VERIFY THAT IT IS ACCURATE VISIT CODES PROCEDURE CODES 59140 LUMBAR/SACRAL W/ IMAGING DISPOSITION & COMMUNICATION FOLLOW UP FOLLOW UP WITH STAFF NURSE MIDWIFE (REASON: POST LUMBAR EPIDURAL STEROID INJECTION) ELECTRONICALLY SIGNED BY EDWIN WELDON MD, MD ON 11/19/2020 AT 06:09 PM EDT DISCLAIMER : THIS IS A VISIT SUMMARY EXTRACTED FROM THE [employer] CHART. IT IS NOT A COPY OF THE [email or web address] PROGRESS NOTE. MTDIrwin
== END ==
LOC: M PAIN 14:20
PROVIDERS: ATTEND Anesthesiology
DX: M51.16 Intervertebral disc disorders with radiculopathy, lumbar region (principal); J45.40 Moderate persistent asthma, uncomplicated; E11.9 Type 2 diabetes mellitus without complications; E78.5 Hyperlipidemia, unspecified; M17.0 Bilateral primary osteoarthritis of knee; F32.9 Major depressive disorder, single episode, unspecified; F41.0 Panic disorder [episodic paroxysmal anxiety]; I25.10 Atherosclerotic heart disease of native coronary artery without angina pectoris; E66.9 Obesity, unspecified; K76.0 Fatty (change of) liver, not elsewhere classified; K58.0 Irritable bowel syndrome with diarrhea; M72.2 Plantar fascial fibromatosis; E55.9 Vitamin D deficiency, unspecified; J32.9 Chronic sinusitis, unspecified; G47.33 Obstructive sleep apnea (adult) (pediatric); I50.32 Chronic diastolic (congestive) heart failure; E03.9 Hypothyroidism, unspecified; Z85.3 Personal history of malignant neoplasm of breast; Z79.891 Long term (current) use of opiate analgesic; Z79.899 Other long term (current) drug therapy; Z88.1 Allergy status to other antibiotic agents; Z88.8 Allergy status to other drugs, medicaments and biological substances; Z68.37 Body mass index [BMI] 37.0-37.9, adult
CPT/HCPCS: 62323; J1030; Q9967

== ENCOUNTER → 2020-11-26 | Outpatient (CLI) | payer BC ==
[~2020-11-26] MED LIST changes: -ISOVUE-M 300 61% 15ML VIAL As Ordered ONE; -LIDOCAINE 1% SDV 30ML VIAL As Ordered ONE; -diazePAM 5MG TABLET As Ordered ONE; -methylPREDNISolone SUSP 40MG/ML 1ML VIAL (DEPO MEDROL) As Ordered ONE; -oxyCODONE 5MG TAB As Ordered ONE
[2020-11-26 14:42] LABS: HEMOGLOBIN A1c 5.6 %
[2020-11-26 14:50] LABS: FERRITIN 282 NG/ML (8-252); TOTAL PROTEIN 6.9 GM/DL (6.4-8.2)
[2020-11-26 14:55] LABS: MALB URINE SIEMENS 9.9 MG/L; MAU/CREAT RATIO 6.6 MCG/MG (0.0-30.0)
[2020-11-26 14:56] LABS: PTH INTACT 46.7 PG/ML (18.5-88.0); TOTAL 25(OH) VITAMIN D 44.8 NG/ML (30.0-100.0)
[2020-11-27 14:00] LABS: ALBUMIN 3.93 GM/DL (3.29-5.55); ALPHA-1-GLOBULIN % 4.5 % (2.9-4.9); ALPHA-1-GLOBULINS 0.31 GM/DL (0.17-0.41); ALPHA-2-GLOBULINS 0.86 GM/DL (0.42-0.99); ALPHA-2-GLOBULINS % 12.5 % (7.1-11.8); BETA-1-GLOBULINS 0.43 GM/DL (0.28-0.60); BETA-1-GLOBULINS % 6.3 % (4.7-7.2); BETA-2-GLOBULINS 0.37 GM/DL (0.19-0.55); BETA-2-GLOBULINS % 5.4 % (3.2-6.5); GAMMA GLOBULIN % 14.3 % (11.1-18.8); GAMMA GLOBULINS 0.99 GM/DL (0.65-1.58)
[2020-11-28 02:07] LABS: INSULIN LEVEL 13.3 uIU/mL (2.6-24.9)
== END ==
LOC: M PLALAB 11:33
PROVIDERS: ATTEND Family Medicine
DX: D75.89 Other specified diseases of blood and blood-forming organs (principal); E55.9 Vitamin D deficiency, unspecified; D50.9 Iron deficiency anemia, unspecified; E11.9 Type 2 diabetes mellitus without complications; K76.0 Fatty (change of) liver, not elsewhere classified

== ENCOUNTER → 2020-12-22 | Outpatient (REF) | payer BC, MEDICAID | LOC: M SFHCPLAZ 17:00 | PROVIDERS: ATTEND Physician Assistant | DX: R19.7 Diarrhea, unspecified (principal) | CPT/HCPCS: 87505; U0003 ==

== ENCOUNTER → 2021-06-05 | Outpatient (CLI) | payer OTHER ==
[2021-06-05 17:33] LABS: BASO # 0.1 10^3/uL (0.0-0.2); BASO % 1.2 % (0.0-1.0); EOS # 0.1 10^3/uL (0.0-0.5); EOS % 1.4 % (0.0-3.0); HEMATOCRIT 40.3 % (36.0-47.0); HEMOGLOBIN 12.8 g/dl (12.0-15.5); LYMPH # 0.9 10^3/uL (1.5-5.0); LYMPH % 11.1 % (24.0-44.0); MEAN CORPUSCULAR HGB CONC 31.8 g/dl (32.0-36.5); MEAN CORPUSCULAR VOLUME 100.8 fl (80.0-96.0); MONO # 0.4 10^3/uL (0.0-0.8); MONO % 4.9 % (2.0-8.0); NEUTROPHILS # 6.3 10^3/uL (1.5-8.5); NEUTROPHILS % 80.9 % (36.0-66.0); PLATELET COUNT, AUTOMATED 292 10^3/uL (150-450); WHITE BLOOD COUNT 7.8 10^3/uL (4.0-10.0)
[2021-06-05 17:47] LABS: HEMOGLOBIN A1c 5.1 %
[2021-06-05 18:04] LABS: ALBUMIN 3.7 GM/DL (3.2-5.2); ALT/SGPT 33 U/L (12-78); BILIRUBIN,TOTAL 0.4 MG/DL (0.2-1.0); BLOOD UREA NITROGEN 9 MG/DL (7-18); CALCIUM LEVEL 9.3 MG/DL (8.8-10.2); CARBON DIOXIDE LEVEL 25 MEQ/L (21-32); CHLORIDE LEVEL 105 MEQ/L (98-107); CHOLESTEROL LEVEL 221 MG/DL (<200); CHOLESTEROL RISK RATIO 2.907 (<5); CREATININE FOR GFR 0.61 MG/DL (0.55-1.30); GLOMERULAR FILTRATION RATE > 60.0 (>45); GLUCOSE, FASTING 163 MG/DL (70-100); HDL CHOLESTEROL 76 MG/DL (>40); IRON (FE) 120 UG/DL (50-170); LDL CHOLESTEROL 113 MG/DL (<100); NON-HDL-C 145 MG/DL; POTASSIUM SERUM 4.9 MEQ/L (3.5-5.1); SODIUM LEVEL 138 MEQ/L (136-145); TOTAL PROTEIN 7.5 GM/DL (6.4-8.2); TRIGLYCERIDES LEVEL 158 MG/DL (<150)
[2021-06-05 18:19] LABS: MALB URINE SIEMENS 89.4 MG/L; MAU/CREAT RATIO 26.8 MCG/MG (0.0-30.0)
[2021-06-05 19:18] LABS: TOTAL 25(OH) VITAMIN D 25.7 NG/ML (30.0-100.0)
[2021-06-05 19:19] LABS: VITAMIN B12 LEVEL 294 PG/ML (247-911)
== END ==
LOC: M PLALAB 15:17
PROVIDERS: ATTEND Nurse Practitioner Family
DX: E78.5 Hyperlipidemia, unspecified (principal)

== ENCOUNTER → 2021-06-19 | Outpatient (CLI) | payer OTHER ==
[~2021-06-19] MED LIST changes: -D31000TA2 PO; -OLOP0.1D OP; +OLOP5DRO16 OP; +VITA100093 PO
== END ==
LOC: M PLAIMG 14:54
PROVIDERS: ATTEND Family Medicine
DX: M75.01 Adhesive capsulitis of right shoulder (principal)

== ENCOUNTER → 2021-07-06 | Outpatient (CLI) | payer OTHER | LOC: M PLAIMG 13:49 | PROVIDERS: ATTEND Family Medicine | DX: M75.101 Unspecified rotator cuff tear or rupture of right shoulder, not specified as traumatic (principal) ==

== ENCOUNTER → 2021-12-04 | Outpatient (REF) | payer OTHER ==
[2021-12-04 11:59] LABS: HEMATOCRIT 38.4 % (36.0-47.0)
[2021-12-04 12:04] LABS: PARTIAL THROMBOPLASTIN TIME 28.4 SECONDS (25.9-37.0); PROTHROMBIN TIME 13.6 SECONDS (12.7-14.5)
[2021-12-04 12:52] LABS: PTH INTACT 36.2 PG/ML (18.5-88.0)
== END ==
LOC: M LAB REF 11:25
PROVIDERS: ATTEND Internal Medicine
DX: D50.9 Iron deficiency anemia, unspecified (principal); E53.8 Deficiency of other specified B group vitamins; K76.0 Fatty (change of) liver, not elsewhere classified

== ENCOUNTER → 2021-12-17 | Outpatient (CLI) | payer OTHER | LOC: M WHC 16:22 | PROVIDERS: ATTEND Family Medicine | DX: Z12.31 Encounter for screening mammogram for malignant neoplasm of breast (principal) ==

== ENCOUNTER → 2021-12-29 | Outpatient (REF) | payer OTHER | LOC: M SFHCPLAZ 13:26 | PROVIDERS: ATTEND Physician Assistant | DX: R50.9 Fever, unspecified (principal) ==

== ENCOUNTER 2022-01-31 19:49 | Inpatient (IN) | payer OTHER ==
[~2022-01-31] VITALS: Ht 162.6 cm; Wt 106.6 kg
[2022-01-31] MEDS ORDERED: NS 1,000 ML IV SCH (20:35)
[2022-01-31] MEDS ORDERED: MORPHINE 4 MG/ML 1ML VIAL/SYRINGE IV ONE ×2 (20:35→21:35)
[2022-01-31 20:59] LABS: BASO # 0.1 10^3/uL (0.0-0.2); BASO % 0.5 % (0.0-1.0); EOS # 0.1 10^3/uL (0.0-0.5); EOS % 0.6 % (0.0-3.0); HEMATOCRIT 37.6 % (36.0-47.0); HEMOGLOBIN 12.6 g/dl (12.0-15.5); LYMPH # 1.2 10^3/uL (1.5-5.0); LYMPH % 8.1 % (24.0-44.0); MEAN CORPUSCULAR HEMOGLOBIN 30.1 pg (27.0-33.0); MEAN CORPUSCULAR HGB CONC 33.5 g/dl (32.0-36.5); MEAN CORPUSCULAR VOLUME 89.7 fl (80.0-96.0); MONO # 0.9 10^3/uL (0.0-0.8); MONO % 5.9 % (2.0-8.0); NEUTROPHILS # 12.6 10^3/uL (1.5-8.5); NEUTROPHILS % 84.5 % (36.0-66.0); PLATELET COUNT, AUTOMATED 450 10^3/uL (150-450); RED BLOOD COUNT 4.19 10^6/uL (4.00-5.40); WHITE BLOOD COUNT 14.9 10^3/uL (4.0-10.0)
[2022-01-31] MEDS: GASTROGRAFIN SOLUTION 30ML PO SCH ×2 (21:00→21:41)
[2022-01-31 21:09] LABS: INR 0.98; PROTHROMBIN TIME 13.2 SECONDS (12.5-14.5)
[2022-01-31 21:10] LABS: PARTIAL THROMBOPLASTIN TIME 27.1 SECONDS (24.8-34.2)
[2022-01-31 21:29] LABS: CK-MB VALUE MASS < 1.0 NG/ML (<3.6); CPK CREATINE PHOSPHOKINASE 31 U/L (26-192); MB/CK RELATIVE INDEX 3.23 (< OR =4)
[2022-01-31 21:48] LABS: ALBUMIN 3.4 GM/DL (3.2-5.2); ALT/SGPT 43 U/L (12-78); BILIRUBIN,DIRECT 0.1 MG/DL (0.0-0.2); BILIRUBIN,TOTAL 0.7 MG/DL (0.2-1.0); BLOOD UREA NITROGEN 9 MG/DL (7-18); CALCIUM LEVEL 9.2 MG/DL (8.8-10.2); CARBON DIOXIDE LEVEL 22 MEQ/L (21-32); CHLORIDE LEVEL 101 MEQ/L (98-107); CREATININE FOR GFR 0.67 MG/DL (0.55-1.30); FREE T4 0.92 NG/DL (0.76-1.46); GLOMERULAR FILTRATION RATE > 60.0 (>45); GLUCOSE, FASTING 133 MG/DL (70-100); LIPASE 220 U/L (73-393); POTASSIUM SERUM 4.9 MEQ/L (3.5-5.1); SODIUM LEVEL 131 MEQ/L (136-145); TOTAL PROTEIN 7.5 GM/DL (6.4-8.2)
[2022-01-31] MEDS ORDERED: ISOVUE-370 76% 100ML VIAL As Ordered ONE (22:05)
[2022-01-31] MEDS ORDERED: PIPERACILLIN/TAZOBACTAM SOD 4.5 GM in D5W MINI-BAG PLUS 50 ML IV ONE (23:15)
[2022-01-31] MEDS: NS 1,000 ML IV SCH (23:30)
[2022-01-31] MEDS ORDERED: ONDANSETRON 4MG 2ML VIAL IV PRN (23:30)
[2022-01-31] MEDS ORDERED: HYDROMORPHONE HCL 0.5 MG/ 0.5 ML SYRINGE (J1170 PER 1) IV ONE (23:30)
[2022-01-31] MEDS ORDERED: OLME40TA PO (23:49)
[2022-01-31] MEDS ORDERED: BACL5TAB2 PO (23:49)
[2022-01-31] MEDS ORDERED: LYRI300C PO (23:49)
[2022-01-31] MEDS ORDERED: ALBU8.5H INH (23:49)
[2022-01-31] MEDS ORDERED: FLUT1BLS5 INH (23:49)
[2022-01-31] MEDS ORDERED: METF500T13 PO (23:49)
[2022-01-31] MEDS ORDERED: TOPI50TA9 PO (23:49)
[2022-01-31] MEDS ORDERED: ATOR1TAB21 PO (23:49)
[2022-01-31] MEDS ORDERED: HOME MED LIST COMPLETE! XX SCH (23:55)
[2022-02-01 00:18] LABS: RSV AMPLIFICATION NEGATIVE (NEGATIVE)
[2022-02-01] MEDS: KETOROLAC 30 MG/ML 1ML VIAL IV PRN ×4 (01:43→20:47)
[2022-02-01] MEDS ORDERED: FLUTICASONE PROP 0.05% NASAL SPRAY 16 GM (FLONASE) NARES PRN (04:20)
[2022-02-01] MEDS ORDERED: DEXTROSE 50% 50 ML SYRINGE IV PRN (04:30)
[2022-02-01] MEDS ORDERED: GLUCAGON INJ 1MG VIAL SC PRN (04:30)
[2022-02-01] MEDS ORDERED: GLUCOSE 4GM CHEW TABLET PO PRN (04:30)
[2022-02-01 05:37] LABS: BASO # 0.1 10^3/uL (0.0-0.2); BASO % 0.9 % (0.0-1.0); EOS # 0.1 10^3/uL (0.0-0.5); EOS % 0.9 % (0.0-3.0); HEMATOCRIT 33.1 % (36.0-47.0); HEMOGLOBIN 10.8 g/dl (12.0-15.5); LYMPH # 1.5 10^3/uL (1.5-5.0); LYMPH % 13.4 % (24.0-44.0); MEAN CORPUSCULAR HEMOGLOBIN 30.3 pg (27.0-33.0); MEAN CORPUSCULAR HGB CONC 32.6 g/dl (32.0-36.5); MEAN CORPUSCULAR VOLUME 92.7 fl (80.0-96.0); MONO # 0.8 10^3/uL (0.0-0.8); MONO % 7.4 % (2.0-8.0); NEUTROPHILS # 8.7 10^3/uL (1.5-8.5); PLATELET COUNT, AUTOMATED 351 10^3/uL (150-450); RED BLOOD COUNT 3.57 10^6/uL (4.00-5.40); WHITE BLOOD COUNT 11.3 10^3/uL (4.0-10.0)
[2022-02-01] MEDS: PIPERACILLIN/TAZOBACTAM SOD 3.375 GM in D5W MINI-BAG PLUS 50 ML IV SCH ×4 (05:45→23:36)
[2022-02-01] MEDS: INSULIN LISPRO (NovoLOG) PER UNIT SC SCH ×4 (05:54→23:36)
[2022-02-01 06:15] LABS: ALT/SGPT 34 U/L (12-78); BILIRUBIN,TOTAL 0.6 MG/DL (0.2-1.0); BLOOD UREA NITROGEN 10 MG/DL (7-18); CALCIUM LEVEL 8.5 MG/DL (8.8-10.2); CARBON DIOXIDE LEVEL 23 MEQ/L (21-32); CHLORIDE LEVEL 104 MEQ/L (98-107); CREATININE FOR GFR 0.67 MG/DL (0.55-1.30); GLOMERULAR FILTRATION RATE > 60.0 (>45); GLUCOSE, FASTING 126 MG/DL (70-100); POTASSIUM SERUM 4.2 MEQ/L (3.5-5.1); SODIUM LEVEL 136 MEQ/L (136-145); TOTAL PROTEIN 6.2 GM/DL (6.4-8.2)
[2022-02-01] MEDS: NORCO, ANEXSIA 5/325MG TABLET (HYDROcodone/ACETAMINOPHEN) PO PRN ×3 (07:37→20:46)
[2022-02-01] MEDS ORDERED: MORPHINE 2 MG/ML 1ML VIAL IV ONE (10:35)
[2022-02-01] MEDS: NS 1,000 ML IV SCH ×2 (10:36→18:35)
[2022-02-01] MEDS: PANTOPRAZOLE 40MG VIAL IV SCH (10:54)
[2022-02-01] MEDS: SENOKOT S TAB PO SCH ×2 (10:54→20:47)
[2022-02-01] MEDS: TAMOXIFEN CITRATE 10 MG TAB PO SCH (10:54)
[2022-02-01 15:30] VITALS: BP 146/75
[2022-02-01] MEDS: HYDROMORPHONE HCL 0.5 MG/ 0.5 ML SYRINGE (J1170 PER 1) IV PRN ×3 (15:34→23:46)
[2022-02-01] MEDS: TOPIRAMATE (TopAMAX) 25 MG TAB PO SCH (17:07)
[2022-02-01] MEDS: OLMESARTAN MEDOXOMIL 20 MG TAB (BENICAR) PO SCH (17:07)
[2022-02-01] MEDS: ADVAIR HFA 115/21MCG INHALER INH SCH (18:50)
[2022-02-01] MEDS ORDERED: HYDROMORPHONE HCL 0.5 MG/ 0.5 ML SYRINGE (J1170 PER 1) IV ONE (19:45)
[2022-02-01 20:00] VITALS: BP 142/74
[2022-02-02] VITALS (8 sets, daily range): BP systolic 102–164; BP diastolic 55–94
[2022-02-02] MEDS ORDERED: HYDROMORPHONE HCL 0.5 MG/ 0.5 ML SYRINGE (J1170 PER 1) IV ONE ×2 (01:05→03:35)
[2022-02-02] MEDS: KETOROLAC 30 MG/ML 1ML VIAL IV PRN ×3 (03:21→21:39)
[2022-02-02] MEDS: NORCO, ANEXSIA 5/325MG TABLET (HYDROcodone/ACETAMINOPHEN) PO PRN ×2 (03:22→10:12)
[2022-02-02] MEDS ORDERED: HYDROMORPHONE HCL 0.5 MG/ 0.5 ML SYRINGE (J1170 PER 1) IV PRN (04:00)
[2022-02-02 04:15] LABS: BASO # 0.1 10^3/uL (0.0-0.2); BASO % 0.4 % (0.0-1.0); EOS # 0.1 10^3/uL (0.0-0.5); EOS % 0.6 % (0.0-3.0); HEMATOCRIT 29.6 % (36.0-47.0); HEMOGLOBIN 9.7 g/dl (12.0-15.5); LYMPH # 0.9 10^3/uL (1.5-5.0); LYMPH % 4.6 % (24.0-44.0); MEAN CORPUSCULAR HEMOGLOBIN 30.5 pg (27.0-33.0); MEAN CORPUSCULAR HGB CONC 32.8 g/dl (32.0-36.5); MEAN CORPUSCULAR VOLUME 93.1 fl (80.0-96.0); MONO # 1.1 10^3/uL (0.0-0.8); MONO % 5.7 % (2.0-8.0); NEUTROPHILS # 16.3 10^3/uL (1.5-8.5); NEUTROPHILS % 87.9 % (36.0-66.0); PLATELET COUNT, AUTOMATED 293 10^3/uL (150-450); RED BLOOD COUNT 3.18 10^6/uL (4.00-5.40); WHITE BLOOD COUNT 18.5 10^3/uL (4.0-10.0)
[2022-02-02 04:50] LABS: ALBUMIN 2.7 GM/DL (3.2-5.2); ALT/SGPT 27 U/L (12-78); BILIRUBIN,TOTAL 0.7 MG/DL (0.2-1.0); BLOOD UREA NITROGEN 4 MG/DL (7-18); CALCIUM LEVEL 7.8 MG/DL (8.8-10.2); CARBON DIOXIDE LEVEL 22 MEQ/L (21-32); CHLORIDE LEVEL 104 MEQ/L (98-107); GLOMERULAR FILTRATION RATE > 60.0 (>45); GLUCOSE, FASTING 131 MG/DL (70-100); LIPASE 90 U/L (73-393); POTASSIUM SERUM 3.7 MEQ/L (3.5-5.1); SODIUM LEVEL 134 MEQ/L (136-145); TOTAL PROTEIN 5.9 GM/DL (6.4-8.2)
[2022-02-02] MEDS: PIPERACILLIN/TAZOBACTAM SOD 3.375 GM in D5W MINI-BAG PLUS 50 ML IV SCH ×3 (05:36→23:38)
[2022-02-02] MEDS: INSULIN LISPRO (NovoLOG) PER UNIT SC SCH ×3 (05:50→18:13)
[2022-02-02] MEDS: NS 1,000 ML IV SCH ×5 (07:30→22:16)
[2022-02-02] MEDS: ADVAIR HFA 115/21MCG INHALER INH SCH ×2 (07:33→19:25)
[2022-02-02] MEDS: ENOXAPARIN 40MG/0.4ML SYRINGE (J1650 PER 10MG) SC SCH (08:13)
[2022-02-02] MEDS: PANTOPRAZOLE 40MG VIAL IV SCH (08:25)
[2022-02-02] MEDS: TAMOXIFEN CITRATE 10 MG TAB PO SCH (08:25)
[2022-02-02] MEDS: SENOKOT S TAB PO SCH ×3 (08:26→20:30)
[2022-02-02] MEDS: OLMESARTAN MEDOXOMIL 20 MG TAB (BENICAR) PO SCH (08:26)
[2022-02-02] MEDS: TOPIRAMATE (TopAMAX) 25 MG TAB PO SCH (08:26)
[2022-02-02] MEDS: HYDROMORPHONE HCL 0.5 MG/ 0.5 ML SYRINGE (J1170 PER 1) IV PRN ×4 (08:27→20:25)
[2022-02-02] MEDS ORDERED: cloNIDine HCL 0.3 MG/24 HR PATCH TOP SCH (09:00)
[2022-02-02] MEDS ORDERED: CIPROFLOXACIN 200 MG in IV 1 EA IV SCH (09:20)
[2022-02-02] MEDS ORDERED: metroNIDAZOLE 500 MG in IV 1 EA IV SCH (11:00)
[2022-02-02] MEDS ORDERED: CIPROFLOXACIN 400 MG in IV 1 EA IV SCH (12:00)
[2022-02-02] MEDS ORDERED: LIDOCAINE 1% MDV 20ML VIAL As Ordered ONE (12:26)
[2022-02-02] MEDS: MORPHINE 4 MG/ML 1ML VIAL/SYRINGE IV PRN ×2 (13:50→18:44)
[2022-02-02] MEDS: ALBUTEROL 90 MCG/ACT 8GM HFA INHALER INH PRN ×2 (14:09→21:24)
[2022-02-02] MEDS ORDERED: ACETAMINOPHEN TAB 650MG DOSE (2X325MG) PO ONE (14:15)
[2022-02-02] MEDS ORDERED: MORPHINE 4 MG/ML 1ML VIAL/SYRINGE IV ONE (14:20)
[2022-02-02] MEDS ORDERED: NS 1,000 ML IV ONE (14:30)
[2022-02-02 14:46] LABS: ABG BASE EXCESS -10.4 (-2.0-2.0); ABG HCO3 15.2 MEQ/L (22.0-26.0); ABG O2 SATURATION 92.5 % (95.0-99.0); ABG PARTIAL PRESSURE CO2 32.7 mmHg (35.0-45.0); ABG PARTIAL PRESSURE O2 70.4 mmHg (75.0-100.0); ABG STANDARD HCO3 16.1 MEQ/L (22.0-26.0); ABG TOTAL CO2 16.2 MEQ/L (23.0-31.0); ABG pH (ARTERIAL) 7.285 UNITS (7.350-7.450)
[2022-02-02 15:18] LABS: HEMATOCRIT 30.1 % (36.0-47.0); HEMOGLOBIN 9.7 g/dl (12.0-15.5); MEAN CORPUSCULAR HEMOGLOBIN 30.3 pg (27.0-33.0); MEAN CORPUSCULAR HGB CONC 32.2 g/dl (32.0-36.5); MEAN CORPUSCULAR VOLUME 94.1 fl (80.0-96.0); PLATELET COUNT, AUTOMATED 248 10^3/uL (150-450); WHITE BLOOD COUNT 6.8 10^3/uL (4.0-10.0)
[2022-02-02 15:54] LABS: CK-MB VALUE MASS < 1.0 NG/ML (<3.6); CPK CREATINE PHOSPHOKINASE 25 U/L (26-192); ERYTHROCYTE SEDIMENTATION RATE 56 mm/hr (0-30)
[2022-02-02 15:58] LABS: ALBUMIN 2.5 GM/DL (3.2-5.2); ALT/SGPT 25 U/L (12-78); BILIRUBIN,TOTAL 0.5 MG/DL (0.2-1.0); BLOOD UREA NITROGEN 6 MG/DL (7-18); CALCIUM LEVEL 7.4 MG/DL (8.8-10.2); CARBON DIOXIDE LEVEL 19 MEQ/L (21-32); CHLORIDE LEVEL 108 MEQ/L (98-107); CREATININE FOR GFR 0.75 MG/DL (0.55-1.30); GLOMERULAR FILTRATION RATE > 60.0 (>45); GLUCOSE, FASTING 100 MG/DL (70-100); NT-PRO BNP 3093 PG/ML (<125); POTASSIUM SERUM 3.8 MEQ/L (3.5-5.1); SODIUM LEVEL 136 MEQ/L (136-145); TOTAL PROTEIN 5.7 GM/DL (6.4-8.2)
[2022-02-02] MEDS ORDERED: ISOVUE-370 76% 100ML VIAL As Ordered ONE (16:03)
[2022-02-02 16:24] LABS: LYMPHOCYTES 1 % (16-44); NEUTROPHILS 91 % (28-66); PLATELET ESTIMATE NORMAL (NORMAL)
[2022-02-02 16:25] LABS: GIANT PLATELETS 1+
[2022-02-02] MEDS: FLUCONAZOLE 400 MG in IV 1 EA IV SCH ×2 (18:45→21:19)
[2022-02-02] MEDS: METOPROLOL 5 MG/5 ML VIAL IV SCH (23:55)
[2022-02-03] VITALS (7 sets, daily range): BP systolic 100–120; BP diastolic 50–72
[2022-02-03] MEDS: METOPROLOL 5 MG/5 ML VIAL IV SCH ×12 (00:05→00:50)
[2022-02-03] MEDS: ALBUTEROL 90 MCG/ACT 8GM HFA INHALER INH PRN ×2 (01:43→20:53)
[2022-02-03] MEDS: HYDROMORPHONE HCL 0.5 MG/ 0.5 ML SYRINGE (J1170 PER 1) IV PRN (02:18)
[2022-02-03] MEDS: NORCO, ANEXSIA 5/325MG TABLET (HYDROcodone/ACETAMINOPHEN) PO PRN (02:30)
[2022-02-03] MEDS ORDERED: LOPERAMIDE 2 MG CAPLET PO PRN (03:55)
[2022-02-03] MEDS: PIPERACILLIN/TAZOBACTAM SOD 3.375 GM in D5W MINI-BAG PLUS 50 ML IV SCH ×4 (03:56→20:45)
[2022-02-03] MEDS: NS 1,000 ML IV SCH ×4 (05:11→20:45)
[2022-02-03] MEDS: INSULIN LISPRO (NovoLOG) PER UNIT SC SCH ×4 (06:00→18:50)
[2022-02-03 06:26] LABS: ALBUMIN 2.2 GM/DL (3.2-5.2); ALT/SGPT 22 U/L (12-78); BILIRUBIN,TOTAL 0.4 MG/DL (0.2-1.0); BLOOD UREA NITROGEN 9 MG/DL (7-18); CALCIUM LEVEL 7.2 MG/DL (8.8-10.2); CARBON DIOXIDE LEVEL 19 MEQ/L (21-32); CHLORIDE LEVEL 108 MEQ/L (98-107); CREATININE FOR GFR 0.94 MG/DL (0.55-1.30); GLOMERULAR FILTRATION RATE > 60.0 (>45); GLUCOSE, FASTING 110 MG/DL (70-100); LIPASE 46 U/L (73-393); POTASSIUM SERUM 3.8 MEQ/L (3.5-5.1); SODIUM LEVEL 136 MEQ/L (136-145)
[2022-02-03 06:47] LABS: HEMATOCRIT 25.5 % (36.0-47.0); HEMOGLOBIN 8.1 g/dl (12.0-15.5); MEAN CORPUSCULAR HEMOGLOBIN 30.7 pg (27.0-33.0); MEAN CORPUSCULAR HGB CONC 31.8 g/dl (32.0-36.5); MEAN CORPUSCULAR VOLUME 96.6 fl (80.0-96.0); PLATELET COUNT, AUTOMATED 214 10^3/uL (150-450); RED BLOOD COUNT 2.64 10^6/uL (4.00-5.40)
[2022-02-03 07:32] LABS: EOSINOPHILS 1 % (0-3); LYMPHOCYTES 11 % (16-44); METAMYELOCYTES 1 % (0-0); MONOCYTES 1 % (0-5); NEUTROPHILS 72 % (28-66)
[2022-02-03 07:36] LABS: HYPOCHROMASIA 1+
[2022-02-03 07:37] LABS: PLATELET ESTIMATE NORMAL (NORMAL)
[2022-02-03] MEDS ORDERED: LORazepam 2 MG/ML VIAL IV STA (08:50)
[2022-02-03] MEDS ORDERED: FLUCONAZOLE 200 MG in IV 1 EA IV SCH (09:00)
[2022-02-03] MEDS: ADVAIR HFA 115/21MCG INHALER INH SCH ×2 (09:14→19:53)
[2022-02-03] MEDS: SODIUM BICARBONATE 325 MG TAB PO SCH ×2 (09:28→20:45)
[2022-02-03] MEDS: FLUCONAZOLE 200 MG in IV 1 EA IV SCH (09:28)
[2022-02-03] MEDS: ENOXAPARIN 40MG/0.4ML SYRINGE (J1650 PER 10MG) SC SCH (09:28)
[2022-02-03] MEDS: PANTOPRAZOLE 40MG VIAL IV SCH (09:29)
[2022-02-03] MEDS: TAMOXIFEN CITRATE 10 MG TAB PO SCH (09:30)
[2022-02-03] MEDS: TOPIRAMATE (TopAMAX) 25 MG TAB PO SCH (09:30)
[2022-02-03] MEDS: KETOROLAC 30 MG/ML 1ML VIAL IV PRN ×2 (11:01→20:45)
[2022-02-03 11:22] LABS: CLOSTRIDIUM DIFFICILE PCR NEGATIVE (NEGATIVE)
[2022-02-03] MEDS: LOPERAMIDE 2 MG CAPLET PO PRN ×2 (15:28→20:57)
[2022-02-03] MEDS ORDERED: FLUCONAZOLE 400 MG in IV 1 EA IV SCH (17:00)
[2022-02-03] MEDS: LACTOBACILLUS ACIDOPHILUS CAP (BACID) PO SCH (18:49)
[2022-02-03] MEDS ORDERED: ALBUTEROL SULFATE 2.5 MG/0.5 ML INH NEB SOLN NEB ONE (21:10)
[2022-02-03] MEDS ORDERED: POTASSIUM CHLORIDE 10% LIQ 20 MEQ/15 ML UDC PO ONE (21:20)
[2022-02-04] MEDS: INSULIN LISPRO (NovoLOG) PER UNIT SC SCH ×4 (01:12→12:34)
[2022-02-04] MEDS: NORCO, ANEXSIA 5/325MG TABLET (HYDROcodone/ACETAMINOPHEN) PO PRN ×2 (01:32→12:33)
[2022-02-04] MEDS: LOPERAMIDE 2 MG CAPLET PO PRN ×2 (01:35→10:26)
[2022-02-04] MEDS: PIPERACILLIN/TAZOBACTAM SOD 3.375 GM in D5W MINI-BAG PLUS 50 ML IV SCH ×2 (03:49→10:22)
[2022-02-04] MEDS: NS 1,000 ML IV SCH ×2 (03:50→13:25)
[2022-02-04 04:35] VITALS: BP 140/64
[2022-02-04] MEDS: KETOROLAC 30 MG/ML 1ML VIAL IV PRN (05:27)
[2022-02-04 06:06] LABS: BASO % 0.5 % (0.0-1.0); EOS # 0.3 10^3/uL (0.0-0.5); EOS % 4.7 % (0.0-3.0); HEMATOCRIT 25.2 % (36.0-47.0); HEMOGLOBIN 8.2 g/dl (12.0-15.5); LYMPH # 1.3 10^3/uL (1.5-5.0); LYMPH % 19.8 % (24.0-44.0); MEAN CORPUSCULAR HEMOGLOBIN 30.4 pg (27.0-33.0); MEAN CORPUSCULAR HGB CONC 32.5 g/dl (32.0-36.5); MEAN CORPUSCULAR VOLUME 93.3 fl (80.0-96.0); MONO # 0.6 10^3/uL (0.0-0.8); MONO % 9.1 % (2.0-8.0); NEUTROPHILS # 4.3 10^3/uL (1.5-8.5); NEUTROPHILS % 65.1 % (36.0-66.0); PLATELET COUNT, AUTOMATED 222 10^3/uL (150-450); WHITE BLOOD COUNT 6.6 10^3/uL (4.0-10.0)
[2022-02-04 06:41] LABS: ALBUMIN 2.1 GM/DL (3.2-5.2); ALT/SGPT 20 U/L (12-78); BILIRUBIN,TOTAL 0.3 MG/DL (0.2-1.0); BLOOD UREA NITROGEN 7 MG/DL (7-18); CALCIUM LEVEL 7.9 MG/DL (8.8-10.2); CARBON DIOXIDE LEVEL 20 MEQ/L (21-32); CHLORIDE LEVEL 114 MEQ/L (98-107); CREATININE FOR GFR 0.56 MG/DL (0.55-1.30); GLOMERULAR FILTRATION RATE > 60.0 (>45); GLUCOSE, FASTING 109 MG/DL (70-100); LIPASE 76 U/L (73-393); POTASSIUM SERUM 3.3 MEQ/L (3.5-5.1); SODIUM LEVEL 140 MEQ/L (136-145); TOTAL PROTEIN 4.9 GM/DL (6.4-8.2)
[2022-02-04 07:25] VITALS: BP 142/76
[2022-02-04] MEDS ORDERED: POTASSIUM CHLORIDE 10MEQ SR TABLET PO ONE (07:45)
[2022-02-04] MEDS: ADVAIR HFA 115/21MCG INHALER INH SCH (08:30)
[2022-02-04] MEDS ORDERED: SODIUM BICARBONATE 325 MG TAB PO ONE (09:00)
[2022-02-04] MEDS ORDERED: HYDR-3715 PO (09:05)
[2022-02-04] MEDS ORDERED: AMOX875T2 PO ×2 (09:09→12:50)
[2022-02-04] MEDS ORDERED: DIFL200T PO ×2 (09:09→12:52)
[2022-02-04] MEDS ORDERED: BACI1CAP PO ×2 (09:09→12:50)
[2022-02-04] MEDS ORDERED: ASPI-1 PO (09:11)
[2022-02-04] MEDS: FLUCONAZOLE 200 MG in IV 1 EA IV SCH (09:11)
[2022-02-04] MEDS: PANTOPRAZOLE 40MG VIAL IV SCH (09:13)
[2022-02-04] MEDS: TAMOXIFEN CITRATE 10 MG TAB PO SCH (09:14)
[2022-02-04] MEDS: LACTOBACILLUS ACIDOPHILUS CAP (BACID) PO SCH ×2 (09:14→12:30)
[2022-02-04] MEDS: ENOXAPARIN 40MG/0.4ML SYRINGE (J1650 PER 10MG) SC SCH (09:14)
[2022-02-04] MEDS: TOPIRAMATE (TopAMAX) 25 MG TAB PO SCH (12:31)
[2022-02-04] MEDS ORDERED: BAYE325T16 PO (12:50)
[2022-02-04] MEDS ORDERED: INSULIN LISPRO (NovoLOG) PER UNIT SC SCH (21:00)
[2022-02-05] MEDS ORDERED: GABA-282 PO (22:04)
[2022-02-05] MEDS ORDERED: AMOX875T2 PO (22:06)
[2022-02-05] MEDS ORDERED: ASPI1TAB22 PO (22:10)
[2022-02-05] MEDS ORDERED: MED REC COMMENT (22:11)
[2022-02-09] MEDS ORDERED: cloNIDine HCL 0.3 MG/24 HR PATCH TOP SCH (09:00)
== END 2022-02-04 15:38 | disposition home or self-care (01) | DRG 710 ==
LOC: M ED 19:49 → M ED INP 19:50 → ENRESERV 02-01 13:30 → CANRESERV 02-01 13:30 → M MSPAV 02-01 15:27 → OBSVTOIN 02-02 07:41 → M PCU 02-02 15:30
PROVIDERS: ADMIT Surgery; ATTEND General Practice
PROC: 0F9430Z Drainage of Gallbladder with Drainage Device, Percutaneous Approach (ICD-10-PCS; principal; 2022-02-02 12:30)
DX: A41.9 Sepsis, unspecified organism (principal); K80.62 Calculus of gallbladder and bile duct with acute cholecystitis without obstruction; E87.20 Acidosis, unspecified; I10 Essential (primary) hypertension; Z68.41 Body mass index [BMI] 40.0-44.9, adult; E11.9 Type 2 diabetes mellitus without complications; F32.A Depression, unspecified; B96.20 Unspecified Escherichia coli [E. coli] as the cause of diseases classified elsewhere; I48.0 Paroxysmal atrial fibrillation; G43.909 Migraine, unspecified, not intractable, without status migrainosus; G89.29 Other chronic pain; G47.00 Insomnia, unspecified; R09.02 Hypoxemia; M54.9 Dorsalgia, unspecified; J45.909 Unspecified asthma, uncomplicated; E66.01 Morbid (severe) obesity due to excess calories; K21.9 Gastro-esophageal reflux disease without esophagitis; Z98.84 Bariatric surgery status; Z79.84 Long term (current) use of oral hypoglycemic drugs; Z79.899 Other long term (current) drug therapy; Z88.8 Allergy status to other drugs, medicaments and biological substances

== ENCOUNTER 2022-02-05 17:29 | Inpatient (IN) | payer OTHER ==
[~2022-02-05] VITALS: Ht 162.6 cm; Wt 105.1 kg
[~2022-02-05 17:29] MED LIST changes: +ALBU8.5H INH; +AMOX875T2 PO; +ASPI-1 PO; +ATOR1TAB21 PO; +BACI1CAP PO; +BACL5TAB2 PO; +BAYE325T16 PO; +DIFL200T PO; +FLUT1BLS5 INH; +HYDR-3715 PO; +LYRI300C PO; +METF500T13 PO; +OLME40TA PO; +TOPI50TA9 PO
[2022-02-05] MEDS ORDERED: COMBIVENT RESPIMAT 100-20MCG INHALER 4GM INH STA (18:18)
[2022-02-05] MEDS ORDERED: methylPREDNISolone 125MG 2ML VIAL IV ONE (18:20)
[2022-02-05] MEDS ORDERED: FUROSEMIDE 40MG/4ML VIAL (J1940) IV ONE (18:20)
[2022-02-05 18:31] LABS: VENOUS PH 7.375 UNITS (7.330-7.430)
[2022-02-05 18:32] LABS: VENOUS HCO3 20.7 MEQ/L (23.0-27.0); VENOUS O2 SATURATION 76.9 % (60.0-80.0); VENOUS PARTIAL PRESSURE CO2 36.2 mmHg (38.0-50.0); VENOUS PARTIAL PRESSURE O2 43.8 mmHg (30.0-50.0); VENOUS STANDARD HCO3 20.8 MEQ/L; VENOUS TOTAL CO2 21.8 MEQ/L (24.0-28.0)
[2022-02-05 18:39] LABS: BASO % 0.3 % (0.0-1.0); HEMATOCRIT 29.9 % (36.0-47.0); HEMOGLOBIN 9.6 g/dl (12.0-15.5); LYMPH % 16.2 % (24.0-44.0); MEAN CORPUSCULAR HEMOGLOBIN 29.6 pg (27.0-33.0); MEAN CORPUSCULAR HGB CONC 32.1 g/dl (32.0-36.5); MEAN CORPUSCULAR VOLUME 92.3 fl (80.0-96.0); MONO # 0.3 10^3/uL (0.0-0.8); MONO % 5.2 % (2.0-8.0); NEUTROPHILS # 4.7 10^3/uL (1.5-8.5); NEUTROPHILS % 77.6 % (36.0-66.0); PLATELET COUNT, AUTOMATED 294 10^3/uL (150-450); RED BLOOD COUNT 3.24 10^6/uL (4.00-5.40)
[2022-02-05 19:16] LABS: CK-MB VALUE MASS 1.1 NG/ML (<3.6); MB/CK RELATIVE INDEX 2.75 (< OR =4)
[2022-02-05] MEDS ORDERED: PIPERACILLIN/TAZOBACTAM SOD 4.5 GM in D5W MINI-BAG PLUS 50 ML IV ONE (19:30)
[2022-02-05 19:42] LABS: ALBUMIN 2.8 GM/DL (3.2-5.2); ALT/SGPT 25 U/L (12-78); BILIRUBIN,DIRECT 0.2 MG/DL (0.0-0.2); BILIRUBIN,TOTAL 0.3 MG/DL (0.2-1.0); BLOOD UREA NITROGEN 10 MG/DL (7-18); CARBON DIOXIDE LEVEL 21 MEQ/L (21-32); CHLORIDE LEVEL 110 MEQ/L (98-107); CREATININE FOR GFR 0.77 MG/DL (0.55-1.30); GLOMERULAR FILTRATION RATE > 60.0 (>45); GLUCOSE, FASTING 157 MG/DL (70-100); NT-PRO BNP 9489 PG/ML (<125); POTASSIUM SERUM 4.3 MEQ/L (3.5-5.1); SODIUM LEVEL 140 MEQ/L (136-145); THYROXINE (T4) 10.1 UG/DL (4.5-12.0); TOTAL PROTEIN 6.7 GM/DL (6.4-8.2)
[2022-02-05 20:46] LABS: CK-MB VALUE MASS 1.3 NG/ML (<3.6); MB/CK RELATIVE INDEX 2.77 (< OR =4)
[2022-02-05] MEDS ORDERED: LevoFLOXacin IV 750 MG in IV 1 EA IV ONE (21:40)
[2022-02-05] MEDS ORDERED: IPRATROPIUM 0.5MG/ALBUTEROL 2.5MG INH SOL UD 3ML (DUONEB) NEB ONE (22:00)
[2022-02-05] MEDS ORDERED: GABA-282 PO (22:04)
[2022-02-05] MEDS ORDERED: AMOX875T2 PO (22:06)
[2022-02-05] MEDS ORDERED: ASPI1TAB22 PO (22:10)
[2022-02-05] MEDS ORDERED: MED REC COMMENT (22:11)
[2022-02-05] MEDS ORDERED: HOME MED LIST COMPLETE! XX SCH (22:15)
[2022-02-05] MEDS ORDERED: FLUTICASONE PROP 0.05% NASAL SPRAY 16 GM (FLONASE) NARES PRN (23:05)
[2022-02-05] MEDS ORDERED: BACLOFEN 10 MG TAB PO PRN (23:05)
[2022-02-05] MEDS ORDERED: DICYCLOMINE 10 MG CAP PO PRN (23:05)
[2022-02-05] MEDS ORDERED: ACETAMINOPHEN TAB 650MG DOSE (2X325MG) PO PRN (23:05)
[2022-02-05] MEDS ORDERED: NORCO, ANEXSIA 5/325MG TABLET (HYDROcodone/ACETAMINOPHEN) PO PRN ×2 (23:05)
[2022-02-05] MEDS ORDERED: guaiFENesin DM LIQ 10ML UD PO PRN (23:05)
[2022-02-05] MEDS: TOPIRAMATE (TopAMAX) 25 MG TAB PO SCH (23:37)
[2022-02-05] MEDS: guaiFENesin ER 600 MG TAB PO SCH (23:37)
[2022-02-05] MEDS: GABAPENTIN 300 MG CAP PO SCH (23:37)
[2022-02-05] MEDS ORDERED: GLUCOSE 4GM CHEW TABLET PO PRN (23:50)
[2022-02-05] MEDS ORDERED: DEXTROSE 50% 50 ML SYRINGE IV PRN (23:50)
[2022-02-05] MEDS ORDERED: GLUCAGON INJ 1MG VIAL SC PRN (23:50)
[2022-02-06] VITALS (7 sets, daily range): BP systolic 146–166; BP diastolic 86–90; O2SAT 96
[2022-02-06] MEDS: IPRATROPIUM 0.5MG/ALBUTEROL 2.5MG INH SOL UD 3ML (DUONEB) NEB SCH ×6 (01:02→23:37)
[2022-02-06] MEDS: PIPERACILLIN/TAZOBACTAM SOD 3.375 GM in D5W MINI-BAG PLUS 50 ML IV SCH ×4 (01:34→20:57)
[2022-02-06] MEDS ORDERED: traZODone 100 MG TAB PO ONE (02:00)
[2022-02-06 03:29] LABS: CK-MB VALUE MASS 1.6 NG/ML (<3.6); MB/CK RELATIVE INDEX 4.44 (< OR =4)
[2022-02-06 03:36] LABS: INR 1.03; PARTIAL THROMBOPLASTIN TIME 29.1 SECONDS (24.8-34.2); PROTHROMBIN TIME 13.7 SECONDS (12.5-14.5)
[2022-02-06 06:52] LABS: HEMATOCRIT 27.9 % (36.0-47.0); HEMOGLOBIN 9.1 g/dl (12.0-15.5); MEAN CORPUSCULAR HEMOGLOBIN 29.9 pg (27.0-33.0); MEAN CORPUSCULAR HGB CONC 32.6 g/dl (32.0-36.5); MEAN CORPUSCULAR VOLUME 91.8 fl (80.0-96.0); PLATELET COUNT, AUTOMATED 245 10^3/uL (150-450); RED BLOOD COUNT 3.04 10^6/uL (4.00-5.40); WHITE BLOOD COUNT 3.4 10^3/uL (4.0-10.0)
[2022-02-06 07:29] LABS: BLOOD UREA NITROGEN 14 MG/DL (7-18); CALCIUM LEVEL 8.8 MG/DL (8.8-10.2); CARBON DIOXIDE LEVEL 22 MEQ/L (21-32); CHLORIDE LEVEL 107 MEQ/L (98-107); GLOMERULAR FILTRATION RATE > 60.0 (>45); GLUCOSE, FASTING 198 MG/DL (70-100); MAGNESIUM LEVEL 1.7 MG/DL (1.8-2.4); POTASSIUM SERUM 4.1 MEQ/L (3.5-5.1); SODIUM LEVEL 138 MEQ/L (136-145)
[2022-02-06] MEDS: ADVAIR HFA 115/21MCG INHALER INH SCH ×2 (07:53→20:16)
[2022-02-06] MEDS: INSULIN LISPRO (NovoLOG) PER UNIT SC SCH ×3 (08:45→17:35)
[2022-02-06] MEDS: ENOXAPARIN 40MG/0.4ML SYRINGE (J1650 PER 10MG) SC SCH (08:46)
[2022-02-06] MEDS: LACTOBACILLUS ACIDOPHILUS CAP (BACID) PO SCH ×3 (08:47→17:35)
[2022-02-06] MEDS: GABAPENTIN 300 MG CAP PO SCH ×2 (08:47→20:59)
[2022-02-06] MEDS: FUROSEMIDE 40MG/4ML VIAL (J1940) IV SCH ×2 (08:47→20:58)
[2022-02-06] MEDS: OLMESARTAN MEDOXOMIL 20 MG TAB (BENICAR) PO SCH (08:48)
[2022-02-06] MEDS: ATORVASTATIN 20 MG TAB PO SCH (08:48)
[2022-02-06] MEDS: ASPIRIN 325 MG TAB PO SCH (08:48)
[2022-02-06] MEDS: TAMOXIFEN CITRATE 10 MG TAB PO SCH (08:48)
[2022-02-06] MEDS: FLUCONAZOLE 100 MG TAB PO SCH (08:48)
[2022-02-06] MEDS: TOPIRAMATE (TopAMAX) 25 MG TAB PO SCH ×2 (08:49→20:59)
[2022-02-06] MEDS: guaiFENesin ER 600 MG TAB PO SCH ×2 (08:49→20:59)
[2022-02-06] MEDS: ESCITALOPRAM OXALATE 10 MG TAB (LEXAPRO) PO SCH (08:49)
[2022-02-06] MEDS: PANTOPRAZOLE 40MG TAB (PROTONIX) PO SCH (08:49)
[2022-02-06] MEDS ORDERED: methylPREDNISolone 125MG 2ML VIAL IV SCH (09:00)
[2022-02-06] MEDS: ALBUTEROL SULFATE 2.5 MG/0.5 ML INH NEB SOLN NEB PRN (11:12)
[2022-02-06] MEDS ORDERED: MAGNESIUM SULFATE IN WATER 2 GM in IV 1 EA IV STA ×2 (14:16)
[2022-02-06 15:15] LABS: ABG BASE EXCESS -4.5 (-2.0-2.0); ABG HCO3 17.8 MEQ/L (22.0-26.0); ABG O2 SATURATION 97.7 % (95.0-99.0); ABG PARTIAL PRESSURE CO2 24.5 mmHg (35.0-45.0); ABG PARTIAL PRESSURE O2 112.3 mmHg (75.0-100.0); ABG STANDARD HCO3 20.7 MEQ/L (22.0-26.0); ABG TOTAL CO2 18.5 MEQ/L (23.0-31.0); ABG pH (ARTERIAL) 7.478 UNITS (7.350-7.450)
[2022-02-06] MEDS: methylPREDNISolone 125MG 2ML VIAL IV SCH ×2 (15:35→20:58)
[2022-02-06] MEDS: MAG SULF 1GM/100ML (MAG RUN) X 2 DOSES (2GM TOTAL) IV SCH ×4 (15:35→16:59)
[2022-02-06 16:02] LABS: HEMATOCRIT 28.8 % (36.0-47.0); HEMOGLOBIN 9.4 g/dl (12.0-15.5); MEAN CORPUSCULAR HEMOGLOBIN 29.7 pg (27.0-33.0); MEAN CORPUSCULAR HGB CONC 32.6 g/dl (32.0-36.5); MEAN CORPUSCULAR VOLUME 91.1 fl (80.0-96.0); PLATELET COUNT, AUTOMATED 283 10^3/uL (150-450); RED BLOOD COUNT 3.16 10^6/uL (4.00-5.40); WHITE BLOOD COUNT 6.3 10^3/uL (4.0-10.0)
[2022-02-06 16:40] LABS: BILIRUBIN,TOTAL 0.3 MG/DL (0.2-1.0); CALCIUM LEVEL 9.1 MG/DL (8.8-10.2); CREATININE FOR GFR 1.18 MG/DL (0.55-1.30); GLOMERULAR FILTRATION RATE 49.7 (>45); POTASSIUM SERUM 3.7 MEQ/L (3.5-5.1); TOTAL PROTEIN 6.6 GM/DL (6.4-8.2)
[2022-02-06] MEDS ORDERED: INSULIN LISPRO (NovoLOG) PER UNIT SC SCH (21:00)
[2022-02-06] MEDS ORDERED: traZODone 100 MG TAB PO SCH (21:00)
[2022-02-07] VITALS (13 sets, daily range): BP systolic 137–166; BP diastolic 73–81; O2SAT 93–98
[2022-02-07] MEDS: PIPERACILLIN/TAZOBACTAM SOD 3.375 GM in D5W MINI-BAG PLUS 50 ML IV SCH (03:17)
[2022-02-07] MEDS: IPRATROPIUM 0.5MG/ALBUTEROL 2.5MG INH SOL UD 3ML (DUONEB) NEB SCH ×4 (03:18→14:57)
[2022-02-07 04:58] LABS: HEMATOCRIT 27.7 % (36.0-47.0); MEAN CORPUSCULAR HEMOGLOBIN 29.4 pg (27.0-33.0); MEAN CORPUSCULAR HGB CONC 32.5 g/dl (32.0-36.5); MEAN CORPUSCULAR VOLUME 90.5 fl (80.0-96.0); PLATELET COUNT, AUTOMATED 282 10^3/uL (150-450); RED BLOOD COUNT 3.06 10^6/uL (4.00-5.40); WHITE BLOOD COUNT 5.9 10^3/uL (4.0-10.0)
[2022-02-07 05:40] LABS: CK-MB VALUE MASS 1.6 NG/ML (<3.6); MB/CK RELATIVE INDEX 8.42 (< OR =4)
[2022-02-07 05:52] LABS: CALCIUM LEVEL 8.7 MG/DL (8.8-10.2); CREATININE FOR GFR 1.14 MG/DL (0.55-1.30); GLOMERULAR FILTRATION RATE 51.8 (>45); MAGNESIUM LEVEL 2.1 MG/DL (1.8-2.4); POTASSIUM SERUM 3.4 MEQ/L (3.5-5.1)
[2022-02-07] MEDS: ADVAIR HFA 115/21MCG INHALER INH SCH (07:30)
[2022-02-07] MEDS: ESCITALOPRAM OXALATE 10 MG TAB (LEXAPRO) PO SCH (08:21)
[2022-02-07] MEDS: guaiFENesin ER 600 MG TAB PO SCH (08:21)
[2022-02-07] MEDS: ASPIRIN 325 MG TAB PO SCH (08:21)
[2022-02-07] MEDS: PANTOPRAZOLE 40MG TAB (PROTONIX) PO SCH (08:22)
[2022-02-07] MEDS: GABAPENTIN 300 MG CAP PO SCH (08:22)
[2022-02-07] MEDS: LACTOBACILLUS ACIDOPHILUS CAP (BACID) PO SCH ×2 (08:22→12:31)
[2022-02-07] MEDS: ATORVASTATIN 20 MG TAB PO SCH (08:22)
[2022-02-07] MEDS: OLMESARTAN MEDOXOMIL 20 MG TAB (BENICAR) PO SCH (08:23)
[2022-02-07] MEDS: FUROSEMIDE 40MG/4ML VIAL (J1940) IV SCH (08:25)
[2022-02-07] MEDS: INSULIN LISPRO (NovoLOG) PER UNIT SC SCH ×2 (08:26→12:32)
[2022-02-07] MEDS: ENOXAPARIN 40MG/0.4ML SYRINGE (J1650 PER 10MG) SC SCH (08:26)
[2022-02-07] MEDS: FLUCONAZOLE 100 MG TAB PO SCH (08:27)
[2022-02-07] MEDS: TAMOXIFEN CITRATE 10 MG TAB PO SCH (08:28)
[2022-02-07] MEDS ORDERED: methylPREDNISolone 125MG 2ML VIAL IV SCH (09:00)
[2022-02-07] MEDS ORDERED: POTASSIUM CHLORIDE 10MEQ SR TABLET PO SCH (09:00)
[2022-02-07] MEDS: TOPIRAMATE (TopAMAX) 25 MG TAB PO SCH (10:46)
[2022-02-07] MEDS ORDERED: TORS20TA2 PO ×2 (11:13→13:11)
[2022-02-07] MEDS ORDERED: PRED20TA PO (11:13)
[2022-02-07] MEDS ORDERED: LEVO1TAB40 PO (11:13)
[2022-02-07] MEDS: ALBUTEROL SULFATE 2.5 MG/0.5 ML INH NEB SOLN NEB PRN (13:05)
[2022-02-07] MEDS ORDERED: POTASSIUM CHLORIDE 10MEQ SR TABLET PO ONE (14:00)
[2022-02-07] MEDS ORDERED: LevoFLOXacin 750 MG TABLET PO SCH (18:00)
[2022-02-08] MEDS ORDERED: TORSEMIDE 20 MG TAB PO SCH (09:00)
[2022-02-08] MEDS ORDERED: predniSONE 20 MG TAB PO SCH (09:00)
== END 2022-02-07 15:10 | disposition home or self-care (01) | DRG 141 ==
LOC: M ED 17:29 → M ED INP 23:04 → EEVIPCON 23:04 → M MSPAV 02-06 00:39 → M PCU 02-06 17:20
PROVIDERS: ADMIT Family Medicine; ATTEND Student in an Organized Health Care Education/Training Program
DX: J45.901 Unspecified asthma with (acute) exacerbation (principal); I21.A1 Myocardial infarction type 2; I50.33 Acute on chronic diastolic (congestive) heart failure; J18.9 Pneumonia, unspecified organism; I11.0 Hypertensive heart disease with heart failure; E87.20 Acidosis, unspecified; I27.20 Pulmonary hypertension, unspecified; I71.20 Thoracic aortic aneurysm, without rupture, unspecified; E11.9 Type 2 diabetes mellitus without complications; K21.9 Gastro-esophageal reflux disease without esophagitis; G43.909 Migraine, unspecified, not intractable, without status migrainosus; F41.9 Anxiety disorder, unspecified; I08.0 Rheumatic disorders of both mitral and aortic valves; F32.A Depression, unspecified; Y95 Nosocomial condition; I25.10 Atherosclerotic heart disease of native coronary artery without angina pectoris; G47.00 Insomnia, unspecified; Z85.3 Personal history of malignant neoplasm of breast; G89.29 Other chronic pain; Z98.49 Cataract extraction status, unspecified eye; Z98.84 Bariatric surgery status; Z96.652 Presence of left artificial knee joint; Z79.82 Long term (current) use of aspirin; Z79.899 Other long term (current) drug therapy; Z88.8 Allergy status to other drugs, medicaments and biological substances

== ENCOUNTER → 2022-02-09 | Outpatient (CLI) | payer OTHER ==
[~2022-02-09] MED LIST changes: +ASPI1TAB22 PO; +GABA-282 PO; +LEVO1TAB40 PO; +MED REC COMMENT; +PRED20TA PO
[2022-02-09 13:11] LABS: BASO % 0.2 % (0.0-1.0); EOS % 0.4 % (0.0-3.0); HEMATOCRIT 33.1 % (36.0-47.0); HEMOGLOBIN 10.6 g/dl (12.0-15.5); MEAN CORPUSCULAR HEMOGLOBIN 29.4 pg (27.0-33.0); MEAN CORPUSCULAR VOLUME 91.9 fl (80.0-96.0); MONO # 0.3 10^3/uL (0.0-0.8); MONO % 3.2 % (2.0-8.0); NEUTROPHILS # 8.8 10^3/uL (1.5-8.5); PLATELET COUNT, AUTOMATED 380 10^3/uL (150-450); WHITE BLOOD COUNT 10.4 10^3/uL (4.0-10.0)
[2022-02-09 13:52] LABS: ALBUMIN 3.2 GM/DL (3.2-5.2); ALT/SGPT 52 U/L (12-78); BILIRUBIN,TOTAL 0.4 MG/DL (0.2-1.0); BLOOD UREA NITROGEN 19 MG/DL (7-18); CALCIUM LEVEL 8.9 MG/DL (8.8-10.2); CARBON DIOXIDE LEVEL 27 MEQ/L (21-32); CHLORIDE LEVEL 101 MEQ/L (98-107); CREATININE FOR GFR 0.76 MG/DL (0.55-1.30); FERRITIN 79 NG/ML (8-252); GLOMERULAR FILTRATION RATE > 60.0 (>45); GLUCOSE, FASTING 184 MG/DL (70-100); MAGNESIUM LEVEL 1.9 MG/DL (1.8-2.4); NT-PRO BNP 8640 PG/ML (<125); SODIUM LEVEL 138 MEQ/L (136-145); TOTAL PROTEIN 6.6 GM/DL (6.4-8.2)
== END ==
LOC: M PLALAB 11:41 → M LAB 11:41
PROVIDERS: ATTEND Family Medicine
DX: I12.9 Hypertensive chronic kidney disease with stage 1 through stage 4 chronic kidney disease, or unspecified chronic kidney disease (principal); I50.30 Unspecified diastolic (congestive) heart failure

== ENCOUNTER → 2022-02-12 | Outpatient (CLI) | payer OTHER ==
[2022-02-12 14:10] LABS: BASO % 0.3 % (0.0-1.0); EOS # 0.4 10^3/uL (0.0-0.5); EOS % 2.9 % (0.0-3.0); HEMATOCRIT 36.8 % (36.0-47.0); HEMOGLOBIN 11.9 g/dl (12.0-15.5); LYMPH # 2.3 10^3/uL (1.5-5.0); LYMPH % 15.3 % (24.0-44.0); MEAN CORPUSCULAR HEMOGLOBIN 29.5 pg (27.0-33.0); MEAN CORPUSCULAR HGB CONC 32.3 g/dl (32.0-36.5); MEAN CORPUSCULAR VOLUME 91.3 fl (80.0-96.0); MONO % 6.6 % (2.0-8.0); NEUTROPHILS # 10.9 10^3/uL (1.5-8.5); NEUTROPHILS % 74.2 % (36.0-66.0); PLATELET COUNT, AUTOMATED 452 10^3/uL (150-450); RED BLOOD COUNT 4.03 10^6/uL (4.00-5.40); WHITE BLOOD COUNT 14.7 10^3/uL (4.0-10.0)
[2022-02-12 15:09] LABS: ALBUMIN 3.2 GM/DL (3.2-5.2); ALT/SGPT 45 U/L (12-78); BILIRUBIN,TOTAL 0.4 MG/DL (0.2-1.0); BLOOD UREA NITROGEN 14 MG/DL (7-18); CALCIUM LEVEL 8.9 MG/DL (8.8-10.2); CARBON DIOXIDE LEVEL 26 MEQ/L (21-32); CHLORIDE LEVEL 104 MEQ/L (98-107); CREATININE FOR GFR 0.76 MG/DL (0.55-1.30); GLOMERULAR FILTRATION RATE > 60.0 (>45); GLUCOSE, FASTING 129 MG/DL (70-100); LIPASE 510 U/L (73-393); MAGNESIUM LEVEL 1.9 MG/DL (1.8-2.4); NT-PRO BNP 2585 PG/ML (<125); POTASSIUM SERUM 3.4 MEQ/L (3.5-5.1); SODIUM LEVEL 139 MEQ/L (136-145); TOTAL PROTEIN 6.6 GM/DL (6.4-8.2)
== END ==
LOC: M PLALAB 10:14
PROVIDERS: ATTEND Family Medicine
DX: I50.30 Unspecified diastolic (congestive) heart failure (principal)

== ENCOUNTER → 2022-02-15 | Outpatient (CLI) | payer OTHER ==
[2022-02-15 14:28] LABS: BASO # 0.1 10^3/uL (0.0-0.2); BASO % 0.6 % (0.0-1.0); EOS # 0.4 10^3/uL (0.0-0.5); EOS % 3.3 % (0.0-3.0); HEMATOCRIT 37.8 % (36.0-47.0); HEMOGLOBIN 11.9 g/dl (12.0-15.5); LYMPH % 17.7 % (24.0-44.0); MEAN CORPUSCULAR HEMOGLOBIN 29.6 pg (27.0-33.0); MEAN CORPUSCULAR HGB CONC 31.5 g/dl (32.0-36.5); MONO # 1.3 10^3/uL (0.0-0.8); MONO % 11.1 % (2.0-8.0); NEUTROPHILS # 7.6 10^3/uL (1.5-8.5); NEUTROPHILS % 66.9 % (36.0-66.0); PLATELET COUNT, AUTOMATED 500 10^3/uL (150-450); RED BLOOD COUNT 4.02 10^6/uL (4.00-5.40); WHITE BLOOD COUNT 11.3 10^3/uL (4.0-10.0)
[2022-02-15 16:16] LABS: ALBUMIN 3.2 GM/DL (3.2-5.2); ALT/SGPT 33 U/L (12-78); BILIRUBIN,TOTAL 0.5 MG/DL (0.2-1.0); BLOOD UREA NITROGEN 17 MG/DL (7-18); CALCIUM LEVEL 8.9 MG/DL (8.8-10.2); CARBON DIOXIDE LEVEL 25 MEQ/L (21-32); CHLORIDE LEVEL 103 MEQ/L (98-107); CREATININE FOR GFR 0.85 MG/DL (0.55-1.30); DIGOXIN LEVEL 1.2 NG/ML (0.5-2.0); GLOMERULAR FILTRATION RATE > 60.0 (>45); GLUCOSE, FASTING 129 MG/DL (70-100); MAGNESIUM LEVEL 1.7 MG/DL (1.8-2.4); NT-PRO BNP 467 PG/ML (<125); SODIUM LEVEL 137 MEQ/L (136-145); TOTAL PROTEIN 6.6 GM/DL (6.4-8.2)
== END ==
LOC: M PLALAB 11:08
PROVIDERS: ATTEND Family Medicine
DX: I48.0 Paroxysmal atrial fibrillation (principal)

== ENCOUNTER → 2022-02-16 | Outpatient (CLI) | payer OTHER ==
[~2022-02-16] MED LIST changes: +GASTROGRAFIN SOLUTION 30ML (Q9963) As Ordered ONE; +ISOVUE-370 76% 100ML VIAL As Ordered ONE
== END ==
LOC: M RAD 14:55
PROVIDERS: ATTEND Physician Assistant
DX: K81.2 Acute cholecystitis with chronic cholecystitis (principal); K80.10 Calculus of gallbladder with chronic cholecystitis without obstruction
CPT/HCPCS: 74177; Q9963; Q9967

== ENCOUNTER → 2022-02-19 | Outpatient (CLI) | payer OTHER ==
[~2022-02-19] MED LIST changes: -GASTROGRAFIN SOLUTION 30ML (Q9963) As Ordered ONE; -ISOVUE-370 76% 100ML VIAL As Ordered ONE
[2022-02-19 10:44] LABS: BASO # 0.1 10^3/uL (0.0-0.2); BASO % 0.8 % (0.0-1.0); EOS # 0.3 10^3/uL (0.0-0.5); EOS % 3.3 % (0.0-3.0); HEMATOCRIT 35.9 % (36.0-47.0); HEMOGLOBIN 11.3 g/dl (12.0-15.5); LYMPH % 11.9 % (24.0-44.0); MEAN CORPUSCULAR HEMOGLOBIN 29.5 pg (27.0-33.0); MEAN CORPUSCULAR HGB CONC 31.5 g/dl (32.0-36.5); MEAN CORPUSCULAR VOLUME 93.7 fl (80.0-96.0); MONO # 0.9 10^3/uL (0.0-0.8); MONO % 9.8 % (2.0-8.0); NEUTROPHILS # 6.5 10^3/uL (1.5-8.5); NEUTROPHILS % 73.6 % (36.0-66.0); PLATELET COUNT, AUTOMATED 419 10^3/uL (150-450); RED BLOOD COUNT 3.83 10^6/uL (4.00-5.40); WHITE BLOOD COUNT 8.8 10^3/uL (4.0-10.0)
[2022-02-19 11:35] LABS: ALT/SGPT 26 U/L (12-78); BILIRUBIN,TOTAL 0.4 MG/DL (0.2-1.0); BLOOD UREA NITROGEN 11 MG/DL (7-18); CALCIUM LEVEL 9.3 MG/DL (8.8-10.2); CARBON DIOXIDE LEVEL 25 MEQ/L (21-32); CHLORIDE LEVEL 101 MEQ/L (98-107); CREATININE FOR GFR 0.68 MG/DL (0.55-1.30); DIGOXIN LEVEL 1.1 NG/ML (0.5-2.0); GLOMERULAR FILTRATION RATE > 60.0 (>45); GLUCOSE, FASTING 152 MG/DL (70-100); MAGNESIUM LEVEL 1.8 MG/DL (1.8-2.4); NT-PRO BNP 449 PG/ML (<125); POTASSIUM SERUM 4.7 MEQ/L (3.5-5.1); SODIUM LEVEL 134 MEQ/L (136-145)
== END ==
LOC: M PLALAB 09:19
PROVIDERS: ATTEND Physician Assistant
DX: I48.0 Paroxysmal atrial fibrillation (principal)

== ENCOUNTER → 2022-04-25 | Outpatient (CLI) | payer OTHER ==
[~2022-04-25] MED LIST changes: +ASPI81CH48; +BISO5TAB14 PO; +DIGO0.123 PO; +ELIQ5TAB PO; +LEVA1.2519; +METF500T13; +MONT10TA97; +ONDA4TAB6
== END ==
LOC: M LABSMTC 10:48
PROVIDERS: ATTEND Anesthesiology
DX: Z01.812 Encounter for preprocedural laboratory examination (principal); Z11.52 Encounter for screening for COVID-19

== ENCOUNTER → 2022-04-28 | Outpatient (REF) | payer OTHER ==
[2022-04-28 12:14] LABS: BASO # 0.1 10^3/uL (0.0-0.2); BASO % 1.2 % (0.0-1.0); EOS # 0.3 10^3/uL (0.0-0.5); HEMATOCRIT 41.2 % (36.0-47.0); HEMOGLOBIN 13.2 g/dl (12.0-15.5); LYMPH # 1.6 10^3/uL (1.5-5.0); LYMPH % 18.9 % (24.0-44.0); MEAN CORPUSCULAR HEMOGLOBIN 31.4 pg (27.0-33.0); MEAN CORPUSCULAR VOLUME 97.9 fl (80.0-96.0); MONO # 0.6 10^3/uL (0.0-0.8); MONO % 7.2 % (2.0-8.0); NEUTROPHILS # 5.6 10^3/uL (1.5-8.5); NEUTROPHILS % 68.3 % (36.0-66.0); PLATELET COUNT, AUTOMATED 322 10^3/uL (150-450); RED BLOOD COUNT 4.21 10^6/uL (4.00-5.40); WHITE BLOOD COUNT 8.2 10^3/uL (4.0-10.0)
[2022-04-28 12:37] LABS: MAGNESIUM LEVEL 1.7 MG/DL (1.8-2.4)
[2022-04-28 12:39] LABS: ALBUMIN 3.6 G/DL (3.2-5.2); ALKALINE PHOSPHATASE 91 U/L (46-116); ALT/SGPT 39 U/L (7.0-40); AST/SGOT 65 U/L (<34); BILIRUBIN,TOTAL 0.6 MG/DL (0.3-1.2); BLOOD UREA NITROGEN 6 MG/DL (9-23); CARBON DIOXIDE LEVEL 26 MMOL/L (20-31); CHLORIDE LEVEL 96 MMOL/L (98-107); CREATININE FOR GFR 0.64 MG/DL (0.55-1.30); GLOMERULAR FILTRATION RATE > 60.0 (>45); GLUCOSE, FASTING 135 MG/DL (74-106); POTASSIUM SERUM 4.7 MMOL/L (3.5-5.1); SODIUM LEVEL 132 MMOL/L (136-145); TOTAL PROTEIN 7.4 G/DL (5.7-8.2)
[2022-04-28 12:41] LABS: INR 1.01; PROTHROMBIN TIME 13.5 SECONDS (12.5-14.5)
[2022-04-28 12:42] LABS: PARTIAL THROMBOPLASTIN TIME 29.5 SECONDS (24.8-34.2)
== END ==
LOC: M LAB REF 11:28
PROVIDERS: ATTEND Internal Medicine
DX: Z01.818 Encounter for other preprocedural examination (principal); I10 Essential (primary) hypertension

== ENCOUNTER → 2022-05-26 | Outpatient (REF) | payer OTHER ==
[~2022-05-26] MED LIST changes: +ASPI81TA26 PO; +DIGO0.253 PO; -LEVA1.2519; +LEVA1.2519 INH; -METF500T13; -MONT10TA97; +MONT10TA97 PO
[2022-05-26 16:44] LABS: DIGOXIN LEVEL 2.3 NG/ML (0.8-2.0)
[2022-05-26 16:50] LABS: BASO # 0.1 10^3/uL (0.0-0.2); BASO % 1.1 % (0.0-1.0); EOS # 0.5 10^3/uL (0.0-0.5); EOS % 6.2 % (0.0-3.0); HEMATOCRIT 41.3 % (36.0-47.0); LYMPH # 1.7 10^3/uL (1.5-5.0); LYMPH % 21.8 % (24.0-44.0); MEAN CORPUSCULAR HEMOGLOBIN 31.4 pg (27.0-33.0); MEAN CORPUSCULAR HGB CONC 31.5 g/dl (32.0-36.5); MEAN CORPUSCULAR VOLUME 99.8 fl (80.0-96.0); MONO # 0.7 10^3/uL (0.0-0.8); NEUTROPHILS # 4.9 10^3/uL (1.5-8.5); NEUTROPHILS % 61.6 % (36.0-66.0); PLATELET COUNT, AUTOMATED 290 10^3/uL (150-450); RED BLOOD COUNT 4.14 10^6/uL (4.00-5.40); WHITE BLOOD COUNT 7.9 10^3/uL (4.0-10.0)
[2022-05-26 19:22] LABS: HEMOGLOBIN A1c 6.6 % (4.0-6.0)
[2022-05-26 22:18] LABS: ALBUMIN 3.5 G/DL (3.2-5.2); ALKALINE PHOSPHATASE 76 U/L (46-116); ALT/SGPT 41 U/L (7.0-40); AST/SGOT 49 U/L (<34); BILIRUBIN,TOTAL 0.4 MG/DL (0.3-1.2); BLOOD UREA NITROGEN 11 MG/DL (9-23); CALCIUM LEVEL 9.2 MG/DL (8.3-10.6); CARBON DIOXIDE LEVEL 27 MMOL/L (20-31); CHLORIDE LEVEL 101 MMOL/L (98-107); CREATININE FOR GFR 0.73 MG/DL (0.55-1.30); FERRITIN 32.1 NG/ML (7.3-270.7); GLOMERULAR FILTRATION RATE > 60.0 (>45); GLUCOSE, FASTING 156 MG/DL (74-106); MAGNESIUM LEVEL 1.8 MG/DL (1.8-2.4); POTASSIUM SERUM 4.5 MMOL/L (3.5-5.1); SODIUM LEVEL 135 MMOL/L (136-145); TOTAL PROTEIN 6.8 G/DL (5.7-8.2)
== END ==
LOC: M LAB REF 16:16
PROVIDERS: ATTEND Internal Medicine
DX: D50.9 Iron deficiency anemia, unspecified (principal); E11.9 Type 2 diabetes mellitus without complications; I50.30 Unspecified diastolic (congestive) heart failure; I48.0 Paroxysmal atrial fibrillation

== ENCOUNTER → 2022-06-04 | Outpatient (REF) | payer OTHER ==
[2022-06-04 12:14] LABS: APPEARANCE, URINE CLEAR (CLEAR); BACTERIA, URINE AUTO 1+ (NEGATIVE); BILIRUBIN, URINE AUTO NEGATIVE (NEGATIVE); BLOOD, URINE BLOOD NEGATIVE (NEGATIVE); COLOR, URINE STRAW (YELLOW); GLUCOSE, URINE (UA) AUTO NEGATIVE (NEGATIVE); KETONE, URINE AUTO NEGATIVE (NEGATIVE); LEUKOCYTE ESTERASE, URINE AUTO NEGATIVE (NEGATIVE); NITRITE, URINE AUTO NEGATIVE (NEGATIVE); PROTEIN, URINE AUTO NEGATIVE (NEGATIVE); RBC, URINE AUTO 0 /HPF (0-3); SPECIFIC GRAVITY URINE AUTO 1.006 (1.002-1.035); SQUAMOUS EPITHELIAL CELL UR AU 2 /HPF (0-6); UROBILINOGEN, URINE AUTO 0.2 mg/dL (0.0-2.0); WBC, URINE AUTO 1 /HPF (0-3)
== END ==
LOC: M LAB REF 11:29
PROVIDERS: ATTEND Internal Medicine
DX: R30.0 Dysuria (principal)

== ENCOUNTER → 2022-10-01 | Outpatient (REF) | payer OTHER ==
[~2022-10-01] MED LIST changes: -OLOP5DRO16 OP; +OLOP5DRO17 OP; +TOPI-254 PO; -TOPI50TA9 PO
[2022-10-01 17:31] LABS: BASO # 0.1 10^3/uL (0.0-0.2); BASO % 1.2 % (0.0-1.0); EOS # 0.2 10^3/uL (0.0-0.5); EOS % 2.1 % (0.0-3.0); HEMATOCRIT 36.8 % (36.0-47.0); HEMOGLOBIN 12.2 g/dl (12.0-15.5); LYMPH # 1.8 10^3/uL (1.5-5.0); LYMPH % 19.9 % (24.0-44.0); MEAN CORPUSCULAR HEMOGLOBIN 31.1 pg (27.0-33.0); MEAN CORPUSCULAR HGB CONC 33.2 g/dl (32.0-36.5); MEAN CORPUSCULAR VOLUME 93.9 fl (80.0-96.0); MONO # 0.7 10^3/uL (0.0-0.8); MONO % 7.6 % (2.0-8.0); NEUTROPHILS # 6.1 10^3/uL (1.5-8.5); PLATELET COUNT, AUTOMATED 333 10^3/uL (150-450); RED BLOOD COUNT 3.92 10^6/uL (4.00-5.40); WHITE BLOOD COUNT 8.9 10^3/uL (4.0-10.0)
[2022-10-01 18:06] LABS: DIGOXIN LEVEL 1.2 NG/ML (0.8-2.0)
[2022-10-01 18:07] LABS: ALBUMIN 3.8 G/DL (3.2-5.2); ALKALINE PHOSPHATASE 100 U/L (46-116); ALT/SGPT 53 U/L (7.0-40); AST/SGOT 76 U/L (<34); BILIRUBIN,TOTAL 0.4 MG/DL (0.3-1.2); BLOOD UREA NITROGEN 13 MG/DL (9-23); CALCIUM LEVEL 8.6 MG/DL (8.3-10.6); CARBON DIOXIDE LEVEL 27 MMOL/L (20-31); CHLORIDE LEVEL 97 MMOL/L (98-107); GLOMERULAR FILTRATION RATE > 60.0 (>45); GLUCOSE, FASTING 140 MG/DL (74-106); MAGNESIUM LEVEL 1.8 MG/DL (1.8-2.4); POTASSIUM SERUM 4.2 MMOL/L (3.5-5.1); SODIUM LEVEL 131 MMOL/L (136-145)
[2022-10-01 18:09] LABS: FERRITIN 98.2 NG/ML (7.3-270.7)
[2022-10-01 19:02] LABS: HEMOGLOBIN A1c 6.2 % (4.0-6.0)
== END ==
LOC: M LAB REF 16:15
PROVIDERS: ATTEND Internal Medicine
DX: D50.9 Iron deficiency anemia, unspecified (principal); I10 Essential (primary) hypertension; I48.0 Paroxysmal atrial fibrillation; E11.9 Type 2 diabetes mellitus without complications

== ENCOUNTER → 2022-10-04 | Outpatient (REF) | payer OTHER | LOC: M SFHCPLAZ 19:03 | PROVIDERS: ATTEND Family Medicine | DX: I10 Essential (primary) hypertension (principal); E53.8 Deficiency of other specified B group vitamins; K76.0 Fatty (change of) liver, not elsewhere classified; E78.5 Hyperlipidemia, unspecified; D50.9 Iron deficiency anemia, unspecified ==

== ENCOUNTER 2022-10-30 11:33 | Inpatient (IN) | payer OTHER ==
[~2022-10-30] VITALS: Ht 162.6 cm; Wt 93.6 kg
[2022-10-30] VITALS (16 sets, daily range): BP systolic 102–153; BP diastolic 51–71; TEMP 97.7–98.6; O2SAT 97–100
[~2022-10-30 11:33] MED LIST changes: +DICY-61 PO; -DICY10CA13 PO
[2022-10-30] MEDS ORDERED: PANTOPRAZOLE 40MG VIAL IV ONE (12:10)
[2022-10-30 12:43] LABS: BASO # 0.1 10^3/uL (0.0-0.2); BASO % 0.9 % (0.0-1.0); EOS # 0.2 10^3/uL (0.0-0.5); EOS % 2.3 % (0.0-3.0); LYMPH # 1.7 10^3/uL (1.5-5.0); LYMPH % 18.4 % (24.0-44.0); MEAN CORPUSCULAR HEMOGLOBIN 31.3 pg (27.0-33.0); MEAN CORPUSCULAR HGB CONC 33.2 g/dl (32.0-36.5); MEAN CORPUSCULAR VOLUME 94.4 fl (80.0-96.0); MONO # 0.8 10^3/uL (0.0-0.8); MONO % 8.3 % (2.0-8.0); NEUTROPHILS # 6.4 10^3/uL (1.5-8.5); NEUTROPHILS % 69.2 % (36.0-66.0); RED BLOOD COUNT 1.95 10^6/uL (4.00-5.40); WHITE BLOOD COUNT 9.3 10^3/uL (4.0-10.0)
[2022-10-30 12:46] LABS: HEMATOCRIT 18.4 % (36.0-47.0); HEMOGLOBIN 6.1 g/dl (12.0-15.5); PLATELET COUNT, AUTOMATED 298 10^3/uL (150-450)
[2022-10-30 12:56] LABS: INR 1.02; PROTHROMBIN TIME 13.6 SECONDS (12.5-14.5)
[2022-10-30 12:57] LABS: PARTIAL THROMBOPLASTIN TIME 26.4 SECONDS (24.8-34.2)
[2022-10-30 13:12] LABS: ALKALINE PHOSPHATASE 66 U/L (46-116); ALT/SGPT 42 U/L (7.0-40); AST/SGOT 60 U/L (<34); BILIRUBIN,TOTAL 0.4 MG/DL (0.3-1.2); BLOOD UREA NITROGEN 22 MG/DL (9-23); CALCIUM LEVEL 8.9 MG/DL (8.3-10.6); CARBON DIOXIDE LEVEL 24 MMOL/L (20-31); CHLORIDE LEVEL 98 MMOL/L (98-107); CREATININE FOR GFR 0.66 MG/DL (0.55-1.30); GLOMERULAR FILTRATION RATE > 60.0 (>45); GLUCOSE, FASTING 146 MG/DL (74-106); POTASSIUM SERUM 4.4 MMOL/L (3.5-5.1); SODIUM LEVEL 130 MMOL/L (136-145); TOTAL PROTEIN 5.9 G/DL (5.7-8.2)
[2022-10-30] MEDS ORDERED: MED REC IN PROGRESS XX SCH (13:35)
[2022-10-30 13:43] LABS: DIGOXIN LEVEL 1.7 NG/ML (0.8-2.0)
[2022-10-30] MEDS ORDERED: GLUCOSE 4GM CHEW TABLET PO PRN (14:20)
[2022-10-30] MEDS ORDERED: DEXTROSE 50% 50ML SYRINGE IV PRN (14:20)
[2022-10-30] MEDS ORDERED: GLUCAGON INJ 1MG VIAL SC PRN (14:20)
[2022-10-30] MEDS ORDERED: IPRATROPIUM 0.5MG/ALBUTEROL 2.5MG INH SOL UD 3ML (DUONEB) NEB PRN (14:30)
[2022-10-30] MEDS ORDERED: ATOR40TA75 PO (14:57)
[2022-10-30] MEDS ORDERED: HYDR25SU61 PR (14:57)
[2022-10-30] MEDS ORDERED: OXYB5TAB10 PO (14:57)
[2022-10-30] MEDS ORDERED: TORS20TA2 PO (14:57)
[2022-10-30] MEDS ORDERED: HOME MED LIST COMPLETE! XX SCH (15:00)
[2022-10-30] MEDS: PANTOPRAZOLE SODIUM 40 MG in D5W 50 ML IV SCH ×2 (17:02→19:37)
[2022-10-30] MEDS ORDERED: LORazepam 2 MG TAB PO PRN (17:35)
[2022-10-30] MEDS: INSULIN LISPRO (NovoLOG) PER UNIT SC SCH ×2 (19:30→23:54)
[2022-10-30] MEDS: IPRATROPIUM 0.5MG/ALBUTEROL 2.5MG INH SOL UD 3ML (DUONEB) NEB SCH (19:56)
[2022-10-30] MEDS: THIAMINE 200MG 2ML VIAL IV SCH (20:10)
[2022-10-30 20:35] LABS: HEMATOCRIT 22.9 % (36.0-47.0); HEMOGLOBIN 7.5 g/dl (12.0-15.5); MEAN CORPUSCULAR HEMOGLOBIN 30.5 pg (27.0-33.0); MEAN CORPUSCULAR HGB CONC 32.8 g/dl (32.0-36.5); MEAN CORPUSCULAR VOLUME 93.1 fl (80.0-96.0); PLATELET COUNT, AUTOMATED 245 10^3/uL (150-450); RED BLOOD COUNT 2.46 10^6/uL (4.00-5.40); WHITE BLOOD COUNT 8.2 10^3/uL (4.0-10.0)
[2022-10-31] VITALS (14 sets, daily range): BP systolic 111–163; BP diastolic 52–74; TEMP 97.5–98.3; O2SAT 97–99
[2022-10-31] MEDS: PANTOPRAZOLE SODIUM 40 MG in D5W 50 ML IV SCH ×3 (00:35→11:01)
[2022-10-31] MEDS: IPRATROPIUM 0.5MG/ALBUTEROL 2.5MG INH SOL UD 3ML (DUONEB) NEB SCH ×4 (01:08→20:00)
[2022-10-31 02:36] LABS: HEMATOCRIT 28.1 % (36.0-47.0); HEMOGLOBIN 9.4 g/dl (12.0-15.5); MEAN CORPUSCULAR HEMOGLOBIN 30.2 pg (27.0-33.0); MEAN CORPUSCULAR HGB CONC 33.5 g/dl (32.0-36.5); MEAN CORPUSCULAR VOLUME 90.4 fl (80.0-96.0); PLATELET COUNT, AUTOMATED 238 10^3/uL (150-450); RED BLOOD COUNT 3.11 10^6/uL (4.00-5.40); WHITE BLOOD COUNT 7.6 10^3/uL (4.0-10.0)
[2022-10-31 05:37] LABS: HEMATOCRIT 27.7 % (36.0-47.0); HEMOGLOBIN 9.3 g/dl (12.0-15.5); MEAN CORPUSCULAR HEMOGLOBIN 30.6 pg (27.0-33.0); MEAN CORPUSCULAR HGB CONC 33.6 g/dl (32.0-36.5); MEAN CORPUSCULAR VOLUME 91.1 fl (80.0-96.0); PLATELET COUNT, AUTOMATED 249 10^3/uL (150-450); RED BLOOD COUNT 3.04 10^6/uL (4.00-5.40)
[2022-10-31] MEDS: INSULIN LISPRO (NovoLOG) PER UNIT SC SCH ×3 (05:56→17:31)
[2022-10-31 06:03] LABS: BLOOD UREA NITROGEN 17 MG/DL (9-23); CALCIUM LEVEL 8.3 MG/DL (8.3-10.6); CARBON DIOXIDE LEVEL 25 MMOL/L (20-31); CHLORIDE LEVEL 106 MMOL/L (98-107); GLOMERULAR FILTRATION RATE > 60.0 (>45); GLUCOSE, FASTING 132 MG/DL (74-106); MAGNESIUM LEVEL 1.8 MG/DL (1.8-2.4); POTASSIUM SERUM 4.1 MMOL/L (3.5-5.1); SODIUM LEVEL 136 MMOL/L (136-145)
[2022-10-31] MEDS ORDERED: LR 1,000 ML IV SCH (08:05)
[2022-10-31] MEDS: PANTOPRAZOLE 40MG VIAL IV SCH ×2 (09:00→20:06)
[2022-10-31] MEDS ORDERED: GLYCOPYRROLATE INJ 0.2 MG/ML 2 ML VIAL As Ordered ONE (12:34)
[2022-10-31] MEDS ORDERED: propofoL 200 MG/20 ML VIAL As Ordered ONE (12:34)
[2022-10-31] MEDS ORDERED: LIDOCAINE 2% 100MG/5ML SDV (FOR ANES.) As Ordered ONE (12:34)
[2022-10-31] MEDS ORDERED: GOLYTELY SOLN 4000 ML BTL PO ONE (14:30)
[2022-10-31] MEDS ORDERED: BISACODYL 5MG TAB PO ONE (17:30)
[2022-10-31 20:31] LABS: HEMATOCRIT 29.7 % (36.0-47.0); HEMOGLOBIN 10.1 g/dl (12.0-15.5); MEAN CORPUSCULAR VOLUME 91.1 fl (80.0-96.0); PLATELET COUNT, AUTOMATED 264 10^3/uL (150-450); RED BLOOD COUNT 3.26 10^6/uL (4.00-5.40); WHITE BLOOD COUNT 8.8 10^3/uL (4.0-10.0)
[2022-10-31] MEDS: THIAMINE 200MG 2ML VIAL IV SCH (22:12)
[2022-11-01] VITALS (8 sets, daily range): BP systolic 114–174; BP diastolic 49–83; TEMP 97.4–98.6; O2SAT 95–99
[2022-11-01] MEDS: INSULIN LISPRO (NovoLOG) PER UNIT SC SCH ×5 (00:27→23:55)
[2022-11-01] MEDS: IPRATROPIUM 0.5MG/ALBUTEROL 2.5MG INH SOL UD 3ML (DUONEB) NEB SCH ×4 (02:00→20:00)
[2022-11-01 05:49] LABS: HEMATOCRIT 27.7 % (36.0-47.0); HEMOGLOBIN 9.1 g/dl (12.0-15.5); MEAN CORPUSCULAR HGB CONC 32.9 g/dl (32.0-36.5); MEAN CORPUSCULAR VOLUME 91.4 fl (80.0-96.0); PLATELET COUNT, AUTOMATED 249 10^3/uL (150-450); RED BLOOD COUNT 3.03 10^6/uL (4.00-5.40); WHITE BLOOD COUNT 6.5 10^3/uL (4.0-10.0)
[2022-11-01 06:20] LABS: BLOOD UREA NITROGEN 5 MG/DL (9-23); CALCIUM LEVEL 7.9 MG/DL (8.3-10.6); CARBON DIOXIDE LEVEL 22 MMOL/L (20-31); CHLORIDE LEVEL 107 MMOL/L (98-107); CREATININE FOR GFR 0.52 MG/DL (0.55-1.30); GLOMERULAR FILTRATION RATE > 60.0 (>45); GLUCOSE, FASTING 120 MG/DL (74-106); MAGNESIUM LEVEL 1.8 MG/DL (1.8-2.4); POTASSIUM SERUM 3.8 MMOL/L (3.5-5.1); SODIUM LEVEL 139 MMOL/L (136-145)
[2022-11-01] MEDS: PANTOPRAZOLE 40MG VIAL IV SCH ×2 (08:59→20:52)
[2022-11-01] MEDS ORDERED: LIDOCAINE 2% 100MG/5ML SDV (FOR ANES.) As Ordered ONE (18:35)
[2022-11-01] MEDS ORDERED: propofoL 200 MG/20 ML VIAL As Ordered ONE (18:39)
[2022-11-01] MEDS: THIAMINE 200MG 2ML VIAL IV SCH (20:52)
[2022-11-02] VITALS: BP 149/67; TEMP 97.9; O2SAT 97
[2022-11-02 01:00] VITALS: BP 123/52; TEMP 97.9; O2SAT 97
[2022-11-02] MEDS: IPRATROPIUM 0.5MG/ALBUTEROL 2.5MG INH SOL UD 3ML (DUONEB) NEB SCH ×2 (01:07→08:00)
[2022-11-02 05:00] VITALS: BP 151/72; TEMP 98.1; O2SAT 97
[2022-11-02] MEDS: INSULIN LISPRO (NovoLOG) PER UNIT SC SCH (06:15)
[2022-11-02 06:34] LABS: HEMATOCRIT 31.5 % (36.0-47.0); MEAN CORPUSCULAR HEMOGLOBIN 30.6 pg (27.0-33.0); MEAN CORPUSCULAR HGB CONC 31.7 g/dl (32.0-36.5); MEAN CORPUSCULAR VOLUME 96.3 fl (80.0-96.0); PLATELET COUNT, AUTOMATED 280 10^3/uL (150-450); RED BLOOD COUNT 3.27 10^6/uL (4.00-5.40); WHITE BLOOD COUNT 6.9 10^3/uL (4.0-10.0)
[2022-11-02 06:59] LABS: BLOOD UREA NITROGEN < 5 MG/DL (9-23); CALCIUM LEVEL 8.4 MG/DL (8.3-10.6); CARBON DIOXIDE LEVEL 20 MMOL/L (20-31); CHLORIDE LEVEL 107 MMOL/L (98-107); CREATININE FOR GFR 0.57 MG/DL (0.55-1.30); GLOMERULAR FILTRATION RATE > 60.0 (>45); GLUCOSE, FASTING 150 MG/DL (74-106); MAGNESIUM LEVEL 1.8 MG/DL (1.8-2.4); POTASSIUM SERUM 4.3 MMOL/L (3.5-5.1); SODIUM LEVEL 138 MMOL/L (136-145)
[2022-11-02] MEDS ORDERED: MIRA3350 PO (08:41)
[2022-11-02] MEDS ORDERED: ELIQ5TAB PO (08:51)
[2022-11-02] MEDS ORDERED: ASPI81TA26 PO (08:51)
[2022-11-02] MEDS: PANTOPRAZOLE 40MG VIAL IV SCH (09:00)
[2022-11-02 10:00] VITALS: BP 153/71; TEMP 98.2; O2SAT 98
== END 2022-11-02 10:14 | disposition home or self-care (01) | DRG 253 ==
LOC: M ED 11:33 → M ED INP 14:20 → ENRESERV 17:04 → M ICU 17:40 → M MSPAV 10-31 15:30
PROVIDERS: ADMIT Family Medicine; ATTEND General Practice
PROC: 30233N1 Transfusion of Nonautologous Red Blood Cells into Peripheral Vein, Percutaneous Approach (ICD-10-PCS; 2022-10-30)
PROC: 0DJ08ZZ Inspection of Upper Intestinal Tract, Via Natural or Artificial Opening Endoscopic (ICD-10-PCS; principal; 2022-10-31 10:00)
PROC: 0W3P8ZZ Control Bleeding in Gastrointestinal Tract, Via Natural or Artificial Opening Endoscopic (ICD-10-PCS; 2022-11-01)
PROC: 0DBK8ZX Excision of Ascending Colon, Via Natural or Artificial Opening Endoscopic, Diagnostic (ICD-10-PCS; 2022-11-01)
PROC: 0DBH8ZX Excision of Cecum, Via Natural or Artificial Opening Endoscopic, Diagnostic (ICD-10-PCS; 2022-11-01)
DX: K55.21 Angiodysplasia of colon with hemorrhage (principal); I11.0 Hypertensive heart disease with heart failure; I50.32 Chronic diastolic (congestive) heart failure; D62 Acute posthemorrhagic anemia; I48.0 Paroxysmal atrial fibrillation; K76.0 Fatty (change of) liver, not elsewhere classified; E53.8 Deficiency of other specified B group vitamins; G43.009 Migraine without aura, not intractable, without status migrainosus; J45.40 Moderate persistent asthma, uncomplicated; E11.9 Type 2 diabetes mellitus without complications; E78.5 Hyperlipidemia, unspecified; M17.0 Bilateral primary osteoarthritis of knee; K21.00 Gastro-esophageal reflux disease with esophagitis, without bleeding; M47.816 Spondylosis without myelopathy or radiculopathy, lumbar region; F10.20 Alcohol dependence, uncomplicated; F41.0 Panic disorder [episodic paroxysmal anxiety]; F32.9 Major depressive disorder, single episode, unspecified; G47.00 Insomnia, unspecified; I25.10 Atherosclerotic heart disease of native coronary artery without angina pectoris; E66.9 Obesity, unspecified; K58.0 Irritable bowel syndrome with diarrhea; M72.2 Plantar fascial fibromatosis; E55.9 Vitamin D deficiency, unspecified; G47.33 Obstructive sleep apnea (adult) (pediatric); E03.9 Hypothyroidism, unspecified; K64.8 Other hemorrhoids; D12.2 Benign neoplasm of ascending colon; K64.4 Residual hemorrhoidal skin tags; D12.0 Benign neoplasm of cecum; K57.30 Diverticulosis of large intestine without perforation or abscess without bleeding; K44.9 Diaphragmatic hernia without obstruction or gangrene; Z85.3 Personal history of malignant neoplasm of breast; Z92.3 Personal history of irradiation; Z96.653 Presence of artificial knee joint, bilateral; Z98.84 Bariatric surgery status; Z86.14 Personal history of Methicillin resistant Staphylococcus aureus infection; Z90.49 Acquired absence of other specified parts of digestive tract; Z88.1 Allergy status to other antibiotic agents; Z88.8 Allergy status to other drugs, medicaments and biological substances; Z79.82 Long term (current) use of aspirin; Z79.84 Long term (current) use of oral hypoglycemic drugs; Z79.01 Long term (current) use of anticoagulants; Z79.899 Other long term (current) drug therapy

== ENCOUNTER → 2022-11-12 | Outpatient (CLI) | payer OTHER ==
[~2022-11-12] MED LIST changes: +ATOR40TA75 PO; +HYDR25SU61 PR; +MIRA3350 PO; +OXYB5TAB10 PO
[2022-11-12 17:32] LABS: BASO # 0.1 10^3/uL (0.0-0.2); BASO % 1.1 % (0.0-1.0); EOS # 0.3 10^3/uL (0.0-0.5); EOS % 2.9 % (0.0-3.0); HEMATOCRIT 27.7 % (36.0-47.0); LYMPH # 2.3 10^3/uL (1.5-5.0); MEAN CORPUSCULAR HGB CONC 32.5 g/dl (32.0-36.5); MEAN CORPUSCULAR VOLUME 92.3 fl (80.0-96.0); MONO # 0.9 10^3/uL (0.0-0.8); MONO % 10.2 % (2.0-8.0); NEUTROPHILS # 5.5 10^3/uL (1.5-8.5); NEUTROPHILS % 60.4 % (36.0-66.0); PLATELET COUNT, AUTOMATED 358 10^3/uL (150-450); WHITE BLOOD COUNT 9.2 10^3/uL (4.0-10.0)
[2022-11-12 17:53] LABS: BLOOD UREA NITROGEN 12 MG/DL (9-23); CALCIUM LEVEL 8.6 MG/DL (8.3-10.6); CARBON DIOXIDE LEVEL 24 MMOL/L (20-31); CHLORIDE LEVEL 98 MMOL/L (98-107); CREATININE FOR GFR 0.61 MG/DL (0.55-1.30); GLOMERULAR FILTRATION RATE > 60.0 (>45); GLUCOSE, FASTING 136 MG/DL (74-106); POTASSIUM SERUM 4.3 MMOL/L (3.5-5.1); SODIUM LEVEL 131 MMOL/L (136-145)
== END ==
LOC: M PLALAB 15:02
PROVIDERS: ATTEND Physician Assistant Medical
DX: K92.2 Gastrointestinal hemorrhage, unspecified (principal); I50.30 Unspecified diastolic (congestive) heart failure; E11.9 Type 2 diabetes mellitus without complications

== ENCOUNTER 2022-11-15 08:39 | Outpatient (CLI) | payer OTHER ==
[~2022-11-15] VITALS: Ht 162.6 cm; Wt 94.0 kg
[2022-11-15] VITALS (7 sets, daily range): BP systolic 111–155; BP diastolic 52–82; TEMP 97.7–99.7; O2SAT 96–100
== END 2022-11-15 14:50 ==
LOC: M INFU 08:39
PROVIDERS: ATTEND Physician Assistant Medical
DX: K92.2 Gastrointestinal hemorrhage, unspecified (principal); Z88.8 Allergy status to other drugs, medicaments and biological substances
CPT/HCPCS: 36430; 86850; 86900; 86901; 86920; P9016

== ENCOUNTER → 2022-11-29 | Outpatient (CLI) | payer OTHER | LOC: M WHC 10:08 | PROVIDERS: ATTEND Family Medicine | DX: M85.80 Other specified disorders of bone density and structure, unspecified site (principal) ==

== ENCOUNTER → 2022-12-24 | Outpatient (CLI) | payer OTHER | LOC: M WHC 15:32 | PROVIDERS: ATTEND Family Medicine | DX: Z12.31 Encounter for screening mammogram for malignant neoplasm of breast (principal) ==

== ENCOUNTER → 2023-02-14 | Outpatient (CLI) | payer MEDICAID, MEDICARE ==
[~2023-02-14] MED LIST changes: +ASPI81CH48 PO; +CLEAPOW10 PO; -OXYB5TAB10 PO; +OXYB5TAB11 PO
[2023-02-14 17:40] LABS: BASO # 0.1 10^3/uL (0.0-0.2); BASO % 1.1 % (0.0-1.0); EOS # 0.1 10^3/uL (0.0-0.5); EOS % 1.4 % (0.0-3.0); HEMATOCRIT 23.1 % (36.0-47.0); LYMPH # 1.5 10^3/uL (1.5-5.0); LYMPH % 17.1 % (24.0-44.0); MEAN CORPUSCULAR HEMOGLOBIN 22.8 pg (27.0-33.0); MEAN CORPUSCULAR VOLUME 78.6 fl (80.0-96.0); MONO % 11.8 % (2.0-8.0); PLATELET COUNT, AUTOMATED 312 10^3/uL (150-450); RED BLOOD COUNT 2.94 10^6/uL (4.00-5.40); WHITE BLOOD COUNT 8.8 10^3/uL (4.0-10.0)
[2023-02-14 18:11] LABS: IRON (FE) 6 UG/DL (50-170)
[2023-02-14 18:12] LABS: BLOOD UREA NITROGEN 13 MG/DL (9-23); CREATININE FOR GFR 0.62 MG/DL (0.55-1.30); GLOMERULAR FILTRATION RATE > 60.0 (>45); PERCENT SATURATION 1.2 % (13.2-45.0); TOTAL IRON BINDING CAPACITY 517 UG/DL (250-425)
[2023-02-14 18:14] LABS: FERRITIN 5.2 NG/ML (7.3-270.7); FOLATE 12.4 NG/ML (>5.4); VITAMIN B12 LEVEL 451 PG/ML (211-911)
[2023-02-14 18:26] LABS: HEMOGLOBIN 6.7 g/dl (12.0-15.5)
== END ==
LOC: M PLALAB 16:24
PROVIDERS: ATTEND Internal Medicine Gastroenterology
DX: D62 Acute posthemorrhagic anemia (principal)

== ENCOUNTER 2023-02-15 07:46 | Observation (INO) | payer MEDICAID, MEDICARE, OTHER ==
[~2023-02-15] VITALS: Ht 165.1 cm; Wt 91.5 kg
[2023-02-15] VITALS (11 sets, daily range): BP systolic 154–185; BP diastolic 66–86; TEMP 97.9–99.3; O2SAT 97–100
[~2023-02-15 07:46] MED LIST changes: -ASPI81CH48 PO; -CLEAPOW10 PO
[2023-02-15 08:40] LABS: HEMATOCRIT 21.6 % (36.0-47.0); MEAN CORPUSCULAR HEMOGLOBIN 22.7 pg (27.0-33.0); MEAN CORPUSCULAR HGB CONC 29.6 g/dl (32.0-36.5); MEAN CORPUSCULAR VOLUME 76.6 fl (80.0-96.0); PLATELET COUNT, AUTOMATED 307 10^3/uL (150-450); RED BLOOD COUNT 2.82 10^6/uL (4.00-5.40); WHITE BLOOD COUNT 8.1 10^3/uL (4.0-10.0)
[2023-02-15] MEDS ORDERED: MED REC IN PROGRESS XX SCH (08:40)
[2023-02-15 08:42] LABS: HEMOGLOBIN 6.4 g/dl (12.0-15.5)
[2023-02-15 09:02] LABS: BLOOD UREA NITROGEN 11 MG/DL (9-23); CALCIUM LEVEL 8.6 MG/DL (8.3-10.6); CARBON DIOXIDE LEVEL 24 MMOL/L (20-31); CHLORIDE LEVEL 95 MMOL/L (98-107); CREATININE FOR GFR 0.59 MG/DL (0.55-1.30); GLOMERULAR FILTRATION RATE > 60.0 (>45); GLUCOSE, FASTING 106 MG/DL (74-106); POTASSIUM SERUM 4.1 MMOL/L (3.5-5.1); SODIUM LEVEL 130 MMOL/L (136-145)
[2023-02-15 09:08] LABS: IRON (FE) 11 UG/DL (50-170); PERCENT SATURATION 2.1 % (13.2-45.0); TOTAL IRON BINDING CAPACITY 512 UG/DL (250-425)
[2023-02-15 09:10] LABS: FOLATE 11.9 NG/ML (>5.4); VITAMIN B12 LEVEL 347 PG/ML (211-911)
[2023-02-15] MEDS ORDERED: CLEAPOW10 PO (09:39)
[2023-02-15] MEDS ORDERED: ASPI81CH48 PO (09:39)
[2023-02-15] MEDS ORDERED: ELIQ5TAB PO (09:39)
[2023-02-15] MEDS ORDERED: HOME MED LIST COMPLETE! XX SCH (09:40)
[2023-02-15] MEDS ORDERED: MAALOX 30 ML SUSP *UDC PO PRN (10:35)
[2023-02-15] MEDS ORDERED: MOM 30ML SUSPENSION UDC PO PRN (10:35)
[2023-02-15] MEDS ORDERED: ACETAMINOPHEN TAB 650MG DOSE (2X325MG) PO PRN (10:35)
[2023-02-15] MEDS ORDERED: ALBUTEROL 90 MCG/ACT 8GM HFA INHALER INH PRN (12:20)
[2023-02-15] MEDS ORDERED: DEXTROSE 50% 50ML SYRINGE IV PRN (12:35)
[2023-02-15] MEDS ORDERED: GLUCOSE 4GM CHEW TABLET PO PRN (12:35)
[2023-02-15] MEDS ORDERED: GLUCAGON INJ 1MG VIAL SC PRN (12:35)
[2023-02-15] MEDS: TOPIRAMATE (TopAMAX) 25 MG TAB PO SCH ×2 (12:38→21:23)
[2023-02-15] MEDS: ESCITALOPRAM OXALATE 10 MG TAB (LEXAPRO) PO SCH (12:38)
[2023-02-15] MEDS: DIGOXIN 0.25 MG TAB PO SCH (12:39)
[2023-02-15] MEDS: TORSEMIDE 20 MG TAB PO SCH (12:39)
[2023-02-15] MEDS ORDERED: LORazepam 1 MG TAB PO PRN (13:05)
[2023-02-15] MEDS: INSULIN LISPRO (NovoLOG) PER UNIT SC SCH ×3 (13:38→21:00)
[2023-02-15 14:23] LABS: HEMATOCRIT 29.7 % (36.0-47.0)
[2023-02-15 14:41] LABS: HEMOGLOBIN 8.9 g/dl (12.0-15.5)
[2023-02-15] MEDS: MULTIVITAMINS/MINERALS THERAP 1 TAB PO SCH (14:45)
[2023-02-15] MEDS: FOLIC ACID 1MG TAB PO SCH (14:46)
[2023-02-15] MEDS: THIAMINE 100 MG TAB PO SCH ×2 (14:48→21:23)
[2023-02-15] MEDS: BISOPROLOL FUM 2.5 MG PER 1/2TAB PO SCH ×2 (15:28→21:18)
[2023-02-15] MEDS: TAMOXIFEN CITRATE 10 MG TAB PO SCH (18:23)
[2023-02-15 20:08] LABS: HEMOGLOBIN 8.9 g/dl (12.0-15.5)
[2023-02-15] MEDS: ATORVASTATIN 20 MG TAB PO SCH (21:17)
[2023-02-15] MEDS: PANTOPRAZOLE 40MG VIAL IV SCH (21:18)
[2023-02-15] MEDS: traZODone 100 MG TAB PO SCH (21:23)
[2023-02-16 02:11] LABS: HEMATOCRIT 29.5 % (36.0-47.0); HEMOGLOBIN 8.9 g/dl (12.0-15.5)
[2023-02-16 04:00] VITALS: BP 159/70; TEMP 98.1; O2SAT 96
[2023-02-16 05:45] LABS: BASO # 0.1 10^3/uL (0.0-0.2); BASO % 1.2 % (0.0-1.0); EOS # 0.3 10^3/uL (0.0-0.5); EOS % 3.5 % (0.0-3.0); HEMATOCRIT 27.7 % (36.0-47.0); HEMOGLOBIN 8.5 g/dl (12.0-15.5); LYMPH % 25.9 % (24.0-44.0); MEAN CORPUSCULAR HEMOGLOBIN 24.3 pg (27.0-33.0); MEAN CORPUSCULAR HGB CONC 30.7 g/dl (32.0-36.5); MEAN CORPUSCULAR VOLUME 79.1 fl (80.0-96.0); MONO % 13.3 % (2.0-8.0); NEUTROPHILS # 4.2 10^3/uL (1.5-8.5); NEUTROPHILS % 55.3 % (36.0-66.0); PLATELET COUNT, AUTOMATED 277 10^3/uL (150-450); WHITE BLOOD COUNT 7.7 10^3/uL (4.0-10.0)
[2023-02-16 06:04] LABS: BLOOD UREA NITROGEN 14 MG/DL (9-23); CALCIUM LEVEL 8.3 MG/DL (8.3-10.6); CARBON DIOXIDE LEVEL 25 MMOL/L (20-31); CHLORIDE LEVEL 104 MMOL/L (98-107); GLOMERULAR FILTRATION RATE > 60.0 (>45); GLUCOSE, FASTING 114 MG/DL (74-106); MAGNESIUM LEVEL 1.8 MG/DL (1.8-2.4); POTASSIUM SERUM 3.7 MMOL/L (3.5-5.1); SODIUM LEVEL 138 MMOL/L (136-145)
[2023-02-16] MEDS: INSULIN LISPRO (NovoLOG) PER UNIT SC SCH ×4 (07:30→20:38)
[2023-02-16 07:47] VITALS: BP 166/73; TEMP 98; O2SAT 98
[2023-02-16] MEDS: TAMOXIFEN CITRATE 10 MG TAB PO SCH (08:26)
[2023-02-16] MEDS: ESCITALOPRAM OXALATE 10 MG TAB (LEXAPRO) PO SCH (08:27)
[2023-02-16] MEDS: TOPIRAMATE (TopAMAX) 25 MG TAB PO SCH ×2 (08:27→20:39)
[2023-02-16] MEDS: BISOPROLOL FUM 2.5 MG PER 1/2TAB PO SCH ×2 (08:27→20:39)
[2023-02-16] MEDS: THIAMINE 100 MG TAB PO SCH ×2 (08:27→20:38)
[2023-02-16] MEDS: MULTIVITAMINS/MINERALS THERAP 1 TAB PO SCH (08:27)
[2023-02-16] MEDS: PANTOPRAZOLE 40MG VIAL IV SCH ×2 (08:28→20:38)
[2023-02-16] MEDS: TORSEMIDE 20 MG TAB PO SCH (08:28)
[2023-02-16] MEDS: FOLIC ACID 1MG TAB PO SCH (08:28)
[2023-02-16] MEDS: DIGOXIN 0.25 MG TAB PO SCH (08:30)
[2023-02-16 11:23] VITALS: BP 150/71; TEMP 98.3; O2SAT 98
[2023-02-16 15:48] LABS: SODIUM,RANDOM URINE 75 MMOL/L
[2023-02-16 15:55] LABS: UREA NITROGEN RANDOM URINE 371 MG/DL
[2023-02-16 15:56] LABS: OSMOLALITY URINE 356 MOSM/KG (50-1400)
[2023-02-16 19:02] VITALS: BP 148/69; TEMP 97.4; O2SAT 96
[2023-02-16] MEDS: ATORVASTATIN 20 MG TAB PO SCH (20:38)
[2023-02-16] MEDS: traZODone 100 MG TAB PO SCH (20:39)
[2023-02-17 04:00] VITALS: BP 148/66; TEMP 98.3; O2SAT 97
[2023-02-17 05:40] LABS: BASO # 0.1 10^3/uL (0.0-0.2); BASO % 1.3 % (0.0-1.0); EOS # 0.5 10^3/uL (0.0-0.5); EOS % 5.2 % (0.0-3.0); HEMATOCRIT 28.3 % (36.0-47.0); HEMOGLOBIN 8.3 g/dl (12.0-15.5); LYMPH # 2.5 10^3/uL (1.5-5.0); LYMPH % 26.9 % (24.0-44.0); MEAN CORPUSCULAR HEMOGLOBIN 23.8 pg (27.0-33.0); MEAN CORPUSCULAR HGB CONC 29.3 g/dl (32.0-36.5); MEAN CORPUSCULAR VOLUME 81.1 fl (80.0-96.0); MONO # 0.9 10^3/uL (0.0-0.8); MONO % 9.9 % (2.0-8.0); NEUTROPHILS # 5.2 10^3/uL (1.5-8.5); NEUTROPHILS % 56.1 % (36.0-66.0); PLATELET COUNT, AUTOMATED 285 10^3/uL (150-450); RED BLOOD COUNT 3.49 10^6/uL (4.00-5.40); WHITE BLOOD COUNT 9.3 10^3/uL (4.0-10.0)
[2023-02-17 05:51] LABS: BLOOD UREA NITROGEN 14 MG/DL (9-23); CALCIUM LEVEL 8.1 MG/DL (8.3-10.6); CARBON DIOXIDE LEVEL 24 MMOL/L (20-31); CHLORIDE LEVEL 105 MMOL/L (98-107); CREATININE FOR GFR 0.62 MG/DL (0.55-1.30); GLOMERULAR FILTRATION RATE > 60.0 (>45); GLUCOSE, FASTING 162 MG/DL (74-106); MAGNESIUM LEVEL 1.8 MG/DL (1.8-2.4); POTASSIUM SERUM 3.7 MMOL/L (3.5-5.1); SODIUM LEVEL 138 MMOL/L (136-145)
[2023-02-17] MEDS: INSULIN LISPRO (NovoLOG) PER UNIT SC SCH ×2 (07:47→12:57)
[2023-02-17] MEDS: ESCITALOPRAM OXALATE 10 MG TAB (LEXAPRO) PO SCH (07:47)
[2023-02-17] MEDS: TOPIRAMATE (TopAMAX) 25 MG TAB PO SCH (07:48)
[2023-02-17] MEDS: FOLIC ACID 1MG TAB PO SCH (07:48)
[2023-02-17] MEDS: MULTIVITAMINS/MINERALS THERAP 1 TAB PO SCH (07:48)
[2023-02-17] MEDS: THIAMINE 100 MG TAB PO SCH (07:48)
[2023-02-17] MEDS: TORSEMIDE 20 MG TAB PO SCH (07:48)
[2023-02-17] MEDS: TAMOXIFEN CITRATE 10 MG TAB PO SCH (07:49)
[2023-02-17] MEDS: DIGOXIN 0.25 MG TAB PO SCH (07:49)
[2023-02-17] MEDS: PANTOPRAZOLE 40MG VIAL IV SCH (07:50)
[2023-02-17 07:53] VITALS: BP 179/72; TEMP 97.3
[2023-02-17 07:54] VITALS: BP 179/72
[2023-02-17] MEDS: BISOPROLOL FUM 2.5 MG PER 1/2TAB PO SCH (07:54)
[2023-02-17] MEDS ORDERED: APIXABAN 5 MG TAB (ELIQUIS) PO SCH (09:00)
[2023-02-17] MEDS ORDERED: FERRIC CARBOXYMALTOSE INJ 750 MG, VIAL MATE ADAPTER 1 EACH in NS 250 ML IV ONE (10:00)
[2023-02-17 12:10] VITALS: BP 137/63
== END 2023-02-17 13:56 | disposition home or self-care (01) ==
LOC: M ED 07:46 → M ED INP 10:34 → M PCU 15:05
PROVIDERS: ADMIT Student in an Organized Health Care Education/Training Program; ATTEND Student in an Organized Health Care Education/Training Program
DX: D50.9 Iron deficiency anemia, unspecified (principal); E87.1 Hypo-osmolality and hyponatremia; I11.0 Hypertensive heart disease with heart failure; I48.0 Paroxysmal atrial fibrillation; E11.9 Type 2 diabetes mellitus without complications; G47.33 Obstructive sleep apnea (adult) (pediatric); I50.30 Unspecified diastolic (congestive) heart failure; F10.90 Alcohol use, unspecified, uncomplicated; K21.9 Gastro-esophageal reflux disease without esophagitis; F32.A Depression, unspecified; F41.9 Anxiety disorder, unspecified; I25.10 Atherosclerotic heart disease of native coronary artery without angina pectoris; J45.909 Unspecified asthma, uncomplicated; E78.5 Hyperlipidemia, unspecified; G43.909 Migraine, unspecified, not intractable, without status migrainosus; Z85.3 Personal history of malignant neoplasm of breast; Z98.84 Bariatric surgery status; Z88.8 Allergy status to other drugs, medicaments and biological substances; Z79.899 Other long term (current) drug therapy; Z79.01 Long term (current) use of anticoagulants; Z79.84 Long term (current) use of oral hypoglycemic drugs; Z81.1 Family history of alcohol abuse and dependence; Z83.3 Family history of diabetes mellitus; Z82.49 Family history of ischemic heart disease and other diseases of the circulatory system
CPT/HCPCS: 36415; 36430; 71045; 78278; 80048; 82607; 82728; 82746; 83550; 83735; 83930; 83935; 84300; 84540; 85014; 85018; 85025; 85027; 86850; 86900; 86901; 86920; 87635; 93005; 96365; 96375; 96376; 99285; A9560; C9113; J1439; J1815; P9016

== ENCOUNTER 2023-02-22 07:55 | Outpatient (CLI) | payer OTHER ==
[~2023-02-22] VITALS: Ht 165.1 cm; Wt 93.4 kg
[~2023-02-22 07:55] MED LIST changes: +ALBUTEROL SULFATE 2.5MG/0.5ML INH NEB SOLN INH PRN; +ASPI81CH48 PO; +CLEAPOW10 PO; +EPINEPHrine INJ 1 MG/ML 1ML AMP IM PRN; +NS 1,000 ML IV SCH; +diphenhydrAMINE 50MG/ML VIAL IV PRN; +methylPREDNISolone 125MG 2ML VIAL IV PRN
[2023-02-22] MEDS ORDERED: IRON SUCROSE 500 MG in NS 250 ML OVER 4 HRS IV ONE (08:00)
[2023-02-22 08:15] VITALS: BP 168/79; O2SAT 98
[2023-02-22 09:00] VITALS: BP 152/67; O2SAT 100
[2023-02-22 10:00] VITALS: BP 161/72; O2SAT 98
[2023-02-22 11:00] VITALS: BP 156/67; O2SAT 98
[2023-02-22 12:33] VITALS: BP 148/80; O2SAT 99
== END 2023-02-22 12:40 ==
LOC: M INFU 07:55
PROVIDERS: ATTEND Family Medicine
DX: D50.9 Iron deficiency anemia, unspecified (principal); Z88.8 Allergy status to other drugs, medicaments and biological substances
CPT/HCPCS: 96365; 96366; J1756

== ENCOUNTER 2023-03-01 08:30 | Outpatient (CLI) | payer OTHER ==
[~2023-03-01] VITALS: Ht 162.6 cm; Wt 93.4 kg
[~2023-03-01 08:30] MED LIST changes: +IRON SUCROSE 500 MG in NS 250 ML OVER 4 HRS IV ONE
[2023-03-01 08:36] VITALS: BP 194/82; O2SAT 100
[2023-03-01 10:00] VITALS: BP 167/77; O2SAT 100
[2023-03-01 11:00] VITALS: BP 155/89; O2SAT 100
[2023-03-01 12:00] VITALS: BP 148/72; O2SAT 99
[2023-03-01 12:59] VITALS: BP 148/62; O2SAT 100
== END 2023-03-01 13:00 ==
LOC: M INFU 08:30
PROVIDERS: ATTEND Family Medicine
DX: D50.9 Iron deficiency anemia, unspecified (principal); Z88.8 Allergy status to other drugs, medicaments and biological substances
CPT/HCPCS: 96365; 96366; J1756

== ENCOUNTER → 2023-03-11 | Outpatient (REF) | payer OTHER ==
[~2023-03-11] MED LIST changes: -ALBUTEROL SULFATE 2.5MG/0.5ML INH NEB SOLN INH PRN; -EPINEPHrine INJ 1 MG/ML 1ML AMP IM PRN; -IRON SUCROSE 500 MG in NS 250 ML OVER 4 HRS IV ONE; -NS 1,000 ML IV SCH; -diphenhydrAMINE 50MG/ML VIAL IV PRN; -methylPREDNISolone 125MG 2ML VIAL IV PRN
[2023-03-11 16:50] LABS: BASO # 0.1 10^3/uL (0.0-0.2); BASO % 0.9 % (0.0-1.0); EOS # 0.3 10^3/uL (0.0-0.5); HEMOGLOBIN 11.6 g/dl (12.0-15.5); LYMPH # 1.6 10^3/uL (1.5-5.0); LYMPH % 15.7 % (24.0-44.0); MEAN CORPUSCULAR HEMOGLOBIN 28.4 pg (27.0-33.0); MEAN CORPUSCULAR HGB CONC 31.4 g/dl (32.0-36.5); MEAN CORPUSCULAR VOLUME 90.7 fl (80.0-96.0); MONO # 0.8 10^3/uL (0.0-0.8); MONO % 7.8 % (2.0-8.0); NEUTROPHILS # 7.2 10^3/uL (1.5-8.5); NEUTROPHILS % 72.2 % (36.0-66.0); PLATELET COUNT, AUTOMATED 301 10^3/uL (150-450); RED BLOOD COUNT 4.08 10^6/uL (4.00-5.40)
[2023-03-11 17:16] LABS: ALBUMIN 3.6 G/DL (3.2-5.2); ALKALINE PHOSPHATASE 78 U/L (46-116); ALT/SGPT 48 U/L (7.0-40); AST/SGOT 44 U/L (<34); BILIRUBIN,TOTAL 0.4 MG/DL (0.3-1.2); BLOOD UREA NITROGEN 10 MG/DL (9-23); CALCIUM LEVEL 8.9 MG/DL (8.3-10.6); CARBON DIOXIDE LEVEL 25 MMOL/L (20-31); CHLORIDE LEVEL 104 MMOL/L (98-107); GLOMERULAR FILTRATION RATE > 60.0 (>45); GLUCOSE, FASTING 118 MG/DL (74-106); POTASSIUM SERUM 4.8 MMOL/L (3.5-5.1); SODIUM LEVEL 137 MMOL/L (136-145); TOTAL PROTEIN 6.7 G/DL (5.7-8.2)
[2023-03-11 17:17] LABS: FERRITIN 540.8 NG/ML (7.3-270.7)
[2023-03-11 17:24] LABS: ANISOCYTOSIS 4+; PLATELET ESTIMATE NORMAL (NORMAL)
[2023-03-11 17:26] LABS: TEAR DROP CELLS 1+
[2023-03-11 17:28] LABS: HYPOCHROMASIA 2+
[2023-03-11 17:29] LABS: OVALOCYTES 1+
== END ==
LOC: M SFHCPLAZ 14:08
PROVIDERS: ATTEND Family Medicine
DX: J45.40 Moderate persistent asthma, uncomplicated (principal)

== ENCOUNTER → 2023-03-14 | Outpatient (REF) | payer OTHER ==
[~2023-03-14] MED LIST changes: +TOPI-21 PO; -TOPI-254 PO
== END ==
LOC: M SFHCPLAZ 09:28
PROVIDERS: ATTEND Family Medicine
DX: J45.40 Moderate persistent asthma, uncomplicated (principal)

== ENCOUNTER → 2023-06-08 | Outpatient (REF) ==
[~2023-06-08] MED LIST changes: +IRBE150T27 PO; -IRBE150T7 PO; +IRBE300T25 PO; -IRBE300T7 PO; -OXYB5TAB11 PO; +OXYB5TAB14 PO
== END ==
LOC: M PLAIMG 14:05
PROVIDERS: ATTEND Internal Medicine
DX: R52 Pain, unspecified (principal)

== ENCOUNTER → 2023-06-22 | Outpatient (CLI) | payer OTHER ==
[2023-06-22 15:04] LABS: BASO # 0.1 10^3/uL (0.0-0.2); BASO % 1.7 % (0.0-1.0); EOS # 0.3 10^3/uL (0.0-0.5); EOS % 4.7 % (0.0-3.0); LYMPH # 1.7 10^3/uL (1.5-5.0); LYMPH % 24.2 % (24.0-44.0); MEAN CORPUSCULAR HEMOGLOBIN 26.2 pg (27.0-33.0); MEAN CORPUSCULAR VOLUME 87.2 fl (80.0-96.0); MONO # 0.8 10^3/uL (0.0-0.8); MONO % 11.9 % (2.0-8.0); NEUTROPHILS # 4.1 10^3/uL (1.5-8.5); NEUTROPHILS % 57.4 % (36.0-66.0); PLATELET COUNT, AUTOMATED 285 10^3/uL (150-450); RED BLOOD COUNT 3.44 10^6/uL (4.00-5.40); WHITE BLOOD COUNT 7.1 10^3/uL (4.0-10.0)
[2023-06-22 15:29] LABS: FERRITIN 9.5 NG/ML (7.3-270.7); FREE T4 0.82 NG/DL (0.89-1.76)
[2023-06-22 15:30] LABS: ALBUMIN 3.6 G/DL (3.2-5.2); ALKALINE PHOSPHATASE 95 U/L (46-116); ALT/SGPT 39 U/L (7.0-40); AST/SGOT 48 U/L (<34); BILIRUBIN,TOTAL 0.6 MG/DL (0.3-1.2); BLOOD UREA NITROGEN 13 MG/DL (9-23); CALCIUM LEVEL 8.2 MG/DL (8.3-10.6); CARBON DIOXIDE LEVEL 25 MMOL/L (20-31); CHLORIDE LEVEL 101 MMOL/L (98-107); CHOLESTEROL LEVEL 137 MG/DL (<200); CHOLESTEROL RISK RATIO 2.26 (<5); CREATININE FOR GFR 0.68 MG/DL (0.55-1.30); GLOMERULAR FILTRATION RATE > 60.0 (>45); GLUCOSE, FASTING 128 MG/DL (74-106); HDL CHOLESTEROL 60.6 MG/DL (>40); LDL CHOLESTEROL 49.2 MG/DL (<100); NON-HDL-C 76.4 MG/DL; POTASSIUM SERUM 4.1 MMOL/L (3.5-5.1); SODIUM LEVEL 134 MMOL/L (136-145); THYROID STIMULATING HORMONE 5.606 uIU/ML (0.55-4.78); TOTAL PROTEIN 6.8 G/DL (5.7-8.2); TRIGLYCERIDES LEVEL 136 MG/DL (<150)
[2023-06-22 15:31] LABS: VITAMIN B12 LEVEL 595 PG/ML (211-911)
[2023-06-22 15:36] LABS: HEMOGLOBIN A1c 5.9 % (4.0-6.0)
== END ==
LOC: M PLALAB 09:14
PROVIDERS: ATTEND Family Medicine
DX: I10 Essential (primary) hypertension (principal)

== ENCOUNTER → 2023-06-23 | Outpatient (REF) | payer OTHER | LOC: M SFHCPLAZ 16:56 | PROVIDERS: ATTEND Family Medicine | DX: I50.32 Chronic diastolic (congestive) heart failure (principal); D50.9 Iron deficiency anemia, unspecified ==

== ENCOUNTER 2023-07-11 08:13 | Outpatient (CLI) | payer OTHER ==
[~2023-07-11] VITALS: Ht 165.1 cm; Wt 90.9 kg
[~2023-07-11 08:13] MED LIST changes: +ALBUTEROL SULFATE 2.5MG/0.5ML INH NEB SOLN INH PRN; +EPINEPHrine INJ 1 MG/ML 1ML AMP IM PRN; +NS 1,000 ML IV SCH; +diphenhydrAMINE 50MG/ML VIAL IV PRN; +methylPREDNISolone 125MG 2ML VIAL IV PRN
[2023-07-11 08:20] VITALS: BP 185/81; O2SAT 99
[2023-07-11] MEDS: IRON SUCROSE 500 MG in NS 250 ML OVER 4 HRS IV ONE (08:57)
[2023-07-11] MEDS ORDERED: methylPREDNISolone 125MG 2ML VIAL As Ordered ONE (09:00)
[2023-07-11] MEDS ORDERED: EPINEPHrine INJ 1 MG/ML 1ML AMP As Ordered ONE (09:01)
[2023-07-11] MEDS ORDERED: diphenhydrAMINE 50MG/ML VIAL As Ordered ONE (09:01)
[2023-07-11 09:30] VITALS: BP 171/77; O2SAT 98
[2023-07-11 11:30] VITALS: BP 168/62; O2SAT 98
[2023-07-11 12:40] VITALS: BP 170/77; O2SAT 98
== END 2023-07-11 13:15 | disposition home or self-care (01) ==
LOC: M INFU 08:13
PROVIDERS: ATTEND Family Medicine
DX: D50.9 Iron deficiency anemia, unspecified (principal); Z88.8 Allergy status to other drugs, medicaments and biological substances
CPT/HCPCS: 96365; 96366; J1756

== ENCOUNTER → 2023-07-19 | Outpatient (CLI) | payer OTHER ==
[~2023-07-19] MED LIST changes: -ALBUTEROL SULFATE 2.5MG/0.5ML INH NEB SOLN INH PRN; +DIPH1TAB80 PO; -DIPH2.5T14 PO; -EPINEPHrine INJ 1 MG/ML 1ML AMP IM PRN; -NS 1,000 ML IV SCH; -diphenhydrAMINE 50MG/ML VIAL IV PRN; -methylPREDNISolone 125MG 2ML VIAL IV PRN
[2023-07-19 15:53] LABS: BASO # 0.1 10^3/uL (0.0-0.2); BASO % 1.5 % (0.0-1.0); EOS # 0.2 10^3/uL (0.0-0.5); EOS % 2.6 % (0.0-3.0); HEMATOCRIT 32.2 % (36.0-47.0); HEMOGLOBIN 9.8 g/dl (12.0-15.5); LYMPH # 1.3 10^3/uL (1.5-5.0); LYMPH % 19.5 % (24.0-44.0); MEAN CORPUSCULAR HEMOGLOBIN 26.4 pg (27.0-33.0); MEAN CORPUSCULAR HGB CONC 30.4 g/dl (32.0-36.5); MEAN CORPUSCULAR VOLUME 86.8 fl (80.0-96.0); MONO # 0.8 10^3/uL (0.0-0.8); MONO % 12.2 % (2.0-8.0); NEUTROPHILS # 4.4 10^3/uL (1.5-8.5); NEUTROPHILS % 63.8 % (36.0-66.0); PLATELET COUNT, AUTOMATED 275 10^3/uL (150-450); RED BLOOD COUNT 3.71 10^6/uL (4.00-5.40); WHITE BLOOD COUNT 6.9 10^3/uL (4.0-10.0)
== END ==
LOC: M PLALAB 13:12
PROVIDERS: ATTEND Internal Medicine Critical Care Medicine
DX: J45.50 Severe persistent asthma, uncomplicated (principal)

== ENCOUNTER → 2023-08-03 | Outpatient (CLI) | payer OTHER ==
[2023-08-03 15:11] LABS: BASO # 0.1 10^3/uL (0.0-0.2); BASO % 1.4 % (0.0-1.0); EOS # 0.2 10^3/uL (0.0-0.5); EOS % 2.4 % (0.0-3.0); HEMATOCRIT 30.7 % (36.0-47.0); HEMOGLOBIN 9.9 g/dl (12.0-15.5); LYMPH # 1.7 10^3/uL (1.5-5.0); LYMPH % 23.8 % (24.0-44.0); MEAN CORPUSCULAR HEMOGLOBIN 27.8 pg (27.0-33.0); MEAN CORPUSCULAR HGB CONC 32.2 g/dl (32.0-36.5); MEAN CORPUSCULAR VOLUME 86.2 fl (80.0-96.0); MONO # 0.7 10^3/uL (0.0-0.8); MONO % 9.3 % (2.0-8.0); NEUTROPHILS # 4.5 10^3/uL (1.5-8.5); NEUTROPHILS % 62.7 % (36.0-66.0); PLATELET COUNT, AUTOMATED 305 10^3/uL (150-450); RED BLOOD COUNT 3.56 10^6/uL (4.00-5.40); WHITE BLOOD COUNT 7.2 10^3/uL (4.0-10.0)
[2023-08-03 15:27] LABS: INR 1.13; PARTIAL THROMBOPLASTIN TIME 29.9 SECONDS (24.8-34.2); PROTHROMBIN TIME 14.2 SECONDS (12.5-14.5)
== END ==
LOC: M PLALAB 14:26
PROVIDERS: ATTEND Family Medicine
DX: D50.9 Iron deficiency anemia, unspecified (principal)

== ENCOUNTER → 2023-08-18 | Outpatient (CLI) | payer OTHER ==
[2023-08-18 16:00] LABS: BASO # 0.1 10^3/uL (0.0-0.2); BASO % 1.1 % (0.0-1.0); EOS # 0.1 10^3/uL (0.0-0.5); EOS % 1.8 % (0.0-3.0); HEMATOCRIT 28.1 % (36.0-47.0); HEMOGLOBIN 8.6 g/dl (12.0-15.5); LYMPH # 1.5 10^3/uL (1.5-5.0); LYMPH % 20.1 % (24.0-44.0); MEAN CORPUSCULAR HEMOGLOBIN 26.3 pg (27.0-33.0); MEAN CORPUSCULAR HGB CONC 30.6 g/dl (32.0-36.5); MEAN CORPUSCULAR VOLUME 85.9 fl (80.0-96.0); MONO # 0.7 10^3/uL (0.0-0.8); MONO % 9.8 % (2.0-8.0); NEUTROPHILS # 4.8 10^3/uL (1.5-8.5); NEUTROPHILS % 66.8 % (36.0-66.0); PLATELET COUNT, AUTOMATED 327 10^3/uL (150-450); RED BLOOD COUNT 3.27 10^6/uL (4.00-5.40); WHITE BLOOD COUNT 7.2 10^3/uL (4.0-10.0)
[2023-08-18 16:31] LABS: FERRITIN 9.9 NG/ML (7.3-270.7)
[2023-08-18 16:39] LABS: ALBUMIN 3.4 G/DL (3.2-5.2); ALKALINE PHOSPHATASE 93 U/L (46-116); ALT/SGPT 45 U/L (7.0-40); AST/SGOT 73 U/L (<34); BILIRUBIN,TOTAL 0.4 MG/DL (0.3-1.2); BLOOD UREA NITROGEN 11 MG/DL (9-23); CALCIUM LEVEL 9.4 MG/DL (8.3-10.6); CARBON DIOXIDE LEVEL 27 MMOL/L (20-31); CHLORIDE LEVEL 103 MMOL/L (98-107); CREATININE FOR GFR 0.64 MG/DL (0.55-1.30); GLOMERULAR FILTRATION RATE > 60.0 (>45); GLUCOSE, FASTING 138 MG/DL (74-106); IMMUNOGLOBULIN E 177.9 IU/ML (0-378); POTASSIUM SERUM 4.7 MMOL/L (3.5-5.1); SODIUM LEVEL 137 MMOL/L (136-145); TOTAL PROTEIN 6.9 G/DL (5.7-8.2)
== END ==
LOC: M PLALAB 13:29
PROVIDERS: ATTEND Family Medicine
DX: I50.32 Chronic diastolic (congestive) heart failure (principal)

== ENCOUNTER 2023-08-22 08:40 | Outpatient (CLI) | payer OTHER ==
[~2023-08-22] VITALS: Ht 165.1 cm; Wt 93.2 kg
[2023-08-22] MEDS: IRON SUCROSE 500 MG in NS 250 ML OVER 4 HRS IV ONE (08:30)
[~2023-08-22 08:40] MED LIST changes: +ALBUTEROL SULFATE 2.5MG/0.5ML INH NEB SOLN INH PRN; +EPINEPHrine INJ 1 MG/ML 1ML AMP IM PRN; +NS 1,000 ML IV SCH; +diphenhydrAMINE 50MG/ML VIAL IV PRN; +methylPREDNISolone 125MG 2ML VIAL IV PRN
[2023-08-22 08:45] VITALS: BP 160/80; O2SAT 98
[2023-08-22 11:00] VITALS: BP 119/70; O2SAT 98
[2023-08-22 12:00] VITALS: BP 122/79; O2SAT 97
[2023-08-22 13:48] VITALS: BP 168/58; O2SAT 97
== END 2023-08-22 13:50 ==
LOC: M INFU 08:40
PROVIDERS: ATTEND Family Medicine
DX: D50.9 Iron deficiency anemia, unspecified (principal); Z88.8 Allergy status to other drugs, medicaments and biological substances
CPT/HCPCS: 96365; 96366; J1756

== ENCOUNTER → 2023-08-23 | Outpatient (CLI) | payer OTHER ==
[~2023-08-23] MED LIST changes: -ALBUTEROL SULFATE 2.5MG/0.5ML INH NEB SOLN INH PRN; -EPINEPHrine INJ 1 MG/ML 1ML AMP IM PRN; +GLUCAGON INJ 1MG VIAL As Ordered ONE; +ISOVUE-370 76% 100ML VIAL As Ordered ONE; +NEULUMEX 0.1% SUSPENSION 450ML BOTTLE (FORMERLY VOLUMEN) As Ordered ONE; -NS 1,000 ML IV SCH; -diphenhydrAMINE 50MG/ML VIAL IV PRN; -methylPREDNISolone 125MG 2ML VIAL IV PRN
== END ==
LOC: M RAD 08:49
PROVIDERS: ATTEND Family Medicine
DX: D50.9 Iron deficiency anemia, unspecified (principal)
CPT/HCPCS: 74177; J1610; Q9967

== ENCOUNTER 2023-08-29 09:30 | Outpatient (CLI) | payer OTHER ==
[~2023-08-29] VITALS: Ht 165.1 cm; Wt 94.0 kg
[~2023-08-29 09:30] MED LIST changes: +ALBUTEROL SULFATE 2.5MG/0.5ML INH NEB SOLN INH PRN; +EPINEPHrine INJ 1 MG/ML 1ML AMP IM PRN; -GLUCAGON INJ 1MG VIAL As Ordered ONE; -ISOVUE-370 76% 100ML VIAL As Ordered ONE; -NEULUMEX 0.1% SUSPENSION 450ML BOTTLE (FORMERLY VOLUMEN) As Ordered ONE; +NS 1,000 ML IV SCH; +diphenhydrAMINE 50MG/ML VIAL IV PRN; +methylPREDNISolone 125MG 2ML VIAL IV PRN
[2023-08-29 09:35] VITALS: BP 148/62; O2SAT 98
[2023-08-29] MEDS: IRON SUCROSE 500 MG in NS 250 ML OVER 4 HRS IV ONE (09:57)
[2023-08-29 11:00] VITALS: BP 160/70; O2SAT 96
[2023-08-29 12:00] VITALS: BP 154/90; O2SAT 97
[2023-08-29 14:00] VITALS: BP 160/88; O2SAT 96
== END 2023-08-29 14:10 | disposition home or self-care (01) ==
LOC: M INFU 09:30
PROVIDERS: ATTEND Family Medicine
DX: D50.9 Iron deficiency anemia, unspecified (principal); Z88.8 Allergy status to other drugs, medicaments and biological substances
CPT/HCPCS: 96365; 96366; J1756

== ENCOUNTER → 2023-11-02 | Outpatient (CLI) | payer OTHER ==
[~2023-11-02] MED LIST changes: -ALBUTEROL SULFATE 2.5MG/0.5ML INH NEB SOLN INH PRN; -EPINEPHrine INJ 1 MG/ML 1ML AMP IM PRN; -NS 1,000 ML IV SCH; +ONDA-282; -ONDA4TAB6; -diphenhydrAMINE 50MG/ML VIAL IV PRN; -methylPREDNISolone 125MG 2ML VIAL IV PRN
[2023-11-02 15:06] LABS: BASO # 0.1 10^3/uL (0.0-0.2); BASO % 1.5 % (0.0-1.0); EOS # 0.2 10^3/uL (0.0-0.5); EOS % 3.4 % (0.0-3.0); HEMATOCRIT 35.1 % (36.0-47.0); HEMOGLOBIN 11.5 g/dl (12.0-15.5); LYMPH # 1.1 10^3/uL (1.5-5.0); LYMPH % 16.6 % (24.0-44.0); MEAN CORPUSCULAR HEMOGLOBIN 29.6 pg (27.0-33.0); MEAN CORPUSCULAR HGB CONC 32.8 g/dl (32.0-36.5); MEAN CORPUSCULAR VOLUME 90.5 fl (80.0-96.0); MONO # 0.7 10^3/uL (0.0-0.8); MONO % 10.4 % (2.0-8.0); NEUTROPHILS # 4.4 10^3/uL (1.5-8.5); NEUTROPHILS % 67.6 % (36.0-66.0); PLATELET COUNT, AUTOMATED 344 10^3/uL (150-450); RED BLOOD COUNT 3.88 10^6/uL (4.00-5.40); WHITE BLOOD COUNT 6.6 10^3/uL (4.0-10.0)
[2023-11-02 15:12] LABS: ALBUMIN 3.8 G/DL (3.2-5.2); ALKALINE PHOSPHATASE 108 U/L (46-116); ALT/SGPT 63 U/L (7.0-40); AST/SGOT 71 U/L (<34); BILIRUBIN,TOTAL 0.8 MG/DL (0.3-1.2); BLOOD UREA NITROGEN 12 MG/DL (9-23); CARBON DIOXIDE LEVEL 26 MMOL/L (20-31); CHLORIDE LEVEL 99 MMOL/L (98-107); CREATININE FOR GFR 0.68 MG/DL (0.55-1.30); GLOMERULAR FILTRATION RATE > 60.0 (>45); GLUCOSE, FASTING 164 MG/DL (74-106); POTASSIUM SERUM 5.1 MMOL/L (3.5-5.1); SODIUM LEVEL 132 MMOL/L (136-145); TOTAL PROTEIN 7.3 G/DL (5.7-8.2)
[2023-11-02 15:14] LABS: FERRITIN 19.9 NG/ML (7.3-270.7); VITAMIN B12 LEVEL 690 PG/ML (211-911)
[2023-11-02 15:21] LABS: INR 1.24; PARTIAL THROMBOPLASTIN TIME 28.7 SECONDS (24.8-34.2); PROTHROMBIN TIME 15.2 SECONDS (12.5-14.5)
[2023-11-02 15:43] LABS: HEMOGLOBIN A1c 5.7 % (4.0-6.0)
== END ==
LOC: M PLALAB 12:55
PROVIDERS: ATTEND Family Medicine
DX: I10 Essential (primary) hypertension (principal); E53.8 Deficiency of other specified B group vitamins; D50.9 Iron deficiency anemia, unspecified; K74.00 Hepatic fibrosis, unspecified

== ENCOUNTER → 2023-11-10 | Outpatient (REF) | payer OTHER | LOC: M SFHCPLAZ 17:28 | PROVIDERS: ATTEND Family Medicine | DX: D50.9 Iron deficiency anemia, unspecified (principal); K74.00 Hepatic fibrosis, unspecified; I50.32 Chronic diastolic (congestive) heart failure; E11.9 Type 2 diabetes mellitus without complications; E55.9 Vitamin D deficiency, unspecified ==

== ENCOUNTER → 2023-11-10 | Outpatient (CLI) | payer OTHER | LOC: M SLEEP HO 11:51 | PROVIDERS: ATTEND Internal Medicine Critical Care Medicine | DX: G47.30 Sleep apnea, unspecified (principal) ==

== ENCOUNTER 2023-11-11 08:00 | Outpatient (CLI) | payer OTHER ==
[~2023-11-11] VITALS: Ht 165.1 cm; Wt 92.0 kg
[2023-11-11 08:00] VITALS: BP 152/67; O2SAT 97
[~2023-11-11 08:00] MED LIST changes: +ALBUTEROL SULFATE 2.5MG/0.5ML INH NEB SOLN INH PRN; +EPINEPHrine INJ 1 MG/ML 1ML AMP IM PRN; +NS 1,000 ML IV SCH; +diphenhydrAMINE 50MG/ML VIAL IV PRN; +methylPREDNISolone 125MG 2ML VIAL IV PRN
[2023-11-11] MEDS: IRON SUCROSE 500 MG in NS 250 ML OVER 4 HRS IV ONE (08:30)
[2023-11-11 09:29] VITALS: BP 157/63; O2SAT 97
[2023-11-11 12:38] VITALS: BP 138/60; O2SAT 95
== END 2023-11-11 12:40 | disposition home or self-care (01) ==
LOC: M INFU 08:00
PROVIDERS: ATTEND Family Medicine
DX: D50.9 Iron deficiency anemia, unspecified (principal); Z88.8 Allergy status to other drugs, medicaments and biological substances
CPT/HCPCS: 96365; 96366; J1756

== ENCOUNTER → 2023-12-13 | Outpatient (REF) | payer OTHER ==
[~2023-12-13] MED LIST changes: -ALBUTEROL SULFATE 2.5MG/0.5ML INH NEB SOLN INH PRN; -EPINEPHrine INJ 1 MG/ML 1ML AMP IM PRN; -NS 1,000 ML IV SCH; -diphenhydrAMINE 50MG/ML VIAL IV PRN; -methylPREDNISolone 125MG 2ML VIAL IV PRN
== END ==
LOC: M SFHCPLAZ 12:24
PROVIDERS: ATTEND Physician Assistant Medical
DX: J06.9 Acute upper respiratory infection, unspecified (principal)

== ENCOUNTER → 2023-12-14 | Outpatient (CLI) | payer OTHER | LOC: M RAD 08:02 | PROVIDERS: ATTEND Family Medicine | DX: K74.00 Hepatic fibrosis, unspecified (principal) ==

== ENCOUNTER → 2023-12-14 | Outpatient (CLI) | payer OTHER ==
[2023-12-14 15:20] LABS: BASO # 0.1 10^3/uL (0.0-0.2); BASO % 1.2 % (0.0-1.0); EOS # 0.2 10^3/uL (0.0-0.5); HEMATOCRIT 39.6 % (36.0-47.0); HEMOGLOBIN 12.7 g/dl (12.0-15.5); LYMPH # 1.7 10^3/uL (1.5-5.0); LYMPH % 19.2 % (24.0-44.0); MEAN CORPUSCULAR HEMOGLOBIN 29.6 pg (27.0-33.0); MEAN CORPUSCULAR HGB CONC 32.1 g/dl (32.0-36.5); MEAN CORPUSCULAR VOLUME 92.3 fl (80.0-96.0); MONO # 0.7 10^3/uL (0.0-0.8); MONO % 8.6 % (2.0-8.0); NEUTROPHILS # 5.9 10^3/uL (1.5-8.5); NEUTROPHILS % 68.5 % (36.0-66.0); PLATELET COUNT, AUTOMATED 315 10^3/uL (150-450); RED BLOOD COUNT 4.29 10^6/uL (4.00-5.40); WHITE BLOOD COUNT 8.6 10^3/uL (4.0-10.0)
[2023-12-14 15:31] LABS: INR 1.12; PARTIAL THROMBOPLASTIN TIME 30.4 SECONDS (24.8-34.2); PROTHROMBIN TIME 14.1 SECONDS (12.5-14.5)
[2023-12-14 15:31] LABS: HEMOGLOBIN A1c 5.5 % (4.0-6.0)
[2023-12-14 15:47] LABS: ALBUMIN 4.1 G/DL (3.2-5.2); ALKALINE PHOSPHATASE 112 U/L (46-116); ALT/SGPT 61 U/L (7.0-40); AST/SGOT 104 U/L (<34); BILIRUBIN,TOTAL 0.6 MG/DL (0.3-1.2); BLOOD UREA NITROGEN 13 MG/DL (9-23); CALCIUM LEVEL 10.4 MG/DL (8.3-10.6); CARBON DIOXIDE LEVEL 27 MMOL/L (20-31); CHLORIDE LEVEL 100 MMOL/L (98-107); CHOLESTEROL LEVEL 182 MG/DL (<200); CHOLESTEROL RISK RATIO 2.91 (<5); CREATININE FOR GFR 0.76 MG/DL (0.55-1.30); GLOMERULAR FILTRATION RATE > 60.0 (>45); GLUCOSE, FASTING 127 MG/DL (74-106); HDL CHOLESTEROL 62.4 MG/DL (>40); LDL CHOLESTEROL 88.4 MG/DL (<100); NON-HDL-C 119.6 MG/DL; POTASSIUM SERUM 4.3 MMOL/L (3.5-5.1); PTH INTACT 45.3 PG/ML (18.5-88.0); SODIUM LEVEL 133 MMOL/L (136-145); TRIGLYCERIDES LEVEL 156 MG/DL (<150)
[2023-12-14 15:48] LABS: TOTAL 25(OH) VITAMIN D 50.4 NG/ML (20.0-100.0)
[2023-12-22 15:12] LABS: ALPHA 2-MACROGLOBULINS,QN 353 mg/dL (106-279); ALT (SGPT) P5P 46 U/L (6-29); APOLIPOPROTEIN A-1 185 mg/dL (101-198); BILIRUBIN, TOTAL 0.5 mg/dL (0.2-1.2); FIBROSIS STAGE ADVANCED FIBROSIS (F0); GGT 453 U/L (3-65); HAPTOGLOBIN 192 mg/dL (43-212); NECROINFLAM ACT GRADE MINIMAL ACTIVITY (A0); NECROINFLAM ACT SCORE 0.36
== END ==
LOC: M PLALAB 14:09
PROVIDERS: ATTEND Family Medicine
DX: I50.32 Chronic diastolic (congestive) heart failure (principal)

== ENCOUNTER → 2024-01-10 | Outpatient (CLI) | payer OTHER | LOC: M WHC 17:02 | PROVIDERS: ATTEND Family Medicine | DX: Z12.31 Encounter for screening mammogram for malignant neoplasm of breast (principal) ==

== ENCOUNTER → 2024-01-18 | Outpatient (CLI) | payer OTHER ==
[~2024-01-18] MED LIST changes: +GABA-1172 PO; -GABA-282 PO
== END ==
LOC: M PLAIMG 08:10
PROVIDERS: ATTEND Family Medicine
DX: I77.810 Thoracic aortic ectasia (principal)

== ENCOUNTER → 2024-03-02 | Outpatient (CLI) | payer OTHER ==
[~2024-03-02] MED LIST changes: +FLUT1BLS8 INH; +NYST1POW3 TOP; -NYST1POW9 TOP; +VITA500075 PO
[2024-03-02 10:52] LABS: BASO # 0.1 10^3/uL (0.0-0.2); BASO % 1.6 % (0.0-1.0); EOS # 0.2 10^3/uL (0.0-0.5); EOS % 4.4 % (0.0-3.0); HEMATOCRIT 27.4 % (36.0-47.0); HEMOGLOBIN 7.3 g/dl (12.0-15.5); LYMPH # 1.2 10^3/uL (1.5-5.0); LYMPH % 23.1 % (24.0-44.0); MEAN CORPUSCULAR HEMOGLOBIN 23.2 pg (27.0-33.0); MEAN CORPUSCULAR HGB CONC 26.6 g/dl (32.0-36.5); MONO # 0.6 10^3/uL (0.0-0.8); MONO % 11.9 % (2.0-8.0); NEUTROPHILS # 2.9 10^3/uL (1.5-8.5); RED BLOOD COUNT 3.15 10^6/uL (4.00-5.40)
[2024-03-02 10:58] LABS: ALBUMIN 3.3 G/DL (3.2-5.2); ALKALINE PHOSPHATASE 80 U/L (35-104); ALT/SGPT 39 U/L (7.0-40); AST/SGOT 39 U/L (<34); BILIRUBIN,TOTAL 0.3 MG/DL (0.3-1.2); BLOOD UREA NITROGEN 16 MG/DL (9-23); CALCIUM LEVEL 9.6 MG/DL (8.3-10.6); CARBON DIOXIDE LEVEL 25 MMOL/L (20-31); CHLORIDE LEVEL 105 MMOL/L (98-107); CHOLESTEROL LEVEL 151 MG/DL (<200); CHOLESTEROL RISK RATIO 3.24 (<5); CREATININE FOR GFR 0.61 MG/DL (0.55-1.30); GLOMERULAR FILTRATION RATE > 60.0 (>45); GLUCOSE, FASTING 168 MG/DL (74-106); HDL CHOLESTEROL 46.6 MG/DL (>40); NON-HDL-C 104.4 MG/DL; POTASSIUM SERUM 4.5 MMOL/L (3.5-5.1); SODIUM LEVEL 138 MMOL/L (136-145); TOTAL PROTEIN 6.8 G/DL (5.7-8.2); TRIGLYCERIDES LEVEL 122 MG/DL (<150)
[2024-03-02 11:00] LABS: FERRITIN 6.7 NG/ML (7.3-270.7)
[2024-03-02 11:01] LABS: VITAMIN B12 LEVEL 577 PG/ML (211-911)
[2024-03-02 11:15] LABS: HEMOGLOBIN A1c 6.4 % (4.0-6.0)
== END ==
LOC: M PLALAB 08:44
PROVIDERS: ATTEND Family Medicine
DX: I10 Essential (primary) hypertension (principal)

== ENCOUNTER 2024-03-03 11:57 | Emergency (ER) | payer OTHER ==
[2024-03-03] VITALS (8 sets, daily range): BP systolic 148–190; BP diastolic 62–76; TEMP 97.1–97.7; O2SAT 97–100
[~2024-03-03] VITALS: Ht 162.6 cm; Wt 95.6 kg
[~2024-03-03 11:57] MED LIST changes: -FLUT1BLS8 INH; -LEVA1.2519 INH; +LEVA1.2526 INH; -VITA500075 PO
[2024-03-03 13:06] LABS: BASO # 0.1 10^3/uL (0.0-0.2); BASO % 1.3 % (0.0-1.0); EOS # 0.1 10^3/uL (0.0-0.5); EOS % 1.9 % (0.0-3.0); HEMATOCRIT 25.2 % (36.0-47.0); HEMOGLOBIN 7.6 g/dl (12.0-15.5); LYMPH # 1.1 10^3/uL (1.5-5.0); LYMPH % 14.9 % (24.0-44.0); MEAN CORPUSCULAR HEMOGLOBIN 23.8 pg (27.0-33.0); MEAN CORPUSCULAR HGB CONC 30.2 g/dl (32.0-36.5); MEAN CORPUSCULAR VOLUME 78.8 fl (80.0-96.0); MONO # 0.7 10^3/uL (0.0-0.8); MONO % 9.4 % (2.0-8.0); NEUTROPHILS # 5.5 10^3/uL (1.5-8.5); NEUTROPHILS % 72.2 % (36.0-66.0); PLATELET COUNT, AUTOMATED 301 10^3/uL (150-450); WHITE BLOOD COUNT 7.6 10^3/uL (4.0-10.0)
[2024-03-03 13:18] LABS: INR 1.15; PARTIAL THROMBOPLASTIN TIME 29.7 SECONDS (24.8-34.2)
[2024-03-03] MEDS: PANTOPRAZOLE 40MG VIAL IV ONE (13:32)
[2024-03-03 13:44] LABS: CPK CREATINE PHOSPHOKINASE 51 U/L (34-145)
[2024-03-03 13:59] LABS: ALBUMIN 3.5 G/DL (3.2-5.2); ALKALINE PHOSPHATASE 86 U/L (35-104); ALT/SGPT 45 U/L (7.0-40); AST/SGOT 58 U/L (<34); BILIRUBIN,DIRECT 0.1 MG/DL (<0.4); BILIRUBIN,TOTAL 0.3 MG/DL (0.3-1.2); BLOOD UREA NITROGEN 15 MG/DL (9-23); CALCIUM LEVEL 9.7 MG/DL (8.3-10.6); CARBON DIOXIDE LEVEL 25 MMOL/L (20-31); CHLORIDE LEVEL 100 MMOL/L (98-107); CK-MB VALUE MASS < 1.0 NG/ML (<3.6); CREATININE FOR GFR 0.63 MG/DL (0.55-1.30); GLOMERULAR FILTRATION RATE > 60.0 (>45); GLUCOSE, FASTING 154 MG/DL (74-106); MB/CK RELATIVE INDEX 1.96 (< OR =4); POTASSIUM SERUM 4.5 MMOL/L (3.5-5.1); SODIUM LEVEL 134 MMOL/L (136-145); TOTAL PROTEIN 7.4 G/DL (5.7-8.2)
[2024-03-03] MEDS ORDERED: VITA500075 PO (14:18)
[2024-03-03] MEDS ORDERED: FLUT1BLS8 INH (14:18)
[2024-03-03] MEDS ORDERED: MONT10TA97 PO (14:18)
[2024-03-03] MEDS ORDERED: HOME MED LIST COMPLETE! XX SCH (14:20)
== END 2024-03-03 19:08 | disposition left against medical advice (07) ==
LOC: M ED 11:57
DX: K92.2 Gastrointestinal hemorrhage, unspecified (principal); D64.9 Anemia, unspecified; Z53.20 Procedure and treatment not carried out because of patient's decision for unspecified reasons; Z88.8 Allergy status to other drugs, medicaments and biological substances; I48.91 Unspecified atrial fibrillation; I25.10 Atherosclerotic heart disease of native coronary artery without angina pectoris; E11.9 Type 2 diabetes mellitus without complications; I10 Essential (primary) hypertension; E78.5 Hyperlipidemia, unspecified; E03.9 Hypothyroidism, unspecified; Z79.01 Long term (current) use of anticoagulants; Z79.899 Other long term (current) drug therapy; R94.31 Abnormal electrocardiogram [ECG] [EKG]
CPT/HCPCS: 36430; 71046; 80048; 80076; 82550; 82553; 84484; 85025; 85610; 85730; 86850; 86900; 86901; 86920; 93005; 96374; 99285; J2470; P9016

== ENCOUNTER 2024-03-29 08:05 | Outpatient (CLI) | payer OTHER ==
[~2024-03-29] VITALS: Ht 162.6 cm; Wt 94.1 kg
[~2024-03-29 08:05] MED LIST changes: +ALBUTEROL SULFATE 2.5MG/0.5ML INH NEB SOLN INH PRN; +EPINEPHrine INJ 1 MG/ML 1ML AMP IM PRN; +FLUT1BLS8 INH; +VITA500075 PO; +diphenhydrAMINE 50MG/ML VIAL IV PRN; +methylPREDNISolone 125MG 2ML VIAL IV PRN
[2024-03-29 08:15] VITALS: BP 164/70; O2SAT 98
[2024-03-29] MEDS: IRON SUCROSE 500 MG in NS 250 ML OVER 4 HRS IV ONE (09:14)
[2024-03-29 10:00] VITALS: BP 158/71; O2SAT 97
[2024-03-29 12:00] VITALS: BP 160/71; O2SAT 100
[2024-03-29 13:20] VITALS: BP 162/69; O2SAT 100
== END 2024-03-29 13:35 | disposition home or self-care (01) ==
LOC: M INFU 08:05
PROVIDERS: ATTEND Family Medicine
DX: D50.9 Iron deficiency anemia, unspecified (principal); Z88.8 Allergy status to other drugs, medicaments and biological substances
CPT/HCPCS: 96365; 96366; J1756

== ENCOUNTER → 2024-03-30 | Outpatient (CLI) | payer OTHER ==
[~2024-03-30] MED LIST changes: -ALBUTEROL SULFATE 2.5MG/0.5ML INH NEB SOLN INH PRN; -EPINEPHrine INJ 1 MG/ML 1ML AMP IM PRN; -diphenhydrAMINE 50MG/ML VIAL IV PRN; -methylPREDNISolone 125MG 2ML VIAL IV PRN
[2024-03-30 15:06] LABS: BASO # 0.1 10^3/uL (0.0-0.2); BASO % 0.9 % (0.0-1.0); EOS # 0.2 10^3/uL (0.0-0.5); EOS % 1.9 % (0.0-3.0); HEMATOCRIT 27.7 % (36.0-47.0); HEMOGLOBIN 8.2 g/dl (12.0-15.5); LYMPH # 1.3 10^3/uL (1.5-5.0); LYMPH % 15.3 % (24.0-44.0); MEAN CORPUSCULAR HEMOGLOBIN 24.5 pg (27.0-33.0); MEAN CORPUSCULAR HGB CONC 29.6 g/dl (32.0-36.5); MEAN CORPUSCULAR VOLUME 82.7 fl (80.0-96.0); MONO # 0.8 10^3/uL (0.0-0.8); MONO % 8.8 % (2.0-8.0); NEUTROPHILS # 6.2 10^3/uL (1.5-8.5); NEUTROPHILS % 71.9 % (36.0-66.0); PLATELET COUNT, AUTOMATED 285 10^3/uL (150-450); RED BLOOD COUNT 3.35 10^6/uL (4.00-5.40); WHITE BLOOD COUNT 8.6 10^3/uL (4.0-10.0)
== END ==
LOC: M PLALAB 13:05
PROVIDERS: ATTEND Family Medicine
DX: D50.9 Iron deficiency anemia, unspecified (principal)

== ENCOUNTER → 2024-04-08 | Outpatient (CLI) | payer OTHER | LOC: M LAB 15:06 | PROVIDERS: ATTEND Student in an Organized Health Care Education/Training Program | DX: D50.9 Iron deficiency anemia, unspecified (principal) ==

== ENCOUNTER 2024-04-09 08:00 | Outpatient (CLI) | payer OTHER ==
[~2024-04-09] VITALS: Ht 162.6 cm; Wt 90.4 kg
[2024-04-09 08:05] VITALS: BP 153/68; O2SAT 98
[2024-04-09 10:00] VITALS: BP 180/88; TEMP 97.8; O2SAT 97
[2024-04-09 11:00] VITALS: BP 170/60; TEMP 98; O2SAT 98
[2024-04-09] MEDS: FUROSEMIDE 40MG/4ML VIAL IV ONE (11:14)
[2024-04-09 12:20] VITALS: BP 168/66; TEMP 98; O2SAT 98
[2024-04-09 14:00] VITALS: BP 150/80; O2SAT 96
== END 2024-04-09 14:00 ==
LOC: M INFU 08:00
PROVIDERS: ATTEND Student in an Organized Health Care Education/Training Program
DX: D50.9 Iron deficiency anemia, unspecified (principal); Z88.8 Allergy status to other drugs, medicaments and biological substances
CPT/HCPCS: 36430; J1940; P9016

== ENCOUNTER 2024-04-17 10:58 | Day surgery (SDC) | payer OTHER ==
[~2024-04-17] VITALS: Ht 162.6 cm; Wt 91.2 kg
[~2024-04-17 10:58] MED LIST changes: +LIDOCAINE 2% 100MG/5ML SDV (FOR ANES.) As Ordered ONE; +fentaNYL 100 MCG/2 ML INJECTION As Ordered ONE; +propofoL 200 MG/20 ML VIAL As Ordered ONE
[2024-04-17] MEDS ORDERED: ePHEDrine SULFATE 25 MG/5 ML(5MG/ML) SYRINGE As Ordered ONE (12:19)
[2024-04-17 13:01] VITALS: BP 122/57; TEMP 97.1; O2SAT 95
== END 2024-04-17 13:03 | disposition home or self-care (01) ==
LOC: M OPP 10:58
PROVIDERS: ATTEND Internal Medicine Gastroenterology
DX: D12.5 Benign neoplasm of sigmoid colon (principal); D50.0 Iron deficiency anemia secondary to blood loss (chronic); K57.30 Diverticulosis of large intestine without perforation or abscess without bleeding; K64.8 Other hemorrhoids; Z98.84 Bariatric surgery status; G47.30 Sleep apnea, unspecified; Z88.8 Allergy status to other drugs, medicaments and biological substances; Z79.51 Long term (current) use of inhaled steroids; Z79.01 Long term (current) use of anticoagulants; Z79.84 Long term (current) use of oral hypoglycemic drugs; Z79.52 Long term (current) use of systemic steroids; Z79.899 Other long term (current) drug therapy
CPT/HCPCS: 43235; 45385; 88305; J3010

== ENCOUNTER 2024-04-23 07:29 | Outpatient (CLI) | payer OTHER ==
[~2024-04-23] VITALS: Ht 162.6 cm; Wt 92.3 kg
[~2024-04-23 07:29] MED LIST changes: +ALBUTEROL SULFATE 2.5MG/0.5ML INH NEB SOLN INH PRN; +EPINEPHrine INJ 1 MG/ML 1ML AMP IM PRN; +diphenhydrAMINE 50MG/ML VIAL IV PRN; +methylPREDNISolone 125MG 2ML VIAL IV PRN
[2024-04-23 07:30] VITALS: BP 128/60; O2SAT 98
[2024-04-23] MEDS: IRON SUCROSE 500 MG in NS 250 ML OVER 4 HRS IV ONE (08:17)
[2024-04-23 09:00] VITALS: BP 147/89; O2SAT 100
[2024-04-23 10:00] VITALS: BP 138/61; O2SAT 97
[2024-04-23 11:00] VITALS: BP 151/70; O2SAT 96
[2024-04-23 12:30] VITALS: BP 154/70; O2SAT 94
== END 2024-04-23 12:30 ==
LOC: M INFU 07:29
PROVIDERS: ATTEND Family Medicine
DX: D50.9 Iron deficiency anemia, unspecified (principal); Z88.8 Allergy status to other drugs, medicaments and biological substances
CPT/HCPCS: 96365; 96366; J1756

== ENCOUNTER → 2024-04-23 | Outpatient (CLI) | payer OTHER ==
[~2024-04-23] MED LIST changes: -LIDOCAINE 2% 100MG/5ML SDV (FOR ANES.) As Ordered ONE; -fentaNYL 100 MCG/2 ML INJECTION As Ordered ONE; -propofoL 200 MG/20 ML VIAL As Ordered ONE
[2024-04-23 15:24] LABS: BASO # 0.1 10^3/uL (0.0-0.2); BASO % 1.9 % (0.0-1.0); EOS # 0.3 10^3/uL (0.0-0.5); EOS % 4.2 % (0.0-3.0); HEMATOCRIT 35.7 % (36.0-47.0); HEMOGLOBIN 10.9 g/dl (12.0-15.5); LYMPH # 1.6 10^3/uL (1.5-5.0); LYMPH % 25.2 % (24.0-44.0); MEAN CORPUSCULAR HEMOGLOBIN 26.2 pg (27.0-33.0); MEAN CORPUSCULAR HGB CONC 30.5 g/dl (32.0-36.5); MEAN CORPUSCULAR VOLUME 85.8 fl (80.0-96.0); MONO # 0.8 10^3/uL (0.0-0.8); MONO % 12.4 % (2.0-8.0); NEUTROPHILS # 3.6 10^3/uL (1.5-8.5); PLATELET COUNT, AUTOMATED 308 10^3/uL (150-450); RED BLOOD COUNT 4.16 10^6/uL (4.00-5.40); WHITE BLOOD COUNT 6.5 10^3/uL (4.0-10.0)
[2024-04-23 15:57] LABS: ALBUMIN 3.7 G/DL (3.2-5.2); ALKALINE PHOSPHATASE 78 U/L (35-104); ALT/SGPT 69 U/L (7.0-40); AST/SGOT 47 U/L (<34); BILIRUBIN,TOTAL 0.3 MG/DL (0.3-1.2); BLOOD UREA NITROGEN 13 MG/DL (9-23); CALCIUM LEVEL 9.4 MG/DL (8.3-10.6); CARBON DIOXIDE LEVEL 26 MMOL/L (20-31); CHLORIDE LEVEL 100 MMOL/L (98-107); CREATININE FOR GFR 0.73 MG/DL (0.55-1.30); GLOMERULAR FILTRATION RATE > 60.0 (>45); GLUCOSE, FASTING 138 MG/DL (74-106); POTASSIUM SERUM 4.8 MMOL/L (3.5-5.1); SODIUM LEVEL 135 MMOL/L (136-145); TOTAL PROTEIN 7.1 G/DL (5.7-8.2)
[2024-04-23 15:59] LABS: FERRITIN 92.8 NG/ML (7.3-270.7)
== END ==
LOC: M PLALAB 13:17
PROVIDERS: ATTEND Family Medicine
DX: D50.9 Iron deficiency anemia, unspecified (principal)

== ENCOUNTER 2024-05-07 08:05 | Outpatient (CLI) | payer OTHER ==
[~2024-05-07] VITALS: Ht 162.6 cm; Wt 91.4 kg
[2024-05-07 08:10] VITALS: BP 150/69; O2SAT 98
[2024-05-07] MEDS: IRON SUCROSE 500 MG in NS 250 ML OVER 4 HRS IV ONE (08:47)
[2024-05-07 09:45] VITALS: BP 144/70; O2SAT 98
[2024-05-07 10:45] VITALS: BP 158/69; O2SAT 97
[2024-05-07 11:45] VITALS: BP 151/66; O2SAT 97
[2024-05-07 12:45] VITALS: BP 147/69; O2SAT 96
== END 2024-05-07 12:48 ==
LOC: M INFU 08:05
PROVIDERS: ATTEND Family Medicine
DX: D50.9 Iron deficiency anemia, unspecified (principal); Z88.8 Allergy status to other drugs, medicaments and biological substances
CPT/HCPCS: 96365; 96366; J1756

== ENCOUNTER → 2024-06-06 | Outpatient (CLI) | payer OTHER ==
[~2024-06-06] MED LIST changes: -ALBUTEROL SULFATE 2.5MG/0.5ML INH NEB SOLN INH PRN; -EPINEPHrine INJ 1 MG/ML 1ML AMP IM PRN; -diphenhydrAMINE 50MG/ML VIAL IV PRN; -methylPREDNISolone 125MG 2ML VIAL IV PRN
[2024-06-06 09:57] LABS: BASO # 0.1 10^3/uL (0.0-0.2); BASO % 0.7 % (0.0-1.0); EOS # 0.4 10^3/uL (0.0-0.5); EOS % 4.4 % (0.0-3.0); HEMATOCRIT 39.7 % (36.0-47.0); HEMOGLOBIN 12.8 g/dl (12.0-15.5); LYMPH # 1.5 10^3/uL (1.5-5.0); MEAN CORPUSCULAR HEMOGLOBIN 28.6 pg (27.0-33.0); MEAN CORPUSCULAR HGB CONC 32.2 g/dl (32.0-36.5); MEAN CORPUSCULAR VOLUME 88.8 fl (80.0-96.0); MONO # 0.7 10^3/uL (0.0-0.8); MONO % 7.1 % (2.0-8.0); NEUTROPHILS # 6.9 10^3/uL (1.5-8.5); NEUTROPHILS % 71.2 % (36.0-66.0); PLATELET COUNT, AUTOMATED 334 10^3/uL (150-450); RED BLOOD COUNT 4.47 10^6/uL (4.00-5.40); WHITE BLOOD COUNT 9.6 10^3/uL (4.0-10.0)
== END ==
LOC: M PLALAB 08:10
PROVIDERS: ATTEND Family Medicine
DX: D50.9 Iron deficiency anemia, unspecified (principal)

== ENCOUNTER → 2024-07-31 | Outpatient (CLI) | payer OTHER ==
[2024-07-31 19:12] LABS: BASO # 0.1 10^3/uL (0.0-0.2); BASO % 0.9 % (0.0-1.0); EOS # 0.4 10^3/uL (0.0-0.5); EOS % 4.3 % (0.0-3.0); FERRITIN 228.5 NG/ML (7.3-270.7); HEMATOCRIT 38.7 % (36.0-47.0); HEMOGLOBIN 12.7 g/dl (12.0-15.5); LYMPH # 2.2 10^3/uL (1.5-5.0); LYMPH % 22.4 % (24.0-44.0); MEAN CORPUSCULAR HEMOGLOBIN 30.9 pg (27.0-33.0); MEAN CORPUSCULAR HGB CONC 32.8 g/dl (32.0-36.5); MEAN CORPUSCULAR VOLUME 94.2 fl (80.0-96.0); MONO # 0.6 10^3/uL (0.0-0.8); MONO % 6.6 % (2.0-8.0); NEUTROPHILS # 6.3 10^3/uL (1.5-8.5); NEUTROPHILS % 65.3 % (36.0-66.0); PLATELET COUNT, AUTOMATED 316 10^3/uL (150-450); RED BLOOD COUNT 4.11 10^6/uL (4.00-5.40); WHITE BLOOD COUNT 9.7 10^3/uL (4.0-10.0)
[2024-07-31 19:15] LABS: ALBUMIN 3.7 G/DL (3.2-5.2); ALKALINE PHOSPHATASE 80 U/L (35-104); ALT/SGPT 51 U/L (7.0-40); AST/SGOT 75 U/L (<34); BILIRUBIN,TOTAL 0.6 MG/DL (0.3-1.2); BLOOD UREA NITROGEN 12 MG/DL (9-23); CALCIUM LEVEL 10.2 MG/DL (8.3-10.6); CARBON DIOXIDE LEVEL 29 MMOL/L (20-31); CHLORIDE LEVEL 100 MMOL/L (98-107); CHOLESTEROL LEVEL 176 MG/DL (<200); CHOLESTEROL RISK RATIO 6.11 (<5); CREATININE FOR GFR 0.71 MG/DL (0.55-1.30); GLOMERULAR FILTRATION RATE > 90.0 (>45); GLUCOSE, FASTING 217 MG/DL (74-106); HDL CHOLESTEROL 28.8 MG/DL (>40); MAGNESIUM LEVEL 1.5 MG/DL (1.8-2.4); NON-HDL-C 147.2 MG/DL; POTASSIUM SERUM 4.6 MMOL/L (3.5-5.1); SODIUM LEVEL 139 MMOL/L (136-145); TOTAL PROTEIN 7.1 G/DL (5.7-8.2); TRIGLYCERIDES LEVEL 256 MG/DL (<150)
[2024-07-31 19:24] LABS: HEMOGLOBIN A1c 8.6 % (4.0-6.0)
== END ==
LOC: M PLALAB 14:38
PROVIDERS: ATTEND Family Medicine
DX: E78.5 Hyperlipidemia, unspecified (principal)

== ENCOUNTER → 2024-08-02 | Outpatient (CLI) | payer OTHER ==
[~2024-08-02] MED LIST changes: +ISOS-18 PO; -ISOS30TAB PO
== END ==
LOC: M PLAIMG 11:46
PROVIDERS: ATTEND Family Medicine
DX: M70.61 Trochanteric bursitis, right hip (principal)

== ENCOUNTER → 2024-08-30 | Outpatient (CLI) | payer OTHER | LOC: M PLARAD 12:58 | PROVIDERS: ATTEND Family Medicine | DX: M47.815 Spondylosis without myelopathy or radiculopathy, thoracolumbar region (principal); M51.26 Other intervertebral disc displacement, lumbar region; M25.78 Osteophyte, vertebrae; M48.061 Spinal stenosis, lumbar region without neurogenic claudication ==

== ENCOUNTER → 2024-11-29 | Outpatient (CLI) | payer OTHER ==
[2024-11-29 11:24] LABS: BASO # 0.1 10^3/uL (0.0-0.2); BASO % 0.7 % (0.0-1.0); EOS # 0.2 10^3/uL (0.0-0.5); EOS % 2.5 % (0.0-3.0); LYMPH # 1.7 10^3/uL (1.5-5.0); LYMPH % 18.4 % (24.0-44.0); MONO # 0.5 10^3/uL (0.0-0.8); MONO % 5.3 % (2.0-8.0); NEUTROPHILS # 6.9 10^3/uL (1.5-8.5); NEUTROPHILS % 72.8 % (36.0-66.0); PLATELET COUNT, AUTOMATED 372 10^3/uL (150-450)
[2024-11-29 11:37] LABS: INR 1.03
[2024-11-29 11:55] LABS: CPK CREATINE PHOSPHOKINASE 33 U/L (34-145)
[2024-11-29 12:34] LABS: ALT/SGPT 27 U/L (7.0-40); AST/SGOT 21 U/L (<34); CALCIUM LEVEL 9.5 MG/DL (8.3-10.6); CARBON DIOXIDE LEVEL 28 MMOL/L (20-31); CHLORIDE LEVEL 101 MMOL/L (98-107); CHOLESTEROL LEVEL 92 MG/DL (<200); CHOLESTEROL RISK RATIO 3.27 (<5); CREATININE FOR GFR 0.82 MG/DL (0.55-1.30); GLOMERULAR FILTRATION RATE 80.3 (>45); LDL CHOLESTEROL 37.9 MG/DL (<100); MAGNESIUM LEVEL 1.7 MG/DL (1.8-2.4); NON-HDL-C 63.9 MG/DL; POTASSIUM SERUM 3.7 MMOL/L (3.5-5.1); SODIUM LEVEL 142 MMOL/L (136-145); TRIGLYCERIDES LEVEL 130 MG/DL (<150)
[2024-11-29 12:38] LABS: FREE T4 0.94 NG/DL (0.89-1.76)
[2024-11-29 12:39] LABS: TOTAL 25(OH) VITAMIN D 59.5 NG/ML (20.0-100.0)
[2024-11-29 13:13] LABS: PTH INTACT 25.8 PG/ML (18.5-88.0)
== END ==
LOC: M LAB 10:05
PROVIDERS: ATTEND Family Medicine
DX: D50.9 Iron deficiency anemia, unspecified (principal); E78.5 Hyperlipidemia, unspecified; E55.9 Vitamin D deficiency, unspecified; K74.00 Hepatic fibrosis, unspecified; I50.32 Chronic diastolic (congestive) heart failure

== ENCOUNTER → 2025-02-11 | Outpatient (CLI) | payer OTHER ==
[~2025-02-11] MED LIST changes: +ZOLP10TA11 PO; -ZOLP10TA2 PO
== END ==
LOC: M WHC 10:01
PROVIDERS: ATTEND Advanced Practice Midwife
DX: Z12.31 Encounter for screening mammogram for malignant neoplasm of breast (principal); Z53.9 Procedure and treatment not carried out, unspecified reason

== ENCOUNTER → 2025-02-12 | Outpatient (REF) | payer OTHER | LOC: M SFHCWAGY 12:57 | PROVIDERS: ATTEND Advanced Practice Midwife | DX: Z12.4 Encounter for screening for malignant neoplasm of cervix (principal) ==

== ENCOUNTER → 2025-02-13 | Outpatient (CLI) | payer OTHER | LOC: M WHC 10:05 | PROVIDERS: ATTEND Advanced Practice Midwife | DX: Z12.31 Encounter for screening mammogram for malignant neoplasm of breast (principal) ==

== ENCOUNTER → 2025-03-11 | Outpatient (CLI) | payer OTHER ==
[2025-03-11 12:50] LABS: BASO # 0.1 10^3/uL (0.0-0.2); BASO % 1.0 % (0.0-1.0); EOS # 0.4 10^3/uL (0.0-0.5); EOS % 4.0 % (0.0-3.0); LYMPH # 2.1 10^3/uL (1.5-5.0); LYMPH % 24.2 % (24.0-44.0); MONO # 0.5 10^3/uL (0.0-0.8); MONO % 5.5 % (2.0-8.0); NEUTROPHILS # 5.8 10^3/uL (1.5-8.5); NEUTROPHILS % 65.1 % (36.0-66.0); PLATELET COUNT, AUTOMATED 320 10^3/uL (150-450)
[2025-03-11 13:11] LABS: INR 0.95
[2025-03-11 13:16] LABS: ESTIMATED AVERAGE GLUCOSE 117.0 MG/DL (60-110)
[2025-03-11 13:28] LABS: CPK CREATINE PHOSPHOKINASE 46 U/L (34-145)
[2025-03-11 13:36] LABS: ALT/SGPT 29 U/L (7.0-40); AST/SGOT 23 U/L (<34); CALCIUM LEVEL 9.4 MG/DL (8.3-10.6); CARBON DIOXIDE LEVEL 27 MMOL/L (20-31); CHLORIDE LEVEL 106 MMOL/L (98-107); CHOLESTEROL LEVEL 100 MG/DL (<200); CHOLESTEROL RISK RATIO 3.19 (<5); CREATININE FOR GFR 0.84 MG/DL (0.55-1.30); FREE T4 0.83 NG/DL (0.89-1.76); GLOMERULAR FILTRATION RATE 78.0 (>45); LDL CHOLESTEROL 50.3 MG/DL (<100); MAGNESIUM LEVEL 1.8 MG/DL (1.8-2.4); NON-HDL-C 68.7 MG/DL; POTASSIUM SERUM 3.9 MMOL/L (3.5-5.1); PTH INTACT 39.6 PG/ML (18.5-88.0); SODIUM LEVEL 142 MMOL/L (136-145); TOTAL 25(OH) VITAMIN D 84.6 NG/ML (20.0-100.0); TRIGLYCERIDES LEVEL 92 MG/DL (<150)
== END ==
LOC: M PLALAB 11:25
PROVIDERS: ATTEND Family Medicine
DX: D50.9 Iron deficiency anemia, unspecified (principal); E78.5 Hyperlipidemia, unspecified; K74.00 Hepatic fibrosis, unspecified; E55.9 Vitamin D deficiency, unspecified; I50.32 Chronic diastolic (congestive) heart failure